=== PATIENT | male | born 1935 | race Caucasian/White ===

== ENCOUNTER 2021-08-18 07:13 | Emergency (ER) | payer OTHER ==
[2021-08-18 07:46] LABS: Absolute Lymphocytes (CBC) 2.1 K/uL (0.7-4.9); Hematocrit 35.6 % (39.6-49.0); Lymphocytes % 20.7 % (15.3-44.8); MPV 9.6 fL (7.6-11.3); RBC Red Blood Cell Count 3.47 M/uL (4.33-5.43)
[2021-08-18 08:08] LABS: Potassium 4.3 mmol/L (3.5-5.1); Troponin High Sensitivity 6.8 pg/mL (<58.9)
[2021-08-18] MEDS ORDERED: ALBUTEROL 2.5 MG/3 ML NEB SOL ONE (08:16)
[2021-08-18] MEDS ORDERED: METHYLPREDNISOLONE 125 MG INJ ONE (08:16)
[2021-08-18] MEDS ORDERED: IPRATROPIUM BROM 0.5MG/2.5ML ONE (08:16)
--- NOTE | 2021-08-18 08:26 | RAD REPORT ---
EXAM DESCRIPTION: RAD - Chest Single View - 08/18/2021 7:50 am CLINICAL HISTORY: CHEST PAIN, shortness of breath COMPARISON: Two view chest December 2018 TECHNIQUE: AP portable chest image was obtained 08/18/2021 7:50 am . FINDINGS: Lung volumes are low accentuating the heart size, vasculature and lung markings. No focal consolidations seen. Mild failure or volume overload could be masked in this setting. No measurable p leural effusion and no pneumothorax. No acute bony abnormality seen. No acute aortic findings suspect ed. IMPRESSION: Limited portable study showing cardiac enlargement, vascular engorgement and prominent l ruth markings probably due to the low lung volumes. Mild failure or volume overload could be masked and need correlation with clinical presentation.
--- NOTE | 2021-08-18 09:46 | EDPHYS ---
Physician Documentation [facility] Name: Moncho Braun Age: 86 yrs Sex: Male : 1935 Arrival Date: 08/18/2021 Time: 07:13 Bed 20 Private MD: ED Physician Tanya Quarles HPI: 08/18 07:37 This 86 yrs old Male presents to ER via Wheelchair with complaints of Chest Pain. ma2 07:37 Onset: gradually, 1 day(s) ago. Associated signs and symptoms: Pertinent positives: ma2 cough, Pertinent negatives: cough, lower extremity pain, lightheadedness, nausea, syncope, vomiting. Severity of pain: At its worst the pain was moderate in the emergency department the pain is unchanged. Historical: - Allergies: 07:24 No Known Allergies; iw - PMHx: 07:24 seasonal allergies; iw - PSHx: 07:24 milagros knee; rotator cuff; iw - Immunization history:: Adult Immunizations up to date. - Social history:: Patient/guardian denies using alcohol, street drugs, The patient lives with family, Smoking status: Patient denies any tobacco usage or history of. - Family history:: not pertinent. ROS: 07:37 Constitutional: Negative for fever, chills, and weight loss. ma2 07:37 All other systems are negative. Exam: 07:37 Constitutional: This is a well developed, well nourished patient who is awake, alert, ma2 and in no acute distress. Head/Face: Normocephalic, atraumatic. Eyes: Pupils equal round and reactive to light, extra-ocular motions intact. Lids and lashes normal. Conjunctiva and sclera are non-icteric and not injected. Cornea within normal limits. Periorbital areas with no swelling, redness, or edema. ENT: Nares patent. No nasal discharge, no septal abnormalities noted. Tympanic membranes are normal and external auditory canals are clear. Oropharynx with no redness, swelling, or masses, exudates, or evidence of obstruction, uvula midline. Mucous membranes moist. Neck: Trachea midline, no thyromegaly or masses palpated, and no cervical lymphadenopathy. Supple, full range of motion without nuchal rigidity, or vertebral point tenderness. No Meningismus. Chest/axilla: Normal chest wall appearance and motion. Nontender with no deformity. No lesions are appreciated. Cardiovascular: Regular rate and rhythm with a normal S1 and S2. No gallops, murmurs, or rubs. Normal PMI, no JVD. No pulse deficits. Respiratory: Lungs have equal breath sounds bilaterally, clear to auscultation and percussion. No rales, rhonchi or wheezes noted. No increased work of breathing, no retractions or nasal flaring. Abdomen/GI: Soft, non-tender, with normal bowel sounds. No distension or tympany. No guarding or rebound. No evidence of tenderness throughout. Skin: Warm, dry with normal turgor. Normal color with no rashes, no lesions, and no evidence of cellulitis. MS/ Extremity: Pulses equal, no cyanosis. Neurovascular intact. Full, normal range of motion. Neuro: Awake and alert, GCS 15, oriented to person, place, time, and situation. Cranial nerves II-XII grossly intact. Motor strength 5/5 in all extremities. Sensory grossly intact. Cerebellar exam normal. Normal gait. Vital Signs: 07:22 BP 161 / 84; Pulse 89; Resp 22; Pulse Ox 95% on R/A; Weight 98.43 kg; iw 09:00 BP 141 / 73; Pulse 82; Resp 19; Pulse Ox 100% ; fierro MDM: 07:29 Patient medically screened. ma2 07:37 Differential diagnosis: abnormal EKG, anxiety, coronary artery disease chest wall pain, ma2 gastroesophageal reflux disease (GERD), stable angina. 09:44 Data reviewed: vital signs, nurses notes. Response to treatment: the patient's symptoms ma2 have markedly improved after treatment. ED course: Overall patient's symptoms improved, and the chest 86-year-old male, possibility of ACS still persist, and therefore I recommended admission I had lengthy discussion with the patient about the reason for observation for ACS rule out due to chest heaviness, patient insist that he does not want to be admitted, he would like to leave AMA and follow-up with center lead consultant in the next few days, I gave return precaution, patient is aware about the risk of leaving AMA that may include having MO or .. 08/18 07:19 Order name: Basic Metabolic Panel; Complete Time: ma2 08/18 07:19 Order name: CBC with Diff; Complete Time: :29 08/18 07:19 Order name: Magnesium; Complete Time: 09:29 08/18 07:19 Order name: NT PRO-BNP; Complete Time: 09:29 08/18 07:19 Order name: Troponin HS; Complete Time: 09:29 08/18 07:19 Order name: XRAY Chest (1 view); Complete Time: 09:29 08/18 07:19 Order name: EKG; Complete Time: 07:19 08/18 07:19 Order name: Cardiac monitoring; Complete Time: 07:40 08/18 07:19 Order name: EKG - Nurse/Tech; Complete Time: 07:40 08/18 07:19 Order name: IV Saline Lock; Complete Time: 07:40 08/18 07:19 Order name: Labs collected and sent; Complete Time: 07:40 08/18 07:19 Order name: O2 Per Protocol; Complete Time: 07:40 08/18 07:19 Order name: O2 Sat Monitoring; Complete Time: 07:40 ma2 Administered Medications: 08:18 Drug: Albuterol 10 mg Route: Inhalation; fierro 08:18 Drug: AtroVENT (ipratropium) Aerosol 0.5 mg Route: Inhalation; fierro 08:18 Drug: SOLU-Medrol (methylPrednisoLONE) 125 mg Route: IVP; Site: left antecubital; fierro 08:19 Follow up: Response: No adverse reaction fierro Disposition Summary: 08/18/21 09:45 Left Against Medical Advice Location: Home ma2 Problem: new ma2 Symptoms: are unchanged ma2 Condition: Stable ma2 Diagnosis - Chest pain, unspecified ma2 Followup: ma2 - With: Private Physician - When: Tomorrow - Reason: If symptoms return, Continuance of care Discharge Instructions: - Discharge Summary Sheet ma2 - Nonspecific Chest Pain, Adult ma2 Prescriptions: - ALBUTEROL INAHALERS - inhale 1 puff by INHALATION route 6 times per day; 100 puff; Refills: 0, ma2 Product Selection Permitted - Albuterol Sulfate 2.5 mg /3 mL (0.083 %) Inhalation Solution for Nebulization - inhale 1 unit by NEBULIZATION route every 8 hours As needed; 1 box; Refills: 0, ma2 Product Selection Permitted - Zithromax Z-Jose 250 mg Oral Tablet - take 1 tablet by ORAL route as directed for 5 days Day 1 - take two (2) tablets ma2 one time. Day 2, 3, 4 , 5 take one (1) tablet once daily.; 6 tablet; Refills: 0, Product Selection Permitted - Medrol (Jose) 4 mg Oral Tablets, Dose Pack - take 1 tablet by ORAL route as directed - follow package instructions; 1 ma2 packet; Refills: 0, Product Selection Permitted Signatures: Dispatcher [employer] Mahnaz Franco, Tanya Paige RN, MD MD ma2 Lorri Zimmerman RN RN fierro
--- NOTE | 2021-08-18 09:46 | ER ---
Nurse's Notes [facility] Name: Moncho Braun Age: 86 yrs Sex: Male : 1935 Arrival Date: 08/18/2021 Time: 07:13 Bed 20 Private MD: Diagnosis: Chest pain, unspecified Presentation: 08/18 07:22 Chief complaint: Patient states: chest pain and SOB since yesterday. Coronavirus iw screen: Client presents with at least one sign or symptom that may indicate coronavirus-19. Ebola Screen: Patient negative for fever greater than or equal to 101.5 degrees Fahrenheit, and additional compatible Ebola Virus Disease symptoms Patient denies exposure to infectious person. Patient denies travel to an Ebola-affected area in the 21 days before illness onset. No symptoms or risks identified at this time. Initial Sepsis Screen: Does the patient meet any 2 criteria? No. Patient's initial sepsis screen is negative. Does the patient have a suspected source of infection? No. Patient's initial sepsis screen is negative. Risk Assessment: Do you want to hurt yourself or someone else? Patient reports no desire to harm self or others. Onset of symptoms was August 18, 2021. 07:22 Method Of Arrival: Wheelchair iw 07:22 Acuity: ADDIE 3 iw Triage Assessment: 07:44 General: Appears in no apparent distress. Behavior is calm, cooperative. Pain: fierro Complains of pain in chest. Historical: - Allergies: 07:24 No Known Allergies; iw - PMHx: 07:24 seasonal allergies; iw - PSHx: 07:24 milagros knee; rotator cuff; iw - Immunization history:: Adult Immunizations up to date. - Social history:: Patient/guardian denies using alcohol, street drugs, The patient lives with family, Smoking status: Patient denies any tobacco usage or history of. - Family history:: not pertinent. Screenin:43 Abuse screen: Denies threats or abuse. Denies injuries from another. Nutritional fierro screening: No deficits noted. Tuberculosis screening: No symptoms or risk factors identified. Fall Risk None identified. Assessment: 07:43 Pain: Complains of pain in chest Pain does not radiate. Pain began suddenly. fierro Cardiovascular: Reports chest pain. Vital Signs: 07:22 BP 161 / 84; Pulse 89; Resp 22; Pulse Ox 95% on R/A; Weight 98.43 kg; iw 09:00 BP 141 / 73; Pulse 82; Resp 19; Pulse Ox 100% ; fierro ED Course: 07:13 Patient arrived in ED. rg4 07:18 Tanya Quarles MD is Attending Physician. ma2 07:24 Triage completed. iw 07:25 Lorri Zimmerman, HAI is Primary Nurse. fierro 07:25 Arm band placed on. iw 07:43 Patient has correct armband on for positive identification. lead printer on. Pulse fierro ox on. NIBP on. 07:43 No provider procedures requiring assistance completed. Inserted saline lock: 20 gauge fierro in left antecubital area, using aseptic technique. Patient maintains SpO2 saturation greater than 95% on room air. 07:52 XRAY Chest (1 view) In Process Unspecified. EDMS Administered Medications: 08:18 Drug: Albuterol 10 mg Route: Inhalation; fierro 08:18 Drug: AtroVENT (ipratropium) Aerosol 0.5 mg Route: Inhalation; fierro 08:18 Drug: SOLU-Medrol (methylPrednisoLONE) 125 mg Route: IVP; Site: left antecubital; fierro 08:19 Follow up: Response: No adverse reaction fierro Medication: 07:43 VIS not applicable for this client. fierro Outcome: 10:30 AMA AMA form signed fierro 10:30 Condition: good 10:30 Discharge instructions given to patient. 10:30 Patient left the ED. fierro Signatures: Dispatcher [employer] EDMS Mahnaz Durant RN RN iw Garcia, Rubi rg4 Tanya Quarles MD MD tx2 Lorri Zimmerman RN RN fierro
[2021-08-18 11:02] VITALS: BP 141/73; O2SAT 100
--- NOTE | 2021-08-21 12:00 | EKG ---
Test Date: 2021-08-18 Test Time: 07:18:40 Transliterator: ANEN MEASUREMENT RESULTS: Intervals: Rate: 86 GA: 238 QRSD: 76 QT: 348 QTc: 416 [place]: P: 57 GA: 238 QRS: -8 T: 13 INTERPRETIVE STATEMENTS: Sinus rhythm with 1st degree AV block with premature atrial complexes Anterior infarct, age undetermined Abnormal ECG Compared to ECG 08/18/2021 07:18:09 Atrial premature complex(es) now present Myocardial infarct finding still present Electronically Signed On 08-21-21 11:52:40 CDT by Nabeel Tinajero
--- NOTE | 2021-08-21 12:00 | EKG ---
Test Date: 2021-08-18 Test Time: 07:18:09 Rental Agent: ANNE MEASUREMENT RESULTS: Intervals: Rate: 88 ND: 226 QRSD: 80 QT: 356 QTc: 430 [place]: P: 60 ND: 226 QRS: -10 T: 8 INTERPRETIVE STATEMENTS: Sinus rhythm with 1st degree AV block Possible Anterior infarct, age undetermined Abnormal ECG No previous ECG available for comparison Electronically Signed On 08-21-21 11:52:41 CDT by Nabeel Tinajero
== END 2021-08-18 10:30 | disposition left against medical advice (07) ==
LOC: ER 07:13
DX: R07.9 Chest pain, unspecified (principal); R05.9 Cough, unspecified
CPT/HCPCS: 93005 ×2; 85025; 80048; 36415; 83735; 84484; 83880; 71045; 96374; 99285; J2930

== ENCOUNTER 2022-05-10 10:30 | Day surgery (SDC) | payer OTHER ==
[2022-05-08 11:15] LABS: Absolute Lymphocytes (CBC) 1.9 K/uL (0.7-4.9); Hematocrit 37.8 % (39.6-49.0); Lymphocytes % 22.9 % (15.3-44.8); MCV 102.5 fL (80-100); RBC Red Blood Cell Count 3.69 M/uL (4.33-5.43)
[2022-05-08 11:19] LABS: Protime INR 1.05
[2022-05-08 11:24] LABS: Potassium 4.6 mmol/L (3.5-5.1)
--- NOTE | 2022-05-08 11:39 | RAD REPORT ---
EXAM DESCRIPTION: Isaias Ludwig And Maciel (2 Views)05/08/2022 11:00 am CLINICAL HISTORY: Preop for cardiac catheterization COMPARISON: 2021 FINDINGS: The lungs appear clear of acute infiltrate. The heart is normal size IMPRESSION: No acute abnormalities displayed
[2022-05-10] MEDS ORDERED: NA CHLORIDE 0.9% 500 ML ONE (10:48)
[2022-05-10] MEDS ORDERED: FENTANYL CITR 100 MCG/2 ML ONE (11:56)
[2022-05-10] MEDS ORDERED: MIDAZOLAM HCL 2 MG/2 ML INJ ONE (11:56)
[2022-05-10] MEDS ORDERED: CLOPIDOGREL 75 MG TABLET ONE (11:57)
[2022-05-10] MEDS ORDERED: ASPIRIN 325 MG TAB ONE (11:57)
[2022-05-10] MEDS ORDERED: TICAGRELOR 90 MG TABLET PO ONE (11:57)
[2022-05-10] MEDS ORDERED: HEPARIN 10,000 UNIT/10 ML VIAL IV ONE (11:57)
[2022-05-10] MEDS ORDERED: HEPARIN 5000 UNIT/ML 1 ML VIAL ONE (11:57)
[2022-05-10] MEDS ORDERED: ATROPINE SULF 1 MG/10 ML SYR IV ONE (11:57)
[2022-05-10] MEDS ORDERED: VERAPAMIL HCL 10 MG/4 ML VIAL IV ONE (11:57)
[2022-05-10] MEDS ORDERED: LIDOCAINE 1% 20 ML MDV ONE (12:58)
[2022-05-10 14:06] LABS: SARS-CoV-2 Antigen Rapid Res Negative (Negative)
[2022-05-10 15:01] VITALS: BP 151/72; O2SAT 99
== END 2022-05-10 15:02 | disposition home or self-care (01) ==
LOC: CCL 10:30
PROVIDERS: ATTEND Internal Medicine
DX: I25.110 Atherosclerotic heart disease of native coronary artery with unstable angina pectoris (principal); N18.30 Chronic kidney disease, stage 3 unspecified; R03.0 Elevated blood-pressure reading, without diagnosis of hypertension; Z79.82 Long term (current) use of aspirin; Z79.899 Other long term (current) drug therapy; Z20.822 Contact with and (suspected) exposure to COVID-19
CPT/HCPCS: 85025; 80048; 36415 ×2; 85610; 85730; 71046; 93454; 87811; C1893; C1760; Q9967; G0269; J1644; J2001; J2250; J3010; J7040; J0461

== ENCOUNTER 2024-04-03 07:04 | Inpatient (IN) | payer OTHER ==
--- OUTSIDE RECORDS SUMMARY | 2024-04-03 07:12 | XMS REPORT | Continuity of Care Document ---
Author Name Unknown Address [address] [facility]. [address] [place] [address] [facility] thconnect Address [address] [facility]. [address] [place] [address] Care Team Providers Care Personal Investment Adviser Name Role Phone Katiana Garcia Attending Clinician Unavailable Katiana Garcia Admitting Clinician Unavailable Payers Payer Name Policy Type Policy Number Effective Date Expirati on Date Source Allergies, Adverse Reactions, Alerts Allergy Name Allergy Type Status Severity Reaction(s) Onset Date Inactive Date Treating Clinician Comments Source No Known Allergie s DA Active U 05-16 00:00: 00 [facility] No Known Contrast Allergie s DA Active U 03-24 00:00: 00 [facility] No Known Drug Allergie s DA Active U 03-24 00:00: 00 [facility] No Known Food Allergie s DA Active U 03-24 00:00: 00 [facility] No Known Other Allergie s DA Active U 03-24 00:00: 00 [facility] No Known Drug Intolera nces DA Active U 03-23 00:00: 00 [facility] Procedures Procedure Date / Time Performed Performing Clinicia n Source [id number] 2022-05-18 00:00:00 [facility]01 [facility] [id number] 2022-05-18 00:00:00 [facility]01 [facility] [id number] 2022-05-11 00:00:00 [facility]01 [facility] [id number] 2022-05-11 00:00:00 [facility]01 [facility] [id number] 2022-05-11 00:00:00 [facility]01 [facility] [id number] 2022-05-11 00:00:00 [facility]01 [facility] [id number] 2022-05-11 00:00:00 [facility]01 [facility] [id number] 2022-05-11 00:00:00 [facility]01 [facility] [id number] 2022-05-11 00:00:00 [facility]01 [facility] [id number] 2022-05-11 00:00:00 [facility]01 [facility] [id number] 2022-05-10 00:00:00 [facility]01 [facility] [id number] 2022-05-10 00:00:00 [facility]01 [facility] [id number] 2022-05-10 00:00:00 [facility]01 [facility] [id number] 2022-05-10 00:00:00 [facility]01 [facility] [id number] 2022-05-10 00:00:00 [facility]01 [facility] Encounters Start Date/Time End Date/Time Encounter Type Admission Type Attending Clinicians Care Facility Care Department Encounter ID Source 2022-05-10 16:28:00 2022-06-03 14:12:00 Inpatient UR Katiana Garcia [facility] INTE [id number] 90 [facility] Results Test Description Test Time Test Comments Results Result Co mments Source CBC W/AUTO [id number] 03:50:00* Test Item Value Reference Range Interpretation Comme nts WHITE BLOOD CELL (test code = WBC) 5.6 x10 3/uL 4.5-11.0 N RED BLOOD CELL (test code = RBC) 2.43 x10 6/uL 4.00-5.60 L HEMOGLOBIN (test code = HGB) 8.2 g/dL 12.5-16.9 L HEMATOCRIT (test code = HCT) 25.8 % 37.5-50.7 L MEAN CELL VOLUME (test code = MCV) 106.2 fL 81.0-99.0 H MEAN CELL HGB (test code = MCH) 33.7 pg 27.0-33.0 H MEAN CELL HGB CONCETRATION (test code = MCHC) 31.8 g/dL 33.0-37.0 L RED CELL DISTRIBUTION WIDTH CV (test code = RDW) 16.0 % 11.5-14.5 H RED CELL DISTRIBUTION WIDTH SD (test code = RDW-SD) 61.8 fL 37.0-54.0 H PLATELET COUNT (test code = PLT) 81 x10 3/uL 150-400 L SEE PLATELET ESTIMATEPreviously reported result: 81 x10\\S\\3/uLEdited by: BERNADETTE on 06/03/22:677960/04/26 347: PLT previously reported as: 81 L x10\\S\\3/uL MEAN PLATELET VOLUME (test code = MPV) 12.4 fL 7.0-9.0 H NEUTROPHIL % (test code = NT%) 70.6 % 56.0-77.0 N IMMATURE GRANULOCYTE % (test code = IG%) 0.9 % 0.0-2.0 N LYMPHOCYTE % (test code = LY%) 17.4 % 14.0-32.0 N MONOCYTE % (test code = MO%) 8.6 % 4.8-9.0 N EOSINOPHIL % (test code = EO%) 2.3 % 0.3-3.7 N BASOPHIL % (test code = BA%) 0.2 % 0.0-2.0 N NUCLEATED RBC % (test code = NRBC%) 0.0 % 0-0 N NEUTROPHIL # (test code = NT#) 3.94 x10 3/uL 2.0-7.6 N IMMATURE GRANULOCYTE # (test code = IG#) 0.05 x10 3/uL 0.00-0.03 H LYMPHOCYTE # (test code = LY#) 0.97 x10 3/uL 1.0-3.8 L MONOCYTE # (test code = MO#) 0.48 x10 3/uL 0.1-0.8 N EOSINOPHIL # (test code = EO#) 0.13 x10 3/uL 0.0-0.2 N BASOPHIL # (test code = BA#) 0.01 x10 3/uL 0.0-0.2 N NUCLEATED RBC # (test code = NRBC#) 0.00 x10 3/uL 0.0-0.1 N MANUAL DIFF REQUIRED (test code = MDIFF) NO RBC [id number] 03:50:00* Test Item Value Reference Range Interpretation Comme nts ANISOCYTOSIS (test code = ANISO) 1+ POLYCHROMASIA (test code = POLC) 2+ POIKILOCYTOSIS (test code = POIK) 1+ MACROCYTOSIS (test code = MACR) 1+ PLT [id number] 03:50:00* Test Item Value Reference Range Interpretation Comme nts PLATELET ESTIMATE (test code = PLTEST) 120-150 THOUSAND ADEQUATE PLATELET MORPHOLOGY (test code = PLTMORPH) PLATELET AGGREGATES SEEN. BASIC METABOLIC [id number] 03:14:00* Test Item Value Reference Range Interpretation Comme nts SODIUM (test code = NA) 143 mEq/L 134-147 N POTASSIUM (test code = K) 4.2 mEq/L 3.4-5.0 N CHLORIDE (test code = CL) 108 mEq/L 100-108 N CARBON DIOXIDE (test code = CO2) 29 mEq/l 21-33 N ANION GAP (test code = GAP) 10 0-20 N GLUCOSE (test code = GLU) 110 mg/dL 70-110 N BLOOD UREA NITROGEN (test code = BUN) 40 mg/dL 7-18 H GLOMERULAR FILTRATION RATE (test code = GFR) 42.0 70-80 L The Glomerular Filtration Rate is a calculated parameterbased on serum Creatinine, patient age and sex. GFR valuesless than 60 mL/min/1.73 square meters are indicative ofChronic Kidney Disease. Values less than 15 mL/min/1.73square meters indicate Kidney failure. The calculation forGFR is based on the CKD-EPI (2020) calculation. This formulais race indifferent and is the recommended formula for GFRby the National Kidney Foundation for Adults.The GFR will not calculate if the sex is unknown or if thepatient's age is <18 years. CREATININE (test code = CREAT) 1.6 mg/dL 0.6-1.3 H CALCIUM (test code = CA) 7.8 mg/dL 8.0-10.5 L [id number] 03:14:00* Test Item Value Reference Range Interpretation Comme nts MAGNESIUM (test code = MAG) 2.02 mg/dL 1.80-2.40 N - XR CHEST 1 [id number] 00:00:00 [facility] 1935 Sex: M FAX: Vadim Jenkins [phone] [place]: St: ADM FAX: Katiana Gregory MD [phone] --- Name: TONO MAHAN [facility] : 1935 Age/S: 87/M [address] [place] [address] Unit #: [id number] Loc: G.3359 [place] [address] Phys: Vadim Amaro MD Acct: [id number] Dis Date: Status: ADM IN PHONE #: [phone] Exam Date: 06/03/2022 0747 FAX #: [phone] Reason: R/O PLEURAL EFFUSION EXAMS:CPT CODE: [id number] XR CHEST 1 V 54538 PROCEDURE INFORMATION: Exam: XR Chest Exam date and time: 06/03/2022 7:42 AM Age: 87 years old Clinical indication: Condition or disease; Lung condition and disease; Pleural effusion; Other: Na; Additional info: R/O pleural effusion TECHNIQUE: Imaging protocol: R adiologic exam of the chest. Views: 1 view. COMPARISON: CR XR CHEST 1V 06/02/2022 11:19 AM FINDINGS: Lungs: Increased retrocardiac atelectasis or early infiltrate. Pleural spaces: Blunting of the left costophrenic angle secondary to pleural thickening, small effusion or atelectasis. Heart/Mediastinum: Cardiomegaly. Bones/joints: Post sternotomy change. IMPRESSION: 1. Increased retrocardiac atelectasis or early infiltrate. 2. Blunting of the left costophrenic angle secondary to pleural thickening, small effusion or atelectasis. at 0821 Reported and signed by: Paulo Morris M.D. CC: Vadim Amaro MD; Katiana Garcia MD Technologist: Ehsan Maza; Sho Hopkins, (R) Trnscrd Date/Time/By: 06/03/2022 (820) : By: [email or web address] Orig Print D/T: S: 06/03/2022 (820) PAGE 1 Signed ReportGLUCOSE [id number] 20:34:00* Test Item Value Reference Range Interpretation Comme nts GLUCOSE BEDSIDE (test code = GLUBED) 204 MG/DL 70-110 H Performed by cer tified starting sheet tank operator at [facility] GLUCOSE [id number] 16:51:00* Test Item Value Reference Range Interpretation Comme nts GLUCOSE BEDSIDE (test code = GLUBED) 114 MG/DL 70-110 H Performed by [facility] tified starting sheet tank operator at [facility] GLUCOSE [id number] 11:59:00* Test Item Value Reference Range Interpretation Comme nts GLUCOSE BEDSIDE (test code = GLUBED) 120 MG/DL 70-110 H Performed by cer sandra starting sheet tank operator at [facility] CBC W/AUTO [id number] 08:59:00* Test Item Value Reference Range Interpretation Comme nts WHITE BLOOD CELL (test code = WBC) 4.9 x10 3/uL 4.5-11.0 N RED BLOOD CELL (test code = RBC) 2.48 x10 6/uL 4.00-5.60 L HEMOGLOBIN (test code = HGB) 8.2 g/dL 12.5-16.9 L HEMATOCRIT (test code = HCT) 26.4 % 37.5-50.7 L MEAN CELL VOLUME (test code = MCV) 106.5 fL 81.0-99.0 H MEAN CELL HGB (test code = MCH) 33.1 pg 27.0-33.0 H MEAN CELL HGB CONCETRATION (test code = MCHC) 31.1 g/dL 33.0-37.0 L RED CELL DISTRIBUTION WIDTH CV (test code = RDW) 15.8 % 11.5-14.5 H RED CELL DISTRIBUTION WIDTH SD (test code = RDW-SD) 61.0 fL 37.0-54.0 H PLATELET COUNT (test code = PLT) 107 x10 3/uL 150-400 L MEAN PLATELET VOLUME (test c ode = MPV) 12.4 fL 7.0-9.0 H NEUTROPHIL % (test code = NT%) 68.7 % 56.0-77.0 N IMMATURE GRANULOCYTE % (test code = IG%) 0.8 % 0.0-2.0 N LYMPHOCYTE % (test code = LY%) 19.4 % 14.0-32.0 N MONOCYTE % (test code = MO%) 8.1 % 4.8-9.0 N EOSINOPHIL % (test code = EO%) 2.8 % 0.3-3.7 N BASOPHIL % (test code = BA%) 0.2 % 0.0-2.0 N NUCLEATED RBC % (test code = NRBC%) 0.0 % 0-0 N NEUTROPHIL # (test code = NT#) 3.39 x10 3/uL 2.0-7.6 N IMMATURE GRANULOCYTE # (test code = IG#) 0.04 x10 3/uL 0.00-0.03 H LYMPHOCYTE # (test code = LY#) 0.96 x10 3/uL 1.0-3.8 L MONOCYTE # (test code = MO#) 0.40 x10 3/uL 0.1-0.8 N EOSINOPHIL # (test code = EO#) 0.14 x10 3/uL 0.0-0.2 N BASOPHIL # (test code = BA#) 0.01 x10 3/uL 0.0-0.2 N NUCLEATED RBC # (test code = NRBC#) 0.00 x10 3/uL 0.0-0.1 N MANUAL DIFF REQUIRED (test c ode = MDIFF) NO RBC [id number] 08:59:00* Test Item Value Reference Range Interpretation Comme nts ANISOCYTOSIS (test code = ANISO) 1+ POLYCHROMASIA (test code = POLC) 2+ MACROCYTOSIS (test code = MACR) 1+ GLUCOSE [id number] 08:49:00* Test Item Value Reference Range Interpretation Comme nts GLUCOSE BEDSIDE (test code = GLUBED) 103 MG/DL 70-110 N 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 BASIC METABOLIC [id number] 08:18:00* Test Item Value Reference Range Interpretation Comme nts SODIUM (test code = NA) 140 mEq/L 134-147 N POTASSIUM (test code = K) 4.1 mEq/L 3.4-5.0 N CHLORIDE (test code = CL) 108 mEq/L 100-108 N CARBON DIOXIDE (test code = CO2) 26 mEq/l 21-33 N ANION GAP (test code = GAP) 10 0-20 N GLUCOSE (test code = GLU) 98 mg/dL 70-110 N BLOOD UREA NITROGEN (test code = BUN) 31 mg/dL 7-18 H GLOMERULAR FILTRATION RATE (test code = GFR) 45.3 70-80 L The Glomerular Filtration Rate is a calculated parameterbased on serum Creatinine, patient age and sex. GFR valuesless than 60 mL/min/1.73 square meters are indicative ofChronic Kidney Disease. Values less than 15 mL/min/1.73square meters indicate Kidney failure. The calculation forGFR is based on the CKD-EPI (202) calculation. This formulais race indifferent and is the recommended formula for GFRby the National Kidney Foundation for Adults.The GFR will not calculate if the sex is unknown or if thepatient's age is <18 years. CREATININE (test code = CREAT) 1.5 mg/dL 0.6-1.3 H CALCIUM (test code = CA) 8.3 mg/dL 8.0-10.5 N [id number] 08:18:00* Test Item Value Reference Range Interpretation Comme nts MAGNESIUM (test code = MAG) 2.01 mg/dL 1.80-2.40 N - XR CHEST 1 [id number] 00:00:00 [facility] : 1935 Sex: M FAX: Vadim Jenkins [phone] [place]: St: ADM FAX: Katiana Gregory MD [phone] FAX: Soifa Shields [facility] [phone] Name: TONO MAHANRED [facility] : 1935 Age/S: 87/M [address] [place] [address] Unit #: [id number] Loc: G.3359 [place] [address] Phys: Sofia Lai [facility] Acct: [id number] Dis Date: Status: ADM IN PHONE #: [phone] Exam Date: 06/02/2022 1135 FAX #: [phone] Reason: DYSPNEA EXAMS: CPT CODE: [id number] XR CHEST 1 V 88180 PROCEDURE INFORMATION: Exam: XR Ch est Exam date and time: 06/02/2022 11:19 AM Age: 87 years old Clinical indication: Other: Dyspnea TECHNIQUE: Imaging protocol: Radiologic exam of the chest. Views: 1 view. COMPARISON: CR XR CHEST 1V 05/31/2022 8:33 AM FINDINGS: Lungs: The bilateral lung opacities are grossly stable. Pleural spaces: Nopleural effusion. No pneumothorax. Heart/Mediastinum: The enlarged heart size is stable. Vasculature: Atherosclerotic calcifications. Bones/joints: Median sternotomy wires. Stable. IMPRESSION: Grossly stable exam. at 1326 Reported and signed by: Simon Rogers M.D. CC: Vadim Amaro MD; Katiana Garcia MD; Sofia Lai Technologist: ANIKA Potter) Trnscrd Date/Time/By: 06/02/2022 (6446) : By: [email or web address] Orig Print D/T: S: 06/02/2022 (0363) PAGE 1 Signed ReportGLUCOSE BEDSIDE 2022-06-01 19:45:00* Test Item Value Reference Range Interpretation Comme nts GLUCOSE BEDSIDE (test code = GLUBED) 159 MG/DL 70-110 H Performed by cer tified starting sheet tank operator at [facility] GLUCOSE [id number] 17:08:00* Test Item Value Reference Range Interpretation Comme nts GLUCOSE BEDSIDE (test code = GLUBED) 123 MG/DL 70-110 H Performed by cer tified starting sheet tank operator at [facility] GLUCOSE [id number] 12:28:00* Test Item Value Reference Range Interpretation Comme nts GLUCOSE BEDSIDE (test code = GLUBED) 180 MG/DL 70-110 H Performed by cer tified starting sheet tank operator at [facility] GLUCOSE [id number] 08:25:00* Test Item Value Reference Range Interpretation Comme nts GLUCOSE BEDSIDE (test code = GLUBED) 105 MG/DL 70-110 N Performed by cer tified starting sheet tank operator at [facility] BASIC METABOLIC [id number] 05:24:00* Test Item Value Reference Range Interpretation Comme nts SODIUM (test code = NA) 140 mEq/L 134-147 N POTASSIUM (test code = K) 4.1 mEq/L 3.4-5.0 N CHLORIDE (test code = CL) 107 mEq/L 100-108 N CARBON DIOXIDE (test code = CO2) 27 mEq/l 21-33 N ANION GAP (test code = GAP) 10 0-20 N GLUCOSE (test code = GLU) 110 mg/dL 70-110 N BLOOD UREA NITROGEN (test code = BUN) 37 mg/dL 7-18 H GLOMERULAR FILTRATION RATE (test code = GFR) 45.3 70-80 L The Glomerular Filtration Rate is a calculated parameterbased on serum Creatinine, patient age and sex. GFR valuesless than 60 mL/min/1.73 square meters are indicative ofChronic Kidney Disease. Values less than 15 mL/min/1.73square meters indicate Kidney failure. The calculation forGFR is based on the CKD-EPI (2020) calculation. This formulais race indifferent and is the recommended formula for GFRby the National Kidney Foundation for Adults.The GFR will not calculate if the sex is unknown or if thepatient's age is <18 years. CREATININE (test code = CREAT) 1.5 mg/dL 0.6-1.3 H CALCIUM (test code = CA) 8.0 mg/dL 8.0-10.5 N [id number] 05:24:00* Test Item Value Reference Range Interpretation Comme nts MAGNESIUM (test code = MAG) 1.98 mg/dL 1.80-2.40 N CBC W/AUTO [id number] 05:06:00* Test Item Value Reference Range Interpretation Comme nts WHITE BLOOD CELL (test code = WBC) 6.2 x10 3/uL 4.5-11.0 N RED BLOOD CELL (test code = RBC) 2.42 x10 6/uL 4.00-5.60 L HEMOGLOBIN (test code = HGB) 8.0 g/dL 12.5-16.9 L HEMATOCRIT (test code = HCT) 25.8 % 37.5-50.7 L MEAN CELL VOLUME (test code = MCV) 106.6 fL 81.0-99.0 H MEAN CELL HGB (test code = MCH) 33.1 pg 27.0-33.0 H MEAN CELL HGB CONCETRATION (test code = MCHC) 31.0 g/dL 33.0-37.0 L RED CELL DISTRIBUTION WIDTH CV (test code = RDW) 15.9 % 11.5-14.5 H RED CELL DISTRIBUTION WIDTH SD (test code = RDW-SD) 61.8 fL 37.0-54.0 H PLATELET COUNT (test code = PLT) 101 x10 3/uL 150-400 L IMMATURE PLATELET FRACTION (test code = IPF) 10.3 % 0.9-11.2 N MEAN PLATELET VOLUME (test c ode = MPV) 12.0 fL 7.0-9.0 H NEUTROPHIL % (test code = NT%) 69.0 % 56.0-77.0 N IMMATURE GRANULOCYTE % (test code = IG%) 1.1 % 0.0-2.0 N LYMPHOCYTE % (test code = LY%) 17.7 % 14.0-32.0 N MONOCYTE % (test code = MO%) 9.1 % 4.8-9.0 H EOSINOPHIL % (test code = EO%) 2.9 % 0.3-3.7 N BASOPHIL % (test code = BA%) 0.2 % 0.0-2.0 N NUCLEATED RBC % (test code = NRBC%) 0.0 % 0-0 N NEUTROPHIL # (test code = NT#) 4.30 x10 3/uL 2.0-7.6 N IMMATURE GRANULOCYTE # (test code = IG#) 0.07 x10 3/uL 0.00-0.03 H LYMPHOCYTE # (test code = LY#) 1.10 x10 3/uL 1.0-3.8 N MONOCYTE # (test code = MO#) 0.57 x10 3/uL 0.1-0.8 N EOSINOPHIL # (test code = EO#) 0.18 x10 3/uL 0.0-0.2 N BASOPHIL # (test code = BA#) 0.01 x10 3/uL 0.0-0.2 N NUCLEATED RBC # (test code = NRBC#) 0.00 x10 3/uL 0.0-0.1 N MANUAL DIFF REQUIRED (test c ode = MDIFF) NO GLUCOSE [id number] 20:33:00* Test Item Value Reference Range Interpretation Comme nts GLUCOSE BEDSIDE (test code = GLUBED) 199 MG/DL 70-110 H Performed by cer tified starting sheet tank operator at [facility] GLUCOSE [id number] 16:43:00* Test Item Value Reference Range Interpretation Comme nts GLUCOSE BEDSIDE (test code = GLUBED) 145 MG/DL 70-110 H Performed by cer tified starting sheet tank operator at [facility] GLUCOSE [id number] 11:28:00* Test Item Value Reference Range Interpretation Comme nts GLUCOSE BEDSIDE (test code = GLUBED) 117 MG/DL 70-110 H Performed by cer tified starting sheet tank operator at [facility] GLUCOSE [id number] 07:34:00* Test Item Value Reference Range Interpretation Comme nts GLUCOSE BEDSIDE (test code = GLUBED) 132 MG/DL 70-110 H Performed by [facility] tified starting sheet tank operator at [facility] BASIC METABOLIC [id number] 04:20:00* Test Item Value Reference Range Interpretation Comme nts SODIUM (test code = NA) 139 mEq/L 134-147 N POTASSIUM (test code = K) 4.4 mEq/L 3.4-5.0 N CHLORIDE (test code = CL) 106 mEq/L 100-108 N CARBON DIOXIDE (test code = CO2) 26 mEq/l 21-33 N ANION GAP (test code = GAP) 11 0-20 N GLUCOSE (test code = GLU) 124 mg/dL 70-110 H BLOOD UREA NITROGEN (test code = BUN) 45 mg/dL 7-18 H GLOMERULAR FILTRATION RATE (test code = GFR) 45.3 70-80 L The Glomerular Filtration Rate is a calculated parameterbased on serum Creatinine, patient age and sex. GFR valuesless than 60 mL/min/1.73 square meters are indicative ofChronic Kidney Disease. Values less than 15 mL/min/1.73square meters indicate Kidney failure. The calculation forGFR is based on the CKD-EPI (202) calculation. This formulais race indifferent and is the recommended formula for GFRby the National Kidney Foundation for Adults.The GFR will not calculate if the sex is unknown or if thepatient's age is <18 years. CREATININE (test code = CREAT) 1.5 mg/dL 0.6-1.3 H CALCIUM (test code = CA) 8.0 mg/dL 8.0-10.5 N [id number] 04:20:00* Test Item Value Reference Range Interpretation Comme nts MAGNESIUM (test code = MAG) 2.00 mg/dL 1.80-2.40 N CBC W/AUTO [id number] 03:51:00* Test Item Value Reference Range Interpretation Comme nts WHITE BLOOD CELL (test code = WBC) 8.6 x10 3/uL 4.5-11.0 N RED BLOOD CELL (test code = RBC) 2.40 x10 6/uL 4.00-5.60 L HEMOGLOBIN (test code = HGB) 7.9 g/dL 12.5-16.9 L HEMATOCRIT (test code = HCT) 25.2 % 37.5-50.7 L MEAN CELL VOLUME (test code = MCV) 105.0 fL 81.0-99.0 H MEAN CELL HGB (test code = MCH) 32.9 pg 27.0-33.0 N MEAN CELL HGB CONCETRATION (test code = MCHC) 31.3 g/dL 33.0-37.0 L RED CELL DISTRIBUTION WIDTH CV (test code = RDW) 16.0 % 11.5-14.5 H RED CELL DISTRIBUTION WIDTH SD (test code = RDW-SD) 61.5 fL 37.0-54.0 H PLATELET COUNT (test code = PLT) 98 x10 3/uL 150-400 L IMMATURE PLATELET FRACTION (test code = IPF) 12.3 % 0.9-11.2 H MEAN PLATELET VOLUME (test c ode = MPV) 12.3 fL 7.0-9.0 H NEUTROPHIL % (test code = NT%) 74.0 % 56.0-77.0 N IMMATURE GRANULOCYTE % (test code = IG%) 0.9 % 0.0-2.0 N LYMPHOCYTE % (test code = LY%) 14.3 % 14.0-32.0 N MONOCYTE % (test code = MO%) 8.8 % 4.8-9.0 N EOSINOPHIL % (test code = EO%) 2.0 % 0.3-3.7 N BASOPHIL % (test code = BA%) 0.0 % 0.0-2.0 N NUCLEATED RBC % (test code = NRBC%) 0.0 % 0-0 N NEUTROPHIL # (test code = NT#) 6.33 x10 3/uL 2.0-7.6 N IMMATURE GRANULOCYTE # (test code = IG#) 0.08 x10 3/uL 0.00-0.03 H LYMPHOCYTE # (test code = LY#) 1.22 x10 3/uL 1.0-3.8 N MONOCYTE # (test code = MO#) 0.75 x10 3/uL 0.1-0.8 N EOSINOPHIL # (test code = EO#) 0.17 x10 3/uL 0.0-0.2 N BASOPHIL # (test code = BA#) 0.00 x10 3/uL 0.0-0.2 N NUCLEATED RBC # (test code = NRBC#) 0.00 x10 3/uL 0.0-0.1 N MANUAL DIFF REQUIRED (test c ode = MDIFF) NO - XR CHEST 1 [id number] 00:00:00 [facility] 1935 Sex: M FAX: Vadim Jenkins [phone] [place]: St: ADM FAX: Katiana Gregory MD [phone] FAX: Sofia Shields [phone] Name: TONO MAHAN [facility] : 1935 Age/S: 87/M [address] [place] [address] Unit #: [id number] Loc: [place] [address] Phys: Sofia Lai Acct: [id number] Dis Date: Status: ADM IN PHONE #: [phone] Exam Date: 05/31/2022901 FAX #: [phone] Reason: POst CABG EXAMS: CPT CODE: [id number] XR CHEST 1 V 04695 PROCEDURE INFORMATION: Exam: XR Ch est Exam date and time: 05/31/2022 8:33 AM Age: 87 years old Clinical indication: Other: Post cabg TECHNIQUE: Imaging protocol: Radiologic exam of the chest. Views: 1 view. COMPARISON: CR XR CHEST 1V 05/30/2022 5:43 AM FINDINGS: Lungs: Lung volumes are diminished. Indistinct perihilar and infrahilar opacities. Retrocardiac opacity partially obscuring the hemidiaphragm unchanged. Pleural spaces: There is no pneumothorax. The left costophrenic angle is indistinct. Heart/Mediastinum: Mild prominenceof the cardiomediastinal silhouette magnified by projection without interval change. Bones/joints: Sternotomy wires are intact. IMPRESSION: Stable postoperative chest. Pulmonary opacities compatible w ith edema versus inflammation. Grossly stable left basilar pleuroparenchymal changes. at 0938 Reported and signed by: Vitor Arvizu M.D. CC: Vadim Amaro MD; Katiana Garcia MD; Sofia Lai Technologist: RT Rosa Maria(R) Trnscrd Date/Time/By: 05/31/2022 (937) : By: Lv Orig Print D/T: S: 05/31/2022 (937) PAGE 1 Signed ReportGLUCOSE [id number] 20:37:00* Test Item Value Reference Range Interpretation Comme nts GLUCOSE BEDSIDE (test code = GLUBED) 184 MG/DL 70-110 H Performed by cer tified starting sheet tank operator at [facility] GLUCOSE [id number] 17:18:00* Test Item Value Reference Range Interpretation Comme nts GLUCOSE BEDSIDE (test code = GLUBED) 154 MG/DL 70-110 H Performed by cer tified starting sheet tank operator at [facility] BASIC METABOLIC [id number] 14:59:00* Test Item Value Reference Range Interpretation Comme nts SODIUM (test code = NA) 140 mEq/L 134-147 N POTASSIUM (test code = K) 4.4 mEq/L 3.4-5.0 N CHLORIDE (test code = CL) 106 mEq/L 100-108 N CARBON DIOXIDE (test code = CO2) 25 mEq/l 21-33 N ANION GAP (test code = GAP) 13 0-20 N GLUCOSE (test code = GLU) 124 mg/dL 70-110 H BLOOD UREA NITROGEN (test code = BUN) 37 mg/dL 7-18 H GLOMERULAR FILTRATION RATE (test code = GFR) 42.0 70-80 L The Glomerular Filtration Rate is a calculated parameterbased on serum Creatinine, patient age and sex. GFR valuesless than 60 mL/min/1.73 square meters are indicative ofChronic Kidney Disease. Values less than 15 mL/min/1.73square meters indicate Kidney failure. The calculation forGFR is based on the CKD-EPI (202) calculation. This formulais race indifferent and is the recommended formula for GFRby the National Kidney Foundation for Adults.The GFR will not calculate if the sex is unknown or if thepatient's age is <18 years. CREATININE (test code = CREAT) 1.6 mg/dL 0.6-1.3 H CALCIUM (test code = CA) 8.0 mg/dL 8.0-10.5 N [id number] 14:59:00* Test Item Value Reference Range Interpretation Comme nts MAGNESIUM (test code = MAG) 2.12 mg/dL 1.80-2.40 N GLUCOSE [id number] 12:00:00* Test Item Value Reference Range Interpretation Comme nts GLUCOSE BEDSIDE (test code = GLUBED) 78 MG/DL 70-110 N Performed by cer tified starting sheet tank operator at [facility] GLUCOSE [id number] 08:02:00* Test Item Value Reference Range Interpretation Comme nts GLUCOSE BEDSIDE (test code = GLUBED) 118 MG/DL 70-110 H Performed by cer sandra starting sheet tank operator at [facility] CBC W/AUTO [id number] 06:41:00* Test Item Value Reference Range Interpretation Comme nts WHITE BLOOD CELL (test code = WBC) 8.7 x10 3/uL 4.5-11.0 N RED BLOOD CELL (test code = RBC) 2.44 x10 6/uL 4.00-5.60 L HEMOGLOBIN (test code = HGB) 8.3 g/dL 12.5-16.9 L HEMATOCRIT (test code = HCT) 25.7 % 37.5-50.7 L MEAN CELL VOLUME (test code = MCV) 105.3 fL 81.0-99.0 H MEAN CELL HGB (test code = MCH) 34.0 pg 27.0-33.0 H MEAN CELL HGB CONCETRATION (test code = MCHC) 32.3 g/dL 33.0-37.0 L RED CELL DISTRIBUTION WIDTH CV (test code = RDW) 16.1 % 11.5-14.5 H RED CELL DISTRIBUTION WIDTH SD (test code = RDW-SD) 62.5 fL 37.0-54.0 H PLATELET COUNT (test code = PLT) 79 x10 3/uL 150-400 L MEAN PLATELET VOLUME (test c ode = MPV) 12.7 fL 7.0-9.0 H NEUTROPHIL % (test code = NT%) 73.3 % 56.0-77.0 N IMMATURE GRANULOCYTE % (test code = IG%) 1.0 % 0.0-2.0 N LYMPHOCYTE % (test code = LY%) 14.6 % 14.0-32.0 N MONOCYTE % (test code = MO%) 9.5 % 4.8-9.0 H EOSINOPHIL % (test code = EO%) 1.5 % 0.3-3.7 N BASOPHIL % (test code = BA%) 0.1 % 0.0-2.0 N NUCLEATED RBC % (test code = NRBC%) 0.0 % 0-0 N NEUTROPHIL # (test code = NT#) 6.37 x10 3/uL 2.0-7.6 N IMMATURE GRANULOCYTE # (test code = IG#) 0.09 x10 3/uL 0.00-0.03 H LYMPHOCYTE # (test code = LY#) 1.27 x10 3/uL 1.0-3.8 N MONOCYTE # (test code = MO#) 0.83 x10 3/uL 0.1-0.8 H EOSINOPHIL # (test code = EO#) 0.13 x10 3/uL 0.0-0.2 N BASOPHIL # (test code = BA#) 0.01 x10 3/uL 0.0-0.2 N NUCLEATED RBC # (test code = NRBC#) 0.00 x10 3/uL 0.0-0.1 N MANUAL DIFF REQUIRED (test c ode = MDIFF) NO PLT [id number] 06:41:00* Test Item Value Reference Range Interpretation Comme nts PLATELET ESTIMATE (test code = PLTEST) 80-100 THOUSAND ADEQUATE - DUP VEIN [id number] 00:00:00 [facility] 1935 Sex: M Name: TONO MAHAN [facility] : 1935 Age/S: 87 / M [address] [place] [address] Blvd U nit #: [id number] Loc: [place] [address] Phys: Sofia Lai Acct: [id number] Dis Date:Status: ADM IN PHONE #: [phone] Exam Date: 05/30/2022 1246 FAX #: [phone] Reason: R/O DVT Report Has Been Amended EXAMS: CPT CODE: [id number] DUP VEIN DANIEL [id number] Addendum - 05/30/2022 SIGNED 05/30/2022 ADDENDUM: [id number] US/DUPVBIL These findings were discussed by telephone with Sofia Lai on 05/30/2022 1:10 PM CDT. at 1318 Reported and signed by: Amadeo Macdonald M.D. Report PROCEDURE INFORMATION: Exam: US Duplex Lower Extremity Veins, Bilateral Exam date and time: 05/30/2022 11:41 AM Age: 87 years old Clinical indication: Screening exam; S/P CABG; concern for deep venous thrombosis. TECHNIQUE: Imaging protocol: Real-time duplex ultrasound of the bilateral extremities with 2-D gao scale, color Doppler flow and spectral waveform analysis including responses to compression and other maneuvers (whenperformed) with image documentation. Complete exam focused on the lower extremity veins. COMPARISON: US DUP VEIN DANIEL 05/24/2022 2:35 PM FINDINGS: Right deep veins: There is isolated thrombus in the right calf in the right posterior tibial vein. The vein is noncompressible without flow. This represents a change from 05/24/2022. The remainder of the right lower extremity deep venous system includingthe right common femoral vein, femoral-popliteal vein, and other calf veins are patent and compressible. Right superficial veins: Saphenofemoral junction is patent without thrombus. Left deep veins: Unremarkable. The common femoral, femoral, proximal profunda femoral and popliteal veins are patent without thrombus. Normal Doppler waveforms. Normal compressibility and/or augmentation response. Left superficial veins: Saphenofemoral junction is patent without thrombus. PAGE 1 Signed Report (CONTINUED) Name: TONO MAHAN [facility] : 1935 Age/S: 87 / M [address] [place] [address] Unit #: [id number] Loc: [place] [address] Phys: Sofia Lai Physic Acct: [id number] Dis Date: Status: ADM IN PHONE #: [phone] Exam Date: 05/30/2022 1246 FAX #: [phone] Reason: R/O DVT Report Has Been Amended EXAMS: CPT CODE: [id number] DUP VEIN DANIEL [address]2056 (Continued) Soft tissues: Unremarkable. IMPRESSION: 1. There is isolated thrombus in the right calf in the right posterior tibial vein. The vein is noncompressible without flow. This represents a change from 05/24/2022.2. The remainder of the right lower extremity deep venous system including the right common femoral vein, femoral-popliteal vein, and other calf veins are patent and compressible. 3. No evidence of deep venous thrombosis involving the left lower extremity. at 1306 Reported and signed by: Amadeo Macdonald M.D. CC: Vadim Amaro MD; Katiana Garcia MD; Sofia Lai Technologist: Meagan Garner RDMS(AB) Trnscb Date/Time: 05/30/2022 (1305) [email or web address] Orig Print D/T: S: 05/30/2022 (130) Probe: PAGE 2 Signed Report- XR CHEST 1 [id number] 00:00:00 [facility] : 1935 Sex: M FAX: Vadim Jenkins [phone] [place]: St: [facility] FAX: Katiana Gregory MD [phone] FAX: Sofia Shields [phone] Name: TONO MAHAN [facility] : 1935 Age/S: 87/M [address] [facility] Unit #: [id number] Loc: [address] [place] [address] Phys: Sofia Lai Acct: [id number] Dis Date: Status: ADM IN PHONE #: [phone] Exam Date: 05/30/2022717 FAX #: [phone] Reason: Post CV Surgery EXAMS: CPT CODE: [id number] XR CHEST 1 V 19772 PROCEDURE INFORMATION: E xam: XR Chest Exam date and time: 05/30/2022 5:43 AM Age: 87 years old Clinical indication: Other: Post cv surgery TECHNIQUE: Imaging protocol: Radiologic exam of the chest. Views: 1 view. COMPARISON:CR XR CHEST 1V 05/29/2022 6:13 AM FINDINGS: Lungs: Persistent but improved mild left basilar airspace disease. Pleural spaces: No definite pleural effusion. No pneumothorax. Heart/Mediastinum: Unchanged enlargement of the cardiomediastinal silhouette. Bones/joints: Median sternotomy changes. IMPRESSION: Persistent but improved mild left basilar airspace disease. at 09 Reported and signed by: Kenny Neri M.D. CC: Vadim Amaro MD; Katiana Garcia MD; Sofia Lai Technologist: RT Yusef(R) Trnscrd Date/Time/By: 05/30/2022 (912) : By: [email or web address] Orig Print D/T: S: 05/30/2022 (912) PAGE 1 Signed ReportGLUCOSE [id number] 21:00:00* Test Item Value Reference Range Interpretation Comme nts GLUCOSE BEDSIDE (test code = GLUBED) 151 MG/DL 70-110 H Performed by cer lillianaied starting sheet tank operator at [facility] GLUCOSE [id number] 18:35:00* Test Item Value Reference Range Interpretation Comme nts GLUCOSE BEDSIDE (test code = GLUBED) 183 MG/DL 70-110 H Performed by [facility] lillianaied starting sheet tank operator at [facility] GLUCOSE [id number] 12:05:00* Test Item Value Reference Range Interpretation Comme nts GLUCOSE BEDSIDE (test code = GLUBED) 138 MG/DL 70-110 H Performed by cer tified starting sheet tank operator at [facility] GLUCOSE [id number] 08:52:00* Test Item Value Reference Range Interpretation Comme nts GLUCOSE BEDSIDE (test code = GLUBED) 109 MG/DL 70-110 N Performed by cer tified starting sheet tank operator at [facility] BASIC METABOLIC [id number] 03:43:00* Test Item Value Reference Range Interpretation Comme nts SODIUM (test code = NA) 139 mEq/L 134-147 N POTASSIUM (test code = K) 4.3 mEq/L 3.4-5.0 N CHLORIDE (test code = CL) 107 mEq/L 100-108 N CARBON DIOXIDE (test code = CO2) 25 mEq/l 21-33 N ANION GAP (test code = GAP) 11 0-20 N GLUCOSE (test code = GLU) 118 mg/dL 70-110 H BLOOD UREA NITROGEN (test code = BUN) 38 mg/dL 7-18 H GLOMERULAR FILTRATION RATE (test code = GFR) 42.0 70-80 L The Glomerular Filtration Rate is a calculated parameterbased on serum Creatinine, patient age and sex. GFR valuesless than 60 mL/min/1.73 square meters are indicative ofChronic Kidney Disease. Values less than 15 mL/min/1.73square meters indicate Kidney failure. The calculation forGFR is based on the CKD-EPI (202) calculation. This formulais race indifferent and is the recommended formula for GFRby the National Kidney Foundation for Adults.The GFR will not calculate if the sex is unknown or if thepatient's age is <18 years. CREATININE (test code = CREAT) 1.6 mg/dL 0.6-1.3 H CALCIUM (test code = CA) 7.8 mg/dL 8.0-10.5 L [id number] 03:43:00* Test Item Value Reference Range Interpretation Comme nts MAGNESIUM (test code = MAG) 2.27 mg/dL 1.80-2.40 N CBC W/AUTO [id number] 03:25:00* Test Item Value Reference Range Interpretation Comme nts WHITE BLOOD CELL (test code = WBC) 9.7 x10 3/uL 4.5-11.0 N RED BLOOD CELL (test code = RBC) 2.37 x10 6/uL 4.00-5.60 L HEMOGLOBIN (test code = HGB) 7.9 g/dL 12.5-16.9 L HEMATOCRIT (test code = HCT) 24.7 % 37.5-50.7 L MEAN CELL VOLUME (test code = MCV) 104.2 fL 81.0-99.0 H MEAN CELL HGB (test code = MCH) 33.3 pg 27.0-33.0 H MEAN CELL HGB CONCETRATION (test code = MCHC) 32.0 g/dL 33.0-37.0 L RED CELL DISTRIBUTION WIDTH CV (test code = RDW) 16.6 % 11.5-14.5 H RED CELL DISTRIBUTION WIDTH SD (test code = RDW-SD) 62.3 fL 37.0-54.0 H PLATELET COUNT (test code = PLT) 105 x10 3/uL 150-400 L IMMATURE PLATELET FRACTION (test code = IPF) 11.3 % 0.9-11.2 H MEAN PLATELET VOLUME (test c ode = MPV) 12.5 fL 7.0-9.0 H NEUTROPHIL % (test code = NT%) 75.4 % 56.0-77.0 N IMMATURE GRANULOCYTE % (test code = IG%) 1.4 % 0.0-2.0 N LYMPHOCYTE % (test code = LY%) 13.0 % 14.0-32.0 L MONOCYTE % (test code = MO%) 8.9 % 4.8-9.0 N EOSINOPHIL % (test code = EO%) 1.2 % 0.3-3.7 N BASOPHIL % (test code = BA%) 0.1 % 0.0-2.0 N NUCLEATED RBC % (test code = NRBC%) 0.0 % 0-0 N NEUTROPHIL # (test code = NT#) 7.27 x10 3/uL 2.0-7.6 N IMMATURE GRANULOCYTE # (test code = IG#) 0.14 x10 3/uL 0.00-0.03 H LYMPHOCYTE # (test code = LY#) 1.26 x10 3/uL 1.0-3.8 N MONOCYTE # (test code = MO#) 0.86 x10 3/uL 0.1-0.8 H EOSINOPHIL # (test code = EO#) 0.12 x10 3/uL 0.0-0.2 N BASOPHIL # (test code = BA#) 0.01 x10 3/uL 0.0-0.2 N NUCLEATED RBC # (test code = NRBC#) 0.00 x10 3/uL 0.0-0.1 N MANUAL DIFF REQUIRED (test c ode = MDIFF) NO - XR CHEST 1 [id number] 00:00:00 [facility] : 1935 Sex: M FAX: Vadim Jenkins [phone] [place]: St: ADM FAX: Katiana Gregory MD [phone] FAX: Sofia Shields [facility] [phone] Name: TONO MAHAN [facility] : 1935 Age/S: 87/M [address] [place] [address] Unit #: [id number] Loc: G.3359 [place] [address] Phys: Sofia Lai Physic Acct: [id number] Dis Date: Status: ADM IN PHONE #: [phone] Exam Date: 05/29/2022613 FAX #: [phone] Reason: Post CV Surgery EXAMS: CPT CODE: [id number] XR CHEST 1 V 00952 PROCEDURE INFORMATION: Exam: XR Chest Exam date and time: 05/29/2022 6:13 AM Age: 87 years old Clinical indication: Other: Postcv surgery TECHNIQUE: Imaging protocol: Radiologic exam of the chest. Views: 1 view. COMPARISON: CRXR CHEST 1V 05/28/2022 5:19 AM FINDINGS: Lungs: Low lung volumes. Left basilar airspace disease. Pleural spaces: Possible trace left pleural effusion. No pneumothorax. Heart/Mediastinum: Unchanged cardiomediastinal silhouette. Bones/joints: Median sternotomy changes. IMPRESSION: 1. Left basilar airspace disease. 2. Possible trace left pleural effusion. Electronically Signed by Gerson Pope 05/29/2022 at 0830 Reported and signed by: Kenny Neri M.D. CC: Vadim Amaro MD; Katiana Garcia MD; Sofia Lai Technologist: ANIKA Peraza) Trnscrd Date/Time/By: 05/29/2022 (829) : By: [email or web address] Orig Print D/T: S: 05/29/2022 (829) PAGE 1 Signed ReportGLUCOSE [id number] 19:48:00* Test Item Value Reference Range Interpretation Comme nts GLUCOSE BEDSIDE (test code = GLUBED) 150 MG/DL 70-110 H Performed by cer tified starting sheet tank operator at [facility] GLUCOSE [id number] 18:12:00* Test Item Value Reference Range Interpretation Comme nts GLUCOSE BEDSIDE (test code = GLUBED) 155 MG/DL 70-110 H Performed by cer tified starting sheet tank operator at [facility] GLUCOSE [id number] 12:10:00* Test Item Value Reference Range Interpretation Comme nts GLUCOSE BEDSIDE (test code = GLUBED) 117 MG/DL 70-110 H Performed by [facility] tified starting sheet tank operator at [facility] CBC W/AUTO [id number] 11:02:00* Test Item Value Reference Range Interpretation Comme nts WHITE BLOOD CELL (test code = WBC) 10.3 x10 3/uL 4.5-11.0 N RED BLOOD CELL (test code = RBC) 2.47 x10 6/uL 4.00-5.60 L HEMOGLOBIN (test code = HGB) 8.3 g/dL 12.5-16.9 L HEMATOCRIT (test code = HCT) 25.6 % 37.5-50.7 L MEAN CELL VOLUME (test code = MCV) 103.6 fL 81.0-99.0 H MEAN CELL HGB (test code = MCH) 33.6 pg 27.0-33.0 H MEAN CELL HGB CONCETRATION (test code = MCHC) 32.4 g/dL 33.0-37.0 L RED CELL DISTRIBUTION WIDTH CV (test code = RDW) 16.5 % 11.5-14.5 H RED CELL DISTRIBUTION WIDTH SD (test code = RDW-SD) 61.2 fL 37.0-54.0 H PLATELET COUNT (test code = PLT) 82 x10 3/uL 150-400 L MEAN PLATELET VOLUME (test c ode = MPV) 11.5 fL 7.0-9.0 H NEUTROPHIL % (test code = NT%) 76.6 % 56.0-77.0 N IMMATURE GRANULOCYTE % (test code = IG%) 1.5 % 0.0-2.0 N LYMPHOCYTE % (test code = LY%) 12.2 % 14.0-32.0 L MONOCYTE % (test code = MO%) 8.6 % 4.8-9.0 N EOSINOPHIL % (test code = EO%) 1.0 % 0.3-3.7 N BASOPHIL % (test code = BA%) 0.1 % 0.0-2.0 N NUCLEATED RBC % (test code = NRBC%) 0.3 % 0-0 H NEUTROPHIL # (test code = NT#) 7.90 x10 3/uL 2.0-7.6 H IMMATURE GRANULOCYTE # (test code = IG#) 0.15 x10 3/uL 0.00-0.03 H LYMPHOCYTE # (test code = LY#) 1.26 x10 3/uL 1.0-3.8 N MONOCYTE # (test code = MO#) 0.89 x10 3/uL 0.1-0.8 H EOSINOPHIL # (test code = EO#) 0.10 x10 3/uL 0.0-0.2 N BASOPHIL # (test code = BA#) 0.01 x10 3/uL 0.0-0.2 N NUCLEATED RBC # (test code = NRBC#) 0.03 x10 3/uL 0.0-0.1 N MANUAL DIFF REQUIRED (test c ode = MDIFF) NO PLT [id number] 11:02:00* Test Item Value Reference Range Interpretation Comme nts PLATELET ESTIMATE (test code = PLTEST) 96-120 THOUSAND ADEQUATE PLATELET MORPHOLOGY (test code = PLTMORPH) AGGREGATES BASIC METABOLIC [id number] 03:55:00* Test Item Value Reference Range Interpretation Comme nts SODIUM (test code = NA) 140 mEq/L 134-147 N POTASSIUM (test code = K) 4.2 mEq/L 3.4-5.0 N CHLORIDE (test code = CL) 106 mEq/L 100-108 N CARBON DIOXIDE (test code = CO2) 27 mEq/l 21-33 N ANION GAP (test code = GAP) 11 0-20 N GLUCOSE (test code = GLU) 129 mg/dL 70-110 H BLOOD UREA NITROGEN (test code = BUN) 48 mg/dL 7-18 H GLOMERULAR FILTRATION RATE (test code = GFR) 34.1 70-80 L The Glomerular Filtration Rate is a calculated parameterbased on serum Creatinine, patient age and sex. GFR valuesless than 60 mL/min/1.73 square meters are indicative ofChronic Kidney Disease. Values less than 15 mL/min/1.73square meters indicate Kidney failure. The calculation forGFR is based on the CKD-EPI (2020) calculation. This formulais race indifferent and is the recommended formula for GFRby the National Kidney Foundation for Adults.The GFR will not calculate if the sex is unknown or if thepatient's age is <18 years. CREATININE (test code = CREAT) 1.9 mg/dL 0.6-1.3 H CALCIUM (test code = CA) 7.9 mg/dL 8.0-10.5 L [id number] 03:55:00* Test Item Value Reference Range Interpretation Comme nts MAGNESIUM (test code = MAG) 2.15 mg/dL 1.80-2.40 N - XR CHEST 1 [id number] 00:00:00 [facility] : 1935 Sex: M FAX: Vadim Jenkins [phone] [place]: St: ADM FAX: Katiana Gregory MD [phone] FAX: Rupinder Mcguire [phone] Name: TOON MAHAN [facility] : 1935 Age/S: 87/M [address] [place] [address] Unit #: [id number] Loc: G.2203 [place] [address] Phys: Angelica 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 Views: 1 view. COMPARISON: CR XR CHEST 1V 05/27/2022 6:39 AM FINDINGS: Lungs: Low lung volumes are present bilaterally. Bilateral multifocal airspace opacities. Pleural spaces: No pleural effusion. No pneumothorax. Heart/Mediastinum: Enlarged cardiac silhouette. Atherosclerotic calcifications. Bones/joints: Degenerative changes of the thoracic spine. Median sternotomy wires. IMPRESSION: Bilateral multifocal airspace opacities may represent d eveloping pneumonia. Enlarged cardiac silhouette. at 0736 Reported and signed by: Ulysses Ely M.D. CC: Vadim Amaro MD; Katiana Corbett MD; Angelica Mcguire NP Technologist: RT Yusef(R) Trnscrd Date/Time/By: 05/28/2022 (0736) : By: [email or web address] Orig Print D/T: S: 05/28/2022 (0737) PAGE 1 Signed ReportGLUCOSE [id number] 19:56:00* Test Item Value Reference Range Interpretation Comme [facility] GLUCOSE BEDSIDE (test code = GLUBED) 130 MG/DL 70-110 H Performed by cer tified starting sheet tank operator at [facility] GLUCOSE [id number] 16:25:00* Test Item Value Reference Range Interpretation Comme [facility] GLUCOSE BEDSIDE (test code = GLUBED) 156 MG/DL 70-110 H Performed by [facility] tified starting sheet tank operator at [facility] GLUCOSE [id number] 12:22:00* Test Item Value Reference Range Interpretation Comme [facility] GLUCOSE BEDSIDE (test code = GLUBED) 194 MG/DL 70-110 H Performed by [facility] tified starting sheet tank operator at [facility] BASIC METABOLIC [id number] 02:48:00* Test Item Value Reference Range Interpretation Comme nts SODIUM (test code = NA) 140 mEq/L 134-147 N POTASSIUM (test code = K) 4.4 mEq/L 3.4-5.0 N CHLORIDE (test code = CL) 109 mEq/L 100-108 H CARBON DIOXIDE (test code = CO2) 27 mEq/l 21-33 N ANION GAP (test code = GAP) 8 0-20 N GLUCOSE (test code = GLU) 114 mg/dL 70-110 H BLOOD UREA NITROGEN (test code = BUN) 54 mg/dL 7-18 H GLOMERULAR FILTRATION RATE (test code = GFR) 36.4 70-80 L The Glomerular Filtration Rate is a calculated parameterbased on serum Creatinine, patient age and sex. GFR valuesless than 60 mL/min/1.73 square meters are indicative ofChronic Kidney Disease. Values less than 15 mL/min/1.73square meters indicate Kidney failure. The calculation forGFR is based on the CKD-EPI (202) calculation. This formulais race indifferent and is the recommended formula for GFRby the National Kidney Foundation for Adults.The GFR will not calculate if the sex is unknown or if thepatient's age is <18 years. CREATININE (test code = CREAT) 1.8 mg/dL 0.6-1.3 H CALCIUM (test code = CA) 8.1 mg/dL 8.0-10.5 N [id number] 02:48:00* Test Item Value Reference Range Interpretation Comme nts MAGNESIUM (test code = MAG) 2.20 mg/dL 1.80-2.40 N CBC W/AUTO [id number] 02:28:00* Test Item Value Reference Range Interpretation Comme nts WHITE BLOOD CELL (test code = WBC) 12.7 x10 3/uL 4.5-11.0 H RED BLOOD CELL (test code = RBC) 2.36 x10 6/uL 4.00-5.60 L HEMOGLOBIN (test code = HGB) 7.8 g/dL 12.5-16.9 L HEMATOCRIT (test code = HCT) 24.3 % 37.5-50.7 L MEAN CELL VOLUME (test code = MCV) 103.0 fL 81.0-99.0 H MEAN CELL HGB (test code = MCH) 33.1 pg 27.0-33.0 H MEAN CELL HGB CONCETRATION (test code = MCHC) 32.1 g/dL 33.0-37.0 L RED CELL DISTRIBUTION WIDTH CV (test code = RDW) 16.6 % 11.5-14.5 H RED CELL DISTRIBUTION WIDTH SD (test code = RDW-SD) 62.3 fL 37.0-54.0 H PLATELET COUNT (test code = PLT) 112 x10 3/uL 150-400 L MEAN PLATELET VOLUME (test code = MPV) 11.7 fL 7.0-9.0 H NEUTROPHIL % (test code = NT%) 79.0 % 56.0-77.0 H IMMATURE GRANULOCYTE % (test code = IG%) 2.1 % 0.0-2.0 H LYMPHOCYTE % (test code = LY%) 12.0 % 14.0-32.0 L MONOCYTE % (test code = MO%) 6.7 % 4.8-9.0 N EOSINOPHIL % (test code = EO%) 0.2 % 0.3-3.7 L BASOPHIL % (test code = BA%) 0.0 % 0.0-2.0 N NUCLEATED RBC % (test code = NRBC%) 0.5 % 0-0 H NEUTROPHIL # (test code = NT#) 10.04 x10 3/uL 2.0-7.6 H IMMATURE GRANULOCYTE # (test code = IG#) 0.27 x10 3/uL 0.00-0.03 H LYMPHOCYTE # (test code = LY#) 1.53 x10 3/uL 1.0-3.8 N MONOCYTE # (test code = MO#) 0.85 x10 3/uL 0.1-0.8 H EOSINOPHIL # (test code = EO#) 0.02 x10 3/uL 0.0-0.2 N BASOPHIL # (test code = BA#) 0.00 x10 3/uL 0.0-0.2 N NUCLEATED RBC # (test code = NRBC#) 0.06 x10 3/uL 0.0-0.1 N MANUAL DIFF REQUIRED (test code = MDIFF) NO - XR CHEST 1 [id number] 00:00:00 [facility] 1935 Sex: M FAX: Vadim Jenkins [phone] [place]: St: ADM FAX: Katiana Gregory MD [phone] FAX: Richa Howard MD [phone] Name: TONO MAHAN [facility] : 1935 Age/S: 87/M [address] [place] [address] Unit #: [id number] Loc: G.[address] [place] [address] Phys: Richa Howard MD Acct: [id number] DisDate: Status: ADM IN PHONE #: [phone] Exam Date: 05/27/2022 0640 FAX #: [phone] Reason: S/P CABG EXAMS: CPT CODE: [id number] XR CHEST 1 V 70442 PROCEDURE INFORMATION: Exam: XR Chest Exam date and time: 05/27/2022 6:39 AM Age: 87 years old Clinical indication: Other: S/P cabg TECHNIQUE: Imaging protocol: Radiologic exam of the chest. Views: 1 view. COMPARISON: CR XR CHEST 1V 05/26/2022 6:20 AM FINDINGS: Lungs: Low lung volumes are present bilaterally. Bilateral multifocal airspace opacities. Pleural spaces: No pleural effusion. No pneumothorax. Heart/Mediastinum: Enlarged cardiac silhouette. Atherosclerotic calcifications. Bones/joints: Degenerative changes of the thoracic spine. Median sternotomy wires. IMPRESSION: Bilateral multifocal airspace opacities may represent developingpneumonia. Enlarged cardiac silhouette. at 0930 Reported and signed by: Ulysses Ely M.D. CC: Vadim Amaro MD; Katiana Garcia MD; Richa Howard MD Technologist: Ehsan Maza; RT Meera(R) Trnscrd Date/Time/By: 05/27/2022 (22) : By: [email or web address] Orig Print D/T: S: 05/27/2022 (2442) PAGE 1 Signed ReportGLUCOSE [id number] 20:54:00* Test Item Value Reference Range Interpretation Comme nts GLUCOSE BEDSIDE (test code = GLUBED) 208 MG/DL 70-110 H Performed by cer tified starting sheet tank operator at [facility] GLUCOSE [id number] 18:05:00* Test Item Value Reference Range Interpretation Comme nts GLUCOSE BEDSIDE (test code = GLUBED) 295 MG/DL 70-110 H Performed by cer tified starting sheet tank operator at [facility] GLUCOSE [id number] 12:47:00* Test Item Value Reference Range Interpretation Comme nts GLUCOSE BEDSIDE (test code = GLUBED) 155 MG/DL 70-110 H Performed by cer tified starting sheet tank operator at [facility] GLUCOSE [id number] 07:32:00* Test Item Value Reference Range Interpretation Comme nts GLUCOSE BEDSIDE (test code = GLUBED) 139 MG/DL 70-110 H Performed by cer tified starting sheet tank operator at [facility] CBC W/AUTO [id number] 03:53:00* Test Item Value Reference Range Interpretation Comme nts WHITE BLOOD CELL (test code = WBC) 13.5 x10 3/uL 4.5-11.0 H RED BLOOD CELL (test code = RBC) 2.42 x10 6/uL 4.00-5.60 L HEMOGLOBIN (test code = HGB) 8.0 g/dL 12.5-16.9 L HEMATOCRIT (test code = HCT) 24.7 % 37.5-50.7 L MEAN CELL VOLUME (test code = MCV) 102.1 fL 81.0-99.0 H MEAN CELL HGB (test code = MCH) 33.1 pg 27.0-33.0 H MEAN CELL HGB CONCETRATION (test code = MCHC) 32.4 g/dL 33.0-37.0 L RED CELL DISTRIBUTION WIDTH CV (test code = RDW) 16.9 % 11.5-14.5 H RED CELL DISTRIBUTION WIDTH SD (test code = RDW-SD) 61.4 fL 37.0-54.0 H PLATELET COUNT (test code = PLT) 125 x10 3/uL 150-400 L MEAN PLATELET VOLUME (test code = MPV) 11.3 fL 7.0-9.0 H NEUTROPHIL % (test code = NT%) 82.9 % 56.0-77.0 H LYMPHOCYTE % (test code = LY%) 7.9 % 14.0-32.0 L NEUTROPHIL # (test code = NT#) 11.16 x10 3/uL 2.0-7.6 H LYMPHOCYTE # (test code = LY#) 1.06 x10 3/uL 1.0-3.8 N MANUAL DIFF REQUIRED (test code = MDIFF) NO SLIDE REVIEW ED, CONSISTENT WITH AUTO DIFF. IMMATURE GRANULOCYTE % (test code = IG%) 3.9 % 0.0-2.0 H MONOCYTE % (test code = MO%) 5.1 % 4.8-9.0 N EOSINOPHIL % (test code = EO%) 0.1 % 0.3-3.7 L BASOPHIL % (test code = BA%) 0.1 % 0.0-2.0 N NUCLEATED RBC % (test code = NRBC%) 0.3 % 0-0 H IMMATURE GRANULOCYTE # (test code = IG#) 0.52 x10 3/uL 0.00-0.03 H MONOCYTE # (test code = MO#) 0.68 x10 3/uL 0.1-0.8 N EOSINOPHIL # (test code = EO#) 0.01 x10 3/uL 0.0-0.2 N BASOPHIL # (test code = BA#) 0.02 x10 3/uL 0.0-0.2 N NUCLEATED RBC # (test code = NRBC#) 0.04 x10 3/uL 0.0-0.1 N BASIC METABOLIC [id number] 03:33:00* Test Item Value Reference Range Interpretation Comme nts SODIUM (test code = NA) 141 mEq/L 134-147 N POTASSIUM (test code = K) 4.5 mEq/L 3.4-5.0 N CHLORIDE (test code = CL) 110 mEq/L 100-108 H CARBON DIOXIDE (test code = CO2) 27 mEq/l 21-33 N ANION GAP (test code = GAP) 9 0-20 N GLUCOSE (test code = GLU) 142 mg/dL 70-110 H BLOOD UREA NITROGEN (test code = BUN) 50 mg/dL 7-18 H GLOMERULAR FILTRATION RATE (test code = GFR) 36.4 70-80 L The Glomerular Filtration Rate is a calculated parameterbased on serum Creatinine, patient age and sex. GFR valuesless than 60 mL/min/1.73 square meters are indicative ofChronic Kidney Disease. Values less than 15 mL/min/1.73square meters indicate Kidney failure. The calculation forGFR is based on the CKD-EPI (202) calculation. This formulais race indifferent and is the recommended formula for GFRby the National Kidney Foundation for Adults.The GFR will not calculate if the sex is unknown or if thepatient's age is <18 years. CREATININE (test code = CREAT) 1.8 mg/dL 0.6-1.3 H CALCIUM (test code = CA) 8.1 mg/dL 8.0-10.5 N [id number] 03:33:00* Test Item Value Reference Range Interpretation Comme nts MAGNESIUM (test code = MAG) 2.12 mg/dL 1.80-2.40 N - XR CHEST 1 [id number] 00:00:00 [facility] : 1935 Sex: M FAX: Vadim Jenkins [phone] [place]: St: [facility] FAX: Abbe Warren MD [phone] FAX: Katiana Gregory MD [phone] Name: TONO MAHAN [facility] : 1935 Age/S: 87/M [address] [place] [address] Blvd Unit #: [id number] Loc: [place] [address] Phys: Abbe Warren MD Acct: [id number] Dis Date: Status: ADM IN PHONE #: [phone] Exam Date: 05/26/2022619 FAX #: [phone] Reason: S/P CABG EXAMS: CPT CODE: [id number] XR CHEST 1 V 02131 PROCEDURE INFORMATION: Exam: XR Chest Exam date and time: 05/26/2022 6:20 AM Age: 87 years old Clinical indication: Other: S/P cabg TECHNIQUE:Imaging protocol: Radiologic exam of the chest. Views: 1 view. COMPARISON: CR XR CHEST 1V :50 AM FINDINGS: Lungs: Low lung volumes are present bilaterally. Bilateral multifocal airspace opacities. Pleural spaces: No pleural effusion. No pneumothorax. Heart/Mediastinum: Heart size is within normal limits. Atherosclerotic calcifications. Bones/joints: Degenerative changes of the thoracicspine. Median sternotomy wires. IMPRESSION: Bilateral multifocal airspace opacities may represent developing pneumonia. at 0834 Reported and signed by: Ulysses Ely M.D. CC: Vadim Amaro MD; Abbe Warren MD; Katiana Garcia MD Technologist: Ehsan Maza; Sho Hopkins RT(R) Trnscrd Date/Time/By: 05/26/2022 (34) : By: [email or web address] Orig Print D/T: S: 05/26/2022 (34) PAGE 1 Signed ReportGLUCOSE [id number] 20:30:00* Test Item Value Reference Range Interpretation Comme nts GLUCOSE BEDSIDE (test code = GLUBED) 157 MG/DL 70-110 H 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 GLUCOSE [id number] 17:03:00* Test Item Value Reference Range Interpretation Comme nts GLUCOSE BEDSIDE (test code = GLUBED) 239 MG/DL 70-110 H Performed by cer tified starting sheet tank operator at [facility] GLUCOSE [id number] 07:59:00* Test Item Value Reference Range Interpretation Comme nts GLUCOSE BEDSIDE (test code = GLUBED) 110 MG/DL 70-110 N Performed by cer sandra starting sheet tank operator at [facility] CBC W/AUTO [id number] 03:15:00* Test Item Value Reference Range Interpretation Comme nts WHITE BLOOD CELL (test code = WBC) 18.6 x10 3/uL 4.5-11.0 H RED BLOOD CELL (test code = RBC) 2.36 x10 6/uL 4.00-5.60 L HEMOGLOBIN (test code = HGB) 7.9 g/dL 12.5-16.9 L HEMATOCRIT (test code = HCT) 24.0 % 37.5-50.7 L MEAN CELL VOLUME (test code = MCV) 101.7 fL 81.0-99.0 H MEAN CELL HGB (test code = MCH) 33.5 pg 27.0-33.0 H MEAN CELL HGB CONCETRATION (test code = MCHC) 32.9 g/dL 33.0-37.0 L RED CELL DISTRIBUTION WIDTH CV (test code = RDW) 17.0 % 11.5-14.5 H RED CELL DISTRIBUTION WIDTH SD (test code = RDW-SD) 61.8 fL 37.0-54.0 H PLATELET COUNT (test code = PLT) 157 x10 3/uL 150-400 N MEAN PLATELET VOLUME (test c ode = MPV) 11.5 fL 7.0-9.0 H NEUTROPHIL % (test code = NT%) % 56.0-77.0 LYMPHOCYTE % (test code = LY%) % 14.0-32.0 NEUTROPHIL # (test code = NT#) x10 3/uL 2.0-7.6 LYMPHOCYTE # (test code = LY#) x10 3/uL 1.0-3.8 MANUAL DIFF REQUIRED (test c ode = MDIFF) YES WBC [id number] 03:15:00* Test Item Value Reference Range Interpretation Comme nts BAND NEUTROPHIL (test code = BAND) 0.0 % 0.0-10.0 N ANISOCYTOSIS (test code = ANISO) 2+ PLATELET ESTIMATE (test code = PLTEST) Adequate THOUSAND ADEQUATE SEGMENTED NEUTROPHILS (test code = SEG) 85.4 % 37-69 H LYMPHOCYTE (test code = LYMPH) 5.5 % 23-55 L MONOCYTE (test code = MON) 8.2 % 0-10 N MYELOCYTE (test code = MYELO) 0.9 % 0.0-0.0 H POLYCHROMASIA (test code = POLC) 2+ MACROCYTOSIS (test code = MACR) 1+ PLATELET MORPHOLOGY (test code = PLTMORPH) AGGREGATES BASIC METABOLIC [id number] 03:13:00* Test Item Value Reference Range Interpretation Comme nts SODIUM (test code = NA) 143 mEq/L 134-147 N POTASSIUM (test code = K) 4.6 mEq/L 3.4-5.0 N CHLORIDE (test code = CL) 110 mEq/L 100-108 H CARBON DIOXIDE (test code = CO2) 27 mEq/l 21-33 N ANION GAP (test code = GAP) 11 0-20 N GLUCOSE (test code = GLU) 147 mg/dL 70-110 H BLOOD UREA NITROGEN (test code = BUN) 51 mg/dL 7-18 H GLOMERULAR FILTRATION RATE (test code = GFR) 34.1 70-80 L The Glomerular Filtration Rate is a calculated parameterbased on serum Creatinine, patient age and sex. GFR valuesless than 60 mL/min/1.73 square meters are indicative ofChronic Kidney Disease. Values less than 15 mL/min/1.73square meters indicate Kidney failure. The calculation forGFR is based on the CKD-EPI (2020) calculation. This formulais race indifferent and is the recommended formula for GFRby the National Kidney Foundation for Adults.The GFR will not calculate if the sex is unknown or if thepatient's age is <18 years. CREATININE (test code = CREAT) 1.9 mg/dL 0.6-1.3 H CALCIUM (test code = CA) 8.0 mg/dL 8.0-10.5 N [id number] 03:13:00* Test Item Value Reference Range Interpretation Comme nts MAGNESIUM (test code = MAG) 2.12 mg/dL 1.80-2.40 N POC ARTERIAL BLOOD [id number] 00:21:00* Test Item Value Reference Range Interpretation Comme nts POC ARTERIAL BLOOD GAS PH (t est code = POCPHA) 7.501 7.35-7.45 HH POC ARTERIAL BLOOD GAS PCO2 (test code = BMWXKQ3D) 34.6 mmHg 35.0-45 L POC TCO2 ARTERIAL (test code = POCTCO2) 28.1 POC ARTERIAL BLOOD GAS PO2 ( test code = LJTFT8V) 119.2 mmHg 80-100.0 H POC HCO3 ARTERIAL (test code = PSRXZZ2H) 27.0 MMOL/L 22.0-26.0 H POC BASE EXCESS (test code = POCBEA) 3.9 MMOL/L -4.0-4.0 N POC O2 SATURATION (test code = POCO2S) 99.0 % 90-100 N ABG DELIVERY (test code = HAILY) Room Air ABG TEMPERATURE (test code = TEMPA) 98.7 F ABG SITE (test code = SITEA) Art Line BASIC METABOLIC [id number] 00:21:00* Test Item Value Reference Range Interpretation Comme nts SODIUM (test code = NA/ABG) 142 mmol/L 134-147 N POTASSIUM (test code = K/ABG) 4.7 mmol/L 3.4-5.0 N CHLORIDE (test code = CL/ABG) 104 mmol/L 100-108 N CREATININE ABG (test code = CREAABG) 2.4 mg/dL 0.8-1.3 H POC IONIZED CALCIUM (test co de = POCCA) 1.16 MMOL/L 1.12-1.32 N POC GLUCOSE (test code = POCGLU) 158 MG/DL 70-110 H HEMOGLOBIN [id number] 00:21:00* Test Item Value Reference Range Interpretation Comme nts HEMOGLOBIN ABG (test code = HGB/ABG) 8.1 G/DL 12.5-16.9 L [id number] 00:21:00* Test Item Value Reference Range Interpretation Comme nts HEMATOCRIT (test code = HCT/ABG) 24 % 37.5-50.7 L POC LACTIC [id number] 00:21:00* Test Item Value Reference Range Interpretation Comme nts POC LACTIC ACID (test code = POCLAC) 1.7 mmol/l 0.9-1.7 N - XR CHEST 1 [id number] 00:00:00 [facility] : 1935 Sex: M FAX: Vadim Jenkins [phone] [place]: St: ADM FAX: Katiana Gregory MD [phone] FAX: Javier Solis Jr [phone] Name: TONO MAHAN [facility] : 1935 Age/S: 87/M [address] [place] [address] Unit #: [id number] Loc: G.[address] [place] [address] Phys: Javier Solis Jr, MD Acct: [id number] Dis Date: Status: ADM IN PHONE #: [phone] Exam Date: 05/25/2022103 FAX #: [phone] Reason: SOB, WHEEZING EXAMS: CPT CODE: [id number] XR CHEST 1 V 30619 PROCEDURE INFORMATION: Exam: XR Chest Exam date and time: 05/25/2022 12:29 AM Age: 87 years old Clinical indication: Shortness of breath; Additional info: SOB, wheezing TECHNIQUE: Imaging protocol: Radiologic exam of the chest. Views: 1 view. COMPARISON: CR XR CHEST 1V 05/24/2022 5:00 AM FINDINGS: Lungs: Pulmonary vascular congestion is seen with probable edema. Pleural spaces: No visible pneumothorax or pleural effusion by portable study. Heart/Mediastinum: The cardiomediastinal silhouette is enlarged. Bones/joints: Sternotomy wires present. IMPRESSION: Findings concerning for congestive heart failure. at 0109 Reported and signed by: Karlos Forbes M.D. CC: Vadim Amaro MD; Katiana Garcia MD; Javier Solis Jr, MD Technologist: ANIKA Dorado) Trnscrd Date/Time/By: 05/25/2022 (108) : By: [email or web address] Orig Print D/T: S: 05/25/2022 (108) PAGE 1 Signed Report- XR CHEST 1 [id number] 00:00:00 [facility] : 1935 Sex: M FAX: Vadim Jenkins [phone] [place]: St: [facility] FAX: Katiana Gregory MD [phone] FAX: Javier Solis Jr [phone] Name: TONO MAHAN [facility] : 1935 Age/S: 87/M [address] [place] [address] Unit #: [id number] Loc: [place] [address] Phys: Javier Solis Jr, MD Acct: [id number] Dis Date: Status: ADM IN PHONE #: [phone] Exam Date: 05/25/2022449 FAX #: [phone] Reason: S/P CABG EXAMS: CPT CODE: [id number] XR CHEST 1 V 32148 PROCEDURE INFORMATION: Exam: XR Chest Exam date and time: 05/25/2022 4:50 AM Age: 87 years old Clinical indication: Other: S/P cabg TECHNIQUE: Imaging protocol: Radiologic exam of the chest. Views: 1 view. COMPARISON: CR XR CHEST 1V 05/25/2022 12:29 AM FINDINGS: Tubes, catheters and devices: None. Lungs: Lung volumes are decreased. Mild bi lateral perihilar and basilar interstitial lung opacities, suggesting pulmonary edema versus infiltrates. The peripheral lungs are otherwise clear. No consolidation. The pulmonary opacities are most prominent within the lower left lung. Improvement of lung opacities is demonstrated. Pleural spaces: Unremarkable. No pleural effusion. No pneumothorax. Heart/Mediastinum: Cardiac silhouette appears moderately enlarged. Bones/joints: Mild to moderate generalized bony degenerative changes. Sternotomywires, hardware is demonstrated. Soft tissues: This study is limited by patient's body habitus. IMPRESSION: 1. Moderate enlarged cardiac silhouette. 2. Mild interstitial pulmonary edema versus infiltrates. Improvement. at 0801 Reported and signed by: Wilner Canas M.D. 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 Acct: [id number] Dis Date: Status: ADM IN PHONE #: [phone] Exam Date: 05/24/2022 1527 FAX #: [phone] Reason: rule out dvt EXAMS: CPT CODE: [id number] DUP VEIN DANIEL [id number] PROCEDURE INFORMATION: Exam: US Duplex Lower Extremity Veins, Bilateral Exam date and time: 05/24/2022 2:35 PM Age: 87 years old Clinical indication: Screening exam; S/P cabg; R/O dvt; Additional info: Rule out dvt TECHNIQUE: Imaging protocol: Real-time duplex ultrasound of the bilateral extremities with 2-D gao scale, color Doppler flow and spectral waveform analysis including responses to compression and other maneuvers (when performed) with image documentation. Complete exam focused on the lower extremity veins. COMPARISON: US DUP VEIN DANIEL 05/11/2022 12:16 AM FINDINGS: Right deep veins: Unremarkable. The common femoral, femoral, proximal profunda femoral and popliteal veins are patent without thrombus. Normal Doppler waveforms. Norm al compressibility and/or augmentation response. Right superficial veins: Saphenofemoral junction is patent without thrombus. Left deep veins: Unremarkable. The common femoral, femoral, proximal profunda femoral and popliteal veins are patent without thrombus. Normal Doppler waveforms. Normal compressibility and/or augmentation response. Left superficial veins: Saphenofemoral junction is patent without thrombus. Soft tissues: Right popliteal Rausch's cyst measures up to 5 cm. IMPRESSION: No evidence of deep vein thrombosis. at 0736 Reported and signed by: Casey Power M.D. CC: Vadim Amaro MD; Katiana Garcia MD; nAgelica Mcguire NP Technologist: Amado Saleem Trnscb Date/Time: 05/25/2022 (735) [email or web address] Orig Print D/T: S: 05/25/2022 (735) Probe: PAGE 1 Signed ReportGLUCOSE [id number] 20:42:00* Test Item Value Reference Range Interpretation Comme nts GLUCOSE BEDSIDE (test code = GLUBED) 218 MG/DL 70-110 H Performed by [facility] tified starting sheet tank operator at [facility] GLUCOSE [id number] 17:12:00* Test Item Value Reference Range Interpretation Comme nts GLUCOSE BEDSIDE (test code = GLUBED) 180 MG/DL 70-110 H Performed by [facility] tified starting sheet tank operator at [facility] BASIC METABOLIC [id number] 14:47:00* Test Item Value Reference Range Interpretation Comme nts SODIUM (test code = NA) 140 mEq/L 134-147 N POTASSIUM (test code = K) 4.9 mEq/L 3.4-5.0 N CHLORIDE (test code = CL) 107 mEq/L 100-108 N CARBON DIOXIDE (test code = CO2) 24 mEq/l 21-33 N ANION GAP (test code = GAP) 14 0-20 N GLUCOSE (test code = GLU) 248 mg/dL 70-110 H BLOOD UREA NITROGEN (test code = BUN) 50 mg/dL 7-18 H GLOMERULAR FILTRATION RATE (test code = GFR) 34.1 70-80 L The Glomerular Filtration Rate is a calculated parameterbased on serum Creatinine, patient age and sex. GFR valuesless than 60 mL/min/1.73 square meters are indicative ofChronic Kidney Disease. Values less than 15 mL/min/1.73square meters indicate Kidney failure. The calculation forGFR is based on the CKD-EPI (202) calculation. This formulais race indifferent and is the recommended formula for GFRby the National Kidney Foundation for Adults.The GFR will not calculate if the sex is unknown or if thepatient's age is <18 years. CREATININE (test code = CREAT) 1.9 mg/dL 0.6-1.3 H CALCIUM (test code = CA) 8.1 mg/dL 8.0-10.5 N GLUCOSE [id number] 11:55:00* Test Item Value Reference Range Interpretation Comme nts GLUCOSE BEDSIDE (test code = GLUBED) 213 MG/DL 70-110 H Performed by cer tified starting sheet tank operator at [facility] GLUCOSE [id number] 08:24:00* Test Item Value Reference Range Interpretation Comme nts GLUCOSE BEDSIDE (test code = GLUBED) 119 MG/DL 70-110 H Performed by cer tified starting sheet tank operator at [facility] CBC W/AUTO [id number] 04:09:00* Test Item Value Reference Range Interpretation Comme nts WHITE BLOOD CELL (test code = WBC) 22.5 x10 3/uL 4.5-11.0 H RED BLOOD CELL (test code = RBC) 2.37 x10 6/uL 4.00-5.60 L HEMOGLOBIN (test code = HGB) 8.0 g/dL 12.5-16.9 L HEMATOCRIT (test code = HCT) 24.3 % 37.5-50.7 L MEAN CELL VOLUME (test code = MCV) 102.5 fL 81.0-99.0 H MEAN CELL HGB (test code = MCH) 33.8 pg 27.0-33.0 H MEAN CELL HGB CONCETRATION (test code = MCHC) 32.9 g/dL 33.0-37.0 L RED CELL DISTRIBUTION WIDTH CV (test code = RDW) 16.3 % 11.5-14.5 H RED CELL DISTRIBUTION WIDTH SD (test code = RDW-SD) 59.6 fL 37.0-54.0 H PLATELET COUNT (test code = PLT) 188 x10 3/uL 150-400 N MEAN PLATELET VOLUME (test c ode = MPV) 11.1 fL 7.0-9.0 H NEUTROPHIL % (test code = NT%) % 56.0-77.0 LYMPHOCYTE % (test code = LY%) % 14.0-32.0 NEUTROPHIL # (test code = NT#) x10 3/uL 2.0-7.6 LYMPHOCYTE # (test code = LY#) x10 3/uL 1.0-3.8 MANUAL DIFF REQUIRED (test c ode = MDIFF) YES WBC [id number] 04:09:00* Test Item Value Reference Range Interpretation Comme nts BAND NEUTROPHIL (test code = BAND) 0.0 % 0.0-10.0 N ANISOCYTOSIS (test code = ANISO) 2+ PLATELET ESTIMATE (test code = PLTEST) Adequate THOUSAND ADEQUATE SEGMENTED NEUTROPHILS (test code = SEG) 90.9 % 37-69 H LYMPHOCYTE (test code = LYMPH) 4.6 % 23-55 L MONOCYTE (test code = MON) 4.5 % 0-10 N NUCLEATED RED BLOOD CELL (test code = NRBC) 1.8 % POLYCHROMASIA (test code = POLC) 2+ MACROCYTOSIS (test code = MACR) 2+ PLATELET MORPHOLOGY (test code = PLTMORPH) AGGREGATES BASIC METABOLIC [id number] 03:48:00* Test Item Value Reference Range Interpretation Comme nts SODIUM (test code = NA) 143 mEq/L 134-147 N POTASSIUM (test code = K) 4.7 mEq/L 3.4-5.0 N CHLORIDE (test code = CL) 111 mEq/L 100-108 H CARBON DIOXIDE (test code = CO2) 26 mEq/l 21-33 N ANION GAP (test code = GAP) 11 0-20 N GLUCOSE (test code = GLU) 143 mg/dL 70-110 H BLOOD UREA NITROGEN (test code = BUN) 49 mg/dL 7-18 H GLOMERULAR FILTRATION RATE (test code = GFR) 34.1 70-80 L The Glomerular Filtration Rate is a calculated parameterbased on serum Creatinine, patient age and sex. GFR valuesless than 60 mL/min/1.73 square meters are indicative ofChronic Kidney Disease. Values less than 15 mL/min/1.73square meters indicate Kidney failure. The calculation forGFR is based on the CKD-EPI (2020) calculation. This formulais race indifferent and is the recommended formula for GFRby the National Kidney Foundation for Adults.The GFR will not calculate if the sex is unknown or if thepatient's age is <18 years. CREATININE (test code = CREAT) 1.9 mg/dL 0.6-1.3 H CALCIUM (test code = CA) 7.9 mg/dL 8.0-10.5 L [id number] 03:48:00* Test Item Value Reference Range Interpretation Comme nts MAGNESIUM (test code = MAG) 2.32 mg/dL 1.80-2.40 N - XR CHEST 1 [id number] 00:00:00 [facility] : 1935 Sex: M FAX: Vadim Jenkins [phone] [place]: St: ADM FAX: Abbe Warren MD [phone] FAX: Katiana Gregory MD [phone] Name: TONO MAHAN [facility] : 1935 Age/S: 87/M [address] [place] [address] Unit #: [id number] Loc: G.2203 [place] [address] Phys: Abbe Warren MD Acct: [id number] Dis Date: Status: ADM IN PHONE #: [phone] Exam Date: 05/24/2022 0700 FAX #: [phone] Reason: RE-EVAL EXAMS: CPT CODE: [id number] XR CHEST 1 V 43064 PROCEDURE INFORMATION: Exam: XR Chest Examdate and time: 05/24/2022 5:00 AM Age: 87 years old Clinical indication: Other: Re-eval TECHNIQUE: Imaging protocol: Radiologic exam of the chest. Views: 1 view. COMPARISON: CR XR CHEST 1V 2022 4:57 AM FINDINGS: Lungs: Bilateral lung opacities have mildly improved. Pleural spaces: Small left pleural effusion may be present. Heart/Mediastinum: Stable enlarged heart size. Bones/joints: Stable.Median sternotomy wires. IMPRESSION: Mildly improved lung opacities. at 0719 Reported and signed by: Simon Rogers M.D. CC: Vadim Amaro MD; Abbe Warren MD; Katiana Garcia MD Technologist: RT Yusef(R) Trnscrd Date/Time/By: 05/24/2022 (718) : By: [email or web address] Orig Print D/T: S: 05/24/2022 (718) PAGE 1 Signed ReportGLUCOSE [id number] 20:09:00* Test Item Value Reference Range Interpretation Comme nts GLUCOSE BEDSIDE (test code = GLUBED) 195 MG/DL 70-110 H Performed by cer tified starting sheet tank operator at [facility] GLUCOSE [id number] 16:40:00* Test Item Value Reference Range Interpretation Comme [facility] GLUCOSE BEDSIDE (test code = GLUBED) 174 MG/DL 70-110 H Performed by [facility] [employer] starting sheet tank operator at [facility] BASIC METABOLIC [id number] 14:47:00* Test Item Value Reference Range Interpretation Comme nts SODIUM (test code = NA) 141 mEq/L 134-147 N POTASSIUM (test code = K) 5.4 mEq/L 3.4-5.0 H CHLORIDE (test code = CL) 108 mEq/L 100-108 N CARBON DIOXIDE (test code = CO2) 25 mEq/l 21-33 N ANION GAP (test code = GAP) 13 0-20 N GLUCOSE (test code = GLU) 214 mg/dL 70-110 H BLOOD UREA NITROGEN (test code = BUN) 53 mg/dL 7-18 H GLOMERULAR FILTRATION RATE (test code = GFR) 36.4 70-80 L The Glomerular Filtration Rate is a calculated parameterbased on serum Creatinine, patient age and sex. GFR valuesless than 60 mL/min/1.73 square meters are indicative ofChronic Kidney Disease. Values less than 15 mL/min/1.73square meters indicate Kidney failure. The calculation forGFR is based on the CKD-EPI (2020) calculation. This formulais race indifferent and is the recommended formula for GFRby the National Kidney Foundation for Adults.The GFR will not calculate if the sex is unknown or if thepatient's age is <18 years. CREATININE (test code = CREAT) 1.8 mg/dL 0.6-1.3 H CALCIUM (test code = CA) 8.0 mg/dL 8.0-10.5 N POC ARTERIAL BLOOD [id number] 14:00:00* Test Item Value Reference Range Interpretation Comme nts POC ARTERIAL BLOOD GAS PH (t est code = POCPHA) 7.513 7.35-7.45 HH POC ARTERIAL BLOOD GAS PCO2 (test code = EUQXHV5T) 30.3 mmHg 35.0-45 L POC TCO2 ARTERIAL (test code = POCTCO2) 25.5 POC ARTERIAL BLOOD GAS PO2 ( test code = USQLQ0D) 74.8 mmHg 80-100.0 L POC HCO3 ARTERIAL (test code = EFMRQE2A) 24.5 MMOL/L 22.0-26.0 N POC BASE EXCESS (test code = POCBEA) 1.4 MMOL/L -4.0-4.0 N POC O2 SATURATION (test code = POCO2S) 96.8 % 90-100 N ABG DELIVERY (test code = HAILY) Room Air ABG TEMPERATURE (test code = TEMPA) 97 F ABG SITE (test code = SITEA) Art Line LC'S TEST (test code = ALLENS) N/A BASIC METABOLIC [id number] 14:00:00* Test Item Value Reference Range Interpretation Comme nts SODIUM (test code = NA/ABG) 138 mmol/L 134-147 N POTASSIUM (test code = K/ABG) 5.5 mmol/L 3.4-5.0 H CHLORIDE (test code = CL/ABG) 104 mmol/L 100-108 N CREATININE ABG (test code = CREAABG) 2.1 mg/dL 0.8-1.3 H POC IONIZED CALCIUM (test co de = POCCA) 1.15 MMOL/L 1.12-1.32 N POC GLUCOSE (test code = POCGLU) 210 MG/DL 70-110 H HEMOGLOBIN [id number] 14:00:00* Test Item Value Reference Range Interpretation Comme nts HEMOGLOBIN ABG (test code = HGB/ABG) 8.8 G/DL 12.5-16.9 L [id number] 14:00:00* Test Item Value Reference Range Interpretation Comme nts HEMATOCRIT (test code = HCT/ABG) 26 % 37.5-50.7 L POC LACTIC [id number] 14:00:00* Test Item Value Reference Range Interpretation Comme nts POC LACTIC ACID (test code = POCLAC) 1.6 mmol/l 0.9-1.7 N GLUCOSE [id number] 08:17:00* Test Item Value Reference Range Interpretation Comme nts GLUCOSE BEDSIDE (test code = GLUBED) 136 MG/DL 70-110 H Performed by cer tified starting sheet tank operator at [facility] CBC W/AUTO [id number] 06:09:00* Test Item Value Reference Range Interpretation Comme nts WHITE BLOOD CELL (test code = WBC) 25.5 x10 3/uL 4.5-11.0 H RED BLOOD CELL (test code = RBC) 2.33 x10 6/uL 4.00-5.60 L HEMOGLOBIN (test code = HGB) 7.8 g/dL 12.5-16.9 L HEMATOCRIT (test code = HCT) 23.7 % 37.5-50.7 L MEAN CELL VOLUME (test code = MCV) 101.7 fL 81.0-99.0 H MEAN CELL HGB (test code = MCH) 33.5 pg 27.0-33.0 H MEAN CELL HGB CONCETRATION (test code = MCHC) 32.9 g/dL 33.0-37.0 L RED CELL DISTRIBUTION WIDTH CV (test code = RDW) 15.8 % 11.5-14.5 H RED CELL DISTRIBUTION WIDTH SD (test code = RDW-SD) 57.0 fL 37.0-54.0 H PLATELET COUNT (test code = PLT) 222 x10 3/uL 150-400 N MEAN PLATELET VOLUME (test c ode = MPV) 11.5 fL 7.0-9.0 H NEUTROPHIL % (test code = NT%) % 56.0-77.0 LYMPHOCYTE % (test code = LY%) % 14.0-32.0 NEUTROPHIL # (test code = NT#) x10 3/uL 2.0-7.6 LYMPHOCYTE # (test code = LY#) x10 3/uL 1.0-3.8 MANUAL DIFF REQUIRED (test c ode = MDIFF) YES WBC [id number] 06:09:00* Test Item Value Reference Range Interpretation Comme nts BAND NEUTROPHIL (test code = BAND) 0.9 % 0.0-10.0 N ANISOCYTOSIS (test code = ANISO) 1+ PLATELET ESTIMATE (test code = PLTEST) Adequate THOUSAND ADEQUATE SEGMENTED NEUTROPHILS (test code = SEG) 83.6 % 37-69 H LYMPHOCYTE (test code = LYMPH) 9.1 % 23-55 L MONOCYTE (test code = MON) 5.5 % 0-10 N MYELOCYTE (test code = MYELO) 0.9 % 0.0-0.0 H NUCLEATED RED BLOOD CELL (test code = NRBC) 1.8 % POLYCHROMASIA (test code = POLC) 1+ MACROCYTOSIS (test code = MACR) 1+ BASIC METABOLIC [id number] 04:55:00* Test Item Value Reference Range Interpretation Comme nts SODIUM (test code = NA) 143 mEq/L 134-147 N POTASSIUM (test code = K) 4.8 mEq/L 3.4-5.0 N CHLORIDE (test code = CL) 109 mEq/L 100-108 H CARBON DIOXIDE (test code = CO2) 28 mEq/l 21-33 N ANION GAP (test code = GAP) 11 0-20 N GLUCOSE (test code = GLU) 105 mg/dL 70-110 BLOOD UREA NITROGEN (test code = BUN) 61 mg/dL 7-18 H GLOMERULAR FILTRATION RATE (test code = GFR) 34.1 70-80 L The Glomerular Filtration Rate is a calculated parameterbased on serum Creatinine, patient age and sex. GFR valuesless than 60 mL/min/1.73 square meters are indicative ofChronic Kidney Disease. Values less than 15 mL/min/1.73square meters indicate Kidney failure. The calculation forGFR is based on the CKD-EPI (2020) calculation. This formulais race indifferent and is the recommended formula for GFRby the National Kidney Foundation for Adults.The GFR will not calculate if the sex is unknown or if thepatient's age is <18 years. CREATININE (test code = CREAT) 1.9 mg/dL 0.6-1.3 H CALCIUM (test code = CA) 8.4 mg/dL 8.0-10.5 N HEPATIC FUNCTION [id number] 04:55:00* Test Item Value Reference Range Interpretation Comme nts TOTAL PROTEIN (test code = PROT) 5.6 g/dL 6.4-8.2 L ALBUMIN (test code = ALB) 2.70 g/dL 3.4-5.0 L BILIRUBIN TOTAL (test code = BILT) 0.60 mg/dL 0.0-1.0 N BILIRUBIN DIRECT (test code = BILD) 0.30 MG/DL 0.0-0.30 N BILIRUBIN INDIRECT (test cod e = BILIND) 0.30 MG/DL SGOT/AST (test code = AST) 50 IUnit/L 15-37 H SGPT/ALT (test code = ALT) 143 IUnit/L 30-65 H ALKALINE PHOSPHATASE TOTAL ( test code = ALKP) 98 IUnit/L 20-125 N [id number] 04:55:00* Test Item Value Reference Range Interpretation Comme nts MAGNESIUM (test code = MAG) 2.36 mg/dL 1.80-2.40 N POC ARTERIAL BLOOD [id number] 04:09:00* Test Item Value Reference Range Interpretation Comme nts POC ARTERIAL BLOOD GAS PH (t est code = POCPHA) 7.467 7.35-7.45 H POC ARTERIAL BLOOD GAS PCO2 (test code = LDYSDT6Q) 34.4 mmHg 35.0-45 L POC TCO2 ARTERIAL (test code = POCTCO2) 26.0 POC ARTERIAL BLOOD GAS PO2 ( test code = CYPOA8G) 108.3 mmHg 80-100.0 H POC HCO3 ARTERIAL (test code = KYFRFO5D) 24.9 MMOL/L 22.0-26.0 N POC BASE EXCESS (test code = POCBEA) 1.2 MMOL/L -4.0-4.0 N POC O2 SATURATION (test code = POCO2S) 98.6 % 90-100 N FIO2 (test code = FIO2A) 28 % PaO2/FiO2 (test code = ZYX1AAL9) 386.78 mm/Hg ABG DELIVERY (test code = HAILY) Cannula ABG TEMPERATURE (test code = TEMPA) 98.4 F ABG SITE (test code = SITEA) Art Line BASIC METABOLIC [id number] 04:09:00* Test Item Value Reference Range Interpretation Comme nts SODIUM (test code = NA/ABG) 143 mmol/L 134-147 N POTASSIUM (test code = K/ABG) 4.3 mmol/L 3.4-5.0 N CHLORIDE (test code = CL/ABG) 107 mmol/L 100-108 N CREATININE ABG (test code = CREAABG) 1.9 mg/dL 0.8-1.3 H POC IONIZED CALCIUM (test co de = POCCA) 1.13 MMOL/L 1.12-1.32 N POC GLUCOSE (test code = POCGLU) 91 MG/DL 70-110 N HEMOGLOBIN [id number] 04:09:00* Test Item Value Reference Range Interpretation Comme nts HEMOGLOBIN ABG (test code = HGB/ABG) 7.2 G/DL 12.5-16.9 L [id number] 04:09:00* Test Item Value Reference Range Interpretation Comme nts HEMATOCRIT (test code = HCT/ABG) 21 % 37.5-50.7 L - XR CHEST 1 [id number] 00:00:00 [facility] 1935 Sex: M FAX: Vadim Jenkins [phone] [place]: St: ADM FAX: Katiana Gregory MD [phone] FAX: Aleshia Nieves MD [phone] Name: TONO MAHAN [facility] [place] : 1935 Age/S: 87/M [address] [place] [address] Bl Unit #: [id number] Loc: G.2203 [place] [address] Phys: Aleshia Quach MD Acct: [id number] Dis Date: Status: ADM IN PHONE #: [phone] Exam Date: 05/23/20220 FAX #: [phone] Reason: S/P CABG ALISON WINDOW EXAMS: CPT CODE: [id number] XR CHEST 1 V [id number] PROCEDURE INFORMATION: Exam: XR Chest Exam date and time: 2022 4:57 AM Age: 87 years old Clinical indication: Other: S/P cabg alison window TECHNIQUE: Imaging protocol: Radiologic exam of the chest. Views: 1 view. COMPARISON: CR XR CHEST 1V 05/22/2022 5:11 AM FINDINGS: Lungs: Lung volumes are low. Bibasilar reticular opacities are unchanged. Upper lobes are relatively clear. Pleural spaces: Unremarkable. No pleural effusion. No pneumothorax. Heart/Mediastinum: Heart is enlarged. Mediastinum is normal. Pulmonary vessels are mildly prominent. Bones/joints: No acute osseous findings. IMPRESSION: No significant changein bilateral lower lobe atelectasis. at 0733 Reported and signed by: Tavon Bernard M.D. CC: Vadim Amaro MD; Katiana Garcia MD; Aleshia Quach MD Technologist: RT Stu(R) Trnscrd Date/Time/By: 2022 (0733) : By: [email or web address] Orig Print D/T: S: 2022 (0733) PAGE 1 Signed ReportGLUCOSE [id number] 21:18:00* Test Item Value Reference Range Interpretation Comme nts GLUCOSE BEDSIDE (test code = GLUBED) 273 MG/DL 70-110 H Performed by cer tified starting sheet tank operator at [facility] GLUCOSE [id number] 18:43:00* Test Item Value Reference Range Interpretation Comme nts GLUCOSE BEDSIDE (test code = GLUBED) 267 MG/DL 70-110 H Performed by cer tified starting sheet tank operator at [facility] GLUCOSE [id number] 12:08:00* Test Item Value Reference Range Interpretation Comme nts GLUCOSE BEDSIDE (test code = GLUBED) 212 MG/DL 70-110 H Performed by cer tified starting sheet tank operator at [facility] GLUCOSE [id number] 07:58:00* Test Item Value Reference Range Interpretation Comme nts GLUCOSE BEDSIDE (test code = GLUBED) 226 MG/DL 70-110 H Performed by cer tified starting sheet tank operator at [facility] [id number] 06:05:00* Test Item Value Reference Range Interpretation Comme nts POTASSIUM (test code = K) 5.0 mEq/L 3.4-5.0 N CBC W/AUTO [id number] 05:15:00* Test Item Value Reference Range Interpretation Comme nts WHITE BLOOD CELL (test code = WBC) 20.2 x10 3/uL 4.5-11.0 H RED BLOOD CELL (test code = RBC) 2.38 x10 6/uL 4.00-5.60 L HEMOGLOBIN (test code = HGB) 8.0 g/dL 12.5-16.9 L HEMATOCRIT (test code = HCT) 24.3 % 37.5-50.7 L MEAN CELL VOLUME (test code = MCV) 102.1 fL 81.0-99.0 H MEAN CELL HGB (test code = MCH) 33.6 pg 27.0-33.0 H MEAN CELL HGB CONCETRATION (test code = MCHC) 32.9 g/dL 33.0-37.0 L RED CELL DISTRIBUTION WIDTH CV (test code = RDW) 15.5 % 11.5-14.5 H RED CELL DISTRIBUTION WIDTH SD (test code = RDW-SD) 56.9 fL 37.0-54.0 H PLATELET COUNT (test code = PLT) 208 x10 3/uL 150-400 N NEUTROPHIL % (test code = NT%) % 56.0-77.0 LYMPHOCYTE % (test code = LY%) % 14.0-32.0 NEUTROPHIL # (test code = NT#) x10 3/uL 2.0-7.6 LYMPHOCYTE # (test code = LY#) x10 3/uL 1.0-3.8 MANUAL DIFF REQUIRED (test c ode = MDIFF) YES MEAN PLATELET VOLUME (test c ode = MPV) 11.3 fL 7.0-9.0 H WBC [id number] 05:15:00* Test Item Value Reference Range Interpretation Comme nts BAND NEUTROPHIL (test code = BAND) 0.0 % 0.0-10.0 N ANISOCYTOSIS (test code = ANISO) 1+ PLATELET ESTIMATE (test code = PLTEST) Adequate THOUSAND ADEQUATE SEGMENTED NEUTROPHILS (test code = SEG) 85.4 % 37-69 H LYMPHOCYTE (test code = LYMPH) 6.4 % 23-55 L MONOCYTE (test code = MON) 5.5 % 0-10 N METAMYELOCYTE (test code = META) 0.9 % 0.0-0.0 H MYELOCYTE (test code = MYELO) 1.8 % 0.0-0.0 H POLYCHROMASIA (test code = POLC) 2+ PLATELET MORPHOLOGY (test code = PLTMORPH) LARGE PLATELETS COMPREHENSIVE METABOLIC [id number] 04:48:00* Test Item Value Reference Range Interpretation Comme nts SODIUM (test code = NA) 138 mEq/L 134-147 N POTASSIUM (test code = K) 5.1 mEq/L 3.4-5.0 H CHLORIDE (test code = CL) 106 mEq/L 100-108 N CARBON DIOXIDE (test code = CO2) 26 mEq/l 21-33 N ANION GAP (test code = GAP) 11 0-20 N GLUCOSE (test code = GLU) 217 mg/dL 70-110 H BLOOD UREA NITROGEN (test code = BUN) 74 mg/dL 7-18 H GLOMERULAR FILTRATION RATE (test code = GFR) 32.3 70-80 L The Glomerular Filtration Rate is a calculated parameterbased on serum Creatinine, patient age and sex. GFR valuesless than 60 mL/min/1.73 square meters are indicative ofChronic Kidney Disease. Values less than 15 mL/min/1.73square meters indicate Kidney failure. The calculation forGFR is based on the CKD-EPI (2020) calculation. This formulais race indifferent and is the recommended formula for GFRby the National Kidney Foundation for Adults.The GFR will not calculate if the sex is unknown or if thepatient's age is <18 years. CREATININE (test code = CREAT) 2.0 mg/dL 0.6-1.3 H TOTAL PROTEIN (test code = PROT) 5.8 g/dL 6.4-8.2 L ALBUMIN (test code = ALB) 2.70 g/dL 3.4-5.0 L CALCIUM (test code = CA) 8.0 mg/dL 8.0-10.5 N BILIRUBIN TOTAL (test code = BILT) 0.60 mg/dL 0.0-1.0 N SGOT/AST (test code = AST) 60 IUnit/L 15-37 H SGPT/ALT (test code = ALT) 175 IUnit/L 30-65 H ALKALINE PHOSPHATASE TOTAL (test code = ALKP) 110 IUnit/L 20-125 N [id number] 04:48:00* Test Item Value Reference Range Interpretation Comme nts MAGNESIUM (test code = MAG) 2.57 mg/dL 1.80-2.40 H POC ARTERIAL BLOOD [id number] 04:23:00* Test Item Value Reference Range Interpretation Comme nts POC ARTERIAL BLOOD GAS PH (t est code = POCPHA) 7.461 7.35-7.45 H POC ARTERIAL BLOOD GAS PCO2 (test code = RHRDOB7G) 36.7 mmHg 35.0-45 N POC TCO2 ARTERIAL (test code = POCTCO2) 27.4 POC ARTERIAL BLOOD GAS PO2 ( test code = JPMXA3T) 76.2 mmHg 80-100.0 L POC HCO3 ARTERIAL (test code = MZFGDQ9C) 26.2 MMOL/L 22.0-26.0 H POC BASE EXCESS (test code = POCBEA) 2.4 MMOL/L -4.0-4.0 N POC O2 SATURATION (test code = POCO2S) 96.1 % 90-100 N FIO2 (test code = FIO2A) 32 % PaO2/FiO2 (test code = SXC7NXB8) 238.12 mm/Hg ABG DELIVERY (test code = HAILY) Cannula ABG TEMPERATURE (test code = TEMPA) 98.1 F ABG SITE (test code = SITEA) Art Line LC'S TEST (test code = ALLENS) N/A BASIC METABOLIC [id number] 04:23:00* Test Item Value Reference Range Interpretation Comme nts SODIUM (test code = NA/ABG) 139 mmol/L 134-147 N POTASSIUM (test code = K/ABG) 5.1 mmol/L 3.4-5.0 H CHLORIDE (test code = CL/ABG) 103 mmol/L 100-108 N CREATININE ABG (test code = CREAABG) 2.4 mg/dL 0.8-1.3 H POC IONIZED CALCIUM (test co de = POCCA) 1.17 MMOL/L 1.12-1.32 N POC GLUCOSE (test code = POCGLU) 205 MG/DL 70-110 H HEMOGLOBIN [id number] 04:23:00* Test Item Value Reference Range Interpretation Comme nts HEMOGLOBIN ABG (test code = HGB/ABG) 8.0 G/DL 12.5-16.9 L [id number] 04:23:00* Test Item Value Reference Range Interpretation Comme nts HEMATOCRIT (test code = HCT/ABG) 23 % 37.5-50.7 L - XR CHEST 1 [id number] 00[facility]00:00 [facility] 1935 Sex: M FAX: Vadim Jenkins [phone] [place]: St: ADM FAX: Katiana Gregory MD [phone] FAX: Aleshia Nieves MD [phone] Name: TONO MAHAN [facility] : 1935 Age/S: 86/M [address] [place] [address] Unit #: [id number] Loc: G.2203 [place] [address] Phys: Aleshia Quach MD Acct: [id number] Dis Date: Status: ADM IN PHONE #: [phone] Exam Date: 05/22/2022723 FAX #: [phone] Reason: S/P CABG PERICARDIAL WINDOW EXAMS: CPT CODE: [id number] XR CHEST 1 V [id number] PROCEDURE INFORMATION: Exam: XR Chest Exam date and time: 05/22/2022 5:11 AM Age: 86 years old Clinical indication: Other: S/P cabg pericardial window TECHNIQUE: Imaging protocol: Radiologic exam of the chest. Views: 1view. COMPARISON: CR XR CHEST 1V 05/21/2022 4:54 AM FINDINGS: Lungs: Low lung volumes are present bilaterally. No consolidation. Bibasilar atelectasis. Pleural spaces: No pleural effusion. No pneumothorax. Heart/Mediastinum: Enlarged cardiac silhouette. Atherosclerotic calcifications. Bones/joints:Degenerative changes of the thoracic spine. Median sternotomy wires. IMPRESSION: No acute radiographic abnormality. Enlarged cardiac silhouette. at 0800 Reported and signed by: Ulysses Ely M.D. CC: Vadim Amaro MD; Katiana Garcia MD;Aleshia Quach MD Technologist: RT Yusef(R) Trnscrd Date/Time/By: 05/22/2022 (08) : By: [email or web address] Orig Print D/T: S: 05/22/2022 (0800) PAGE 1 Signed ReportGLUCOSE [id number] 20:08:00* Test Item Value Reference Range Interpretation Comme nts GLUCOSE BEDSIDE (test code = GLUBED) 191 MG/DL 70-110 H Performed by cer sandra starting sheet tank operator at [facility] COMPREHENSIVE METABOLIC [id number] 17:19:00* Test Item Value Reference Range Interpretation Comme nts SODIUM (test code = NA) 141 mEq/L 134-147 N POTASSIUM (test code = K) 4.7 mEq/L 3.4-5.0 N CHLORIDE (test code = CL) 106 mEq/L 100-108 N CARBON DIOXIDE (test code = CO2) 24 mEq/l 21-33 N ANION GAP (test code = GAP) 16 0-20 N GLUCOSE (test code = GLU) 268 mg/dL 70-110 H BLOOD UREA NITROGEN (test code = BUN) 85 mg/dL 7-18 H GLOMERULAR FILTRATION RATE (test code = GFR) 27.3 70-80 L The Glomerular Filtration Rate is a calculated parameterbased on serum Creatinine, patient age and sex. GFR valuesless than 60 mL/min/1.73 square meters are indicative ofChronic Kidney Disease. Values less than 15 mL/min/1.73square meters indicate Kidney failure. The calculation forGFR is based on the CKD-EPI (2020) calculation. This formulais race indifferent and is the recommended formula for GFRby the National Kidney Foundation for Adults.The GFR will not calculate if the sex is unknown or if thepatient's age is <18 years. CREATININE (test code = CREAT) 2.3 mg/dL 0.6-1.3 H TOTAL PROTEIN (test code = PROT) 6.0 g/dL 6.4-8.2 L ALBUMIN (test code = ALB) 2.70 g/dL 3.4-5.0 L CALCIUM (test code = CA) 8.1 mg/dL 8.0-10.5 N BILIRUBIN TOTAL (test code = BILT) 0.50 mg/dL 0.0-1.0 N SGOT/AST (test code = AST) 77 IUnit/L 15-37 H SGPT/ALT (test code = ALT) 197 IUnit/L 30-65 H ALKALINE PHOSPHATASE TOTAL (test code = ALKP) 113 IUnit/L 20-125 N [id number] 17:19:00* Test Item Value Reference Range Interpretation Comme nts MAGNESIUM (test code = MAG) 2.43 mg/dL 1.80-2.40 H POC ARTERIAL BLOOD [id number] 16:53:00* Test Item Value Reference Range Interpretation Comme nts POC ARTERIAL BLOOD GAS PH (t est code = POCPHA) 7.447 7.35-7.45 N POC ARTERIAL BLOOD GAS PCO2 (test code = YNAOEM3R) 35.9 mmHg 35.0-45 N POC TCO2 ARTERIAL (test code = POCTCO2) 26.1 POC ARTERIAL BLOOD GAS PO2 ( test code = MMVCS9R) 71.5 mmHg 80-100.0 L POC HCO3 ARTERIAL (test code = KCMDHD4Z) 24.9 MMOL/L 22.0-26.0 N POC BASE EXCESS (test code = POCBEA) 0.8 MMOL/L -4.0-4.0 N POC O2 SATURATION (test code = POCO2S) 95.3 % 90-100 N ABG DELIVERY (test code = HAILY) Cannula ABG TEMPERATURE (test code = TEMPA) 97.7 F ABG SITE (test code = SITEA) Art Line LC'S TEST (test code = ALLENS) N/A BASIC METABOLIC [id number] 16:53:00* Test Item Value Reference Range Interpretation Comme nts SODIUM (test code = NA/ABG) 136 mmol/L 134-147 N POTASSIUM (test code = K/ABG) 4.8 mmol/L 3.4-5.0 N CHLORIDE (test code = CL/ABG) 102 mmol/L 100-108 N CREATININE ABG (test code = CREAABG) 2.6 mg/dL 0.8-1.3 H POC IONIZED CALCIUM (test co de = POCCA) 1.18 MMOL/L 1.12-1.32 N POC GLUCOSE (test code = POCGLU) 266 MG/DL 70-110 H HEMOGLOBIN [id number] 16:53:00* Test Item Value Reference Range Interpretation Comme nts HEMOGLOBIN ABG (test code = HGB/ABG) 8.2 G/DL 12.5-16.9 L [id number] 16:53:00* Test Item Value Reference Range Interpretation Comme nts HEMATOCRIT (test code = HCT/ABG) 24 % 37.5-50.7 L POC LACTIC [id number] 16:53:00* Test Item Value Reference Range Interpretation Comme [facility] POC LACTIC ACID (test code = POCLAC) 1.9 mmol/l 0.9-1.7 H GLUCOSE [id number] 12:38:00* Test Item Value Reference Range Interpretation Comme [facility] GLUCOSE BEDSIDE (test code = GLUBED) 244 MG/DL 70-110 H Performed by cer tified starting sheet tank operator at [facility] GLUCOSE [id number] 06:22:00* Test Item Value Reference Range Interpretation Comme nts GLUCOSE BEDSIDE (test code = GLUBED) 189 MG/DL 70-110 H Performed by cer tified starting sheet tank operator at [facility] CBC W/AUTO [id number] 03:52:00* Test Item Value Reference Range Interpretation Comme [facility] WHITE BLOOD CELL (test code = WBC) 18.0 x10 3/uL 4.5-11.0 H RED BLOOD CELL (test code = RBC) 2.42 x10 6/uL 4.00-5.60 L HEMOGLOBIN (test code = HGB) 8.2 g/dL 12.5-16.9 L HEMATOCRIT (test code = HCT) 24.8 % 37.5-50.7 L MEAN CELL VOLUME (test code = MCV) 102.5 fL 81.0-99.0 H MEAN CELL HGB (test code = MCH) 33.9 pg 27.0-33.0 H MEAN CELL HGB CONCETRATION (test code = MCHC) 33.1 g/dL 33.0-37.0 N RED CELL DISTRIBUTION WIDTH CV (test code = RDW) 15.1 % 11.5-14.5 H RED CELL DISTRIBUTION WIDTH SD (test code = RDW-SD) 56.2 fL 37.0-54.0 H PLATELET COUNT (test code = PLT) 287 x10 3/uL 150-400 MEAN PLATELET VOLUME (test code = MPV) 11.5 fL 7.0-9.0 H NEUTROPHIL % (test code = NT%) 83.7 % 56.0-77.0 H LYMPHOCYTE % (test code = LY%) 5.4 % 14.0-32.0 L NEUTROPHIL # (test code = NT#) 15.08 x10 3/uL 2.0-7.6 H LYMPHOCYTE # (test code = LY#) 0.97 x10 3/uL 1.0-3.8 L MANUAL DIFF REQUIRED (test code = MDIFF) NO SLIDE REVIEW ED, CONSISTENT WITH AUTO DIFF. IMMATURE GRANULOCYTE % (test code = IG%) 6.2 % 0.0-2.0 H MONOCYTE % (test code = MO%) 4.3 % 4.8-9.0 L EOSINOPHIL % (test code = EO%) 0.1 % 0.3-3.7 L BASOPHIL % (test code = BA%) 0.3 % 0.0-2.0 N NUCLEATED RBC % (test code = NRBC%) 1.4 % 0-0 H IMMATURE GRANULOCYTE # (test code = IG#) 1.12 x10 3/uL 0.00-0.03 H MONOCYTE # (test code = MO#) 0.78 x10 3/uL 0.1-0.8 N EOSINOPHIL # (test code = EO#) 0.01 x10 3/uL 0.0-0.2 N BASOPHIL # (test code = BA#) 0.05 x10 3/uL 0.0-0.2 N NUCLEATED RBC # (test code = NRBC#) 0.25 x10 3/uL 0.0-0.1 H BASIC METABOLIC [id number] 03:15:00* Test Item Value Reference Range Interpretation Comme nts SODIUM (test code = NA) 138 mEq/L 134-147 N POTASSIUM (test code = K) 4.6 mEq/L 3.4-5.0 N CHLORIDE (test code = CL) 105 mEq/L 100-108 N CARBON DIOXIDE (test code = CO2) 25 mEq/l 21-33 N ANION GAP (test code = GAP) 13 0-20 N GLUCOSE (test code = GLU) 194 mg/dL 70-110 H BLOOD UREA NITROGEN (test code = BUN) 92 mg/dL 7-18 H GLOMERULAR FILTRATION RATE (test code = GFR) 27.3 70-80 L The Glomerular Filtration Rate is a calculated parameterbased on serum Creatinine, patient age and sex. GFR valuesless than 60 mL/min/1.73 square meters are indicative ofChronic Kidney Disease. Values less than 15 mL/min/1.73square meters indicate Kidney failure. The calculation forGFR is based on the CKD-EPI (202) calculation. This formulais race indifferent and is the recommended formula for GFRby the National Kidney Foundation for Adults.The GFR will not calculate if the sex is unknown or if thepatient's age is <18 years. CREATININE (test code = CREAT) 2.3 mg/dL 0.6-1.3 H CALCIUM (test code = CA) 8.0 mg/dL 8.0-10.5 N HEPATIC FUNCTION [id number] 03:15:00* Test Item Value Reference Range Interpretation Comme nts TOTAL PROTEIN (test code = PROT) 6.0 g/dL 6.4-8.2 L ALBUMIN (test code = ALB) 2.80 g/dL 3.4-5.0 L BILIRUBIN TOTAL (test code = BILT) 0.50 mg/dL 0.0-1.0 N BILIRUBIN DIRECT (test code = BILD) 0.30 MG/DL 0.0-0.30 N BILIRUBIN INDIRECT (test cod e = BILIND) 0.20 MG/DL SGOT/AST (test code = AST) 91 IUnit/L 15-37 H SGPT/ALT (test code = ALT) 221 IUnit/L 30-65 H ALKALINE PHOSPHATASE TOTAL ( test code = ALKP) 115 IUnit/L 20-125 N [id number] 03:15:00* Test Item Value Reference Range Interpretation Comme nts MAGNESIUM (test code = MAG) 2.53 mg/dL 1.80-2.40 H POC ARTERIAL BLOOD [id number] 02:54:00* Test Item Value Reference Range Interpretation Comme nts POC ARTERIAL BLOOD GAS PH (t est code = POCPHA) 7.427 7.35-7.45 N POC ARTERIAL BLOOD GAS PCO2 (test code = YVUGXU8V) 41.1 mmHg 35.0-45 N POC TCO2 ARTERIAL (test code = POCTCO2) 28.4 POC ARTERIAL BLOOD GAS PO2 ( test code = KVGGH2R) 72.7 mmHg 80-100.0 L POC HCO3 ARTERIAL (test code = ONGDHC0C) 27.1 MMOL/L 22.0-26.0 H POC BASE EXCESS (test code = POCBEA) 2.7 MMOL/L -4.0-4.0 N POC O2 SATURATION (test code = POCO2S) 94.8 % 90-100 N ABG DELIVERY (test code = HAILY) Cannula ABG SITE (test code = SITEA) Art Line - XR CHEST 1 [id number] 00:00:00 [facility] : 1935 Sex: M FAX: Vadim Jenkins [phone] [place]: St: ADM FAX: Katiana Gregory MD [phone] FAX: Aleshia Nieves MD [phone] Name: TONO MAHAN [facility] : 1935 Age/S: 86/M [address] [place] [address] Unit #: [id number] Loc: G.2203 [place] [address] Phys: Aleshia Quach MD Acct: [id number] Dis Date: Status: ADM IN PHONE #: [phone] Exam Date: 05/21/2022455 FAX #: [phone] Reason: TRENDING EXAMS: CPT CODE: [id number] XR CHEST 1 V 55730 PROCEDURE INFORMATION: Exam: XR ChestExam date and time: 05/21/2022 4:54 AM Age: 86 years old Clinical indication: Other: Trending TECHNIQUE: Imaging protocol: Radiologic exam of the chest. Views: 1 view. COMPARISON: CR XR CHEST 1V 05/20/2022 5:50 AM FINDINGS: Lungs: Bilateral lung opacities have slightly improved. Pleural spaces: No pn eumothorax. Questionable left pleural effusion. Heart/Mediastinum: The heart size is stable. There are multiple median sternotomy wires and surgical clips suggesting prior CABG. Bones/joints: Stable.IMPRESSION: Slightly improved appearance of the lungs. at 0801 Reported and signed by: Casey Power M.D. CC: Vadim Amaro MD; Katiana Garcia MD; Aleshia Quach MD Technologist: RT Stu(R) Trnscrd Date/Time/By: 05/21/2022 (800) : By: [email or web address] Orig Print D/T: S: 05/21/2022 (800) PAGE 1 Signed ReportGLUCOSE [id number] 23:58:00* Test Item Value Reference Range Interpretation Comme nts GLUCOSE BEDSIDE (test code = GLUBED) 190 MG/DL 70-110 H Performed by cer tified starting sheet tank operator at [facility] GLUCOSE [id number] 18:43:00* Test Item Value Reference Range Interpretation Comme nts GLUCOSE BEDSIDE (test code = GLUBED) 184 MG/DL 70-110 H Performed by cer tified starting sheet tank operator at [facility] GLUCOSE [id number] 14:29:00* Test Item Value Reference Range Interpretation Comme nts GLUCOSE BEDSIDE (test code = GLUBED) 179 MG/DL 70-110 H Performed by cer tified starting sheet tank operator at [facility] GLUCOSE [id number] 05:52:00* Test Item Value Reference Range Interpretation Comme nts GLUCOSE BEDSIDE (test code = GLUBED) 187 MG/DL 70-110 H Performed by [facility] tified starting sheet tank operator at [facility] CBC W/AUTO [id number] 05:20:00* Test Item Value Reference Range Interpretation Comme nts WHITE BLOOD CELL (test code = WBC) 10.7 x10 3/uL 4.5-11.0 N RED BLOOD CELL (test code = RBC) 2.16 x10 6/uL 4.00-5.60 L HEMOGLOBIN (test code = HGB) 7.2 g/dL 12.5-16.9 L HEMATOCRIT (test code = HCT) 21.9 % 37.5-50.7 L MEAN CELL VOLUME (test code = MCV) 101.4 fL 81.0-99.0 H MEAN CELL HGB (test code = MCH) 33.3 pg 27.0-33.0 H MEAN CELL HGB CONCETRATION (test code = MCHC) 32.9 g/dL 33.0-37.0 L RED CELL DISTRIBUTION WIDTH CV (test code = RDW) 15.2 % 11.5-14.5 H RED CELL DISTRIBUTION WIDTH SD (test code = RDW-SD) 55.8 fL 37.0-54.0 H PLATELET COUNT (test code = PLT) 182 x10 3/uL 150-400 N MEAN PLATELET VOLUME (test code = MPV) 12.1 fL 7.0-9.0 H NEUTROPHIL % (test code = NT%) 83.3 % 56.0-77.0 H LYMPHOCYTE % (test code = LY%) 7.2 % 14.0-32.0 L NEUTROPHIL # (test code = NT#) 8.94 x10 3/uL 2.0-7.6 H LYMPHOCYTE # (test code = LY#) 0.77 x10 3/uL 1.0-3.8 L MANUAL DIFF REQUIRED (test code = MDIFF) NO SLIDE REVIEW ED, CONSISTENT WITH AUTO DIFF. IMMATURE GRANULOCYTE % (test code = IG%) 6.0 % 0.0-2.0 H MONOCYTE % (test code = MO%) 3.4 % 4.8-9.0 L EOSINOPHIL % (test code = EO%) 0.0 % 0.3-3.7 L BASOPHIL % (test code = BA%) 0.1 % 0.0-2.0 N NUCLEATED RBC % (test code = NRBC%) 1.6 % 0-0 H IMMATURE GRANULOCYTE # (test code = IG#) 0.64 x10 3/uL 0.00-0.03 H MONOCYTE # (test code = MO#) 0.37 x10 3/uL 0.1-0.8 N EOSINOPHIL # (test code = EO#) 0.00 x10 3/uL 0.0-0.2 N BASOPHIL # (test code = BA#) 0.01 x10 3/uL 0.0-0.2 N NUCLEATED RBC # (test code = NRBC#) 0.17 x10 3/uL 0.0-0.1 H PLT [id number] 05:20:00* Test Item Value Reference Range Interpretation Comme nts PLATELET ESTIMATE (test code = PLTEST) Adequate THOUSAND ADEQUATE PLATELET MORPHOLOGY (test code = PLTMORPH) AGGREGATES BASIC METABOLIC [id number] 04:56:00* Test Item Value Reference Range Interpretation Comme nts SODIUM (test code = NA) 138 mEq/L 134-147 N POTASSIUM (test code = K) 4.7 mEq/L 3.4-5.0 N CHLORIDE (test code = CL) 105 mEq/L 100-108 N CARBON DIOXIDE (test code = CO2) 25 mEq/l 21-33 N ANION GAP (test code = GAP) 13 0-20 N GLUCOSE (test code = GLU) 209 mg/dL 70-110 H BLOOD UREA NITROGEN (test code = BUN) 100 mg/dL 7-18 H GLOMERULAR FILTRATION RATE (test code = GFR) 21.6 70-80 L The Glomerular Filtration Rate is a calculated parameterbased on serum Creatinine, patient age and sex. GFR valuesless than 60 mL/min/1.73 square meters are indicative ofChronic Kidney Disease. Values less than 15 mL/min/1.73square meters indicate Kidney failure. The calculation forGFR is based on the CKD-EPI (2020) calculation. This formulais race indifferent and is the recommended formula for GFRby the National Kidney Foundation for Adults.The GFR will not calculate if the sex is unknown or if thepatient's age is <18 years. CREATININE (test code = CREAT) 2.8 mg/dL 0.6-1.3 H CALCIUM (test code = CA) 8.3 mg/dL 8.0-10.5 N HEPATIC FUNCTION [id number] 04:56:00* Test Item Value Reference Range Interpretation Comme nts TOTAL PROTEIN (test code = PROT) 5.9 g/dL 6.4-8.2 L ALBUMIN (test code = ALB) 2.70 g/dL 3.4-5.0 L BILIRUBIN TOTAL (test code = BILT) 0.50 mg/dL 0.0-1.0 N BILIRUBIN DIRECT (test code = BILD) 0.30 MG/DL 0.0-0.30 N BILIRUBIN INDIRECT (test cod e = BILIND) 0.20 MG/DL SGOT/AST (test code = AST) 138 IUnit/L 15-37 H SGPT/ALT (test code = ALT) 251 IUnit/L 30-65 H ALKALINE PHOSPHATASE TOTAL ( test code = ALKP) 107 IUnit/L 20-125 N [id number] 04:56:00* Test Item Value Reference Range Interpretation Comme nts MAGNESIUM (test code = MAG) 2.61 mg/dL 1.80-2.40 H POC ARTERIAL BLOOD [id number] 04:03:00* Test Item Value Reference Range Interpretation Comme nts POC ARTERIAL BLOOD GAS PH (t est code = POCPHA) 7.394 7.35-7.45 N POC ARTERIAL BLOOD GAS PCO2 (test code = [id number]) 40.5 mmHg 35.0-45 N POC TCO2 ARTERIAL (test code = POCTCO2) 26.1 POC ARTERIAL BLOOD GAS PO2 ( test code = KILUJ0U) 93.0 mmHg 80-100.0 N POC HCO3 ARTERIAL (test code = DVPVMS3E) 24.8 MMOL/L 22.0-26.0 N POC BASE EXCESS (test code = POCBEA) -0.2 MMOL/L -4.0-4.0 N POC O2 SATURATION (test code = POCO2S) 97.3 % 90-100 N FIO2 (test code = FIO2A) 36 % PaO2/FiO2 (test code = [id number]) 258.33 mm/Hg ABG DELIVERY (test code = HAILY) Cannula ABG TEMPERATURE (test code = TEMPA) 98 F ABG SITE (test code = SITEA) Art Line LC'S TEST (test code = ALLENS) N/A BASIC METABOLIC [id number] 04:03:00* Test Item Value Reference Range Interpretation Comme nts SODIUM (test code = NA/ABG) 137 mmol/L 134-147 N POTASSIUM (test code = K/ABG) 4.6 mmol/L 3.4-5.0 N CHLORIDE (test code = CL/ABG) 101 mmol/L 100-108 N CREATININE ABG (test code = CREAABG) 3.4 mg/dL 0.8-1.3 H POC IONIZED CALCIUM (test co de = POCCA) 1.14 MMOL/L 1.12-1.32 N POC GLUCOSE (test code = POCGLU) 203 MG/DL 70-110 H HEMOGLOBIN [id number] 04:03:00* Test Item Value Reference Range Interpretation Comme nts HEMOGLOBIN ABG (test code = HGB/ABG) 7.0 G/DL 12.5-16.9 L [id number] 04:03:00* Test Item Value Reference Range Interpretation Comme nts HEMATOCRIT (test code = HCT/ABG) 21 % 37.5-50.7 L GLUCOSE [id number] 02:30:00* Test Item Value Reference Range Interpretation Comme [facility] GLUCOSE BEDSIDE (test code = GLUBED) 213 MG/DL 70-110 H 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 - XR CHEST 1 [id number] 00:00:00 [facility] : 1935 Sex: M FAX: Vadim Jenkins [phone] [place]: St: ADM FAX: Katiana Gregory MD [phone] FAX: Richa Howard MD [phone] Name: TONO MAHAN [facility] [place] : 1935 Age/S: 86/M [address] [place] [address] Unit #: [id number] Loc: [place] [address] Phys: Richa Howard MD Acct: [id number] Dis Date: Status: ADM IN PHONE #: [phone] Exam Date: 05/20/2022728 FAX #: [phone] Reason: S/P CABG EXAMS: CPT CODE: [id number] XR CHEST 1 V 40933 PROCEDURE INFORMATION: Exam: XR Chest Exam date and time: 05/20/2022 5:50 AM Age: 86 years old Clinical indication: Other: S/P cabg TECHNIQUE: Imaging protocol: Radiologic exam of the chest. Views: 1 view. COMPARISON: CR XR CHEST 1V 05/19/2022 5:45 AM FINDINGS: Lungs: Mild vascular congestion and interstitial edema. There are bilateral lower lobe airspace opacities which have increased. Pleural spaces: No pleural effusion. No pneumothorax. Heart/Mediastinum: Moderate cardiomegaly. Bones/joints: No acute abnormality. IMPRESSION: 1. Increasedbilateral lower lobe opacities, possibly pneumonia. 2. Mild vascular congestion and interstitial edema compatible with CHF or fluid overload. at 0802 Reported and signed by: Jake Oseguera M.D. CC: Vadim Amaro MD; Katiana Garcia MD; Richa Howard MD Technologist: Ehsan Maza; Sho Hopkins, RT(R) Trnscrd Date/Time/By: 05/20/2022 (801) : By: [email or web address] Orig Print D/T: S: 05/20/2022 (802) PAGE 1 Signed Report- XR CHEST 1 [id number] 00:00:00 [facility] : 1935 Sex: M FAX: Vadim Jenkins [phone] [place]: St: ADM FAX: Katiana Gregory MD [phone] FAX: Richa Howard MD [phone] Name: TONO MAHAN [facility] Celio Doyle : 1935 Age/S: 86/M [address] [place] [address] Unit #: [id number] Loc: G.[address] [place] [address] Phys: Richa Howard MD Acct: [id number] Dis Date: Status: ADM IN PHONE #: [phone] Exam Date: 05/19/2022 0639 FAX #: [phone] Reason: S/P PERICARDIAL WINDOW. DEJUAN DRAIN EXAMS: CPT CODE: [id number] XR CHEST 1 V [id number] PROCEDURE INFORMATION: Exam: XR Chest Exam date and time: 05/19/2022 5:45 AM Age: 86 years old Clinical indication: Other: S/P pericardial window. Dejuan drain TECHNIQUE: Imaging protocol: Radiologic exam of the chest. Views: 1 view. COMPARISON: CR XR CHEST 1V 05/19/2022 12:17 AM FINDINGS: Tubes, catheters and devices: Intervalremoval of the endotracheal tube. Lungs: Stable moderate prominence of the interstitial markings and central pulmonary vasculature bilaterally. Hypoventilated lungs. Pleural spaces: Unremarkable. Nopleural effusion. No pneumothorax. Heart/Mediastinum: Stable enlarged cardiac silhouette. Bones/joints: The median sternotomy wires appear intact. No acute process. Other findings: Limited assessmentdue to exam technique. IMPRESSION: Stable moderate prominence of the interstitial markings and central pulmonary vasculature bilaterally. No pneumothorax. Stable enlarged cardiac silhouette. at 0906 Reported and signed by: Barrie Adler M.D. CC: Vadim Amaro MD; Katiana Garcia MD; Richa Howard MD Technologist: RT Jonel(R) Trnscrd Date/Time/By: 05/20/2022 (905) : By: [email or web address] Orig Print D/T: S: 05/20/2022 (905) PAGE 1 Signed ReportCBC W/AUTO [id number] 16:13:00* Test Item Value Reference Range Interpretation Comme nts WHITE BLOOD CELL (test code = WBC) 13.3 x10 3/uL 4.5-11.0 H RED BLOOD CELL (test code = RBC) 2.31 x10 6/uL 4.00-5.60 L HEMOGLOBIN (test code = HGB) 7.8 g/dL 12.5-16.9 L HEMATOCRIT (test code = HCT) 23.0 % 37.5-50.7 L MEAN CELL VOLUME (test code = MCV) 99.6 fL 81.0-99.0 H MEAN CELL HGB (test code = MCH) 33.8 pg 27.0-33.0 H MEAN CELL HGB CONCETRATION (test code = MCHC) 33.9 g/dL 33.0-37.0 N RED CELL DISTRIBUTION WIDTH CV (test code = RDW) 15.2 % 11.5-14.5 H RED CELL DISTRIBUTION WIDTH SD (test code = RDW-SD) 55.3 fL 37.0-54.0 H PLATELET COUNT (test code = PLT) 173 x10 3/uL 150-400 MEAN PLATELET VOLUME (test c ode = MPV) 11.7 fL 7.0-9.0 H NEUTROPHIL % (test code = NT%) % 56.0-77.0 LYMPHOCYTE % (test code = LY%) % 14.0-32.0 NEUTROPHIL # (test code = NT#) x10 3/uL 2.0-7.6 LYMPHOCYTE # (test code = LY#) x10 3/uL 1.0-3.8 MANUAL DIFF REQUIRED (test c ode = MDIFF) YES WBC [id number] 16:13:00* Test Item Value Reference Range Interpretation Comme nts BAND NEUTROPHIL (test code = BAND) 0.0 % 0.0-10.0 N ANISOCYTOSIS (test code = ANISO) 1+ PLATELET ESTIMATE (test code = PLTEST) Adequate THOUSAND ADEQUATE SEGMENTED NEUTROPHILS (test code = SEG) 87.3 % 37-69 H LYMPHOCYTE (test code = LYMPH) 5.5 % 23-55 L MONOCYTE (test code = MON) 4.5 % 0-10 N MYELOCYTE (test code = MYELO) 2.7 % 0.0-0.0 H NUCLEATED RED BLOOD CELL (test code = NRBC) 4.5 % POLYCHROMASIA (test code = POLC) 2+ POIKILOCYTOSIS (test code = POIK) FEW BASOPHILIC STIPPLING (test code = STP) FEW MACROCYTOSIS (test code = MACR) 1+ ELLIPTOCYTES (test code = ELL) FEW PLATELET MORPHOLOGY (test code = PLTMORPH) AGGREGATES BASIC METABOLIC [id number] 15:50:00* Test Item Value Reference Range Interpretation Comme nts SODIUM (test code = NA) 140 mEq/L 134-147 N POTASSIUM (test code = K) 4.8 mEq/L 3.4-5.0 N CHLORIDE (test code = CL) 103 mEq/L 100-108 N CARBON DIOXIDE (test code = CO2) 25 mEq/l 21-33 N ANION GAP (test code = GAP) 17 0-20 N GLUCOSE (test code = GLU) 192 mg/dL 70-110 H BLOOD UREA NITROGEN (test code = BUN) 106 mg/dL 7-18 H GLOMERULAR FILTRATION RATE (test code = GFR) 19.1 70-80 L The Glomerular Filtration Rate is a calculated parameterbased on serum Creatinine, patient age and sex. GFR valuesless than 60 mL/min/1.73 square meters are indicative ofChronic Kidney Disease. Values less than 15 mL/min/1.73square meters indicate Kidney failure. The calculation forGFR is based on the CKD-EPI (2020) calculation. This formulais race indifferent and is the recommended formula for GFRby the National Kidney Foundation for Adults.The GFR will not calculate if the sex is unknown or if thepatient's age is <18 years. CREATININE (test code = CREAT) 3.1 mg/dL 0.6-1.3 H CALCIUM (test code = CA) 9.0 mg/dL 8.0-10.5 N [id number] 15:50:00* Test Item Value Reference Range Interpretation Comme nts PHOSPHOROUS (test code = PHOS) 6.5 MG/DL 2.5-4.9 H [id number] 15:50:00* Test Item Value Reference Range Interpretation Comme nts MAGNESIUM (test code = MAG) 2.66 mg/dL 1.80-2.40 H CALCIUM [id number] 15:50:00* Test Item Value Reference Range Interpretation Comme nts CALCIUM IONIZED (test code = CHAPIN) 1.13 MMOL/L 1.09-1.30 N CBC W/AUTO [id number] 06:01:00* Test Item Value Reference Range Interpretation Comme nts WHITE BLOOD CELL (test code = WBC) 11.0 x10 3/uL 4.5-11.0 N RED BLOOD CELL (test code = RBC) 2.13 x10 6/uL 4.00-5.60 L HEMOGLOBIN (test code = HGB) 7.0 g/dL 12.5-16.9 L HEMATOCRIT (test code = HCT) 21.6 % 37.5-50.7 L MEAN CELL VOLUME (test code = MCV) 101.4 fL 81.0-99.0 H MEAN CELL HGB (test code = MCH) 32.9 pg 27.0-33.0 N MEAN CELL HGB CONCETRATION (test code = MCHC) 32.4 g/dL 33.0-37.0 L RED CELL DISTRIBUTION WIDTH CV (test code = RDW) 15.1 % 11.5-14.5 H RED CELL DISTRIBUTION WIDTH SD (test code = RDW-SD) 56.2 fL 37.0-54.0 H PLATELET COUNT (test code = PLT) 92 x10 3/uL 150-400 L MEAN PLATELET VOLUME (test c ode = MPV) 11.7 fL 7.0-9.0 H NEUTROPHIL % (test code = NT%) % 56.0-77.0 LYMPHOCYTE % (test code = LY%) % 14.0-32.0 NEUTROPHIL # (test code = NT#) x10 3/uL 2.0-7.6 LYMPHOCYTE # (test code = LY#) x10 3/uL 1.0-3.8 MANUAL DIFF REQUIRED (test c ode = MDIFF) YES WBC [id number] 06:01:00* Test Item Value Reference Range Interpretation Comme nts BAND NEUTROPHIL (test code = BAND) 0.9 % 0.0-10.0 N ANISOCYTOSIS (test code = ANISO) 1+ PLATELET ESTIMATE (test code = PLTEST) Decreased THOUSAND ADEQUATE SEGMENTED NEUTROPHILS (test code = SEG) 87.3 % 37-69 H LYMPHOCYTE (test code = LYMPH) 6.4 % 23-55 L MONOCYTE (test code = MON) 3.6 % 0-10 N MYELOCYTE (test code = MYELO) 1.8 % 0.0-0.0 H POLYCHROMASIA (test code = POLC) 1+ PLATELET MORPHOLOGY (test code = PLTMORPH) AGGREGATES BASIC METABOLIC [id number] 04:20:00* Test Item Value Reference Range Interpretation Comme nts SODIUM (test code = NA) 136 mEq/L 134-147 N POTASSIUM (test code = K) 4.7 mEq/L 3.4-5.0 N CHLORIDE (test code = CL) 101 mEq/L 100-108 N CARBON DIOXIDE (test code = CO2) 24 mEq/l 21-33 N ANION GAP (test code = GAP) 15 0-20 N GLUCOSE (test code = GLU) 198 mg/dL 70-110 H BLOOD UREA NITROGEN (test code = BUN) 104 mg/dL 7-18 H GLOMERULAR FILTRATION RATE (test code = GFR) 17.7 70-80 L The Glomerular Filtration Rate is a calculated parameterbased on serum Creatinine, patient age and sex. GFR valuesless than 60 mL/min/1.73 square meters are indicative ofChronic Kidney Disease. Values less than 15 mL/min/1.73square meters indicate Kidney failure. The calculation forGFR is based on the CKD-EPI (2020) calculation. This formulais race indifferent and is the recommended formula for GFRby the National Kidney Foundation for Adults.The GFR will not calculate if the sex is unknown or if thepatient's age is <18 years. CREATININE (test code = CREAT) 3.3 mg/dL 0.6-1.3 H CALCIUM (test code = CA) 9.1 mg/dL 8.0-10.5 N HEPATIC FUNCTION [id number] 04:20:00* Test Item Value Reference Range Interpretation Comme nts TOTAL PROTEIN (test code = PROT) 6.1 g/dL 6.4-8.2 L ALBUMIN (test code = ALB) 2.80 g/dL 3.4-5.0 L BILIRUBIN TOTAL (test code = BILT) 0.60 mg/dL 0.0-1.0 N BILIRUBIN DIRECT (test code = BILD) 0.40 MG/DL 0.0-0.30 H BILIRUBIN INDIRECT (test cod e = BILIND) 0.20 MG/DL SGOT/AST (test code = AST) 299 IUnit/L 15-37 H SGPT/ALT (test code = ALT) 318 IUnit/L 30-65 H ALKALINE PHOSPHATASE TOTAL ( test code = ALKP) 107 IUnit/L 20-125 N [id number] 04:20:00* Test Item Value Reference Range Interpretation Comme nts MAGNESIUM (test code = MAG) 2.70 mg/dL 1.80-2.40 H POC ARTERIAL BLOOD [id number] 03:13:00* Test Item Value Reference Range Interpretation Comme nts POC ARTERIAL BLOOD GAS PH (t est code = POCPHA) 7.337 7.35-7.45 L POC ARTERIAL BLOOD GAS PCO2 (test code = AIUXQL4J) 43.2 mmHg 35.0-45 N POC TCO2 ARTERIAL (test code = POCTCO2) 24.6 POC ARTERIAL BLOOD GAS PO2 ( test code = BCNSO3A) 97.9 mmHg 80-100.0 N POC HCO3 ARTERIAL (test code = HNPHPF5A) 23.2 MMOL/L 22.0-26.0 N POC BASE EXCESS (test code = POCBEA) -2.6 MMOL/L -4.0-4.0 N POC O2 SATURATION (test code = POCO2S) 97.2 % 90-100 N FIO2 (test code = FIO2A) 30 % PaO2/FiO2 (test code = RUJ9JSL2) 326.33 mm/Hg ABG DELIVERY (test code = HAILY) BiPAP ABG VENT RESP RATE (test cod e = RRA) 14 /MIN ABG PEEP (test code = PEEPA) 8 cmH2O ABG PRESSURE SUPPORT (test c ode = PSABG) 10 cmH2O ABG TEMPERATURE (test code = TEMPA) 98 F ABG SITE (test code = SITEA) L Radial LC'S TEST (test code = ALLENS) N/A BASIC METABOLIC [id number] 03:13:00* Test Item Value Reference Range Interpretation Comme nts SODIUM (test code = NA/ABG) 136 mmol/L 134-147 N POTASSIUM (test code = K/ABG) 4.4 mmol/L 3.4-5.0 N CHLORIDE (test code = CL/ABG) 101 mmol/L 100-108 N CREATININE ABG (test code = CREAABG) 3.7 mg/dL 0.8-1.3 H POC IONIZED CALCIUM (test co de = POCCA) 1.19 MMOL/L 1.12-1.32 N POC GLUCOSE (test code = POCGLU) 172 MG/DL 70-110 H HEMOGLOBIN [id number] 03:13:00* Test Item Value Reference Range Interpretation Comme nts HEMOGLOBIN ABG (test code = HGB/ABG) 6.6 G/DL 12.5-16.9 L [id number] 03:13:00* Test Item Value Reference Range Interpretation Comme nts HEMATOCRIT (test code = HCT/ABG) 19 % 37.5-50.7 L POC LACTIC [id number] 03:13:00* Test Item Value Reference Range Interpretation Comme nts POC LACTIC ACID (test code = POCLAC) 1.0 mmol/l 0.9-1.7 N CBC W/AUTO [id number] 00:00:00* Test Item Value Reference Range Interpretation Comme nts WHITE BLOOD CELL (test code = WBC) 13.2 x10 3/uL 4.5-11.0 H RED BLOOD CELL (test code = RBC) 2.17 x10 6/uL 4.00-5.60 L HEMOGLOBIN (test code = HGB) 7.2 g/dL 12.5-16.9 L HEMATOCRIT (test code = HCT) 21.5 % 37.5-50.7 L MEAN CELL VOLUME (test code = MCV) 99.1 fL 81.0-99.0 H MEAN CELL HGB (test code = MCH) 33.2 pg 27.0-33.0 H MEAN CELL HGB CONCETRATION (test code = MCHC) 33.5 g/dL 33.0-37.0 N RED CELL DISTRIBUTION WIDTH CV (test code = RDW) 15.5 % 11.5-14.5 H RED CELL DISTRIBUTION WIDTH SD (test code = RDW-SD) 55.8 fL 37.0-54.0 H PLATELET COUNT (test code = PLT) 109 x10 3/uL 150-400 L MEAN PLATELET VOLUME (test c ode = MPV) 12.1 fL 7.0-9.0 H NEUTROPHIL % (test code = NT%) % 56.0-77.0 LYMPHOCYTE % (test code = LY%) % 14.0-32.0 NEUTROPHIL # (test code = NT#) x10 3/uL 2.0-7.6 LYMPHOCYTE # (test code = LY#) x10 3/uL 1.0-3.8 MANUAL DIFF REQUIRED (test c ode = MDIFF) YES WBC [id number] 00:00:00* Test Item Value Reference Range Interpretation Comme nts BAND NEUTROPHIL (test code = BAND) 0.9 % 0.0-10.0 N ANISOCYTOSIS (test code = ANISO) 1+ PLATELET ESTIMATE (test code = PLTEST) Adequate THOUSAND ADEQUATE SEGMENTED NEUTROPHILS (test code = SEG) 86.4 % 37-69 H LYMPHOCYTE (test code = LYMPH) 5.4 % 23-55 L MONOCYTE (test code = MON) 5.5 % 0-10 N MYELOCYTE (test code = MYELO) 0.9 % 0.0-0.0 H PROMYELOCYTE (test code = PROM) 0.9 % 0-0 H NUCLEATED RED BLOOD CELL (test code = NRBC) 2.7 % POLYCHROMASIA (test code = POLC) 1+ MACROCYTOSIS (test code = MACR) 1+ - XR CHEST 1 [id number] 00:00:00 [facility] : 1935 Sex: M FAX: Vadim Jenkins [phone] [place]: St: ADM FAX: Katiana Gregory MD [phone] ---- Name: TONO MAHAN [facility] : 1935 Age/S: 86/M [address] [place] [address] Unit #: [id number] Loc: G.[address] [place] [address] Phys: Vadim Amaro MD Acct: [id number] Dis Date: Status: ADM IN PHONE #: [phone] Exam Date: 05/19/202220 FAX #: [phone] Reason: POST WINDOW EXAMS: CPT CODE: [id number] XR CHEST 1 V [id number] PROCEDURE INFORMATION: Exam: XR Chest Exam date and time: :17 AM Age: 86 years old Clinical indication: Other: Post window TECHNIQUE: Imaging protocol: Radiologic exam of the chest. Views: 1 view. COMPARISON: CR XR CHEST 1V 05/18/2022 3:09 AM FINDINGS: Tubes, catheters and devices: Endotracheal tube tip is at the mid tracheal level. Lungs: Stable perihilar infiltrate. Pleural spaces: Unremarkable. No pleural effusion. No pneumothorax. Heart/Mediastinum: Cardiomegaly. Previous midline sternotomy. Under penetrated for mediastinal drain evaluation given history. Bones/joints: Unremarkable. IMPRESSION: 1. Stable cardiomegaly and perihilar infiltrates. 2. Endotracheal tube tip is at the mid tracheal level. at 0122 Reported and signed by: Tavon Vincent M.D. CC: Vadim Amaro MD; Katiana Garcia MD Technologist: RT Ezekiel(R) Trnscrd Date/Time/By: 05/19/2022 (012) : By: LeslieBROWN Orig Print D/T: S: 05/19/2022 (0122) PAGE 1 Signed Report COMPREHENSIVE METABOLIC [id number] 23:20:00* Test Item Value Reference Range Interpretation Comme nts SODIUM (test code = NA) 135 mEq/L 134-147 N POTASSIUM (test code = K) 4.5 mEq/L 3.4-5.0 N CHLORIDE (test code = CL) 101 mEq/L 100-108 N CARBON DIOXIDE (test code = CO2) 23 mEq/l 21-33 N ANION GAP (test code = GAP) 16 0-20 N GLUCOSE (test code = GLU) 222 mg/dL 70-110 H BLOOD UREA NITROGEN (test code = BUN) 100 mg/dL 7-18 H GLOMERULAR FILTRATION RATE (test code = GFR) 18.4 70-80 L The Glomerular Filtration Rate is a calculated parameterbased on serum Creatinine, patient age and sex. GFR valuesless than 60 mL/min/1.73 square meters are indicative ofChronic Kidney Disease. Values less than 15 mL/min/1.73square meters indicate Kidney failure. The calculation forGFR is based on the CKD-EPI (202) calculation. This formulais race indifferent and is the recommended formula for GFRby the National Kidney Foundation for Adults.The GFR will not calculate if the sex is unknown or if thepatient's age is <18 years. CREATININE (test code = CREAT) 3.2 mg/dL 0.6-1.3 H TOTAL PROTEIN (test code = PROT) 6.3 g/dL 6.4-8.2 L ALBUMIN (test code = ALB) 2.90 g/dL 3.4-5.0 L CALCIUM (test code = CA) 9.7 mg/dL 8.0-10.5 N BILIRUBIN TOTAL (test code = BILT) 0.80 mg/dL 0.0-1.0 N SGOT/AST (test code = AST) 399 IUnit/L 15-37 H SGPT/ALT (test code = ALT) 348 IUnit/L 30-65 H ALKALINE PHOSPHATASE TOTAL (test code = ALKP) 111 IUnit/L 20-125 PROTHROMBIN [id number] 23:13:00* Test Item Value Reference Range Interpretation [facility]IENT (test code = PTP) 14.9 SECONDS 9.3-12.9 H INTERNATIONAL NORMAL RATIO (test code = INR) 1.3 0.8-1.2 H TARGET INR BY INDICATION Indication INR1. Prophylaxis of venous thrombosis 2.0 - 3.0 (orthopedic surgery), Prophylaxis of venous thrombosis (other than high-risk surgery), Treatment of Deep Vein Thrombosis/Pulmonary Embolism, Prevention of systemic embolism - Tissue heart valves, Acute Myocardial Infarction (to prevent systemic embolism), Valvular heart disease, Atrial Fibrillation, Bileaflet mechanical valve in aortic position.2. Mechanical prosthetic valves (high risk), 2.5 - 3.5 Presence of Lupus Anticoagulant or Antiphospholipid Antibodies, Prevention of systemic embolism - Acute Myocardial Infarction (to prevent recurrent infarct). THROMBOPLASTIN TIME [id number] 23:13:00* Test Item Value Reference Range Interpretation [facility] THROMBOPLASTIN TIME PARTIAL (test code = PTT) 24.1 Seconds 25.0-39.5 L Therapeutic Rang e: 50.4 - 88.3 Seconds Effective 06/17/2018 POC ARTERIAL BLOOD [id number] 22:41:00* Test Item Value Reference Range Interpretation [facility] POC ARTERIAL BLOOD GAS PH (t est code = POCPHA) 7.361 7.35-7.45 N POC ARTERIAL BLOOD GAS PCO2 (test code = [id number]) 38.9 mmHg 35.0-45 N POC TCO2 ARTERIAL (test code = POCTCO2) 23.3 POC ARTERIAL BLOOD GAS PO2 ( test code = VUSDC8H) 128.1 mmHg 80-100.0 H POC HCO3 ARTERIAL (test code = [id number]) 22.1 MMOL/L 22.0-26.0 N POC BASE EXCESS (test code = POCBEA) -3.4 MMOL/L -4.0-4.0 N POC O2 SATURATION (test code = POCO2S) 98.8 % 90-100 N FIO2 (test code = FIO2A) 50 % PaO2/FiO2 (test code = [id number]) 256.20 mm/Hg ABG DELIVERY (test code = HAILY) Adult Vent ABG VENT MODE (test code = MODEA) AC ABG VENT RESP RATE (test cod e = RRA) 16 /MIN ABG TIDAL VOLUME (test code = TVA) 550 ml ABG PEEP (test code = PEEPA) 8 cmH2O ABG TEMPERATURE (test code = TEMPA) 98.1 F ABG SITE (test code = SITEA) Art Line LC'S TEST (test code = ALLENS) N/A BASIC METABOLIC [id number] 22:41:00* Test Item Value Reference Range Interpretation Comme nts SODIUM (test code = NA/ABG) 134 mmol/L 134-147 N POTASSIUM (test code = K/ABG) 4.4 mmol/L 3.4-5.0 N CHLORIDE (test code = CL/ABG) 102 mmol/L 100-108 N CREATININE ABG (test code = CREAABG) 3.8 mg/dL 0.8-1.3 H POC IONIZED CALCIUM (test co de = POCCA) 1.23 MMOL/L 1.12-1.32 N POC GLUCOSE (test code = POCGLU) 200 MG/DL 70-110 H HEMOGLOBIN [id number] 22:41:00* Test Item Value Reference Range Interpretation Comme nts HEMOGLOBIN ABG (test code = HGB/ABG) 7.2 G/DL 12.5-16.9 L [id number] 22:41:00* Test Item Value Reference Range Interpretation Comme nts HEMATOCRIT (test code = HCT/ABG) 21 % 37.5-50.7 L POC LACTIC [id number] 22:41:00* Test Item Value Reference Range Interpretation Comme nts POC LACTIC ACID (test code = POCLAC) 1.2 mmol/l 0.9-1.7 N POC ARTERIAL BLOOD [id number] 21:57:00* Test Item Value Reference Range Interpretation Comme nts POC ARTERIAL BLOOD GAS PH (t est code = POCPHA) 7.361 7.35-7.45 N POC ARTERIAL BLOOD GAS PCO2 (test code = IYUTLK0Z) 38.2 mmHg 35.0-45 N POC TCO2 ARTERIAL (test code = POCTCO2) 22.8 POC ARTERIAL BLOOD GAS PO2 ( test code = MVCWZ8V) 341.6 mmHg 80-100.0 HH POC HCO3 ARTERIAL (test code = EENIHO9G) 21.6 MMOL/L 22.0-26.0 L POC BASE EXCESS (test code = POCBEA) -3.5 MMOL/L -4.0-4.0 N POC O2 SATURATION (test code = POCO2S) 99.9 % 90-100 N BASIC METABOLIC [id number] 21:57:00* Test Item Value Reference Range Interpretation Comme nts SODIUM (test code = NA/ABG) 137 mmol/L 134-147 N POTASSIUM (test code = K/ABG) 4.4 mmol/L 3.4-5.0 N CHLORIDE (test code = CL/ABG) 107 mmol/L 100-108 N CREATININE ABG (test code = CREAABG) 3.2 mg/dL 0.8-1.3 H POC IONIZED CALCIUM (test co de = POCCA) 0.97 MMOL/L 1.12-1.32 L POC GLUCOSE (test code = POCGLU) 206 MG/DL 70-110 H HEMOGLOBIN [id number] 21:57:00* Test Item Value Reference Range Interpretation Comme nts HEMOGLOBIN ABG (test code = HGB/ABG) 7.4 G/DL 12.5-16.9 L [id number] 21:57:00* Test Item Value Reference Range Interpretation Comme nts HEMATOCRIT (test code = HCT/ABG) 22 % 37.5-50.7 L POC LACTIC [id number] 21:57:00* Test Item Value Reference Range Interpretation Comme nts POC LACTIC ACID (test code = POCLAC) 0.6 mmol/l 0.9-1.7 L [id number] 21:34:00* Test Item Value Reference Range Interpretation Comme nts ACT-ISTAT (test code = ACTI) 161 SEC 74-137 H Performed by cer tified starting sheet tank operator at [facility] POC ARTERIAL BLOOD [id number] 21:32:00* Test Item Value Reference Range Interpretation Comme nts POC ARTERIAL BLOOD GAS PH (t est code = POCPHA) 7.408 7.35-7.45 N POC ARTERIAL BLOOD GAS PCO2 (test code = KMWHAH9M) 35.3 mmHg 35.0-45 N POC TCO2 ARTERIAL (test code = POCTCO2) 23.4 POC ARTERIAL BLOOD GAS PO2 ( test code = JYLBR6A) 140.1 mmHg 80-100.0 H POC HCO3 ARTERIAL (test code = DSMGYJ9Y) 22.3 MMOL/L 22.0-26.0 N POC BASE EXCESS (test code = POCBEA) -2.1 MMOL/L -4.0-4.0 N POC O2 SATURATION (test code = POCO2S) 99.2 % 90-100 N BASIC METABOLIC [id number] 21:32:00* Test Item Value Reference Range Interpretation Comme nts SODIUM (test code = NA/ABG) 133 mmol/L 134-147 L POTASSIUM (test code = K/ABG) 4.6 mmol/L 3.4-5.0 N CHLORIDE (test code = CL/ABG) 99 mmol/L 100-108 L CREATININE ABG (test code = CREAABG) 3.6 mg/dL 0.8-1.3 H POC IONIZED CALCIUM (test co de = POCCA) 1.09 MMOL/L 1.12-1.32 L POC GLUCOSE (test code = POCGLU) 191 MG/DL 70-110 H HEMOGLOBIN [id number] 21:32:00* Test Item Value Reference Range Interpretation Comme nts HEMOGLOBIN ABG (test code = HGB/ABG) 7.8 G/DL 12.5-16.9 L [id number] 21:32:00* Test Item Value Reference Range Interpretation Comme nts HEMATOCRIT (test code = HCT/ABG) 23 % 37.5-50.7 L POC LACTIC [id number] 21:32:00* Test Item Value Reference Range Interpretation Comme nts POC LACTIC ACID (test code = POCLAC) 1.3 mmol/l 0.9-1.7 N POC ARTERIAL BLOOD [id number] 18:52:00* Test Item Value Reference Range Interpretation Comme nts POC ARTERIAL BLOOD GAS PH (t est code = POCPHA) 7.434 7.35-7.45 N POC ARTERIAL BLOOD GAS PCO2 (test code = DNYVBO7X) 30.6 mmHg 35.0-45 L POC TCO2 ARTERIAL (test code = POCTCO2) 21.4 POC ARTERIAL BLOOD GAS PO2 ( test code = WMBVV8C) 104.2 mmHg 80-100.0 H POC HCO3 ARTERIAL (test code = LVUTSX5Y) 20.5 MMOL/L 22.0-26.0 L POC BASE EXCESS (test code = POCBEA) -3.8 MMOL/L -4.0-4.0 N POC O2 SATURATION (test code = POCO2S) 98.3 % 90-100 N BASIC METABOLIC [id number] 18:52:00* Test Item Value Reference Range Interpretation Comme nts SODIUM (test code = NA/ABG) 135 mmol/L 134-147 N POTASSIUM (test code = K/ABG) 4.3 mmol/L 3.4-5.0 N CHLORIDE (test code = CL/ABG) 102 mmol/L 100-108 N CREATININE ABG (test code = CREAABG) 3.5 mg/dL 0.8-1.3 H POC IONIZED CALCIUM (test co de = POCCA) 1.03 MMOL/L 1.12-1.32 L POC GLUCOSE (test code = POCGLU) 205 MG/DL 70-110 H HEMOGLOBIN [id number] 18:52:00* Test Item Value Reference Range Interpretation Comme nts HEMOGLOBIN ABG (test code = HGB/ABG) 15.7 G/DL 12.5-16.9 N [id number] 18:52:00* Test Item Value Reference Range Interpretation Comme nts HEMATOCRIT (test code = HCT/ABG) 46 % 37.5-50.7 N POC LACTIC [id number] 18:52:00* Test Item Value Reference Range Interpretation Comme nts POC LACTIC ACID (test code = POCLAC) 1.3 mmol/l 0.9-1.7 N BASIC METABOLIC [id number] 16:20:00* Test Item Value Reference Range Interpretation Comme nts SODIUM (test code = NA) 137 mEq/L 134-147 N POTASSIUM (test code = K) 4.8 mEq/L 3.4-5.0 N CHLORIDE (test code = CL) 99 mEq/L 100-108 L CARBON DIOXIDE (test code = CO2) 25 mEq/l 21-33 N ANION GAP (test code = GAP) 18 0-20 N GLUCOSE (test code = GLU) 214 mg/dL 70-110 H BLOOD UREA NITROGEN (test code = BUN) 101 mg/dL 7-18 H GLOMERULAR FILTRATION RATE (test code = GFR) 17.1 70-80 L The Glomerular Filtration Rate is a calculated parameterbased on serum Creatinine, patient age and sex. GFR valuesless than 60 mL/min/1.73 square meters are indicative ofChronic Kidney Disease. Values less than 15 mL/min/1.73square meters indicate Kidney failure. The calculation forGFR is based on the CKD-EPI (2020) calculation. This formulais race indifferent and is the recommended formula for GFRby the National Kidney Foundation for Adults.The GFR will not calculate if the sex is unknown or if thepatient's age is <18 years. CREATININE (test code = CREAT) 3.4 mg/dL 0.6-1.3 H CALCIUM (test code = CA) 8.8 mg/dL 8.0-10.5 N B-TYPE NATRIURETIC [id number] 15:36:00* Test Item Value Reference Range Interpretation Comme nts B-TYPE NATRIURETIC PEPTIDE ( test code = BNP) 241.0 PG/ML 0-100 H CBC W/AUTO [id number] 11:10:00* Test Item Value Reference Range Interpretation Comme nts WHITE BLOOD CELL (test code = WBC) 20.9 x10 3/uL 4.5-11.0 H RED BLOOD CELL (test code = RBC) 2.46 x10 6/uL 4.00-5.60 L HEMOGLOBIN (test code = HGB) 8.3 g/dL 12.5-16.9 L HEMATOCRIT (test code = HCT) 24.8 % 37.5-50.7 L MEAN CELL VOLUME (test code = MCV) 100.8 fL 81.0-99.0 H MEAN CELL HGB (test code = MCH) 33.7 pg 27.0-33.0 H MEAN CELL HGB CONCETRATION (test code = MCHC) 33.5 g/dL 33.0-37.0 N RED CELL DISTRIBUTION WIDTH CV (test code = RDW) 15.3 % 11.5-14.5 H RED CELL DISTRIBUTION WIDTH SD (test code = RDW-SD) 56.8 fL 37.0-54.0 H PLATELET COUNT (test code = PLT) 194 x10 3/uL 150-400 N MEAN PLATELET VOLUME (test code = MPV) 11.6 fL 7.0-9.0 H NEUTROPHIL % (test code = NT%) 74.3 % 56.0-77.0 N LYMPHOCYTE % (test code = LY%) 7.8 % 14.0-32.0 L NEUTROPHIL # (test code = NT#) 15.49 x10 3/uL 2.0-7.6 H LYMPHOCYTE # (test code = LY#) 1.62 x10 3/uL 1.0-3.8 N MANUAL DIFF REQUIRED (test code = MDIFF) NO SLIDE REVIEW ED, CONSISTENT WITH AUTO DIFF. IMMATURE GRANULOCYTE % (test code = IG%) 8.4 % 0.0-2.0 H MONOCYTE % (test code = MO%) 8.7 % 4.8-9.0 N EOSINOPHIL % (test code = EO%) 0.5 % 0.3-3.7 N BASOPHIL % (test code = BA%) 0.3 % 0.0-2.0 N NUCLEATED RBC % (test code = NRBC%) 0.7 % 0-0 H IMMATURE GRANULOCYTE # (test code = IG#) 1.76 x10 3/uL 0.00-0.03 H MONOCYTE # (test code = MO#) 1.81 x10 3/uL 0.1-0.8 H EOSINOPHIL # (test code = EO#) 0.10 x10 3/uL 0.0-0.2 N BASOPHIL # (test code = BA#) 0.07 x10 3/uL 0.0-0.2 N NUCLEATED RBC # (test code = NRBC#) 0.15 x10 3/uL 0.0-0.1 H POC ARTERIAL BLOOD [id number] 04:08:00* Test Item Value Reference Range Interpretation Comme nts POC ARTERIAL BLOOD GAS PH (t est code = POCPHA) 7.445 7.35-7.45 N POC ARTERIAL BLOOD GAS PCO2 (test code = JUXTUH5P) 30.8 mmHg 35.0-45 L POC TCO2 ARTERIAL (test code = POCTCO2) 22.2 POC ARTERIAL BLOOD GAS PO2 ( test code = IHYJH5I) 77.7 mmHg 80-100.0 L POC HCO3 ARTERIAL (test code = ULHNUZ2R) 21.2 MMOL/L 22.0-26.0 L POC BASE EXCESS (test code = POCBEA) -3.0 MMOL/L -4.0-4.0 N POC O2 SATURATION (test code = POCO2S) 96.3 % 90-100 N FIO2 (test code = FIO2A) 32 % PaO2/FiO2 (test code = FAT7MXZ3) 242.81 mm/Hg ABG DELIVERY (test code = HAILY) Cannula ABG TEMPERATURE (test code = TEMPA) 98 F ABG SITE (test code = SITEA) L Radial LC'S TEST (test code = ALLENS) Positive BASIC METABOLIC [id number] 04:08:00* Test Item Value Reference Range Interpretation Comme nts SODIUM (test code = NA/ABG) 133 mmol/L 134-147 L POTASSIUM (test code = K/ABG) 4.8 mmol/L 3.4-5.0 N CHLORIDE (test code = CL/ABG) 102 mmol/L 100-108 N CREATININE ABG (test code = CREAABG) 3.6 mg/dL 0.8-1.3 H POC IONIZED CALCIUM (test co de = POCCA) 1.08 MMOL/L 1.12-1.32 L POC GLUCOSE (test code = POCGLU) 166 MG/DL 70-110 H HEMOGLOBIN [id number] 04:08:00* Test Item Value Reference Range Interpretation Comme nts HEMOGLOBIN ABG (test code = HGB/ABG) 8.6 G/DL 12.5-16.9 L [id number] 04:08:00* Test Item Value Reference Range Interpretation Comme nts HEMATOCRIT (test code = HCT/ABG) 25 % 37.5-50.7 L POC LACTIC [id number] 04:08:00* Test Item Value Reference Range Interpretation Comme nts POC LACTIC ACID (test code = POCLAC) 2.1 mmol/l 0.9-1.7 H BASIC METABOLIC [id number] 02:42:00* Test Item Value Reference Range Interpretation Comme nts SODIUM (test code = NA) 134 mEq/L 134-147 N POTASSIUM (test code = K) 4.6 mEq/L 3.4-5.0 N CHLORIDE (test code = CL) 102 mEq/L 100-108 N CARBON DIOXIDE (test code = CO2) 24 mEq/l 21-33 N ANION GAP (test code = GAP) 13 0-20 N GLUCOSE (test code = GLU) 173 mg/dL 70-110 H BLOOD UREA NITROGEN (test code = BUN) 96 mg/dL 7-18 H GLOMERULAR FILTRATION RATE (test code = GFR) 18.4 70-80 L The Glomerular Filtration Rate is a calculated parameterbased on serum Creatinine, patient age and sex. GFR valuesless than 60 mL/min/1.73 square meters are indicative ofChronic Kidney Disease. Values less than 15 mL/min/1.73square meters indicate Kidney failure. The calculation forGFR is based on the CKD-EPI (2020) calculation. This formulais race indifferent and is the recommended formula for GFRby the National Kidney Foundation for Adults.The GFR will not calculate if the sex is unknown or if thepatient's age is <18 years. CREATININE (test code = CREAT) 3.2 mg/dL 0.6-1.3 H CALCIUM (test code = CA) 8.8 mg/dL 8.0-10.5 N [id number] 02:42:00* Test Item Value Reference Range Interpretation Comme nts MAGNESIUM (test code = MAG) 2.61 mg/dL 1.80-2.40 H - XR ABDOMEN 1V (KUB)2022-05-18 00:00:00 [facility] : 1935 Sex: M FAX: Vadim Jenkins [phone] [place]: St: [facility] FAX: Katiana Gregory MD [phone] FAX: Sofia Shielsd [phone] Name: TONO MAHAN [facility] : 1935 Age/S: 86/M [address] [place] [address] Unit #: [id number] Loc: G.2203 [place] [address] Phys: Sofia Lai Acct: [id number] Dis Date: Status: ADM IN PHONE #: [phone] Exam Date: 05/18/2022912 FAX #: [phone] Reason: DISTENDED ABD EXAMS: CPT CODE: [id number] XR ABDOMEN 1V (KUB) 12773 PROCEDURE INFORMATION: Exam: XR Abdomen Exam date and time: 05/18/2022 9:09 AM Age: 86 years old Clinical indication: Other: Distended abd TECHNIQUE: Imaging protocol: Radiologic exam of the abdomen. Views: Frontal supine view of the abdomen. 1 View. COMPARISON: CR XR ABDOMEN AP 1 V 05/15/2022 7:56 AM FINDINGS: Gastrointestinal tract: Gas is scattered in the small and large bowel in a nonspecific, nonobstructive pattern. Bones/joints: Median sternotomy wires are present. Degenerative changes are present in the lumbar spine. Soft tissues: Unremarkable. IMPRESSION: Gas is scattered in the small and large bowel in a nonspecific, nonobstructive pattern. at 1111 Reported and signed by: Mariposa Ramos M.D. CC: Vadim Amaro MD; Katiana Garcia MD; Sofia GATES Technologist: Charmaine Kumar [facility] Date/Time/By: 05/18/2022 (1111) : By: [email or web address] Orig Print D/T: S: 05/18/2022 (1111) PAGE 1 Signed Report- XR CHEST 1 [id number] 00:00[facility]00[facility] : 1935 Sex: M FAX: Vadim Jenkins [phone] [place]: St: ADM FAX: Abbe Warren MD [phone] FAX: Katiana Gregory MD [phone] Name: TONO MAHAN [facility] : 1935 Age/S: 86/M [address] [place] [address] Blvd Unit #: [id number] Loc: G.2203 [place] [address] Phys: Abbe Warren MD Acct: [id number] Dis Date: Status: ADM IN PHONE #: [phone] Exam Date: 05/18/2022325 FAX #: [phone] Reason: S/P CABGX3 EXAMS: CPT CODE: [id number] XR CHEST 1 V 58154 PROCEDURE INFORMATION: Exam: XR Chest Exam date and time: 05/18/2022 3:09 AM Age: 86 years old Clinical indication: Other: S/P cabgx3 TECHNIQUE: Imaging protocol: Radiologic exam of the chest. Views: 1 view. COMPARISON: CR XR CHEST 1V 05/17/2022 4:52 AM FINDINGS: Lungs: Improved perihilar infiltrates. Pleural spaces: Unremarkable. No pleural effusion. No pneumothorax. Heart/Mediastinum: Cardiomegaly. Post midline sternotomy. Bones/joints: Unremarkable. IMPRESSION: Slight improvement in CHF/pulmonary edema from 05/17/2022. at 0341 Reported and signed by: Tavon menjivar M.D. CC: Vadim Amaro MD; Abbe Warren MD; Katiana Garcia MD Technologist: RT Estrada(El) Trnscrd Date/Time/By: 05/18/2022 (034) : By: Nathaly Orig Print D/T: S: 05/18/2022 (340) PAGE 1 Signed ReportURINALYSIS [id number] 13:40:00* Test Item Value Reference Range Interpretation Comme nts UA COLOR (test code = COLU) YELLOW YEL/STRAW UA APPEARANCE (test code = APPU) CLOUDY CLEAR A UA GLUCOSE DIPSTICK (test co de = DGLUU) NEGATIVE NEGATIVE UA BILIRUBIN DIPSTICK (test code = BILU) NEGATIVE NEGATIVE UA KETONE DIPSTICK (test cod e = KETU) NEGATIVE NEGATIVE UA SPECIFIC GRAVITY (test co de = SGU) 1.010 1.005-1.030 N UA BLOOD DIPSTICK (test code = IMANI) 3+ NEGATIVE A UA PH DIPSTICK (test code = PARUL) 5.0 5.0-7.0 N UA PROTEIN DIPSTICK (test co de = PROU) NEGATIVE NEGATIVE UA UROBILINIOGEN DIPSTICK (t est code = URO) 0.2 mg/dL 0.2-1.0 UA NITRITE DIPSTICK (test co de = FLACO) NEGATIVE NEGATIVE UA LEUKOCYTE ESTERASE DIPSTI CK (test code = LEUU) 3+ NEGATIVE A UA RBC (test code = RBCU) >50 RBC/HPF 0-3 A UA WBC NO REFLEX (test code = WBCUCL) >50 WBC/HPF 0-3 A UA BACTERIA (test code = BACU) 2+ /HPF NONE SEEN A UA SQUAMOUS CELLS (test code = SQU) 0-5 /HPF NONE SEEN UA HYALINE CAST (test code = HYALU) 3-5 /LPF NONE SEEN UA MUCUS (test code = MUCU) TRACE /LPF NONE SEEN POC ARTERIAL BLOOD [id number] 04:47:00* Test Item Value Reference Range Interpretation Comme nts POC ARTERIAL BLOOD GAS PH (t est code = POCPHA) 7.428 7.35-7.45 N POC ARTERIAL BLOOD GAS PCO2 (test code = TJZORV8S) 37.8 mmHg 35.0-45 N POC TCO2 ARTERIAL (test code = POCTCO2) 26.2 POC ARTERIAL BLOOD GAS PO2 ( test code = TIPQT5K) 72.3 mmHg 80-100.0 L POC HCO3 ARTERIAL (test code = UMTZUE9Y) 25.1 MMOL/L 22.0-26.0 N POC BASE EXCESS (test code = POCBEA) 0.6 MMOL/L -4.0-4.0 N POC O2 SATURATION (test code = POCO2S) 95.0 % 90-100 N FIO2 (test code = FIO2A) 28 % PaO2/FiO2 (test code = KHN1TJW1) 258.21 mm/Hg ABG DELIVERY (test code = HAILY) Cannula ABG VENT MODE (test code = MODEA) 28 ABG TEMPERATURE (test code = TEMPA) 98 F ABG SITE (test code = SITEA) L Radial LC'S TEST (test code = ALLENS) Positive BASIC METABOLIC [id number] 04:47:00* Test Item Value Reference Range Interpretation Comme nts SODIUM (test code = NA/ABG) 135 mmol/L 134-147 N POTASSIUM (test code = K/ABG) 4.2 mmol/L 3.4-5.0 N CHLORIDE (test code = CL/ABG) 100 mmol/L 100-108 N CREATININE ABG (test code = CREAABG) 3.0 mg/dL 0.8-1.3 H POC IONIZED CALCIUM (test co de = POCCA) 1.16 MMOL/L 1.12-1.32 N POC GLUCOSE (test code = POCGLU) 163 MG/DL 70-110 H HEMOGLOBIN [id number] 04:47:00* Test Item Value Reference Range Interpretation Comme nts HEMOGLOBIN ABG (test code = HGB/ABG) 9.2 G/DL 12.5-16.9 L [id number] 04:47:00* Test Item Value Reference Range Interpretation Comme nts HEMATOCRIT (test code = HCT/ABG) 27 % 37.5-50.7 L POC LACTIC [id number] 04:47:00* Test Item Value Reference Range Interpretation Comme nts POC LACTIC ACID (test code = POCLAC) 1.4 mmol/l 0.9-1.7 N BASIC METABOLIC [id number] 02:36:00* Test Item Value Reference Range Interpretation Comme nts SODIUM (test code = NA) 136 mEq/L 134-147 N POTASSIUM (test code = K) 4.1 mEq/L 3.4-5.0 N CHLORIDE (test code = CL) 103 mEq/L 100-108 N CARBON DIOXIDE (test code = CO2) 25 mEq/l 21-33 N ANION GAP (test code = GAP) 13 0-20 N GLUCOSE (test code = GLU) 173 mg/dL 70-110 H BLOOD UREA NITROGEN (test code = BUN) 85 mg/dL 7-18 H GLOMERULAR FILTRATION RATE (test code = GFR) 21.6 70-80 L The Glomerular Filtration Rate is a calculated parameterbased on serum Creatinine, patient age and sex. GFR valuesless than 60 mL/min/1.73 square meters are indicative ofChronic Kidney Disease. Values less than 15 mL/min/1.73square meters indicate Kidney failure. The calculation forGFR is based on the CKD-EPI (2020) calculation. This formulais race indifferent and is the recommended formula for GFRby the National Kidney Foundation for Adults.The GFR will not calculate if the sex is unknown or if thepatient's age is <18 years. CREATININE (test code = CREAT) 2.8 mg/dL 0.6-1.3 H CALCIUM (test code = CA) 8.5 mg/dL 8.0-10.5 N [id number] 02:36:00* Test Item Value Reference Range Interpretation Comme nts MAGNESIUM (test code = MAG) 2.53 mg/dL 1.80-2.40 H CBC W/AUTO [id number] 02:08:00* Test Item Value Reference Range Interpretation Comme nts WHITE BLOOD CELL (test code = WBC) 15.1 x10 3/uL 4.5-11.0 H RED BLOOD CELL (test code = RBC) 2.44 x10 6/uL 4.00-5.60 L HEMOGLOBIN (test code = HGB) 8.2 g/dL 12.5-16.9 L HEMATOCRIT (test code = HCT) 24.8 % 37.5-50.7 L MEAN CELL VOLUME (test code = MCV) 101.6 fL 81.0-99.0 H MEAN CELL HGB (test code = MCH) 33.6 pg 27.0-33.0 H MEAN CELL HGB CONCETRATION (test code = MCHC) 33.1 g/dL 33.0-37.0 N RED CELL DISTRIBUTION WIDTH CV (test code = RDW) 15.6 % 11.5-14.5 H RED CELL DISTRIBUTION WIDTH SD (test code = RDW-SD) 58.1 fL 37.0-54.0 H PLATELET COUNT (test code = PLT) 169 x10 3/uL 150-400 N MEAN PLATELET VOLUME (test code = MPV) 12.6 fL 7.0-9.0 H NEUTROPHIL % (test code = NT%) 71.8 % 56.0-77.0 N LYMPHOCYTE % (test code = LY%) 11.7 % 14.0-32.0 L NEUTROPHIL # (test code = NT#) 10.81 x10 3/uL 2.0-7.6 H LYMPHOCYTE # (test code = LY#) 1.76 x10 3/uL 1.0-3.8 N MANUAL DIFF REQUIRED (test code = MDIFF) NO SLIDE REVIEW ED, CONSISTENT WITH AUTO DIFF. IMMATURE GRANULOCYTE % (test code = IG%) 4.4 % 0.0-2.0 H MONOCYTE % (test code = MO%) 10.5 % 4.8-9.0 H EOSINOPHIL % (test code = EO%) 1.3 % 0.3-3.7 N BASOPHIL % (test code = BA%) 0.3 % 0.0-2.0 N NUCLEATED RBC % (test code = NRBC%) 0.3 % 0-0 H IMMATURE GRANULOCYTE # (test code = IG#) 0.67 x10 3/uL 0.00-0.03 H MONOCYTE # (test code = MO#) 1.58 x10 3/uL 0.1-0.8 H EOSINOPHIL # (test code = EO#) 0.20 x10 3/uL 0.0-0.2 N BASOPHIL # (test code = BA#) 0.04 x10 3/uL 0.0-0.2 N NUCLEATED RBC # (test code = NRBC#) 0.05 x10 3/uL 0.0-0.1 N - XR CHEST 1 [id number] 00:00:00 [facility] : 1935 Sex: M FAX: Vadim Jenkins [phone] [place]: St: ADM FAX: Katiana Gregory MD [phone] FAX: Rupinder Mcguire [phone] Name: SHAHZADTONO BARRAGANRED [facility] : 1935 Age/S: 86/M [address] [place], [place] [address] Unit #: [id number] Loc: [address] [address] Phys: Angelica Mcguire D[employer]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 Views: 1 view. COMPARISON: 1. CR XR CHEST 1V 05/16/2022 5:05 AM 2. CR XR CHEST 1V 05/15/2022 4:59 AM FINDINGS: Tubes, catheters and devices: Internal jugular [place]-Den sheath has been removed. Lungs: Lung volumesare diminished similar to that prior study. There are ill-defined perihilar and basilar opacities. Increased opacification lateral right base partially obscuring the hemidiaphragm. Grossly stable left basilar opacities partially obscuring the hemidiaphragm. Pleural spaces: There is no pneumothorax. Costophrenic angles are indistinct and small pleural effusions are not excluded. Heart/Mediastinum:Moderate prominence of the cardiac silhouette is unchanged. Bones/joints: Sternotomy wires are intact. IMPRESSION: 1. Mid and lower lung zone pulmonary opacities may reflect combination of airspace disease and atelectasis. Progression of disease right base. Grossly stable left basilar pleuroparenchymal disease. 2. Stable postoperative cardiomediastinal silhouette. at 0822 Reported and signed by: Vitor Arvizu M.D. CC: Vadim Amaro MD; Katiana Garcia MD; Angelica Mcguire NP Technologist: RT Stu(R) Trnscrd Date/Time/By: 05/17/2022 (821) : By: Lv Orig Print D/T: S: 05/17/2022 (2813) PAGE 1 Signed ReportBASIC METABOLIC [id number] 14:06:00* Test Item Value Reference Range Interpretation Comme nts SODIUM (test code = NA) 135 mEq/L 134-147 N POTASSIUM (test code = K) 3.9 mEq/L 3.4-5.0 N CHLORIDE (test code = CL) 104 mEq/L 100-108 N CARBON DIOXIDE (test code = CO2) 24 mEq/l 21-33 N ANION GAP (test code = GAP) 11 0-20 N GLUCOSE (test code = GLU) 202 mg/dL 70-110 H BLOOD UREA NITROGEN (test code = BUN) 77 mg/dL 7-18 H GLOMERULAR FILTRATION RATE (test code = GFR) 21.6 70-80 L The Glomerular Filtration Rate is a calculated parameterbased on serum Creatinine, patient age and sex. GFR valuesless than 60 mL/min/1.73 square meters are indicative ofChronic Kidney Disease. Values less than 15 mL/min/1.73square meters indicate Kidney failure. The calculation forGFR is based on the CKD-EPI (2020) calculation. This formulais race indifferent and is the recommended formula for GFRby the National Kidney Foundation for Adults.The GFR will not calculate if the sex is unknown or if thepatient's age is <18 years. CREATININE (test code = CREAT) 2.8 mg/dL 0.6-1.3 H CALCIUM (test code = CA) 8.2 mg/dL 8.0-10.5 N POC ARTERIAL BLOOD [id number] 04:38:00* Test Item Value Reference Range Interpretation Comme nts POC ARTERIAL BLOOD GAS PH (t est code = POCPHA) 7.432 7.35-7.45 N POC ARTERIAL BLOOD GAS PCO2 (test code = [id number]) 38.2 mmHg 35.0-45 N POC TCO2 ARTERIAL (test code = POCTCO2) 26.7 POC ARTERIAL BLOOD GAS PO2 ( test code = ZBDSB7A) 52.5 mmHg 80-100.0 L POC HCO3 ARTERIAL (test code = [id number]) 25.6 MMOL/L 22.0-26.0 N POC BASE EXCESS (test code = POCBEA) 1.2 MMOL/L -4.0-4.0 N POC O2 SATURATION (test code = POCO2S) 88.3 % 90-100 L ABG DELIVERY (test code = HAILY) Room Air ABG TEMPERATURE (test code = TEMPA) 98 F ABG SITE (test code = SITEA) R Radial LC'S TEST (test code = ALLENS) Positive BASIC METABOLIC [id number] 04:38:00* Test Item Value Reference Range Interpretation Comme nts SODIUM (test code = NA/ABG) 137 mmol/L 134-147 N POTASSIUM (test code = K/ABG) 4.2 mmol/L 3.4-5.0 N CHLORIDE (test code = CL/ABG) 102 mmol/L 100-108 N CREATININE ABG (test code = CREAABG) 2.8 mg/dL 0.8-1.3 H POC IONIZED CALCIUM (test co de = POCCA) 1.16 MMOL/L 1.12-1.32 N POC GLUCOSE (test code = POCGLU) 149 MG/DL 70-110 H HEMOGLOBIN [id number] 04:38:00* Test Item Value Reference Range Interpretation Comme nts HEMOGLOBIN ABG (test code = HGB/ABG) 8.4 G/DL 12.5-16.9 L [id number] 04:38:00* Test Item Value Reference Range Interpretation Comme nts HEMATOCRIT (test code = HCT/ABG) 25 % 37.5-50.7 L POC LACTIC [id number] 04:38:00* Test Item Value Reference Range Interpretation Comme nts POC LACTIC ACID (test code = POCLAC) 0.9 mmol/l 0.9-1.7 N BASIC METABOLIC [id number] 04:38:00* Test Item Value Reference Range Interpretation Comme nts SODIUM (test code = NA) 138 mEq/L 134-147 N POTASSIUM (test code = K) 4.3 mEq/L 3.4-5.0 N CHLORIDE (test code = CL) 103 mEq/L 100-108 N CARBON DIOXIDE (test code = CO2) 25 mEq/l 21-33 N ANION GAP (test code = GAP) 14 0-20 N GLUCOSE (test code = GLU) 153 mg/dL 70-110 H BLOOD UREA NITROGEN (test code = BUN) 81 mg/dL 7-18 H GLOMERULAR FILTRATION RATE (test code = GFR) 23.6 70-80 L The Glomerular Filtration Rate is a calculated parameterbased on serum Creatinine, patient age and sex. GFR valuesless than 60 mL/min/1.73 square meters are indicative ofChronic Kidney Disease. Values less than 15 mL/min/1.73square meters indicate Kidney failure. The calculation forGFR is based on the CKD-EPI (202) calculation. This formulais race indifferent and is the recommended formula for GFRby the National Kidney Foundation for Adults.The GFR will not calculate if the sex is unknown or if thepatient's age is <18 years. CREATININE (test code = CREAT) 2.6 mg/dL 0.6-1.3 H CALCIUM (test code = CA) 8.4 mg/dL 8.0-10.5 N [id number] 04:38:00* Test Item Value Reference Range Interpretation Comme nts MAGNESIUM (test code = MAG) 2.50 mg/dL 1.80-2.40 H CBC W/AUTO [id number] 04:27:00* Test Item Value Reference Range Interpretation Comme nts WHITE BLOOD CELL (test code = WBC) 11.7 x10 3/uL 4.5-11.0 H RED BLOOD CELL (test code = RBC) 2.33 x10 6/uL 4.00-5.60 L HEMOGLOBIN (test code = HGB) 8.0 g/dL 12.5-16.9 L HEMATOCRIT (test code = HCT) 23.5 % 37.5-50.7 L MEAN CELL VOLUME (test code = MCV) 100.9 fL 81.0-99.0 H MEAN CELL HGB (test code = MCH) 34.3 pg 27.0-33.0 H MEAN CELL HGB CONCETRATION (test code = MCHC) 34.0 g/dL 33.0-37.0 N RED CELL DISTRIBUTION WIDTH CV (test code = RDW) 15.9 % 11.5-14.5 H RED CELL DISTRIBUTION WIDTH SD (test code = RDW-SD) 59.0 fL 37.0-54.0 H PLATELET COUNT (test code = PLT) 117 x10 3/uL 150-400 L MEAN PLATELET VOLUME (test c ode = MPV) 12.3 fL 7.0-9.0 H NEUTROPHIL % (test code = NT%) 75.0 % 56.0-77.0 N IMMATURE GRANULOCYTE % (test code = IG%) 2.8 % 0.0-2.0 H LYMPHOCYTE % (test code = LY%) 10.7 % 14.0-32.0 L MONOCYTE % (test code = MO%) 10.1 % 4.8-9.0 H EOSINOPHIL % (test code = EO%) 1.1 % 0.3-3.7 N BASOPHIL % (test code = BA%) 0.3 % 0.0-2.0 N NUCLEATED RBC % (test code = NRBC%) 0.3 % 0-0 H NEUTROPHIL # (test code = NT#) 8.74 x10 3/uL 2.0-7.6 H IMMATURE GRANULOCYTE # (test code = IG#) 0.33 x10 3/uL 0.00-0.03 H LYMPHOCYTE # (test code = LY#) 1.25 x10 3/uL 1.0-3.8 N MONOCYTE # (test code = MO#) 1.18 x10 3/uL 0.1-0.8 H EOSINOPHIL # (test code = EO#) 0.13 x10 3/uL 0.0-0.2 N BASOPHIL # (test code = BA#) 0.04 x10 3/uL 0.0-0.2 N NUCLEATED RBC # (test code = NRBC#) 0.03 x10 3/uL 0.0-0.1 N MANUAL DIFF REQUIRED (test c ode = MDIFF) NO - XR CHEST 1 [id number] 00:00:00 [facility] 1935 Sex: M FAX: Vadim Jenkins [phone] [place]: St: ADM FAX: Katiana Gregory MD [phone] FAX: Rupinder Mcguire [phone] Name: TONO MAHAN [facility] : 1935 Age/S: 86/M [address] [place] [address] Blvd Unit #: [id number] Loc: G.2203 [place] [address] Phys: Angelica Mcguire 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 Views: 1 view. COMPARISON: CR XR CHEST 1V 05/15/2022 4:59 AM FINDINGS: Tubes, catheters and devices: Right IJ catheter with tip projecting in the SVC. Lungs: Low lung volumes. Unchanged patchy bilateral mid and lower airspace disease. Pleural spaces: No pleural effusion. No definite pneumothorax. Heart/Mediastinum: Unchanged enlargement of the cardiomediastinal silhouette. Bones/joints: Median sternotomy changes. IMPRESSION: Unchanged patchy bilateral mid and lower airspace disease. at 1037 Reported and signed by: Kenny Neri M.D. CC: Vadim Amaro MD; Katiana Garcia MD; Angelica Mcguire NP Technologist: RT Yusef(El) Trnscrd Date/Time/By: 05/16/2022 (1037) : By: [email or web address] Orig Print D/T: S: 05/16/2022 (1037) PAGE 1 Signed ReportBASIC METABOLIC [id number] 15:54:00* Test Item Value Reference Range Interpretation Comme nts SODIUM (test code = NA) 137 mEq/L 134-147 N POTASSIUM (test code = K) 4.1 mEq/L 3.4-5.0 N CHLORIDE (test code = CL) 106 mEq/L 100-108 N CARBON DIOXIDE (test code = CO2) 23 mEq/l 21-33 N ANION GAP (test code = GAP) 12 0-20 N GLUCOSE (test code = GLU) 152 mg/dL 70-110 H BLOOD UREA NITROGEN (test code = BUN) 63 mg/dL 7-18 H GLOMERULAR FILTRATION RATE (test code = GFR) 24.7 70-80 L The Glomerular Filtration Rate is a calculated parameterbased on serum Creatinine, patient age and sex. GFR valuesless than 60 mL/min/1.73 square meters are indicative ofChronic Kidney Disease. Values less than 15 mL/min/1.73square meters indicate Kidney failure. The calculation forGFR is based on the CKD-EPI (2020) calculation. This formulais race indifferent and is the recommended formula for GFRby the National Kidney Foundation for Adults.The GFR will not calculate if the sex is unknown or if thepatient's age is <18 years. CREATININE (test code = CREAT) 2.5 mg/dL 0.6-1.3 H CALCIUM (test code = CA) 8.1 mg/dL 8.0-10.5 N POC ARTERIAL BLOOD [id number] 15:12:00* Test Item Value Reference Range Interpretation Comme nts POC ARTERIAL BLOOD GAS PH (t est code = POCPHA) 7.382 7.35-7.45 N POC ARTERIAL BLOOD GAS PCO2 (test code = LQVBID1V) 42.2 mmHg 35.0-45 N POC TCO2 ARTERIAL (test code = POCTCO2) 26.6 POC ARTERIAL BLOOD GAS PO2 ( test code = QARXY7Z) 79.7 mmHg 80-100.0 L POC HCO3 ARTERIAL (test code = IXUYXI2I) 25.3 MMOL/L 22.0-26.0 N POC BASE EXCESS (test code = POCBEA) 0.0 MMOL/L -4.0-4.0 N POC O2 SATURATION (test code = POCO2S) 95.8 % 90-100 N ABG DELIVERY (test code = HAILY) Cannula ABG TEMPERATURE (test code = TEMPA) 97.4 F ABG SITE (test code = SITEA) Art Line BASIC METABOLIC [id number] 15:12:00* Test Item Value Reference Range Interpretation Comme nts SODIUM (test code = NA/ABG) 136 mmol/L 134-147 N POTASSIUM (test code = K/ABG) 4.2 mmol/L 3.4-5.0 N CHLORIDE (test code = CL/ABG) 103 mmol/L 100-108 N CREATININE ABG (test code = CREAABG) 3.1 mg/dL 0.8-1.3 H POC IONIZED CALCIUM (test co de = POCCA) 1.14 MMOL/L 1.12-1.32 N POC GLUCOSE (test code = POCGLU) 133 MG/DL 70-110 H HEMOGLOBIN [id number] 15:12:00* Test Item Value Reference Range Interpretation Comme nts HEMOGLOBIN ABG (test code = HGB/ABG) 7.4 G/DL 12.5-16.9 L [id number] 15:12:00* Test Item Value Reference Range Interpretation Comme nts HEMATOCRIT (test code = HCT/ABG) 22 % 37.5-50.7 L POC LACTIC [id number] 15:12:00* Test Item Value Reference Range Interpretation Comme nts POC LACTIC ACID (test code = POCLAC) 1.0 mmol/l 0.9-1.7 N BASIC METABOLIC [id number] 03:40:00* Test Item Value Reference Range Interpretation Comme nts SODIUM (test code = NA) 142 mEq/L 134-147 N POTASSIUM (test code = K) 4.3 mEq/L 3.4-5.0 N CHLORIDE (test code = CL) 108 mEq/L 100-108 N CARBON DIOXIDE (test code = CO2) 25 mEq/l 21-33 N ANION GAP (test code = GAP) 13 0-20 N GLUCOSE (test code = GLU) 148 mg/dL 70-110 H BLOOD UREA NITROGEN (test code = BUN) 68 mg/dL 7-18 H GLOMERULAR FILTRATION RATE (test code = GFR) 23.6 70-80 L The Glomerular Filtration Rate is a calculated parameterbased on serum Creatinine, patient age and sex. GFR valuesless than 60 mL/min/1.73 square meters are indicative ofChronic Kidney Disease. Values less than 15 mL/min/1.73square meters indicate Kidney failure. The calculation forGFR is based on the CKD-EPI (202) calculation. This formulais race indifferent and is the recommended formula for GFRby the National Kidney Foundation for Adults.The GFR will not calculate if the sex is unknown or if thepatient's age is <18 years. CREATININE (test code = CREAT) 2.6 mg/dL 0.6-1.3 H CALCIUM (test code = CA) 8.6 mg/dL 8.0-10.5 N [id number] 03:40:00* Test Item Value Reference Range Interpretation Comme nts MAGNESIUM (test code = MAG) 2.68 mg/dL 1.80-2.40 H CBC W/AUTO [id number] 03:23:00* Test Item Value Reference Range Interpretation Comme nts WHITE BLOOD CELL (test code = WBC) 11.6 x10 3/uL 4.5-11.0 H RED BLOOD CELL (test code = RBC) 2.05 x10 6/uL 4.00-5.60 L HEMOGLOBIN (test code = HGB) 7.0 g/dL 12.5-16.9 L HEMATOCRIT (test code = HCT) 21.0 % 37.5-50.7 L MEAN CELL VOLUME (test code = MCV) 102.4 fL 81.0-99.0 H MEAN CELL HGB (test code = MCH) 34.1 pg 27.0-33.0 H MEAN CELL HGB CONCETRATION (test code = MCHC) 33.3 g/dL 33.0-37.0 N RED CELL DISTRIBUTION WIDTH CV (test code = RDW) 14.6 % 11.5-14.5 H RED CELL DISTRIBUTION WIDTH SD (test code = RDW-SD) 54.4 fL 37.0-54.0 H PLATELET COUNT (test code = PLT) 98 x10 3/uL 150-400 L MEAN PLATELET VOLUME (test c ode = MPV) 12.3 fL 7.0-9.0 H NEUTROPHIL % (test code = NT%) 76.3 % 56.0-77.0 N IMMATURE GRANULOCYTE % (test code = IG%) 1.3 % 0.0-2.0 N LYMPHOCYTE % (test code = LY%) 12.4 % 14.0-32.0 L MONOCYTE % (test code = MO%) 8.7 % 4.8-9.0 N EOSINOPHIL % (test code = EO%) 1.1 % 0.3-3.7 N BASOPHIL % (test code = BA%) 0.2 % 0.0-2.0 N NUCLEATED RBC % (test code = NRBC%) 0.0 % 0-0 N NEUTROPHIL # (test code = NT#) 8.88 x10 3/uL 2.0-7.6 H IMMATURE GRANULOCYTE # (test code = IG#) 0.15 x10 3/uL 0.00-0.03 H LYMPHOCYTE # (test code = LY#) 1.44 x10 3/uL 1.0-3.8 N MONOCYTE # (test code = MO#) 1.01 x10 3/uL 0.1-0.8 H EOSINOPHIL # (test code = EO#) 0.13 x10 3/uL 0.0-0.2 N BASOPHIL # (test code = BA#) 0.02 x10 3/uL 0.0-0.2 N NUCLEATED RBC # (test code = NRBC#) 0.00 x10 3/uL 0.0-0.1 N MANUAL DIFF REQUIRED (test c ode = MDIFF) NO POC ARTERIAL BLOOD [id number] 03:13:00* Test Item Value Reference Range Interpretation Comme nts POC ARTERIAL BLOOD GAS PH (t est code = POCPHA) 7.392 7.35-7.45 N POC ARTERIAL BLOOD GAS PCO2 (test code = IQZTFQ4Z) 45.1 mmHg 35.0-45 H POC TCO2 ARTERIAL (test code = POCTCO2) 28.8 POC ARTERIAL BLOOD GAS PO2 ( test code = JINFU2G) 116.6 mmHg 80-100.0 H POC HCO3 ARTERIAL (test code = QODMNM9G) 27.4 MMOL/L 22.0-26.0 H POC BASE EXCESS (test code = POCBEA) 2.5 MMOL/L -4.0-4.0 N POC O2 SATURATION (test code = POCO2S) 98.5 % 90-100 N ABG DELIVERY (test code = HAILY) HFNC ABG TEMPERATURE (test code = TEMPA) 98.3 F ABG SITE (test code = SITEA) Art Line BASIC METABOLIC [id number] 03:13:00* Test Item Value Reference Range Interpretation Comme nts SODIUM (test code = NA/ABG) 140 mmol/L 134-147 N POTASSIUM (test code = K/ABG) 4.2 mmol/L 3.4-5.0 N CHLORIDE (test code = CL/ABG) 104 mmol/L 100-108 N CREATININE ABG (test code = CREAABG) 2.9 mg/dL 0.8-1.3 H POC IONIZED CALCIUM (test co de = POCCA) 1.23 MMOL/L 1.12-1.32 N POC GLUCOSE (test code = POCGLU) 141 MG/DL 70-110 H HEMOGLOBIN [id number] 03:13:00* Test Item Value Reference Range Interpretation Comme nts HEMOGLOBIN ABG (test code = HGB/ABG) 7.0 G/DL 12.5-16.9 L [id number] 03:13:00* Test Item Value Reference Range Interpretation Comme nts HEMATOCRIT (test code = HCT/ABG) 21 % 37.5-50.7 L POC LACTIC [id number] 03:13:00* Test Item Value Reference Range Interpretation Comme nts POC LACTIC ACID (test code = POCLAC) 0.6 mmol/l 0.9-1.7 L - XR ABDOMEN 1V (KUB)2022-05-15 00:00:00 [facility] : 1935 Sex: M FAX: Vadim Jenkins [phone] [place]: St: ADM FAX: Stevo Gerber MD FAX: Katiana Gregory MD [phone] Name: TONO MAHAN [facility] : 1935 Age/S: 86/M [address] [place] [address] Unit #: [id number] Loc: [address] [address] Phys: Stevo Gerber MD Acct: [id number] Dis Date: Status: ADM IN PHONE #: [phone] Exam Date: 05/15/2022 0838 FAX #: [phone] Reason: To r/o ileus EXAMS: CPT CODE: [id number] XR ABDOMEN 1V (KUB) 11230 PROCEDURE INFORMATION: Exam: XR Abdomen Exam date and time: 05/15/2022 7:56 AM Age: 86 years old Clinical indication: Abdominal tenderness; Additional info: To R/O ileus TECHNIQUE: Imaging protocol: Radiologic exam of the abdomen. Views: Frontal supine view of the abdomen. 1 View. COMPARISON: CR XR ABDOMEN AP 1 V 05/14/2022 5:04 AM FINDINGS: Tubes, catheters and devices: Bladder catheter in place. Gastrointestinal tract: Nonpathologic bowel gas pattern without evidence for bowel obstruction. Bones/joints: Degenerative changes are seen about the visualized spine. Patient is status post median sternotomy. IMPRESSION: Nonpathologic bowel gas pattern without evidence for bowel obstruction. at 1058 Reported and signed by: Ha Lopez M.D. CC: Geraldo Stewart MD; Stevo Gerber MD; Katiana Garcia MD Technologist: Suzette Caal RT(R) Trnscrd Date/Time/By: 05/15/2022 (1172) : By: [email or web address] Orig Print D/T: S: 05/15/2022 (6611) PAGE 1 Signed Report- XR CHEST 1 [id number] 00:00:00 [facility] : 1935 Sex: M FAX: Vadim Jenkins [phone] [place]: St: ADM FAX: Katiana Gregory MD [phone] FAX: Rupinder Mcguire [phone] Name: KALLITONO JAYY [facility] : 1935 Age/S: 86/M [address] [place] [address] Unit #: [id number] Loc: G.2203 [place] [address] 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 Views: 1 view. COMPARISON: CR XR CHEST 1V 05/14/2022 5:04 AM FINDINGS: Tubes, catheters and devices: Stable right IJ central line. Removal of the left chest tube. Lungs: The bilateral lung opacities are grossly stable. Pleural spaces: No pleural effusion. Stable or improved small left pneumothorax. Heart/Mediastinum: The heart size is stable. Vasculature: Atherosclerotic calcifications. Bones/joints: Stable. Median sternotomy wires. IMPRESSION: 1. Grossly stable lung opacities. 2. Removal of the left chesttube. Previously seen left pneumothorax is stable or mildly improved. at 0829 Reported and signed by: Simon Rogers M.D. 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 CBC W/AUTO [id number] 19:41:00* Test Item Value Reference Range Interpretation Comme nts WHITE BLOOD CELL (test code = WBC) 11.8 x10 3/uL 4.5-11.0 H RED BLOOD CELL (test code = RBC) 2.10 x10 6/uL 4.00-5.60 L HEMOGLOBIN (test code = HGB) 7.2 g/dL 12.5-16.9 L HEMATOCRIT (test code = HCT) 21.7 % 37.5-50.7 L MEAN CELL VOLUME (test code = MCV) 103.3 fL 81.0-99.0 H MEAN CELL HGB (test code = MCH) 34.3 pg 27.0-33.0 H MEAN CELL HGB CONCETRATION (test code = MCHC) 33.2 g/dL 33.0-37.0 N RED CELL DISTRIBUTION WIDTH CV (test code = RDW) 14.4 % 11.5-14.5 N RED CELL DISTRIBUTION WIDTH SD (test code = RDW-SD) 54.4 fL 37.0-54.0 H PLATELET COUNT (test code = PLT) 98 x10 3/uL 150-400 L MEAN PLATELET VOLUME (test c ode = MPV) 12.3 fL 7.0-9.0 H NEUTROPHIL % (test code = NT%) 79.2 % 56.0-77.0 H IMMATURE GRANULOCYTE % (test code = IG%) 0.7 % 0.0-2.0 N LYMPHOCYTE % (test code = LY%) 11.3 % 14.0-32.0 L MONOCYTE % (test code = MO%) 8.2 % 4.8-9.0 N EOSINOPHIL % (test code = EO%) 0.3 % 0.3-3.7 N BASOPHIL % (test code = BA%) 0.3 % 0.0-2.0 N NUCLEATED RBC % (test code = NRBC%) 0.2 % 0-0 H NEUTROPHIL # (test code = NT#) 9.36 x10 3/uL 2.0-7.6 H IMMATURE GRANULOCYTE # (test code = IG#) 0.08 x10 3/uL 0.00-0.03 H LYMPHOCYTE # (test code = LY#) 1.33 x10 3/uL 1.0-3.8 N MONOCYTE # (test code = MO#) 0.97 x10 3/uL 0.1-0.8 H EOSINOPHIL # (test code = EO#) 0.03 x10 3/uL 0.0-0.2 N BASOPHIL # (test code = BA#) 0.03 x10 3/uL 0.0-0.2 N NUCLEATED RBC # (test code = NRBC#) 0.02 x10 3/uL 0.0-0.1 N MANUAL DIFF REQUIRED (test c ode = MDIFF) NO POC ARTERIAL BLOOD [id number] 18:36:00* Test Item Value Reference Range Interpretation Comme nts POC ARTERIAL BLOOD GAS PH (t est code = POCPHA) 7.413 7.35-7.45 N POC ARTERIAL BLOOD GAS PCO2 (test code = PRAPZZ3N) 40.4 mmHg 35.0-45 N POC TCO2 ARTERIAL (test code = POCTCO2) 27.0 POC ARTERIAL BLOOD GAS PO2 ( test code = OQGPL3D) 100.7 mmHg 80-100.0 H POC HCO3 ARTERIAL (test code = CTMTOP6Y) 25.8 MMOL/L 22.0-26.0 N POC BASE EXCESS (test code = POCBEA) 1.2 MMOL/L -4.0-4.0 N POC O2 SATURATION (test code = POCO2S) 97.9 % 90-100 N ABG DELIVERY (test code = HAILY) Cannula ABG SITE (test code = SITEA) Art Line LC'S TEST (test code = ALLENS) N/A BASIC METABOLIC [id number] 18:36:00* Test Item Value Reference Range Interpretation Comme nts SODIUM (test code = NA/ABG) 140 mmol/L 134-147 N POTASSIUM (test code = K/ABG) 4.2 mmol/L 3.4-5.0 N CHLORIDE (test code = CL/ABG) 104 mmol/L 100-108 N CREATININE ABG (test code = CREAABG) 2.9 mg/dL 0.8-1.3 H POC IONIZED CALCIUM (test co de = POCCA) 1.15 MMOL/L 1.12-1.32 N POC GLUCOSE (test code = POCGLU) 132 MG/DL 70-110 H HEMOGLOBIN [id number] 18:36:00* Test Item Value Reference Range Interpretation Comme nts HEMOGLOBIN ABG (test code = HGB/ABG) 5.7 G/DL 12.5-16.9 L [id number] 18:36:00* Test Item Value Reference Range Interpretation Comme nts HEMATOCRIT (test code = HCT/ABG) 17 % 37.5-50.7 L BASIC METABOLIC [id number] 16:04:00* Test Item Value Reference Range Interpretation Comme nts SODIUM (test code = NA) 138 mEq/L 134-147 N POTASSIUM (test code = K) 4.6 mEq/L 3.4-5.0 N CHLORIDE (test code = CL) 106 mEq/L 100-108 N CARBON DIOXIDE (test code = CO2) 26 mEq/l 21-33 N ANION GAP (test code = GAP) 10 0-20 N GLUCOSE (test code = GLU) 142 mg/dL 70-110 H BLOOD UREA NITROGEN (test code = BUN) 67 mg/dL 7-18 H GLOMERULAR FILTRATION RATE (test code = GFR) 22.5 70-80 L The Glomerular Filtration Rate is a calculated parameterbased on serum Creatinine, patient age and sex. GFR valuesless than 60 mL/min/1.73 square meters are indicative ofChronic Kidney Disease. Values less than 15 mL/min/1.73square meters indicate Kidney failure. The calculation forGFR is based on the CKD-EPI (2020) calculation. This formulais race indifferent and is the recommended formula for GFRby the National Kidney Foundation for Adults.The GFR will not calculate if the sex is unknown or if thepatient's age is <18 years. CREATININE (test code = CREAT) 2.7 mg/dL 0.6-1.3 H CALCIUM (test code = CA) 8.2 mg/dL 8.0-10.5 N [id number] 14:21:00* Test Item Value Reference Range Interpretation Comme nts SURGICAL (test code = SR) -----RUN DATE: 05/14/22 [place] - LAB PAGE 1 RUN TIME: 1422 Specimen Inquiry RUN USER: INTERFACE -----PATIENT: TONO MAHAN LOC: [facility] U #: [id number] AGE/SX: 86/M ROOM: G.2203 RE05/10/22REG DR: Katiana Garcia MD : 37 BED: 1 DIS: STATUS: ADM IN TLOC: ----- SPEC #: [id number] RECD: 05/11/22 STATUS: SOUIvan REQ #: [id number] AWAIS: 05/11/[address]: Vadim Amaro MD ENTERED: 05/11/22 SP TYPE: SURGICAL OTHR DR: Kaylen Chadwick MD, Amer A MDORDERED: [id number], ANATOMIC SPEC COPIES TO: Kaylen Chadwick MD [address] [place] [address] Vadim Amaro MD [address] [place] [address]. [address] [place] [address] Aleshia Quach MD [address] [facility] [address] [place] [address] PROCEDURES: 26035 (05/11/22) TISSUES: A. ATRIUM - LEFT ATRIAL APPENDAGE CLINICAL HISTORY SAME FINAL DIAGNOSIS Heart, left atrial appendage, wedge biopsy: Myocardium with focal ischemic change. GROSS DESCRIPTION Received in formalin labeled "left atrial appendage "is a wedge biopsy of heart, 3.1 x 2.4x 1 cm, sectioned and entirely submitted (A). Technical component performed at [facility],[address] [place] [address], [place] [address] Unless gross only, the diagnosis is based upon microscopic examination.Immunohistochemis try: This test was developed and its performance characteristics CONTINUED ON NEXT PAGE -----RUN DATE: 05/14/22 [place] - LAB PAGE 2 RUN TIME: 1421 Specimen Inquiry RUN USER: INTERFACE -----SPEC #: [id number] PATIENT: TONO MAHAN #[id number] (Continued) GROSS DESCRIPTION (Continued) determined by this laboratory. It has not been approved nor does it need approvalby the [place] FDA. Appropriate positive and negative controls are reviewed and judgedto be acceptable. This laboratory is certified under the Clinical Laboratory ImprovementAmendments (CLIA-88) as qualified to perform high complexity clinical laboratory testing. CLINICAL INFORMATION CAD -------- Signed SIGNATURE ON FILE Richie Rodriguez 05/14/22 1421 ----- END OF REPORT POC ARTERIAL BLOOD [id number] 13:30:00* Test Item Value Reference Range Interpretation Comme nts POC ARTERIAL BLOOD GAS PH (t est code = POCPHA) 7.420 7.35-7.45 N POC ARTERIAL BLOOD GAS PCO2 (test code = ARKXJH9J) 38.1 mmHg 35.0-45 N POC TCO2 ARTERIAL (test code = POCTCO2) 26.0 POC ARTERIAL BLOOD GAS PO2 ( test code = CBOZI8J) 136.1 mmHg 80-100.0 H POC HCO3 ARTERIAL (test code = MPRDZJ8P) 24.8 MMOL/L 22.0-26.0 N POC BASE EXCESS (test code = POCBEA) 0.2 MMOL/L -4.0-4.0 N POC O2 SATURATION (test code = POCO2S) 99.2 % 90-100 N ABG DELIVERY (test code = HAILY) Cannula ABG TEMPERATURE (test code = TEMPA) 98 F ABG SITE (test code = SITEA) Art Line BASIC METABOLIC [id number] 13:30:00* Test Item Value Reference Range Interpretation Comme nts SODIUM (test code = NA/ABG) 140 mmol/L 134-147 N POTASSIUM (test code = K/ABG) 4.3 mmol/L 3.4-5.0 N CHLORIDE (test code = CL/ABG) 105 mmol/L 100-108 N CREATININE ABG (test code = CREAABG) 2.9 mg/dL 0.8-1.3 H POC IONIZED CALCIUM (test co de = POCCA) 1.16 MMOL/L 1.12-1.32 N POC GLUCOSE (test code = POCGLU) 142 MG/DL 70-110 H HEMOGLOBIN [id number] 13:30:00* Test Item Value Reference Range Interpretation Comme nts HEMOGLOBIN ABG (test code = HGB/ABG) 6.5 G/DL 12.5-16.9 L [id number] 13:30:00* Test Item Value Reference Range Interpretation Comme nts HEMATOCRIT (test code = HCT/ABG) 19 % 37.5-50.7 L CBC W/AUTO [id number] 05:48:00* Test Item Value Reference Range Interpretation Comme nts WHITE BLOOD CELL (test code = WBC) 15.0 x10 3/uL 4.5-11.0 H RED BLOOD CELL (test code = RBC) 2.18 x10 6/uL 4.00-5.60 L HEMOGLOBIN (test code = HGB) 7.5 g/dL 12.5-16.9 L HEMATOCRIT (test code = HCT) 22.4 % 37.5-50.7 L MEAN CELL VOLUME (test code = MCV) 102.8 fL 81.0-99.0 H MEAN CELL HGB (test code = MCH) 34.4 pg 27.0-33.0 H MEAN CELL HGB CONCETRATION (test code = MCHC) 33.5 g/dL 33.0-37.0 N RED CELL DISTRIBUTION WIDTH CV (test code = RDW) 14.5 % 11.5-14.5 N RED CELL DISTRIBUTION WIDTH SD (test code = RDW-SD) 53.9 fL 37.0-54.0 N PLATELET COUNT (test code = PLT) 88 x10 3/uL 150-400 L MEAN PLATELET VOLUME (test code = MPV) 12.6 fL 7.0-9.0 H NEUTROPHIL % (test code = NT%) 82.8 % 56.0-77.0 H IMMATURE GRANULOCYTE % (test code = IG%) 0.7 % 0.0-2.0 N LYMPHOCYTE % (test code = LY%) 8.2 % 14.0-32.0 L MONOCYTE % (test code = MO%) 8.0 % 4.8-9.0 N EOSINOPHIL % (test code = EO%) 0.1 % 0.3-3.7 L BASOPHIL % (test code = BA%) 0.2 % 0.0-2.0 N NUCLEATED RBC % (test code = NRBC%) 0.1 % 0-0 H NEUTROPHIL # (test code = NT#) 12.39 x10 3/uL 2.0-7.6 H IMMATURE GRANULOCYTE # (test code = IG#) 0.11 x10 3/uL 0.00-0.03 H LYMPHOCYTE # (test code = LY#) 1.22 x10 3/uL 1.0-3.8 N MONOCYTE # (test code = MO#) 1.19 x10 3/uL 0.1-0.8 H EOSINOPHIL # (test code = EO#) 0.01 x10 3/uL 0.0-0.2 N BASOPHIL # (test code = BA#) 0.03 x10 3/uL 0.0-0.2 N NUCLEATED RBC # (test code = NRBC#) 0.02 x10 3/uL 0.0-0.1 N MANUAL DIFF REQUIRED (test code = MDIFF) NO PLT [id number] 05:48:00* Test Item Value Reference Range Interpretation Comme nts PLATELET ESTIMATE (test code = PLTEST) 104 TO 130 THOUSAND ADEQUATE PLATELET MORPHOLOGY (test code = PLTMORPH) AGGREGATES BASIC METABOLIC [id number] 05:28:00* Test Item Value Reference Range Interpretation Comme nts SODIUM (test code = NA) 137 mEq/L 134-147 N POTASSIUM (test code = K) 4.4 mEq/L 3.4-5.0 N CHLORIDE (test code = CL) 104 mEq/L 100-108 N CARBON DIOXIDE (test code = CO2) 25 mEq/l 21-33 N ANION GAP (test code = GAP) 12 0-20 N GLUCOSE (test code = GLU) 148 mg/dL 70-110 H BLOOD UREA NITROGEN (test code = BUN) 58 mg/dL 7-18 H GLOMERULAR FILTRATION RATE (test code = GFR) 22.5 70-80 L The Glomerular Filtration Rate is a calculated parameterbased on serum Creatinine, patient age and sex. GFR valuesless than 60 mL/min/1.73 square meters are indicative ofChronic Kidney Disease. Values less than 15 mL/min/1.73square meters indicate Kidney failure. The calculation forGFR is based on the CKD-EPI (202) calculation. This formulais race indifferent and is the recommended formula for GFRby the National Kidney Foundation for Adults.The GFR will not calculate if the sex is unknown or if thepatient's age is <18 years. CREATININE (test code = CREAT) 2.7 mg/dL 0.6-1.3 H CALCIUM (test code = CA) 8.3 mg/dL 8.0-10.5 N COMMENTS: POD #1HEPATIC FUNCTION [id number] 05:28:00* Test Item Value Reference Range Interpretation Comme nts TOTAL PROTEIN (test code = PROT) 5.9 g/dL 6.4-8.2 L ALBUMIN (test code = ALB) 3.10 g/dL 3.4-5.0 L BILIRUBIN TOTAL (test code = BILT) 1.10 mg/dL 0.0-1.0 H BILIRUBIN DIRECT (test code = BILD) 0.50 MG/DL 0.0-0.30 H BILIRUBIN INDIRECT (test cod e = BILIND) 0.60 MG/DL SGOT/AST (test code = AST) 36 IUnit/L 15-37 N SGPT/ALT (test code = ALT) < 7 IUnit/L 30-65 L ALKALINE PHOSPHATASE TOTAL ( test code = ALKP) 63 IUnit/L 20-125 N COMMENTS: POD #[id number] 05:28:00* Test Item Value Reference Range Interpretation Comme nts MAGNESIUM (test code = MAG) 2.46 mg/dL 1.80-2.40 H COMMENTS: POD #1B-TYPE NATRIURETIC [id number] 05:26:00* Test Item Value Reference Range Interpretation Comme nts B-TYPE NATRIURETIC PEPTIDE ( test code = BNP) 122.0 PG/ML 0-100 H POC ARTERIAL BLOOD [id number] 04:49:00* Test Item Value Reference Range Interpretation Comme nts POC ARTERIAL BLOOD GAS PH (t est code = POCPHA) 7.388 7.35-7.45 N POC ARTERIAL BLOOD GAS PCO2 (test code = MKQAEI4Z) 43.9 mmHg 35.0-45 N POC TCO2 ARTERIAL (test code = POCTCO2) 27.7 POC ARTERIAL BLOOD GAS PO2 ( test code = COBIV1I) 96.5 mmHg 80-100.0 N POC HCO3 ARTERIAL (test code = TUVNID3Y) 26.4 MMOL/L 22.0-26.0 H POC BASE EXCESS (test code = POCBEA) 1.5 MMOL/L -4.0-4.0 N POC O2 SATURATION (test code = POCO2S) 97.3 % 90-100 N FIO2 (test code = FIO2A) 60 % PaO2/FiO2 (test code = WVM4FKY3) 160.83 mm/Hg ABG DELIVERY (test code = HAILY) Vapotherm ABG TEMPERATURE (test code = TEMPA) 99.2 F ABG SITE (test code = SITEA) Art Line BASIC METABOLIC [id number] 04:49:00* Test Item Value Reference Range Interpretation Comme nts SODIUM (test code = NA/ABG) 138 mmol/L 134-147 N POTASSIUM (test code = K/ABG) 4.4 mmol/L 3.4-5.0 N CHLORIDE (test code = CL/ABG) 103 mmol/L 100-108 N CREATININE ABG (test code = CREAABG) 3.1 mg/dL 0.8-1.3 H POC IONIZED CALCIUM (test co de = POCCA) 1.20 MMOL/L 1.12-1.32 N POC GLUCOSE (test code = POCGLU) 143 MG/DL 70-110 H HEMOGLOBIN [id number] 04:49:00* Test Item Value Reference Range Interpretation Comme nts HEMOGLOBIN ABG (test code = HGB/ABG) 7.4 G/DL 12.5-16.9 L [id number] 04:49:00* Test Item Value Reference Range Interpretation Comme nts HEMATOCRIT (test code = HCT/ABG) 22 % 37.5-50.7 L POC LACTIC [id number] 04:49:00* Test Item Value Reference Range Interpretation Comme nts POC LACTIC ACID (test code = POCLAC) 0.8 mmol/l 0.9-1.7 L POC ARTERIAL BLOOD [id number] 00:52:00* Test Item Value Reference Range Interpretation Comme nts POC ARTERIAL BLOOD GAS PH (t est code = POCPHA) 7.401 7.35-7.45 N POC ARTERIAL BLOOD GAS PCO2 (test code = HFMYSO6G) 42.7 mmHg 35.0-45 N POC TCO2 ARTERIAL (test code = POCTCO2) 27.5 POC ARTERIAL BLOOD GAS PO2 ( test code = FAOHS9C) 85.3 mmHg 80-100.0 N POC HCO3 ARTERIAL (test code = ARLGLX9A) 26.3 MMOL/L 22.0-26.0 H POC BASE EXCESS (test code = POCBEA) 1.7 MMOL/L -4.0-4.0 N POC O2 SATURATION (test code = POCO2S) 95.9 % 90-100 N FIO2 (test code = FIO2A) 60 % PaO2/FiO2 (test code = IGI2GJW0) 142.16 mm/Hg ABG DELIVERY (test code = HAILY) Vapotherm ABG TEMPERATURE (test code = TEMPA) 100.3 F ABG SITE (test code = SITEA) Art Line BASIC METABOLIC [id number] 00:52:00* Test Item Value Reference Range Interpretation Comme nts SODIUM (test code = NA/ABG) 139 mmol/L 134-147 N POTASSIUM (test code = K/ABG) 4.5 mmol/L 3.4-5.0 N CHLORIDE (test code = CL/ABG) 102 mmol/L 100-108 N CREATININE ABG (test code = CREAABG) 3.4 mg/dL 0.8-1.3 H POC IONIZED CALCIUM (test co de = POCCA) 1.20 MMOL/L 1.12-1.32 N POC GLUCOSE (test code = POCGLU) 140 MG/DL 70-110 H HEMOGLOBIN [id number] 00:52:00* Test Item Value Reference Range Interpretation Comme nts HEMOGLOBIN ABG (test code = HGB/ABG) 7.5 G/DL 12.5-16.9 L [id number] 00:52:00* Test Item Value Reference Range Interpretation Comme nts HEMATOCRIT (test code = HCT/ABG) 22 % 37.5-50.7 L POC LACTIC [id number] 00:52:00* Test Item Value Reference Range Interpretation Comme nts POC LACTIC ACID (test code = POCLAC) 0.7 mmol/l 0.9-1.7 L - XR ABDOMEN 1V (KUB)2022-05-14 00:00:00 [facility] 1935 Sex: M FAX: Dustin Atkins MD [place]: St: ADM FAX: Vadim Jenkins [phone] FAX: Katiana Gregory MD [phone] Name: KALLITONO JAYY [facility] : 1935 Age/S: 86/M [address] [place] [address] Unit#: [id number] Loc: [address] [address] Phys: Dustin Prince MD Acct: [id number] Dis Date: Status: ADM IN PHONE #: [phone] Exam Date: 05/14/2022 0647 FAX #: [phone] Reason: DISTENTION E XAMS: CPT CODE: [id number] XR ABDOMEN 1V (KUB) [id number] PROCEDURE INFORMATION: Exam: XR Abdomen Exam date and time: 05/14/2022 5:04 AM Age: 86 years old Clinical indication: Other: Distention TECHNIQUE:Imaging protocol: Radiologic exam of the abdomen. Views: Frontal supine view of the abdomen. 1 View. COMPARISON: CR XR ABDOMEN AP 1 V 05/13/2022 9:32 AM FINDINGS: Tubes, catheters and devices: Enterictube tip overlies the left upper quadrant at the level of proximal to mid stomach. Mediastinal and left thoracostomy drains in place. Peter catheter tip overlying the midline lower pelvis. Gastrointestinal tract: The bowel gas pattern is within normal limits. Gas and scattered fecal material throughout the visualized colon to the rectum. There is no pneumatosis. Intraperitoneal space: There is nogross free intraperitoneal air. Bones/joints: Multilevel degenerative changes of the spine. Soft tissues: Unremarkable. IMPRESSION: No acute findings. at 0829 Reported and signed by: Vitor Arvizu M.D. CC: Dustin Prince MD; Vadim Amaro MD; Katiana Garcia MD Technologist: Jer Sánchez, RT(R) Trnscrd Date/Time/By: 05/14/2022 (828) : By: Lv Orig Print D/T: S: 05/14/2022 (828) PAGE 1 Signed Report- XR CHEST 1 V 2022-05-14 00:00:00 [facility] : 1935 Sex: M FAX: Vadim Jenkins [phone] [place]: St: [facility] FAX: Katiana Gregory MD [phone] FAX: Rupinder Mcguire [phone] Name: TONO MAHAN [facility] : 1935 Age/S: 86/M [address] [place] [address] Unit #: [id number] Loc: [address] [place] [address] Phys: Angelica 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 Views: 1 view. COMPARISON: CR XR CHEST 1V 05/13/2022 6:03 AM FINDINGS: Tubes, catheters and devices: The nasogastric tube enters the stomach and terminates out of the field of view. Left chest tube and right central line are stable. Lungs: Bilateral lung opacities have mildly improved. Pleural spaces: Stable small left pneumothorax. Heart/Mediastinum: Stable heart size. Vasculature: Atherosclerotic calcifications. Bones/joints: Stable. Median sternotomy. IMPRESSION: Mildly improved lung opacities. at 0808 Reported and signed by: Simon Rogers M.D. CC: Vadim Amaro MD; Katiana Garcia MD; Angelica Mcguire NP Technologist: RT Yusef(El) Trnscrd Date/Time/By: 05/14/2022 (807) : By: [email or web address] Orig Print D/T: S: 05/14/2022 (807) PAGE 1 Signed ReportBASIC METABOLIC [id number] 21:49:00* Test Item Value Reference Range Interpretation Comme nts SODIUM (test code = NA) 136 mEq/L 134-147 N POTASSIUM (test code = K) 4.3 mEq/L 3.4-5.0 N CHLORIDE (test code = CL) 104 mEq/L 100-108 N CARBON DIOXIDE (test code = CO2) 25 mEq/l 21-33 N ANION GAP (test code = GAP) 11 0-20 N GLUCOSE (test code = GLU) 150 mg/dL 70-110 H BLOOD UREA NITROGEN (test code = BUN) 56 mg/dL 7-18 H GLOMERULAR FILTRATION RATE (test code = GFR) 19.9 70-80 L The Glomerular Filtration Rate is a calculated parameterbased on serum Creatinine, patient age and sex. GFR valuesless than 60 mL/min/1.73 square meters are indicative ofChronic Kidney Disease. Values less than 15 mL/min/1.73square meters indicate Kidney failure. The calculation forGFR is based on the CKD-EPI (2020) calculation. This formulais race indifferent and is the recommended formula for GFRby the National Kidney Foundation for Adults.The GFR will not calculate if the sex is unknown or if thepatient's age is <18 years. CREATININE (test code = CREAT) 3.0 mg/dL 0.6-1.3 H CALCIUM (test code = CA) 8.3 mg/dL 8.0-10.5 N [id number] 21:49:00* Test Item Value Reference Range Interpretation Comme nts MAGNESIUM (test code = MAG) 2.47 mg/dL 1.80-2.40 H POC ARTERIAL BLOOD [id number] 21:31:00* Test Item Value Reference Range Interpretation Comme nts POC ARTERIAL BLOOD GAS PH (t est code = POCPHA) 7.351 7.35-7.45 N POC ARTERIAL BLOOD GAS PCO2 (test code = HNUUWO2R) 48.3 mmHg 35.0-45 H POC TCO2 ARTERIAL (test code = POCTCO2) 28.0 POC ARTERIAL BLOOD GAS PO2 ( test code = VPHBQ3M) 235.5 mmHg 80-100.0 HH POC HCO3 ARTERIAL (test code = TZCBRQ9Z) 26.5 MMOL/L 22.0-26.0 H POC BASE EXCESS (test code = POCBEA) 1.1 MMOL/L -4.0-4.0 N POC O2 SATURATION (test code = POCO2S) 99.8 % 90-100 N FIO2 (test code = FIO2A) 95 % PaO2/FiO2 (test code = BVQ1BPY0) 247.89 mm/Hg ABG DELIVERY (test code = HAILY) Vapotherm ABG TEMPERATURE (test code = TEMPA) 99.9 F ABG SITE (test code = SITEA) Art Line BASIC METABOLIC [id number] 21:31:00* Test Item Value Reference Range Interpretation Comme nts SODIUM (test code = NA/ABG) 138 mmol/L 134-147 N POTASSIUM (test code = K/ABG) 4.3 mmol/L 3.4-5.0 N CHLORIDE (test code = CL/ABG) 102 mmol/L 100-108 N CREATININE ABG (test code = CREAABG) 3.4 mg/dL 0.8-1.3 H POC IONIZED CALCIUM (test co de = POCCA) 1.21 MMOL/L 1.12-1.32 N POC GLUCOSE (test code = POCGLU) 140 MG/DL 70-110 H HEMOGLOBIN [id number] 21:31:00* Test Item Value Reference Range Interpretation Comme [facility] HEMOGLOBIN ABG (test code = HGB/ABG) 7.5 G/DL 12.5-16.9 L [id number] 21:31:00* Test Item Value Reference Range Interpretation Comme [facility] HEMATOCRIT (test code = HCT/ABG) 22 % 37.5-50.7 L GLUCOSE [id number] 20:09:00* Test Item Value Reference Range Interpretation Comme [facility] GLUCOSE BEDSIDE (test code = GLUBED) 144 MG/DL 70-110 H Performed by cer tified starting sheet tank operator at [facility] GLUCOSE [id number] 16:45:00* Test Item Value Reference Range Interpretation Comme [facility] GLUCOSE BEDSIDE (test code = GLUBED) 132 MG/DL 70-110 H Performed by cer [employer] starting sheet tank operator at [facility] B-TYPE NATRIURETIC [id number] 16:33:00* Test Item Value Reference Range Interpretation Comme [facility] B-TYPE NATRIURETIC PEPTIDE ( test code = BNP) 158.0 PG/ML 0-100 H POC ARTERIAL BLOOD [id number] 16:06:00* Test Item Value Reference Range Interpretation Comme [facility] POC ARTERIAL BLOOD GAS PH (t est code = POCPHA) 7.386 7.35-7.45 N POC ARTERIAL BLOOD GAS PCO2 (test code = RVBAPI0W) 41.0 mmHg 35.0-45 N POC TCO2 ARTERIAL (test code = POCTCO2) 25.6 POC ARTERIAL BLOOD GAS PO2 ( test code = PTYUG3F) 78.3 mmHg 80-100.0 L POC HCO3 ARTERIAL (test code = GRSYEP6H) 24.4 MMOL/L 22.0-26.0 N POC BASE EXCESS (test code = POCBEA) -0.5 MMOL/L -4.0-4.0 N POC O2 SATURATION (test code = POCO2S) 94.7 % 90-100 N FIO2 (test code = FIO2A) 50 % PaO2/FiO2 (test code = UNK1OMA8) 156.60 mm/Hg ABG DELIVERY (test code = HAILY) BiPAP ABG PEEP (test code = PEEPA) 5 cmH2O ABG PRESSURE SUPPORT (test c ode = PSABG) 12 cmH2O ABG TEMPERATURE (test code = TEMPA) 100 F ABG SITE (test code = SITEA) Art Line LC'S TEST (test code = ALLENS) N/A BASIC METABOLIC [id number] 16:06:00* Test Item Value Reference Range Interpretation Comme nts SODIUM (test code = NA/ABG) 137 mmol/L 134-147 N POTASSIUM (test code = K/ABG) 4.4 mmol/L 3.4-5.0 N CHLORIDE (test code = CL/ABG) 103 mmol/L 100-108 N CREATININE ABG (test code = CREAABG) 3.4 mg/dL 0.8-1.3 H POC IONIZED CALCIUM (test co de = POCCA) 1.20 MMOL/L 1.12-1.32 N POC GLUCOSE (test code = POCGLU) 159 MG/DL 70-110 H HEMOGLOBIN [id number] 16:06:00* Test Item Value Reference Range Interpretation Comme nts HEMOGLOBIN ABG (test code = HGB/ABG) 7.7 G/DL 12.5-16.9 L [id number] 16:06:00* Test Item Value Reference Range Interpretation Comme nts HEMATOCRIT (test code = HCT/ABG) 23 % 37.5-50.7 L POC LACTIC [id number] 16:06:00* Test Item Value Reference Range Interpretation Comme nts POC LACTIC ACID (test code = POCLAC) 0.8 mmol/l 0.9-1.7 L BASIC METABOLIC [id number] 15:29:00* Test Item Value Reference Range Interpretation Comme nts SODIUM (test code = NA) 138 mEq/L 134-147 N POTASSIUM (test code = K) 4.4 mEq/L 3.4-5.0 N CHLORIDE (test code = CL) 106 mEq/L 100-108 N CARBON DIOXIDE (test code = CO2) 25 mEq/l 21-33 N ANION GAP (test code = GAP) 11 0-20 N GLUCOSE (test code = GLU) 165 mg/dL 70-110 H BLOOD UREA NITROGEN (test code = BUN) 58 mg/dL 7-18 H GLOMERULAR FILTRATION RATE (test code = GFR) 18.4 70-80 L The Glomerular Filtration Rate is a calculated parameterbased on serum Creatinine, patient age and sex. GFR valuesless than 60 mL/min/1.73 square meters are indicative ofChronic Kidney Disease. Values less than 15 mL/min/1.73square meters indicate Kidney failure. The calculation forGFR is based on the CKD-EPI (202) calculation. This formulais race indifferent and is the recommended formula for GFRby the National Kidney Foundation for Adults.The GFR will not calculate if the sex is unknown or if thepatient's age is <18 years. CREATININE (test code = CREAT) 3.2 mg/dL 0.6-1.3 H CALCIUM (test code = CA) 8.3 mg/dL 8.0-10.5 N [id number] 15:29:00* Test Item Value Reference Range Interpretation Comme [facility] MAGNESIUM (test code = MAG) 2.45 mg/dL 1.80-2.40 H GLUCOSE [id number] 12:51:00* Test Item Value Reference Range Interpretation Comme [facility] GLUCOSE BEDSIDE (test code = GLUBED) 147 MG/DL 70-110 H Performed by cer tified starting sheet tank operator at [facility] POC ARTERIAL BLOOD [id number] 11:49:00* Test Item Value Reference Range Interpretation Comme nts POC ARTERIAL BLOOD GAS PH (t est code = POCPHA) 7.396 7.35-7.45 N POC ARTERIAL BLOOD GAS PCO2 (test code = VVFEBJ3D) 35.4 mmHg 35.0-45 N POC TCO2 ARTERIAL (test code = POCTCO2) 22.8 POC ARTERIAL BLOOD GAS PO2 ( test code = HEDPM6S) 64.0 mmHg 80-100.0 L POC HCO3 ARTERIAL (test code = DPFQVF7E) 21.7 MMOL/L 22.0-26.0 L POC BASE EXCESS (test code = POCBEA) -3.2 MMOL/L -4.0-4.0 N POC O2 SATURATION (test code = POCO2S) 92.2 % 90-100 N FIO2 (test code = FIO2A) 50 % PaO2/FiO2 (test code = PCN4MCA6) 128.00 mm/Hg ABG DELIVERY (test code = HAILY) BiPAP ABG VENT RESP RATE (test cod e = RRA) 14 /MIN ABG PEEP (test code = PEEPA) 5 cmH2O ABG PRESSURE SUPPORT (test c ode = PSABG) 12 cmH2O ABG SITE (test code = SITEA) Art Line GLUCOSE [id number] 09:57:00* Test Item Value Reference Range Interpretation Comme nts GLUCOSE BEDSIDE (test code = GLUBED) 146 MG/DL 70-110 H Performed by cer tified starting sheet tank operator at [facility] B-TYPE NATRIURETIC [id number] 08:47:00* Test Item Value Reference Range Interpretation Comme nts B-TYPE NATRIURETIC PEPTIDE ( test code = BNP) 179.0 PG/ML 0-100 H CBC W/AUTO [id number] 04:57:00* Test Item Value Reference Range Interpretation Comme nts WHITE BLOOD CELL (test code = WBC) 20.7 x10 3/uL 4.5-11.0 H RED BLOOD CELL (test code = RBC) 2.18 x10 6/uL 4.00-5.60 L HEMOGLOBIN (test code = HGB) 7.6 g/dL 12.5-16.9 L HEMATOCRIT (test code = HCT) 22.9 % 37.5-50.7 L MEAN CELL VOLUME (test code = MCV) 105.0 fL 81.0-99.0 H MEAN CELL HGB (test code = MCH) 34.9 pg 27.0-33.0 H MEAN CELL HGB CONCETRATION (test code = MCHC) 33.2 g/dL 33.0-37.0 N RED CELL DISTRIBUTION WIDTH CV (test code = RDW) 15.1 % 11.5-14.5 H RED CELL DISTRIBUTION WIDTH SD (test code = RDW-SD) 58.8 fL 37.0-54.0 H PLATELET COUNT (test code = PLT) 99 x10 3/uL 150-400 L MEAN PLATELET VOLUME (test code = MPV) 12.5 fL 7.0-9.0 H NEUTROPHIL % (test code = NT%) 80.6 % 56.0-77.0 H IMMATURE GRANULOCYTE % (test code = IG%) 0.7 % 0.0-2.0 N LYMPHOCYTE % (test code = LY%) 7.3 % 14.0-32.0 L MONOCYTE % (test code = MO%) 11.2 % 4.8-9.0 H EOSINOPHIL % (test code = EO%) 0.0 % 0.3-3.7 L BASOPHIL % (test code = BA%) 0.2 % 0.0-2.0 N NUCLEATED RBC % (test code = NRBC%) 0.1 % 0-0 H NEUTROPHIL # (test code = NT#) 16.69 x10 3/uL 2.0-7.6 H IMMATURE GRANULOCYTE # (test code = IG#) 0.14 x10 3/uL 0.00-0.03 H LYMPHOCYTE # (test code = LY#) 1.52 x10 3/uL 1.0-3.8 N MONOCYTE # (test code = MO#) 2.32 x10 3/uL 0.1-0.8 H EOSINOPHIL # (test code = EO#) 0.00 x10 3/uL 0.0-0.2 N BASOPHIL # (test code = BA#) 0.04 x10 3/uL 0.0-0.2 N NUCLEATED RBC # (test code = NRBC#) 0.03 x10 3/uL 0.0-0.1 N MANUAL DIFF REQUIRED (test code = MDIFF) NO PLT [id number] 04:57:00* Test Item Value Reference Range Interpretation Comme nts PLATELET ESTIMATE (test code = PLTEST) 128 TO 160 THOUSAND ADEQUATE PLATELET GIANT (test code = PLTGI) Present PLATELET MORPHOLOGY (test code = PLTMORPH) AGGREGATES BASIC METABOLIC [id number] 04:45:00* Test Item Value Reference Range Interpretation Comme nts SODIUM (test code = NA) 138 mEq/L 134-147 N POTASSIUM (test code = K) 4.7 mEq/L 3.4-5.0 N CHLORIDE (test code = CL) 105 mEq/L 100-108 N CARBON DIOXIDE (test code = CO2) 24 mEq/l 21-33 N ANION GAP (test code = GAP) 13 0-20 N GLUCOSE (test code = GLU) 157 mg/dL 70-110 H BLOOD UREA NITROGEN (test code = BUN) 47 mg/dL 7-18 H GLOMERULAR FILTRATION RATE (test code = GFR) 19.9 70-80 L The Glomerular Filtration Rate is a calculated parameterbased on serum Creatinine, patient age and sex. GFR valuesless than 60 mL/min/1.73 square meters are indicative ofChronic Kidney Disease. Values less than 15 mL/min/1.73square meters indicate Kidney failure. The calculation forGFR is based on the CKD-EPI (2020) calculation. This formulais race indifferent and is the recommended formula for GFRby the National Kidney Foundation for Adults.The GFR will not calculate if the sex is unknown or if thepatient's age is <18 years. CREATININE (test code = CREAT) 3.0 mg/dL 0.6-1.3 H CALCIUM (test code = CA) 8.3 mg/dL 8.0-10.5 N COMMENTS: POD #1HEPATIC FUNCTION [id number] 04:45:00* Test Item Value Reference Range Interpretation Comme nts TOTAL PROTEIN (test code = PROT) 5.7 g/dL 6.4-8.2 L ALBUMIN (test code = ALB) 3.40 g/dL 3.4-5.0 N BILIRUBIN TOTAL (test code = BILT) 0.90 mg/dL 0.0-1.0 BILIRUBIN DIRECT (test code = BILD) 0.40 MG/DL 0.0-0.30 H BILIRUBIN INDIRECT (test cod e = BILIND) 0.50 MG/DL SGOT/AST (test code = AST) 40 IUnit/L 15-37 H SGPT/ALT (test code = ALT) < 7 IUnit/L 30-65 L ALKALINE PHOSPHATASE TOTAL ( test code = ALKP) 58 IUnit/L 20-125 N COMMENTS: POD #[id number] 04:45:00* Test Item Value Reference Range Interpretation Comme nts MAGNESIUM (test code = MAG) 2.44 mg/dL 1.80-2.40 H COMMENTS: POD #1POC ARTERIAL BLOOD [id number] 04:16:00* Test Item Value Reference Range Interpretation Comme nts POC ARTERIAL BLOOD GAS PH (t est code = POCPHA) 7.388 7.35-7.45 N POC ARTERIAL BLOOD GAS PCO2 (test code = ERGJON0L) 39.1 mmHg 35.0-45 N POC TCO2 ARTERIAL (test code = POCTCO2) 24.7 POC ARTERIAL BLOOD GAS PO2 ( test code = UYFPS8Q) 100.6 mmHg 80-100.0 H POC HCO3 ARTERIAL (test code = UKDJGV0U) 23.6 MMOL/L 22.0-26.0 N POC BASE EXCESS (test code = POCBEA) -1.4 MMOL/L -4.0-4.0 N POC O2 SATURATION (test code = POCO2S) 97.7 % 90-100 N FIO2 (test code = FIO2A) 50 % PaO2/FiO2 (test code = IBH6JAA9) 201.20 mm/Hg ABG DELIVERY (test code = HAILY) BiPAP ABG VENT RESP RATE (test cod e = RRA) 14 /MIN ABG PEEP (test code = PEEPA) 5 cmH2O ABG PRESSURE SUPPORT (test c ode = PSABG) 12 cmH2O ABG TEMPERATURE (test code = TEMPA) 99 F ABG SITE (test code = SITEA) Art Line BASIC METABOLIC [id number] 04:16:00* Test Item Value Reference Range Interpretation Comme nts SODIUM (test code = NA/ABG) 139 mmol/L 134-147 N POTASSIUM (test code = K/ABG) 4.7 mmol/L 3.4-5.0 N CHLORIDE (test code = CL/ABG) 102 mmol/L 100-108 N CREATININE ABG (test code = CREAABG) 3.1 mg/dL 0.8-1.3 H POC IONIZED CALCIUM (test co de = POCCA) 1.15 MMOL/L 1.12-1.32 N POC GLUCOSE (test code = POCGLU) 156 MG/DL 70-110 H HEMOGLOBIN [id number] 04:16:00* Test Item Value Reference Range Interpretation Comme nts HEMOGLOBIN ABG (test code = HGB/ABG) 7.7 G/DL 12.5-16.9 L [id number] 04:16:00* Test Item Value Reference Range Interpretation Comme nts HEMATOCRIT (test code = HCT/ABG) 23 % 37.5-50.7 L POC LACTIC [id number] 04:16:00* Test Item Value Reference Range Interpretation Comme nts POC LACTIC ACID (test code = POCLAC) 1.2 mmol/l 0.9-1.7 N BASIC METABOLIC [id number] 01:02:00* Test Item Value Reference Range Interpretation Comme nts SODIUM (test code = NA) 139 mEq/L 134-147 N POTASSIUM (test code = K) 5.0 mEq/L 3.4-5.0 N CHLORIDE (test code = CL) 109 mEq/L 100-108 H CARBON DIOXIDE (test code = CO2) 24 mEq/l 21-33 N ANION GAP (test code = GAP) 11 0-20 N GLUCOSE (test code = GLU) 167 mg/dL 70-110 H BLOOD UREA NITROGEN (test code = BUN) 43 mg/dL 7-18 H GLOMERULAR FILTRATION RATE (test code = GFR) 20.7 70-80 L The Glomerular Filtration Rate is a calculated parameterbased on serum Creatinine, patient age and sex. GFR valuesless than 60 mL/min/1.73 square meters are indicative ofChronic Kidney Disease. Values less than 15 mL/min/1.73square meters indicate Kidney failure. The calculation forGFR is based on the CKD-EPI (2020) calculation. This formulais race indifferent and is the recommended formula for GFRby the National Kidney Foundation for Adults.The GFR will not calculate if the sex is unknown or if thepatient's age is <18 years. CREATININE (test code = CREAT) 2.9 mg/dL 0.6-1.3 H CALCIUM (test code = CA) 8.1 mg/dL 8.0-10.5 N POC ARTERIAL BLOOD [id number] 00:10:00* Test Item Value Reference Range Interpretation Comme nts POC ARTERIAL BLOOD GAS PH (t est code = POCPHA) 7.365 7.35-7.45 N POC ARTERIAL BLOOD GAS PCO2 (test code = [id number]) 40.8 mmHg 35.0-45 N POC TCO2 ARTERIAL (test code = POCTCO2) 24.7 POC ARTERIAL BLOOD GAS PO2 ( test code = NLJMK3F) 77.3 mmHg 80-100.0 L POC HCO3 ARTERIAL (test code = [id number]) 23.4 MMOL/L 22.0-26.0 N POC BASE EXCESS (test code = POCBEA) -2.0 MMOL/L -4.0-4.0 N POC O2 SATURATION (test code = POCO2S) 95.0 % 90-100 N FIO2 (test code = FIO2A) 40 % PaO2/FiO2 (test code = RNV2ALF4) 193.25 mm/Hg ABG DELIVERY (test code = HAILY) Vapotherm ABG TEMPERATURE (test code = TEMPA) 98.2 F ABG SITE (test code = SITEA) Art Line BASIC METABOLIC [id number] 00:10:00* Test Item Value Reference Range Interpretation Comme nts SODIUM (test code = NA/ABG) 139 mmol/L 134-147 N POTASSIUM (test code = K/ABG) 5.1 mmol/L 3.4-5.0 H CHLORIDE (test code = CL/ABG) 108 mmol/L 100-108 N CREATININE ABG (test code = CREAABG) 2.9 mg/dL 0.8-1.3 H POC IONIZED CALCIUM (test co de = POCCA) 1.14 MMOL/L 1.12-1.32 N POC GLUCOSE (test code = POCGLU) 167 MG/DL 70-110 H HEMOGLOBIN [id number] 00:10:00* Test Item Value Reference Range Interpretation Comme nts HEMOGLOBIN ABG (test code = HGB/ABG) 11.2 G/DL 12.5-16.9 L [id number] 00:10:00* Test Item Value Reference Range Interpretation Comme nts HEMATOCRIT (test code = HCT/ABG) 33 % 37.5-50.7 L POC LACTIC [id number] 00:10:00* Test Item Value Reference Range Interpretation Comme nts POC LACTIC ACID (test code = POCLAC) 1.1 mmol/l 0.9-1.7 N - XR ABDOMEN 1V (KUB)2022-05-13 00:00:00 [facility] : 1935 Sex: M FAX: Vadim Jenkins [phone] [place]: St: [facility] FAX: Katiana Gregory MD [phone] FAX: Rupinder Mcguire [phone] Name: TONO MAHAN [facility] : 1935 Age/S: 86/M [address] [place] [address] Unit #: [id number] Loc: G.[address] [place] [address] 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 TECHNIQUE: Imaging protocol: Radiologic exam of the abdomen. Views: Frontal supine view of the abdomen. 1 View. COMPARISON: CR XR ABDOMEN AP 1 V 05/12/2022 12:43 PM * ABDOMEN, portable, 1 view HISTORY: Assess nasogastric tube placement. TECHNIQUE: A portable supine radiographof the abdomen was obtained for assessment of tube placement. This is a limited study. IMPRESSION: 1. The tip of the nasogastric tube is in the stomach. 2. The bowel gas pattern is grossly normal. at 0957 Reported and signed by: Amadeo Macdonald M.D. CC: Vadim Amaro MD; Katiana Garcia MD; Angelica Mcguire NP Technologist: RT Remy (R) Trnscrd Date/Time/By: 05/13/2022 (09) : By: [email or web address] Orig Print D/T: S: 05/13/2022 (0900) PAGE 1 Signed Report- XR CHEST 1 [id number] 00:00:00 [facility] : 1935 Sex: M FAX: Vadim Jenkins [phone] [place]: St: ADM FAX: Katiana Gregory MD [phone] FAX: Rupinder Mcguire [phone] Name: TONO MAHAN [facility] : 1935 Age/S: 86/M [address] [place] [address] Unit #: [id number] Loc: Minda HENRY [place] [address] 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 Views: 1 view.Portable technique, shallow inspiration. COMPARISON: CR XR CHEST 1V 05/12/2022 12:43 PM FINDINGS: Tub es, catheters and devices: Stable right jugular catheter, tip over the lower 3rd of the SVC. Stabledrain over the left base. Lungs: Stable diffuse bilateral interstitial opacity. Airspace opacity again demonstrated at the left base. Pleural spaces: Small left apical pneumothorax, similar to the most recent exam. No definite pleural fluid. Heart/Mediastinum: Stable moderate cardiomegaly. Diaphragm: The left diaphragm is still obscured. Medial right diaphragm also obscured. Bones/joints: Sternotomy. IMPRESSION: 1. Small left apical pneumothorax, similar to the most recent exam. 2. Stable cardiomegaly and pulmonary opacity. at 0748 Reported and signed by: Jose Miguel Rasheed M.D. CC: Vadim Amaro MD; Katiana Garcia MD; Angelica Mcguire NP Technologist: Ehsan Maza; Sho Hopkins, RT(R) Trnscrd Date/Time/By: 05/13/2022 (0748) : By: [email or web address] Orig Print D/T: S: 05/13/2022 (0749) PAGE 1 Signed Report- Identified 2022-05-13 00:00:00 [facility] 1935 Sex: M Name: TONO MAHAN [facility] Celio Doyle : 1935 Age/S: 86 / M [address] [place], [place] [address]vd U nit #: [id number] Loc: [place] [address] Phys: Mandi Wahl MD Acct: [id number] Dis Date: Status:ADM IN PHONE #: [phone] Exam Date: 05/12/2022 1535 FAX #: [phone] Reason: arf EXAMS: CPT CODE: [id number] US RETROPERITONEAL COM [id number] PROCEDURE INFORMATION: Exam: US Retroperitoneal; Complete; Kidneys and Bladder Exam date and time: 05/12/2022 2:32 PM Age: 86 years old Clinical indication:Condition or disease; Kidney or ureter condition; Acute renal insufficiency; Additional info: Arf TECHNIQUE: Imaging protocol: Real-time ultrasound of the retroperitoneum with image documentation. Complete exam focused on the kidneys and bladder. COMPARISON: CR XR ABDOMEN AP 1 V 05/12/2022 12:43 PM FINDINGS: Right kidney: Right kidney 10.8 X 5.0 X 7.7 cm. No stones. No hydronephrosis. Right renal cyst measures 4.3 X 3.4 X 3.3 cm. The cyst is not well characterized secondary to patient body habitus. Left kidney: Left kidney 11.1 X 4.9 X 6.3 cm. Poor visualization of the left kidney. Urinary bladder: The bladder is not well evaluated. IMPRESSION: 1. Limited evaluation of the kidneys. 2. Right renal cyst poorly evaluated, Bosniak 2F. at 0847 Reported and signed by: Paulo Morris M.D. CC: Vadim Amaro MD; Katiana Garcia MD; Mandi Wahl MD Technologist: Breana Naylor Trnscb Date/Time: 05/13/2022 (846) [email or web address] Orig Print D/T: S: 05/13/2022 (846) Probe: PAGE 1 Signed ReportBASIC METABOLIC [id number] 22:15:00* Test Item Value Reference Range Interpretation Comme nts SODIUM (test code = NA) 140 mEq/L 134-147 N POTASSIUM (test code = K) 5.0 mEq/L 3.4-5.0 N CHLORIDE (test code = CL) 109 mEq/L 100-108 H CARBON DIOXIDE (test code = CO2) 24 mEq/l 21-33 N ANION GAP (test code = GAP) 12 0-20 N GLUCOSE (test code = GLU) 185 mg/dL 70-110 H BLOOD UREA NITROGEN (test code = BUN) 42 mg/dL 7-18 H GLOMERULAR FILTRATION RATE (test code = GFR) 21.6 70-80 L The Glomerular Filtration Rate is a calculated parameterbased on serum Creatinine, patient age and sex. GFR valuesless than 60 mL/min/1.73 square meters are indicative ofChronic Kidney Disease. Values less than 15 mL/min/1.73square meters indicate Kidney failure. The calculation forGFR is based on the CKD-EPI (2020) calculation. This formulais race indifferent and is the recommended formula for GFRby the National Kidney Foundation for Adults.The GFR will not calculate if the sex is unknown or if thepatient's age is <18 years. CREATININE (test code = CREAT) 2.8 mg/dL 0.6-1.3 H CALCIUM (test code = CA) 8.1 mg/dL 8.0-10.5 N [id number] 22:15:00* Test Item Value Reference Range Interpretation Comme nts PHOSPHOROUS (test code = PHOS) 4.7 MG/DL 2.5-4.9 N [id number] 22:15:00* Test Item Value Reference Range Interpretation Comme nts MAGNESIUM (test code = MAG) 2.46 mg/dL 1.80-2.40 H POC ARTERIAL BLOOD [id number] 21:29:00* Test Item Value Reference Range Interpretation Comme nts POC ARTERIAL BLOOD GAS PH (t est code = POCPHA) 7.346 7.35-7.45 L POC ARTERIAL BLOOD GAS PCO2 (test code = SNFCFG2Y) 42.2 mmHg 35.0-45 N POC TCO2 ARTERIAL (test code = POCTCO2) 24.4 POC ARTERIAL BLOOD GAS PO2 ( test code = PRWXW1Q) 72.8 mmHg 80-100.0 L POC HCO3 ARTERIAL (test code = SAHWQT9I) 23.1 MMOL/L 22.0-26.0 N POC BASE EXCESS (test code = POCBEA) -2.6 MMOL/L -4.0-4.0 N POC O2 SATURATION (test code = POCO2S) 93.6 % 90-100 N FIO2 (test code = FIO2A) 45 % PaO2/FiO2 (test code = IPI8YPV2) 161.77 mm/Hg ABG DELIVERY (test code = HAILY) HFNC ABG TEMPERATURE (test code = TEMPA) 98.4 F ABG SITE (test code = SITEA) Art Line LC'S TEST (test code = ALLENS) N/A BASIC METABOLIC [id number] 21:29:00* Test Item Value Reference Range Interpretation Comme nts SODIUM (test code = NA/ABG) 140 mmol/L 134-147 N POTASSIUM (test code = K/ABG) 5.0 mmol/L 3.4-5.0 N CHLORIDE (test code = CL/ABG) 106 mmol/L 100-108 N CREATININE ABG (test code = CREAABG) 2.8 mg/dL 0.8-1.3 H POC IONIZED CALCIUM (test co de = POCCA) 1.15 MMOL/L 1.12-1.32 N POC GLUCOSE (test code = POCGLU) 192 MG/DL 70-110 H HEMOGLOBIN [id number] 21:29:00* Test Item Value Reference Range Interpretation Comme nts HEMOGLOBIN ABG (test code = HGB/ABG) 9.0 G/DL 12.5-16.9 L [id number] 21:29:00* Test Item Value Reference Range Interpretation Comme nts HEMATOCRIT (test code = HCT/ABG) 27 % 37.5-50.7 L POC LACTIC [id number] 21:29:00* Test Item Value Reference Range Interpretation Comme nts POC LACTIC ACID (test code = POCLAC) 1.5 mmol/l 0.9-1.7 N GLUCOSE [id number] 20:44:00* Test Item Value Reference Range Interpretation Comme nts GLUCOSE BEDSIDE (test code = GLUBED) 173 MG/DL 70-110 H Performed by mulu flores starting sheet tank operator at [facility] POC ARTERIAL BLOOD [id number] 18:39:00* Test Item Value Reference Range Interpretation Comme nts POC ARTERIAL BLOOD GAS PH (t est code = POCPHA) 7.323 7.35-7.45 L POC ARTERIAL BLOOD GAS PCO2 (test code = ITXPSI9H) 43.9 mmHg 35.0-45 N POC TCO2 ARTERIAL (test code = POCTCO2) 23.8 POC ARTERIAL BLOOD GAS PO2 ( test code = SXSBF9F) 85.1 mmHg 80-100.0 N POC HCO3 ARTERIAL (test code = OWVNOZ6P) 22.5 MMOL/L 22.0-26.0 N POC BASE EXCESS (test code = POCBEA) -3.3 MMOL/L -4.0-4.0 N POC O2 SATURATION (test code = POCO2S) 94.8 % 90-100 N ABG TEMPERATURE (test code = TEMPA) 100.6 F ABG SITE (test code = SITEA) Art Line BASIC METABOLIC [id number] 18:39:00* Test Item Value Reference Range Interpretation Comme nts SODIUM (test code = NA/ABG) 140 mmol/L 134-147 N POTASSIUM (test code = K/ABG) 4.9 mmol/L 3.4-5.0 N CHLORIDE (test code = CL/ABG) 108 mmol/L 100-108 N CREATININE ABG (test code = CREAABG) 2.4 mg/dL 0.8-1.3 H POC IONIZED CALCIUM (test co de = POCCA) 1.13 MMOL/L 1.12-1.32 N POC GLUCOSE (test code = POCGLU) 194 MG/DL 70-110 H HEMOGLOBIN [id number] 18:39:00* Test Item Value Reference Range Interpretation Comme nts HEMOGLOBIN ABG (test code = HGB/ABG) 8.8 G/DL 12.5-16.9 L [id number] 18:39:00* Test Item Value Reference Range Interpretation Comme nts HEMATOCRIT (test code = HCT/ABG) 26 % 37.5-50.7 L GLUCOSE [id number] 16:18:00* Test Item Value Reference Range Interpretation Comme nts GLUCOSE BEDSIDE (test code = GLUBED) 174 MG/DL 70-110 H Performed by cer tified starting sheet tank operator at [facility] GLUCOSE [id number] 13:03:00* Test Item Value Reference Range Interpretation Comme [facility] GLUCOSE BEDSIDE (test code = GLUBED) 162 MG/DL 70-110 H Performed by cer tified starting sheet tank operator at [facility] RENAL FUNCTION [id number] 12:49:00* Test Item Value Reference Range Interpretation Comme [facility] SODIUM (test code = NA) 140 mEq/L 134-147 N POTASSIUM (test code = K) 5.0 mEq/L 3.4-5.0 N CHLORIDE (test code = CL) 108 mEq/L 100-108 N CARBON DIOXIDE (test code = CO2) 22 mEq/l 21-33 N ANION GAP (test code = GAP) 15 0-20 N GLUCOSE (test code = GLU) 185 mg/dL 70-110 H BLOOD UREA NITROGEN (test code = BUN) 36 mg/dL 7-18 H GLOMERULAR FILTRATION RATE (test code = GFR) 28.8 70-80 L The Glomerular Filtration Rate is a calculated parameterbased on serum Creatinine, patient age and sex. GFR valuesless than 60 mL/min/1.73 square meters are indicative ofChronic Kidney Disease. Values less than 15 mL/min/1.73square meters indicate Kidney failure. The calculation forGFR is based on the CKD-EPI (2021) calculation. This formulais race indifferent and is the recommended formula for GFRby the National Kidney Foundation for Adults.The GFR will not calculate if the sex is unknown or if thepatient's age is <18 years. CREATININE (test code = CREAT) 2.2 mg/dL 0.6-1.3 H ALBUMIN (test code = ALB) 3.90 g/dL 3.4-5.0 N CALCIUM (test code = CA) 8.1 mg/dL 8.0-10.5 N PHOSPHOROUS (test code = PHOS) 5.0 MG/DL 2.5-4.9 H POC ARTERIAL BLOOD [id number] 09:47:00* Test Item Value Reference Range Interpretation Comme [facility] POC ARTERIAL BLOOD GAS PH (t est code = POCPHA) 7.329 7.35-7.45 L POC ARTERIAL BLOOD GAS PCO2 (test code = LNFFRS5R) 47.6 mmHg 35.0-45 H POC TCO2 ARTERIAL (test code = POCTCO2) 26.5 POC ARTERIAL BLOOD GAS PO2 ( test code = KFUJO5E) 104.0 mmHg 80-100.0 H POC HCO3 ARTERIAL (test code = IUHSFM5P) 25.0 MMOL/L 22.0-26.0 N POC BASE EXCESS (test code = POCBEA) -0.9 MMOL/L -4.0-4.0 N POC O2 SATURATION (test code = POCO2S) 97.5 % 90-100 N BASIC METABOLIC [id number] 09:47:00* Test Item Value Reference Range Interpretation Comme nts SODIUM (test code = NA/ABG) 142 mmol/L 134-147 N POTASSIUM (test code = K/ABG) 5.0 mmol/L 3.4-5.0 N CHLORIDE (test code = CL/ABG) 108 mmol/L 100-108 N CREATININE ABG (test code = CREAABG) 2.3 mg/dL 0.8-1.3 H POC IONIZED CALCIUM (test co de = POCCA) 1.20 MMOL/L 1.12-1.32 N POC GLUCOSE (test code = POCGLU) 147 MG/DL 70-110 H HEMOGLOBIN [id number] 09:47:00* Test Item Value Reference Range Interpretation Comme nts HEMOGLOBIN ABG (test code = HGB/ABG) 9.3 G/DL 12.5-16.9 L [id number] 09:47:00* Test Item Value Reference Range Interpretation Comme nts HEMATOCRIT (test code = HCT/ABG) 27 % 37.5-50.7 L GLUCOSE [id number] 08:53:00* Test Item Value Reference Range Interpretation Comme nts GLUCOSE BEDSIDE (test code = GLUBED) 136 MG/DL 70-110 H Performed by cer tified starting sheet tank operator at [facility] POC ARTERIAL BLOOD [id number] 07:04:00* Test Item Value Reference Range Interpretation Comme nts POC ARTERIAL BLOOD GAS PH (t est code = POCPHA) 7.344 7.35-7.45 L POC ARTERIAL BLOOD GAS PCO2 (test code = BECJTF1A) 42.2 mmHg 35.0-45 N POC TCO2 ARTERIAL (test code = POCTCO2) 24.3 POC ARTERIAL BLOOD GAS PO2 ( test code = VNLEC0W) 85.6 mmHg 80-100.0 N POC HCO3 ARTERIAL (test code = MLLPJM7R) 23.0 MMOL/L 22.0-26.0 N POC BASE EXCESS (test code = POCBEA) -2.7 MMOL/L -4.0-4.0 N POC O2 SATURATION (test code = POCO2S) 95.9 % 90-100 N FIO2 (test code = FIO2A) 35 % PaO2/FiO2 (test code = YTK1GSA3) 244.57 mm/Hg ABG DELIVERY (test code = HAILY) BiPAP ABG SITE (test code = SITEA) Art Line BASIC METABOLIC [id number] 07:04:00* Test Item Value Reference Range Interpretation Comme nts SODIUM (test code = NA/ABG) 142 mmol/L 134-147 N POTASSIUM (test code = K/ABG) 4.9 mmol/L 3.4-5.0 N CHLORIDE (test code = CL/ABG) 108 mmol/L 100-108 N CREATININE ABG (test code = CREAABG) 1.8 mg/dL 0.8-1.3 H POC IONIZED CALCIUM (test co de = POCCA) 1.16 MMOL/L 1.12-1.32 N POC GLUCOSE (test code = POCGLU) 162 MG/DL 70-110 H HEMOGLOBIN [id number] 07:04:00* Test Item Value Reference Range Interpretation Comme nts HEMOGLOBIN ABG (test code = HGB/ABG) 9.1 G/DL 12.5-16.9 L [id number] 07:04:00* Test Item Value Reference Range Interpretation Comme nts HEMATOCRIT (test code = HCT/ABG) 27 % 37.5-50.7 L POC LACTIC [id number] 07:04:00* Test Item Value Reference Range Interpretation Comme nts POC LACTIC ACID (test code = POCLAC) 1.5 mmol/l 0.9-1.7 N GLUCOSE [id number] 06:31:00* Test Item Value Reference Range Interpretation Comme nts GLUCOSE BEDSIDE (test code = GLUBED) 147 MG/DL 70-110 H Performed by cer tified starting sheet tank operator at [facility] GLUCOSE [id number] 04:39:00* Test Item Value Reference Range Interpretation Comme nts GLUCOSE BEDSIDE (test code = GLUBED) 153 MG/DL 70-110 H Performed by mulu flores starting sheet tank operator at [facility] BASIC METABOLIC [id number] 02:36:00* Test Item Value Reference Range Interpretation Comme nts SODIUM (test code = NA) 142 mEq/L 134-147 N POTASSIUM (test code = K) 4.9 mEq/L 3.4-5.0 CHLORIDE (test code = CL) 109 mEq/L 100-108 H CARBON DIOXIDE (test code = CO2) 24 mEq/l 21-33 N ANION GAP (test code = GAP) 14 0-20 N GLUCOSE (test code = GLU) 165 mg/dL 70-110 H BLOOD UREA NITROGEN (test code = BUN) 26 mg/dL 7-18 H GLOMERULAR FILTRATION RATE (test code = GFR) 42.2 70-80 L The Glomerular Filtration Rate is a calculated parameterbased on serum Creatinine, patient age and sex. GFR valuesless than 60 mL/min/1.73 square meters are indicative ofChronic Kidney Disease. Values less than 15 mL/min/1.73square meters indicate Kidney failure. The calculation forGFR is based on the CKD-EPI (202) calculation. This formulais race indifferent and is the recommended formula for GFRby the National Kidney Foundation for Adults.The GFR will not calculate if the sex is unknown or if thepatient's age is <18 years. CREATININE (test code = CREAT) 1.6 mg/dL 0.6-1.3 H CALCIUM (test code = CA) 7.9 mg/dL 8.0-10.5 L COMMENTS: POD #1HEPATIC FUNCTION [id number] 02:36:00* Test Item Value Reference Range Interpretation Comme nts TOTAL PROTEIN (test code = PROT) 5.7 g/dL 6.4-8.2 L ALBUMIN (test code = ALB) 3.50 g/dL 3.4-5.0 N BILIRUBIN TOTAL (test code = BILT) 0.70 mg/dL 0.0-1.0 N BILIRUBIN DIRECT (test code = BILD) 0.30 MG/DL 0.0-0.30 N BILIRUBIN INDIRECT (test cod e = BILIND) 0.40 MG/DL SGOT/AST (test code = AST) 53 IUnit/L 15-37 H SGPT/ALT (test code = ALT) 12 IUnit/L 30-65 L ALKALINE PHOSPHATASE TOTAL ( test code = ALKP) 56 IUnit/L 20-125 N COMMENTS: POD #[id number] 02:36:00* Test Item Value Reference Range Interpretation Comme nts MAGNESIUM (test code = MAG) 2.30 mg/dL 1.80-2.40 COMMENTS: POD #1CBC W/AUTO [id number] 02:24:00* Test Item Value Reference Range Interpretation Comme nts WHITE BLOOD CELL (test code = WBC) 24.2 x10 3/uL 4.5-11.0 H RED BLOOD CELL (test code = RBC) 2.47 x10 6/uL 4.00-5.60 L HEMOGLOBIN (test code = HGB) 8.5 g/dL 12.5-16.9 L HEMATOCRIT (test code = HCT) 25.6 % 37.5-50.7 L MEAN CELL VOLUME (test code = MCV) 103.6 fL 81.0-99.0 H MEAN CELL HGB (test code = MCH) 34.4 pg 27.0-33.0 H MEAN CELL HGB CONCETRATION (test code = MCHC) 33.2 g/dL 33.0-37.0 N RED CELL DISTRIBUTION WIDTH CV (test code = RDW) 14.8 % 11.5-14.5 H RED CELL DISTRIBUTION WIDTH SD (test code = RDW-SD) 55.4 fL 37.0-54.0 H PLATELET COUNT (test code = PLT) 147 x10 3/uL 150-400 L MEAN PLATELET VOLUME (test code = MPV) 11.8 fL 7.0-9.0 H NEUTROPHIL % (test code = NT%) 84.7 % 56.0-77.0 H IMMATURE GRANULOCYTE % (test code = IG%) 0.7 % 0.0-2.0 N LYMPHOCYTE % (test code = LY%) 3.9 % 14.0-32.0 L MONOCYTE % (test code = MO%) 10.6 % 4.8-9.0 H EOSINOPHIL % (test code = EO%) 0.0 % 0.3-3.7 L BASOPHIL % (test code = BA%) 0.1 % 0.0-2.0 N NUCLEATED RBC % (test code = NRBC%) 0.1 % 0-0 H NEUTROPHIL # (test code = NT#) 20.49 x10 3/uL 2.0-7.6 H IMMATURE GRANULOCYTE # (test code = IG#) 0.16 x10 3/uL 0.00-0.03 H LYMPHOCYTE # (test code = LY#) 0.95 x10 3/uL 1.0-3.8 L MONOCYTE # (test code = MO#) 2.57 x10 3/uL 0.1-0.8 H EOSINOPHIL # (test code = EO#) 0.00 x10 3/uL 0.0-0.2 N BASOPHIL # (test code = BA#) 0.03 x10 3/uL 0.0-0.2 N NUCLEATED RBC # (test code = NRBC#) 0.02 x10 3/uL 0.0-0.1 N MANUAL DIFF REQUIRED (test code = MDIFF) NO GLUCOSE [id number] 02:14:00* Test Item Value Reference Range Interpretation Comme nts GLUCOSE BEDSIDE (test code = GLUBED) 150 MG/DL 70-110 H Performed by cer sandra starting sheet tank operator at [facility] POC ARTERIAL BLOOD [id number] 00:28:00* Test Item Value Reference Range Interpretation Comme nts POC ARTERIAL BLOOD GAS PH (t est code = POCPHA) 7.334 7.35-7.45 L POC ARTERIAL BLOOD GAS PCO2 (test code = QUKNUV8L) 45.4 mmHg 35.0-45 H POC TCO2 ARTERIAL (test code = POCTCO2) 25.3 POC ARTERIAL BLOOD GAS PO2 ( test code = ZEMGL6D) 109.8 mmHg 80-100.0 H POC HCO3 ARTERIAL (test code = SWQGAS0R) 23.9 MMOL/L 22.0-26.0 N POC BASE EXCESS (test code = POCBEA) -1.8 MMOL/L -4.0-4.0 N POC O2 SATURATION (test code = POCO2S) 97.7 % 90-100 N FIO2 (test code = FIO2A) 50 % PaO2/FiO2 (test code = TUF6ONR7) 219.60 mm/Hg ABG DELIVERY (test code = HAILY) BiPAP ABG TEMPERATURE (test code = TEMPA) 100 F ABG SITE (test code = SITEA) Art Line BASIC METABOLIC [id number] 00:28:00* Test Item Value Reference Range Interpretation Comme nts SODIUM (test code = NA/ABG) 144 mmol/L 134-147 N POTASSIUM (test code = K/ABG) 5.0 mmol/L 3.4-5.0 N CHLORIDE (test code = CL/ABG) 109 mmol/L 100-108 H CREATININE ABG (test code = CREAABG) 1.6 mg/dL 0.8-1.3 H POC IONIZED CALCIUM (test co de = POCCA) 1.13 MMOL/L 1.12-1.32 N POC GLUCOSE (test code = POCGLU) 168 MG/DL 70-110 H HEMOGLOBIN [id number] 00:28:00* Test Item Value Reference Range Interpretation Comme nts HEMOGLOBIN ABG (test code = HGB/ABG) 9.3 G/DL 12.5-16.9 L [id number] 00:28:00* Test Item Value Reference Range Interpretation Comme nts HEMATOCRIT (test code = HCT/ABG) 27 % 37.5-50.7 L POC LACTIC [id number] 00:28:00* Test Item Value Reference Range Interpretation Comme nts POC LACTIC ACID (test code = POCLAC) 1.9 mmol/l 0.9-1.7 H - XR CHEST 1 [id number] 00:00:00 [facility] 1935 Sex: M FAX: Vadim Jenkins [phone] [place]: St: ADM FAX: Katiana Gregory MD [phone] FAX: Rupinder Mcguire [phone] Name: TONO MAHAN [facility] : 1935 Age/S: 86/M [address] [place] [address] Unit #: [id number] Loc: [address] [address] Phys: Angelica Mcguire NP Acct: [id number] Dis Date: Status: ADM IN PHONE #: [phone] Exam Date: 05/12/2022 1304 FAX #: [phone] Reason: sob, hypoxemia EXAMS: CPT CODE: [id number] XR CHEST 1 V [id number] PROCEDURE INFORMATION: Exam: XR Chest Exam date and time: 05/12/2022 12:43 PM Age: 86 years old Clinical indication: Other: SOB, hypoxemia TECHNIQUE: Imaging protocol: Radiologic exam of the chest. Views: 1 view. COMPARISON: CRXR CHEST 1V 05/12/2022 6:28 AM FINDINGS: Tubes, catheters and devices: Stable lines and tubes. Lungs: Bilateral lung opacities have improved. Pleural spaces: No pleural effusion. Questionable very tiny left apical curvilinear density equivocal for a miniscule left pneumothorax. Heart/Mediastinum: The enlarged heart size is stable. Bones/joints: Stable. Median sternotomy wires. IMPRESSION: 1. Improved lung opacities. 2. Questionable very tiny left apical curvilinear density equivocal for a miniscule left pneumothorax. Attention on follow-up exam. Stable left chest tube. at 1326 Reported and signed by: Simon Rogers M.D. CC: Vadim Amaro MD; Katiana Garcia MD; Angelica Mcguire NP Technologist: Ehsan Maza; Sho Hopkins RT(R) Trnscrd Date/Time/By: 05/12/2022 (393) : By: [email or web address] Orig Print D/T: S: 05/12/2022 (134) PAGE 1 Signed Report- XR ABDOMEN 1V (KUB)2022-05-12 00:00:00[facility] : 1935 Sex: M FAX: Vadim Jenkins [phone] [place]: St: ADM FAX: Katiana Gregory MD [phone] FAX: Rupinder Mcguire [phone] Name: KALLITONO HOPE [facility] : 1935 Age/S: 86/M [address] [place] [address] Unit #: [id number] Loc: G.2203 VencesHENRY [address] Phys: 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 Views: Frontal supine view of the abdomen. 1 View. COMPARISON: CR XR CHEST 1V05/12/2022 6:28 AM FINDINGS: Gastrointestinal tract: There is a non-obstructive bowel gas pattern. There mild diffuse gaseous distention of bowel. There is no pneumatosis or mass effect. Bones/joints:Unremarkable. Soft tissues: No abnormal radiopaque densities. Line mediastinal drain and left-sidedchest tube noted. 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 IMPRESSION: 1. Mild diffuse gaseous distention of bowel suggesting ileus. 2. Post midline sternotomy, epicardial pacemaker leads, mediastinal drain, and left-sided chest tube noted. at 3719 Reported and signed by: Tavon Vincent M.D. CC: Vadim Amaro MD; Katiana Garcia MD; Angelica Mcguire NP Technologist: Ehsan Maza; Sho Hopkins, RT(R) Trnscrd Date/Time/By: 05/12/2022 (3023) : By: Nathaly Orig Print D/T: S: 05/12/2022 (1165) PAGE 1 Signed Report- XR CHEST 1 [id number] 00:00:00 [facility] : 1935 Sex: M FAX: Vadim Jenkins [phone] [place]: St: ADM FAX: Rupinder Mcguire [phone] Name: TONO MAHAN [facility] [place] : 1935 Age/S: 86/M [address] [place] [address] Blvd Unit #: [id number] Loc: [address] [place] [id number] Phys: Angelica Mcguire NP Acct: [id number] Dis Date: Status: ADM IN PHONE #: [phone] Exam Date: 05/12/2022716 FAX #: [phone] Reason: Cardiac Surgery Post Op EXAMS: CPT CODE: [id number] XR CHEST 1 V 42965 PROCEDURE INFORMATION: Exam: XR Chest Exam date and time: 05/12/2022 6:28 AM Age: 86 years old Clinical indication: Other: Cardiac surgery post op TECHNIQUE: Imaging protocol: Radiologic exam of the chest. Views: 1 view. COMPARISON: CR XR CHEST 1V 05/11/2022 1:14 PM FINDINGS: Tubes, catheters and devices: Removal of the endotracheal and nasogastric tubes. Stable right IJ central line. Question if there could be a left chest tube. Lungs: Bilateral lung opacities have mildly increased. Pleural spaces: No pleural effusion. No pneumothorax. Heart/Medi astinum: The enlarged heart size is stable. Vasculature: Atherosclerotic calcifications. Bones/joints: Stable. Median sternotomy wires. IMPRESSION: 1. Mildly worsening lung opacities. 2. Removal of the endotracheal and nasogastric tubes. at 0835 Reported and signed by: Simon Rogers M.D. CC: Vadim Amaro MD; Angelica Mcguire NP Technologist: Ehsan Maza; RT Meera(R) Trnscrd Date/Time/By: 05/12/2022 (0835) :By: [email or web address] Orig Print D/T: S: 05/12/2022 (0835) PAGE 1 Signed ReportGLUCOSE [id number] 22:23:00* Test Item Value Reference Range Interpretation Comme nts GLUCOSE BEDSIDE (test code = GLUBED) 137 MG/DL 70-110 H Performed by cer tified starting sheet tank operator at [facility] GLUCOSE [id number] 20:01:00* Test Item Value Reference Range Interpretation Comme nts GLUCOSE BEDSIDE (test code = GLUBED) 136 MG/DL 70-110 H Performed by cer tified starting sheet tank operator at [facility] POC ARTERIAL BLOOD [id number] 19:00:00* Test Item Value Reference Range Interpretation Comme nts POC ARTERIAL BLOOD GAS PH (t est code = POCPHA) 7.307 7.35-7.45 L POC ARTERIAL BLOOD GAS PCO2 (test code = SJKGCY4U) 47.3 mmHg 35.0-45 H POC TCO2 ARTERIAL (test code = POCTCO2) 24.8 POC ARTERIAL BLOOD GAS PO2 ( test code = QLLHB5L) 95.0 mmHg 80-100.0 N POC HCO3 ARTERIAL (test code = KQQNUN4H) 23.4 MMOL/L 22.0-26.0 N POC BASE EXCESS (test code = POCBEA) -2.7 MMOL/L -4.0-4.0 N POC O2 SATURATION (test code = POCO2S) 96.2 % 90-100 N FIO2 (test code = FIO2A) 50 % PaO2/FiO2 (test code = VNS4BFA5) 190.00 mm/Hg ABG VENT MODE (test code = MODEA) BiLevel ABG TEMPERATURE (test code = TEMPA) 99.9 F BASIC METABOLIC [id number] 19:00:00* Test Item Value Reference Range Interpretation Comme nts SODIUM (test code = NA/ABG) 145 mmol/L 134-147 N POTASSIUM (test code = K/ABG) 4.8 mmol/L 3.4-5.0 N CHLORIDE (test code = CL/ABG) 110 mmol/L 100-108 H CREATININE ABG (test code = CREAABG) 1.4 mg/dL 0.8-1.3 H POC IONIZED CALCIUM (test co de = POCCA) 1.15 MMOL/L 1.12-1.32 N POC GLUCOSE (test code = POCGLU) 134 MG/DL 70-110 H HEMOGLOBIN [id number] 19:00:00* Test Item Value Reference Range Interpretation Comme nts HEMOGLOBIN ABG (test code = HGB/ABG) 9.7 G/DL 12.5-16.9 L [id number] 19:00:00* Test Item Value Reference Range Interpretation Comme nts HEMATOCRIT (test code = HCT/ABG) 29 % 37.5-50.7 L POC ARTERIAL BLOOD [id number] 17:14:00* Test Item Value Reference Range Interpretation Comme nts POC ARTERIAL BLOOD GAS PH (t est code = POCPHA) 7.270 7.35-7.45 LL POC ARTERIAL BLOOD GAS PCO2 (test code = VPDLVM5O) 55.6 mmHg 35.0-45 HH POC TCO2 ARTERIAL (test code = POCTCO2) 27.2 POC ARTERIAL BLOOD GAS PO2 ( test code = NFDXQ9Y) 95.1 mmHg 80-100.0 N POC HCO3 ARTERIAL (test code = TKCBRC4X) 25.5 MMOL/L 22.0-26.0 N POC BASE EXCESS (test code = POCBEA) -1.3 MMOL/L -4.0-4.0 N POC O2 SATURATION (test code = POCO2S) 95.9 % 90-100 N FIO2 (test code = FIO2A) 50 % PaO2/FiO2 (test code = VAL0GVR5) 190.20 mm/Hg ABG DELIVERY (test code = HAILY) Adult Vent ABG TEMPERATURE (test code = TEMPA) 99.1 F ABG SITE (test code = SITEA) Art Line BASIC METABOLIC [id number] 17:14:00* Test Item Value Reference Range Interpretation Comme nts SODIUM (test code = NA/ABG) 145 mmol/L 134-147 N POTASSIUM (test code = K/ABG) 4.4 mmol/L 3.4-5.0 N CHLORIDE (test code = CL/ABG) 111 mmol/L 100-108 H CREATININE ABG (test code = CREAABG) 1.6 mg/dL 0.8-1.3 H POC IONIZED CALCIUM (test co de = POCCA) 1.22 MMOL/L 1.12-1.32 N POC GLUCOSE (test code = POCGLU) 110 MG/DL 70-110 N HEMOGLOBIN [id number] 17:14:00* Test Item Value Reference Range Interpretation Comme nts HEMOGLOBIN ABG (test code = HGB/ABG) 9.7 G/DL 12.5-16.9 L [id number] 17:14:00* Test Item Value Reference Range Interpretation Comme nts HEMATOCRIT (test code = HCT/ABG) 29 % 37.5-50.7 L POC ARTERIAL BLOOD [id number] 16:00:00* Test Item Value Reference Range Interpretation Comme nts POC ARTERIAL BLOOD GAS PH (t est code = POCPHA) 7.272 7.35-7.45 LL POC ARTERIAL BLOOD GAS PCO2 (test code = DXXPOF4U) 50.1 mmHg 35.0-45 HH POC TCO2 ARTERIAL (test code = POCTCO2) 24.6 POC ARTERIAL BLOOD GAS PO2 ( test code = NDSUO6N) 82.7 mmHg 80-100.0 N POC HCO3 ARTERIAL (test code = MIKQNI0X) 23.1 MMOL/L 22.0-26.0 N POC BASE EXCESS (test code = POCBEA) -3.8 MMOL/L -4.0-4.0 N POC O2 SATURATION (test code = POCO2S) 94.3 % 90-100 N FIO2 (test code = FIO2A) 50 % PaO2/FiO2 (test code = PJG1NCB8) 165.40 mm/Hg ABG PEEP (test code = PEEPA) 5 cmH2O ABG SITE (test code = SITEA) Art Line BASIC METABOLIC [id number] 16:00:00* Test Item Value Reference Range Interpretation Comme nts SODIUM (test code = NA/ABG) 143 mmol/L 134-147 N POTASSIUM (test code = K/ABG) 4.5 mmol/L 3.4-5.0 N CHLORIDE (test code = CL/ABG) 109 mmol/L 100-108 H CREATININE ABG (test code = CREAABG) 1.5 mg/dL 0.8-1.3 H POC IONIZED CALCIUM (test co de = POCCA) 1.17 MMOL/L 1.12-1.32 N POC GLUCOSE (test code = POCGLU) 107 MG/DL 70-110 N HEMOGLOBIN [id number] 16:00:00* Test Item Value Reference Range Interpretation Comme nts HEMOGLOBIN ABG (test code = HGB/ABG) 9.9 G/DL 12.5-16.9 L [id number] 16:00:00* Test Item Value Reference Range Interpretation Comme nts HEMATOCRIT (test code = HCT/ABG) 29 % 37.5-50.7 L POC ARTERIAL BLOOD [id number] 15:14:00* Test Item Value Reference Range Interpretation Comme nts POC ARTERIAL BLOOD GAS PH (t est code = POCPHA) 7.239 7.35-7.45 LL POC ARTERIAL BLOOD GAS PCO2 (test code = NMJRQO8K) 53.2 mmHg 35.0-45 HH POC TCO2 ARTERIAL (test code = POCTCO2) 24.5 POC ARTERIAL BLOOD GAS PO2 ( test code = HMEVH0H) 94.4 mmHg 80-100.0 N POC HCO3 ARTERIAL (test code = BBUXZA9Y) 22.9 MMOL/L 22.0-26.0 N POC BASE EXCESS (test code = POCBEA) -4.6 MMOL/L -4.0-4.0 L POC O2 SATURATION (test code = POCO2S) 95.8 % 90-100 N FIO2 (test code = FIO2A) 50 % PaO2/FiO2 (test code = NNH7ACJ0) 188.80 mm/Hg ABG DELIVERY (test code = HAILY) Adult Vent ABG TEMPERATURE (test code = TEMPA) 98 F ABG SITE (test code = SITEA) Art Line BASIC METABOLIC [id number] 15:14:00* Test Item Value Reference Range Interpretation Comme nts SODIUM (test code = NA/ABG) 145 mmol/L 134-147 N POTASSIUM (test code = K/ABG) 4.0 mmol/L 3.4-5.0 N CHLORIDE (test code = CL/ABG) 111 mmol/L 100-108 H CREATININE ABG (test code = CREAABG) 1.4 mg/dL 0.8-1.3 H POC IONIZED CALCIUM (test co de = POCCA) 1.21 MMOL/L 1.12-1.32 N POC GLUCOSE (test code = POCGLU) 102 MG/DL 70-110 N HEMOGLOBIN [id number] 15:14:00* Test Item Value Reference Range Interpretation Comme nts HEMOGLOBIN ABG (test code = HGB/ABG) 10.0 G/DL 12.5-16.9 L [id number] 15:14:00* Test Item Value Reference Range Interpretation Comme nts HEMATOCRIT (test code = HCT/ABG) 29 % 37.5-50.7 L GLUCOSE [id number] 14:26:00* Test Item Value Reference Range Interpretation Comme nts GLUCOSE BEDSIDE (test code = GLUBED) 107 MG/DL 70-110 N Performed by cer tified starting sheet tank operator at [facility] BASIC METABOLIC [id number] 13:56:00* Test Item Value Reference Range Interpretation Comme nts SODIUM (test code = NA) 145 mEq/L 134-147 N POTASSIUM (test code = K) 4.0 mEq/L 3.4-5.0 N CHLORIDE (test code = CL) 111 mEq/L 100-108 H CARBON DIOXIDE (test code = CO2) 25 mEq/l 21-33 N ANION GAP (test code = GAP) 13 0-20 N GLUCOSE (test code = GLU) 137 mg/dL 70-110 H BLOOD UREA NITROGEN (test code = BUN) 22 mg/dL 7-18 H GLOMERULAR FILTRATION RATE (test code = GFR) 54.2 70-80 L The Glomerular Filtration Rate is a calculated parameterbased on serum Creatinine, patient age and sex. GFR valuesless than 60 mL/min/1.73 square meters are indicative ofChronic Kidney Disease. Values less than 15 mL/min/1.73square meters indicate Kidney failure. The calculation forGFR is based on the CKD-EPI (2020) calculation. This formulais race indifferent and is the recommended formula for GFRby the National Kidney Foundation for Adults.The GFR will not calculate if the sex is unknown or if thepatient's age is <18 years. CREATININE (test code = CREAT) 1.3 mg/dL 0.6-1.3 N CALCIUM (test code = CA) 8.3 mg/dL 8.0-10.5 N COMMENTS: On [id number] 13:56:00* Test Item Value Reference Range Interpretation Comme nts MAGNESIUM (test code = MAG) 2.82 mg/dL 1.80-2.40 H [facility]MENTS: [facility] [id number] 13:14:00* Test Item Value Reference Range Interpretation Comme nts WHITE BLOOD CELL (test code = WBC) 33.5 x10 3/uL 4.5-11.0 H RED BLOOD CELL (test code = RBC) 2.79 x10 6/uL 4.00-5.60 L HEMOGLOBIN (test code = HGB) 9.7 g/dL 12.5-16.9 L HEMATOCRIT (test code = HCT) 28.7 % 37.5-50.7 L MEAN CELL VOLUME (test code = MCV) 102.9 fL 81.0-99.0 H MEAN CELL HGB (test code = MCH) 34.8 pg 27.0-33.0 H MEAN CELL HGB CONCETRATION (test code = MCHC) 33.8 g/dL 33.0-37.0 N RED CELL DISTRIBUTION WIDTH CV (test code = RDW) 14.1 % 11.5-14.5 N RED CELL DISTRIBUTION WIDTH SD (test code = RDW-SD) 53.7 fL 37.0-54.0 N PLATELET COUNT (test code = PLT) 125 x10 3/uL 150-400 L MEAN PLATELET VOLUME (test code = MPV) 12.4 fL 7.0-9.0 H NEUTROPHIL % (test code = NT%) 84.1 % 56.0-77.0 H LYMPHOCYTE % (test code = LY%) 8.0 % 14.0-32.0 L NEUTROPHIL # (test code = NT#) 28.15 x10 3/uL 2.0-7.6 H LYMPHOCYTE # (test code = LY#) 2.67 x10 3/uL 1.0-3.8 N MANUAL DIFF REQUIRED (test code = MDIFF) NO SLIDE REVIEW ED, CONSISTENT WITH AUTO DIFF. IMMATURE GRANULOCYTE % (test code = IG%) 1.2 % 0.0-2.0 N MONOCYTE % (test code = MO%) 6.2 % 4.8-9.0 N EOSINOPHIL % (test code = EO%) 0.2 % 0.3-3.7 L BASOPHIL % (test code = BA%) 0.3 % 0.0-2.0 N NUCLEATED RBC % (test code = NRBC%) 0.2 % 0-0 H IMMATURE GRANULOCYTE # (test code = IG#) 0.41 x10 3/uL 0.00-0.03 H MONOCYTE # (test code = MO#) 2.06 x10 3/uL 0.1-0.8 H EOSINOPHIL # (test code = EO#) 0.08 x10 3/uL 0.0-0.2 N BASOPHIL # (test code = BA#) 0.09 x10 3/uL 0.0-0.2 N NUCLEATED RBC # (test code = NRBC#) 0.06 x10 3/uL 0.0-0.1 N COMMENTS: On arrivalPROTHROMBIN [id number] 12:41:00* Test Item Value Reference Range Interpretation Comme nts PROTHROMBIN TIME PATIENT (test code = PTP) 17.9 SECONDS 9.3-12.9 H INTERNATIONAL NORMAL RATIO (test code = INR) 1.6 0.8-1.2 H TARGET INR BY INDICATION Indication INR1. Prophylaxis of venous thrombosis 2.0 - 3.0 (orthopedic surgery), Prophylaxis of venous thrombosis (other than high-risk surgery), Treatment of Deep Vein Thrombosis/Pulmonary Embolism, Prevention of systemic embolism - Tissue heart valves, Acute Myocardial Infarction (to prevent systemic embolism), Valvular heart disease, Atrial Fibrillation, Bileaflet mechanical valve in aortic position.2. Mechanical prosthetic valves (high risk), 2.5 - 3.5 Presence of Lupus Anticoagulant or Antiphospholipid Antibodies, Prevention of systemic embolism - Acute Myocardial Infarction (to prevent recurrent infarct). [facility] [id number] 12:23:00* Test Item Value Reference Range Interpretation Comme nts POC ARTERIAL BLOOD GAS PH (t est code = POCPHA) 7.296 7.35-7.45 LL POC ARTERIAL BLOOD GAS PCO2 (test code = IPKWJP5V) 48.2 mmHg 35.0-45 H POC TCO2 ARTERIAL (test code = POCTCO2) 25.2 POC ARTERIAL BLOOD GAS PO2 ( test code = AGVTZ2E) 86.0 mmHg 80-100.0 N POC HCO3 ARTERIAL (test code = QVXXGA7I) 23.7 MMOL/L 22.0-26.0 N POC BASE EXCESS (test code = POCBEA) -2.9 MMOL/L -4.0-4.0 N POC O2 SATURATION (test code = POCO2S) 95.6 % 90-100 N FIO2 (test code = FIO2A) 60 % PaO2/FiO2 (test code = ZJR0SHL8) 143.33 mm/Hg ABG DELIVERY (test code = HAILY) Adult Vent ABG VENT MODE (test code = MODEA) AC ABG VENT RESP RATE (test cod e = RRA) 18 /MIN ABG TIDAL VOLUME (test code = TVA) 500 ml ABG PEEP (test code = PEEPA) 5 cmH2O ABG TEMPERATURE (test code = TEMPA) 97.5 F ABG SITE (test code = SITEA) Art Line BASIC METABOLIC [id number] 12:23:00* Test Item Value Reference Range Interpretation Comme nts SODIUM (test code = NA/ABG) 144 mmol/L 134-147 N POTASSIUM (test code = K/ABG) 4.0 mmol/L 3.4-5.0 N CHLORIDE (test code = CL/ABG) 106 mmol/L 100-108 N CREATININE ABG (test code = CREAABG) 1.4 mg/dL 0.8-1.3 H POC IONIZED CALCIUM (test co de = POCCA) 1.22 MMOL/L 1.12-1.32 N POC GLUCOSE (test code = POCGLU) 135 MG/DL 70-110 H HEMOGLOBIN [id number] 12:23:00* Test Item Value Reference Range Interpretation Comme nts HEMOGLOBIN ABG (test code = HGB/ABG) 9.8 G/DL 12.5-16.9 L [id number] 12:23:00* Test Item Value Reference Range Interpretation Comme nts HEMATOCRIT (test code = HCT/ABG) 29 % 37.5-50.7 L [id number] 11:32:00* Test Item Value Reference Range Interpretation Comme nts ACT-ISTAT (test code = ACTI) 143 SEC 74-137 H Performed by cer sandra starting sheet tank operator at [facility] POC ARTERIAL BLOOD [id number] 11:29:00* Test Item Value Reference Range Interpretation Comme nts POC ARTERIAL BLOOD GAS PH (t est code = POCPHA) 7.342 7.35-7.45 L POC ARTERIAL BLOOD GAS PCO2 (test code = AIXXJW6X) 39.6 mmHg 35.0-45 N POC TCO2 ARTERIAL (test code = POCTCO2) 22.7 POC ARTERIAL BLOOD GAS PO2 ( test code = VZDTL8W) 196.1 mmHg 80-100.0 H POC HCO3 ARTERIAL (test code = DTOXJI5A) 21.5 MMOL/L 22.0-26.0 L POC BASE EXCESS (test code = POCBEA) -4.0 MMOL/L -4.0-4.0 N POC O2 SATURATION (test code = POCO2S) 99.6 % 90-100 N BASIC METABOLIC [id number] 11:29:00* Test Item Value Reference Range Interpretation Comme nts SODIUM (test code = NA/ABG) 141 mmol/L 134-147 N POTASSIUM (test code = K/ABG) 4.1 mmol/L 3.4-5.0 N CHLORIDE (test code = CL/ABG) 109 mmol/L 100-108 H CREATININE ABG (test code = CREAABG) 1.4 mg/dL 0.8-1.3 H POC IONIZED CALCIUM (test co de = POCCA) 1.25 MMOL/L 1.12-1.32 N POC GLUCOSE (test code = POCGLU) 146 MG/DL 70-110 H HEMOGLOBIN [id number] 11:29:00* Test Item Value Reference Range Interpretation Comme nts HEMOGLOBIN ABG (test code = HGB/ABG) 9.1 G/DL 12.5-16.9 L [id number] 11:29:00* Test Item Value Reference Range Interpretation Comme nts HEMATOCRIT (test code = HCT/ABG) 27 % 37.5-50.7 L POC LACTIC [id number] 11:29:00* Test Item Value Reference Range Interpretation Comme nts POC LACTIC ACID (test code = POCLAC) 3.0 mmol/l 0.9-1.7 H [id number] 10:54:00* Test Item Value Reference Range Interpretation Comme nts ACT-ISTAT (test code = ACTI) 558 SEC 74-137 H Performed by cer tified starting sheet tank operator at [facility] POC ARTERIAL BLOOD [id number] 10:40:00* Test Item Value Reference Range Interpretation Comme nts POC ARTERIAL BLOOD GAS PH (t est code = POCPHA) 7.461 7.35-7.45 H POC ARTERIAL BLOOD GAS PCO2 (test code = NCOOXH0M) 33.7 mmHg 35.0-45 L POC TCO2 ARTERIAL (test code = POCTCO2) 25.1 POC ARTERIAL BLOOD GAS PO2 ( test code = TMPYS9U) 359.0 mmHg 80-100.0 HH POC HCO3 ARTERIAL (test code = SYRRMJ5M) 24.0 MMOL/L 22.0-26.0 N POC BASE EXCESS (test code = POCBEA) 0.4 MMOL/L -4.0-4.0 N POC O2 SATURATION (test code = POCO2S) 100.0 % 90-100 N BASIC METABOLIC [id number] 10:40:00* Test Item Value Reference Range Interpretation Comme nts SODIUM (test code = NA/ABG) 139 mmol/L 134-147 N POTASSIUM (test code = K/ABG) 6.4 mmol/L 3.4-5.0 HH CHLORIDE (test code = CL/ABG) 106 mmol/L 100-108 N CREATININE ABG (test code = CREAABG) 1.6 mg/dL 0.8-1.3 H POC IONIZED CALCIUM (test co de = POCCA) 1.03 MMOL/L 1.12-1.32 L POC GLUCOSE (test code = POCGLU) 160 MG/DL 70-110 H HEMOGLOBIN [id number] 10:40:00* Test Item Value Reference Range Interpretation Comme nts HEMOGLOBIN ABG (test code = HGB/ABG) 9.0 G/DL 12.5-16.9 L [id number] 10:40:00* Test Item Value Reference Range Interpretation Comme nts HEMATOCRIT (test code = HCT/ABG) 27 % 37.5-50.7 L POC LACTIC [id number] 10:40:00* Test Item Value Reference Range Interpretation Comme nts POC LACTIC ACID (test code = POCLAC) 1.3 mmol/l 0.9-1.7 N [id number] 10:31:00* Test Item Value Reference Range Interpretation Comme nts ACT-ISTAT (test code = ACTI) 660 SEC 74-137 H Performed by cer tified starting sheet tank operator at [facility] POC ARTERIAL BLOOD [id number] 10:18:00* Test Item Value Reference Range Interpretation Comme nts POC ARTERIAL BLOOD GAS PH (t est code = POCPHA) 7.459 7.35-7.45 H POC ARTERIAL BLOOD GAS PCO2 (test code = TRMPEV3X) 33.6 mmHg 35.0-45 L POC TCO2 ARTERIAL (test code = POCTCO2) 24.9 POC ARTERIAL BLOOD GAS PO2 ( test code = ZELNR0G) 352.2 mmHg 80-100.0 HH POC HCO3 ARTERIAL (test code = UNPKJB2I) 23.9 MMOL/L 22.0-26.0 N POC BASE EXCESS (test code = POCBEA) 0.2 MMOL/L -4.0-4.0 N POC O2 SATURATION (test code = POCO2S) 100.0 % 90-100 N BASIC METABOLIC [id number] 10:18:00* Test Item Value Reference Range Interpretation Comme nts SODIUM (test code = NA/ABG) 138 mmol/L 134-147 N POTASSIUM (test code = K/ABG) 6.7 mmol/L 3.4-5.0 HH CHLORIDE (test code = CL/ABG) 105 mmol/L 100-108 N CREATININE ABG (test code = CREAABG) 1.4 mg/dL 0.8-1.3 H POC IONIZED CALCIUM (test co de = POCCA) 1.03 MMOL/L 1.12-1.32 L POC GLUCOSE (test code = POCGLU) 167 MG/DL 70-110 H HEMOGLOBIN [id number] 10:18:00* Test Item Value Reference Range Interpretation Comme nts HEMOGLOBIN ABG (test code = HGB/ABG) 9.0 G/DL 12.5-16.9 L [id number] 10:18:00* Test Item Value Reference Range Interpretation Comme nts HEMATOCRIT (test code = HCT/ABG) 27 % 37.5-50.7 L POC LACTIC [id number] 10:18:00* Test Item Value Reference Range Interpretation Comme nts POC LACTIC ACID (test code = POCLAC) 1.1 mmol/l 0.9-1.7 N [id number] 10:01:00* Test Item Value Reference Range Interpretation Comme nts ACT-ISTAT (test code = ACTI) 648 SEC 74-137 H Performed by cer tified starting sheet tank operator at [facility] POC ARTERIAL BLOOD [id number] 09:50:00* Test Item Value Reference Range Interpretation Comme nts POC ARTERIAL BLOOD GAS PH (t est code = POCPHA) 7.384 7.35-7.45 N POC ARTERIAL BLOOD GAS PCO2 (test code = AYUXQB0R) 43.8 mmHg 35.0-45 N POC TCO2 ARTERIAL (test code = POCTCO2) 27.5 POC ARTERIAL BLOOD GAS PO2 ( test code = UHLPZ7D) 438.4 mmHg 80-100.0 HH POC HCO3 ARTERIAL (test code = YBOQGH5L) 26.1 MMOL/L 22.0-26.0 H POC BASE EXCESS (test code = POCBEA) 0.9 MMOL/L -4.0-4.0 N POC O2 SATURATION (test code = POCO2S) 100.0 % 90-100 N BASIC METABOLIC [id number] 09:50:00* Test Item Value Reference Range Interpretation Comme nts SODIUM (test code = NA/ABG) 137 mmol/L 134-147 N POTASSIUM (test code = K/ABG) 7.1 mmol/L 3.4-5.0 HH CHLORIDE (test code = CL/ABG) 105 mmol/L 100-108 N CREATININE ABG (test code = CREAABG) 1.5 mg/dL 0.8-1.3 H POC IONIZED CALCIUM (test co de = POCCA) 1.00 MMOL/L 1.12-1.32 L POC GLUCOSE (test code = POCGLU) 165 MG/DL 70-110 H HEMOGLOBIN [id number] 09:50:00* Test Item Value Reference Range Interpretation Comme nts HEMOGLOBIN ABG (test code = HGB/ABG) 9.0 G/DL 12.5-16.9 L [id number] 09:50:00* Test Item Value Reference Range Interpretation Comme nts HEMATOCRIT (test code = HCT/ABG) 26 % 37.5-50.7 L POC LACTIC [id number] 09:50:00* Test Item Value Reference Range Interpretation Comme nts POC LACTIC ACID (test code = POCLAC) 0.7 mmol/l 0.9-1.7 L [id number] 09:28:00* Test Item Value Reference Range Interpretation Comme nts ACT-ISTAT (test code = ACTI) 576 SEC 74-137 H Performed by cer tified starting sheet tank operator at [facility] POC ARTERIAL BLOOD [id number] 09:22:00* Test Item Value Reference Range Interpretation Comme nts POC ARTERIAL BLOOD GAS PH (t est code = POCPHA) 7.249 7.35-7.45 LL POC ARTERIAL BLOOD GAS PCO2 (test code = EFEXBQ6J) 51.2 mmHg 35.0-45 HH POC TCO2 ARTERIAL (test code = POCTCO2) 24.0 POC ARTERIAL BLOOD GAS PO2 ( test code = NSJNR4L) 95.4 mmHg 80-100.0 N POC HCO3 ARTERIAL (test code = KGMBDE5N) 22.4 MMOL/L 22.0-26.0 N POC BASE EXCESS (test code = POCBEA) -5.1 MMOL/L -4.0-4.0 L POC O2 SATURATION (test code = POCO2S) 95.9 % 90-100 N BASIC METABOLIC [id number] 09:22:00* Test Item Value Reference Range Interpretation Comme nts SODIUM (test code = NA/ABG) 140 mmol/L 134-147 N POTASSIUM (test code = K/ABG) 5.6 mmol/L 3.4-5.0 H CHLORIDE (test code = CL/ABG) 110 mmol/L 100-108 H CREATININE ABG (test code = CREAABG) 1.4 mg/dL 0.8-1.3 H POC IONIZED CALCIUM (test co de = POCCA) 1.09 MMOL/L 1.12-1.32 L POC GLUCOSE (test code = POCGLU) 177 MG/DL 70-110 H HEMOGLOBIN [id number] 09:22:00* Test Item Value Reference Range Interpretation Comme nts HEMOGLOBIN ABG (test code = HGB/ABG) 11.7 G/DL 12.5-16.9 L [id number] 09:22:00* Test Item Value Reference Range Interpretation Comme nts HEMATOCRIT (test code = HCT/ABG) 34 % 37.5-50.7 L POC LACTIC [id number] 09:22:00* Test Item Value Reference Range Interpretation Comme nts POC LACTIC ACID (test code = POCLAC) 1.1 mmol/l 0.9-1.7 N [id number] 07:27:00* Test Item Value Reference Range Interpretation Comme nts ACT-ISTAT (test code = ACTI) 131 SEC 74-137 N Performed by cer tified starting sheet tank operator at [facility] POC ARTERIAL BLOOD [id number] 07:15:00* Test Item Value Reference Range Interpretation Comme nts POC ARTERIAL BLOOD GAS PH (t est code = POCPHA) 7.423 7.35-7.45 N POC ARTERIAL BLOOD GAS PCO2 (test code = FFDJHN2S) 38.4 mmHg 35.0-45 N POC TCO2 ARTERIAL (test code = POCTCO2) 26.2 POC ARTERIAL BLOOD GAS PO2 ( test code = MLRAF6H) 572.2 mmHg 80-100.0 HH POC HCO3 ARTERIAL (test code = QSZJCK5W) 25.1 MMOL/L 22.0-26.0 N POC BASE EXCESS (test code = POCBEA) 0.7 MMOL/L -4.0-4.0 N POC O2 SATURATION (test code = POCO2S) 100.0 % 90-100 N BASIC METABOLIC [id number] 07:15:00* Test Item Value Reference Range Interpretation Comme nts SODIUM (test code = NA/ABG) 143 mmol/L 134-147 N POTASSIUM (test code = K/ABG) 4.7 mmol/L 3.4-5.0 N CHLORIDE (test code = CL/ABG) 108 mmol/L 100-108 N CREATININE ABG (test code = CREAABG) 1.4 mg/dL 0.8-1.3 H POC IONIZED CALCIUM (test co de = POCCA) 1.17 MMOL/L 1.12-1.32 N POC GLUCOSE (test code = POCGLU) 98 MG/DL 70-110 N HEMOGLOBIN [id number] 07:15:00* Test Item Value Reference Range Interpretation Comme nts HEMOGLOBIN ABG (test code = HGB/ABG) 11.9 G/DL 12.5-16.9 L [id number] 07:15:00* Test Item Value Reference Range Interpretation Comme nts HEMATOCRIT (test code = HCT/ABG) 35 % 37.5-50.7 L POC LACTIC [id number] 07:15:00* Test Item Value Reference Range Interpretation Comme nts POC LACTIC ACID (test code = POCLAC) 0.5 mmol/l 0.9-1.7 L BASIC METABOLIC [id number] 03:22:00* Test Item Value Reference Range Interpretation Comme nts SODIUM (test code = NA) 140 mEq/L 134-147 N POTASSIUM (test code = K) 4.4 mEq/L 3.4-5.0 N CHLORIDE (test code = CL) 111 mEq/L 100-108 H CARBON DIOXIDE (test code = CO2) 24 mEq/l 21-33 N ANION GAP (test code = GAP) 9 0-20 N GLUCOSE (test code = GLU) 136 mg/dL 70-110 H BLOOD UREA NITROGEN (test code = BUN) 21 mg/dL 7-18 H GLOMERULAR FILTRATION RATE (test code = GFR) 49.6 70-80 L The Glomerular Filtration Rate is a calculated parameterbased on serum Creatinine, patient age and sex. GFR valuesless than 60 mL/min/1.73 square meters are indicative ofChronic Kidney Disease. Values less than 15 mL/min/1.73square meters indicate Kidney failure. The calculation forGFR is based on the CKD-EPI (2020) calculation. This formulais race indifferent and is the recommended formula for GFRby the National Kidney Foundation for Adults.The GFR will not calculate if the sex is unknown or if thepatient's age is <18 years. CREATININE (test code = CREAT) 1.4 mg/dL 0.6-1.3 H CALCIUM (test code = CA) 8.5 mg/dL 8.0-10.5 N CBC W/AUTO [id number] 03:11:00* Test Item Value Reference Range Interpretation Comme nts WHITE BLOOD CELL (test code = WBC) 9.2 x10 3/uL 4.5-11.0 N RED BLOOD CELL (test code = RBC) 3.23 x10 6/uL 4.00-5.60 L HEMOGLOBIN (test code = HGB) 11.0 g/dL 12.5-16.9 L HEMATOCRIT (test code = HCT) 32.7 % 37.5-50.7 L MEAN CELL VOLUME (test code = MCV) 101.2 fL 81.0-99.0 H MEAN CELL HGB (test code = MCH) 34.1 pg 27.0-33.0 H MEAN CELL HGB CONCETRATION (test code = MCHC) 33.6 g/dL 33.0-37.0 N RED CELL DISTRIBUTION WIDTH CV (test code = RDW) 14.3 % 11.5-14.5 N RED CELL DISTRIBUTION WIDTH SD (test code = RDW-SD) 53.1 fL 37.0-54.0 N PLATELET COUNT (test code = PLT) 140 x10 3/uL 150-400 L MEAN PLATELET VOLUME (test c ode = MPV) 12.4 fL 7.0-9.0 H NEUTROPHIL % (test code = NT%) 63.4 % 56.0-77.0 N IMMATURE GRANULOCYTE % (test code = IG%) 0.5 % 0.0-2.0 N LYMPHOCYTE % (test code = LY%) 22.9 % 14.0-32.0 N MONOCYTE % (test code = MO%) 10.3 % 4.8-9.0 H EOSINOPHIL % (test code = EO%) 2.4 % 0.3-3.7 N BASOPHIL % (test code = BA%) 0.5 % 0.0-2.0 N NUCLEATED RBC % (test code = NRBC%) 0.0 % 0-0 N NEUTROPHIL # (test code = NT#) 5.83 x10 3/uL 2.0-7.6 N IMMATURE GRANULOCYTE # (test code = IG#) 0.05 x10 3/uL 0.00-0.03 H LYMPHOCYTE # (test code = LY#) 2.11 x10 3/uL 1.0-3.8 N MONOCYTE # (test code = MO#) 0.95 x10 3/uL 0.1-0.8 H EOSINOPHIL # (test code = EO#) 0.22 x10 3/uL 0.0-0.2 H BASOPHIL # (test code = BA#) 0.05 x10 3/uL 0.0-0.2 N NUCLEATED RBC # (test code = NRBC#) 0.00 x10 3/uL 0.0-0.1 N MANUAL DIFF REQUIRED (test c ode = MDIFF) NO - XR CHEST 1 [id number] 00:00:00 [facility] : 1935 Sex: M FAX: Vadim Jenkins [phone] [place]: St: ADM FAX: Rupinder Mcguire [phone] Name: TONO MAHAN [facility] : 1935 Age/S: 86/M [address] [place] [address] Unit #: [id number] Loc:[address] [place] [address] 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 Views: 1 view. COMPARISON: DX XR CHEST 2 V 05/10/2022 10:20 PM FINDINGS: Tubes, catheters and devices: Endotracheal tube is identified with tip terminating 3.3 cm above the level of the emily. Enteric tube courses below the diaphragm its tip extends beyond the confines of the radiograph. Right IJ catheter tip at the distal s uperior vena cava. Lungs: Progression of interstitial and alveolar opacities. New left basilar atelectasis. Pleural spaces: No pneumothorax. Suspect a small left pleural effusion. Heart/Mediastinum: Stable prominence of the cardiac silhouette. Vasculature: Tortuosity of the aorta. Bones/joints: There are sternotomy wires. IMPRESSION: 1. Postoperative chest with progression of pulmonary edema. 2. Small left pleural effusion. at 1435 Reported and signed by: Dionne Bergeron M.D. CC: Vadim Amaro MD; Angelica Carter NP Technologist: RT Rishi(El) Trnscrd Date/Time/By: 05/11/2022 (1434): By: [email or web address] Orig Print D/T: S: 05/11/2022 (2278) PAGE 1 Signed Report- DUP EXTRACRANIAL [id number] 00:00:00 [facility] : 1935 Sex: M Name: TONO MAHAN [facility] : 1935 Age/S: 86 / M [address] [place] [address] U nit #: [id number] Loc: [facility] [place] [address] Phys: Sofia Lai Acct: [id number] Dis Date: Status: ADM IN PHONE #: [phone] Exam Date: 05/10/202238 FAX #: [phone] Reason: Cardiac Surgery Pre Op EXAMS: CPT CODE: [id number] DUP EXTRACRANIAL DANIEL [id number] PROCEDURE INFORMATION: Exam: US Dup dimitris Bilateral Extracranial Arteries, Carotid Arteries Exam date and time: 05/11/2022 12:03 AM Age: 86 years old Clinical indication: Screening exam; Additional info: Cardiac surgery pre op TECHNIQUE: Imaging protocol: Real-time Duplex ultrasound scan of the bilateral carotid and vertebral arteries combining gao scale, color Doppler and spectral waveform analysis. Bilateral exam. Exam focused on the carotid arteries. COMPARISON: No relevant prior studies available. FINDINGS: Right common carotidartery: Unremarkable. No occlusion or stenosis. Waveforms are normal. Right internal carotid artery: Unremarkable. No occlusion or stenosis. Waveforms are normal. Right ICA/CCA ratio: Within normal limits. Right external carotid artery: No stenosis in the origin. Right vertebral artery: Unremarkable. Antegrade flow. Left common carotid artery: Unremarkable. No occlusion or stenosis. Waveforms arenormal. Left internal carotid artery: Unremarkable. No occlusion or stenosis. Waveforms are normal. Left ICA/CCA ratio: Within normal limits. Left external carotid artery: No stenosis in the origin. Left vertebral artery: Unremarkable. Antegrade flow. IMPRESSION: No carotid arterial stenosis. REFERENCES: SRU CRITERIA. The degree of internal carotid artery stenosis is based on criteria defined by the Society of Radiologists in Ultrasound (SRU). Normal is no stenosis. Mild is less than 50% stenosis. Moderate is 50-69% stenosis. Severe is greater than 69% stenosis to near occlusion. Near occlusion is a markedly narrowed lumen. Total occlusion is no detectable patent lumen. at 0115 Reported and signed by: Mateus Feldman M.D PAGE 1 Signed Report (CONTINUED) Name: TONO MAHAN [facility] [place] : 1935 Age/S: 86 / M [address] [place] [address] Unit #: [id number] Loc: [place] [address] Phys: Sofia Lai Acct: [id number] Dis Date: Status: ADM IN PHONE #: [phone] Exam Date: 05/10/202238 FAX #: [phone]: Cardiac Surgery Pre Op EXAMS: CPT CODE: [id number] DUP EXTRACRANIAL DANIEL [id number] (Continued) CC: Vadim Amaro MD; Sofia GATES Technologist: Angélica Bella RDMS(FLORINDA)(AB) Trnscb Date/Time: 05/11/2022 (114) [email or web address] Orig Print D/T: S: 05/11/2022 (011) Probe: PAGE 2 Signed Report- DUP VEIN DANIEL 2022-05-11 00:00:00 [facility] : 1935 Sex: M Name: TONO MAHAN [facility] : 1935 Age/S: 86 / M [address] [place] [address] U nit #: [id number] Loc: [place] [address] Phys: Sofia Lai Acct: [id number] Dis Date: Status: ADM IN PHONE #: [phone] Exam Date: 05/10/202238 FAX #: [phone] Reason: Cardiac Surgery Pre Op EXAMS: CPT CODE: [id number] DUP VEIN DANIEL 33002 PROCEDURE INFORMATION: Exam: US Duplex Lower Extremity Veins; Vein mapping Exam date and time: 05/11/2022 12:16 AM Age: 86 years old Clinical indication: Screening exam; Pre op; Additional info: Cardiac surgery pre op TECHNIQUE: Imaging protocol: Real-time duplex ultrasound of the extremities with 2-D gao scale, color Doppler flow and spectral waveform analysis including responses to compression and other maneuvers (when performed) with image documentation. Complete exam focused on the bilateral lower extremity veins for vein mapping. COMPARISON: No relevant prior studies available. FINDINGS: Right leg: Great saphenous vein proximal thigh: 0.38 cm Great saphenous vein mid thigh: 0.28 cm Great saphenous vein distal thigh: 0.25 cm Great saphenous vein proximal calf: 0.21 cm Great saphenous vein mid calf: 0.19 cm Great saphenous veindistal calf: 0.21 cm Left leg: Great saphenous vein proximal thigh: 0.39 cm Great saphenous vein mid thigh: 0.26 cm Great saphenous vein distal thigh: 0.27 cm Great saphenous vein proximal calf: 0.14 cm Great saphenous vein mid calf: 0.13 cm Great saphenous vein distal calf: 0.24 cm No evidence ofsuperficial thrombus. IMPRESSION: Great saphenous vein mapping as noted above. at 0131 Reported and signed by: Mateus Feldman M.D CC: Vadim Amaro MD; Sofia GATES Technologist: Agnélica Bella RDMS(BR)(AB) Trnscb Date/Time: 05/02 (130) [email or web address] Orig Print D/T: S: 05/11/2022 (131) Probe: PAGE 1 Signed Report- XR CHEST 2 [id number] 00:00:00 [facility] : 1935 Sex: M FAX: Vadim Jenkins [phone] [place]: St: ADM FAX: Sofia Shields [phone] Name: TONO MAHAN [facility] : 1935 Age/S: 86/M [address] [place] [address] Unit #: [id number] Loc: [address] [address] Phys: Sofia Lai Acct: [id number] Dis Date: Status: ADM IN PHONE #: [phone] Exam Date: 05/10/20222247 FAX #: [phone] Reason: Cardiac Surgery Pre Op EXAMS: CPT CODE: [id number] XR CHEST 2 V 98613 PROCEDURE INFORMATION: Exam: XR Chest Exam date and time:05/10/2022 10:20 PM Age: 86 years old Clinical indication: Other: Cardiac surgery pre op TECHNIQUE: Imaging protocol: Radiologic exam of the chest. Views: 2 views. PA and Lateral COMPARISON: No relevant prior studies available. FINDINGS: Lungs: There is minimal bilateral interstitial infiltrate/edema. Pleural spaces: Unremarkable. No pleural effusion. No pneumothorax. Heart/Mediastinum: The cardiacsilhouette is slightly enlarged. Bones/joints: No acute abnormality seen. IMPRESSION: Cardiomegaly with minimal bilateral interstitial infiltrate/edema. at 0701 Reported and signed by: Quan Romero M.D. CC: Vadim Amaro MD; Sofia GATES Technologist: Lamar Boudreaux, RT(R); Charmaine Mederos RT(R) Trnscrd Date/Time/By: 05/11/2022 (700) : By: Rusty Orig Print D/T: S: 05/11/2022 (4469) PAGE 1 SignedReportUA RFLX MICR CULT IF [id number] 22:38:00* Test Item Value Reference Range Interpretation Comme nts UA COLOR (test code = COLU) YELLOW YEL/STRAW UA APPEARANCE (test code = APPU) CLEAR CLEAR UA GLUCOSE DIPSTICK (test co de = DGLUU) NEGATIVE NEGATIVE UA BILIRUBIN DIPSTICK (test code = BILU) NEGATIVE NEGATIVE UA KETONE DIPSTICK (test cod e = KETU) NEGATIVE NEGATIVE UA SPECIFIC GRAVITY (test co de = SGU) 1.043 1.005-1.030 H UA BLOOD DIPSTICK (test code = IMANI) NEGATIVE NEGATIVE UA PH DIPSTICK (test code = PARUL) 5.0 5.0-7.0 N UA PROTEIN DIPSTICK (test co de = PROU) NEGATIVE NEGATIVE UA UROBILINIOGEN DIPSTICK (test code = URO) 0.2 mg/dL 0.2-1.0 UA NITRITE DIPSTICK (test co de = FLACO) NEGATIVE NEGATIVE UA LEUKOCYTE ESTERASE DIPSTI CK (test code = LEUU) NEGATIVE NEGATIVE UA WBC (test code = WBCU) 0-3 WBC/HPF 0-3 UA RBC (test code = RBCU) 0-3 RBC/HPF 0-3 UA WBC NO REFLEX (test code = WBCUCL) 0-3 WBC/HPF 0-3 UA BACTERIA (test code = BACU) NONE SEEN /HPF NONE SEEN UA SQUAMOUS CELLS (test code = SQU) NONE SEEN /HPF NONE SEEN UA MUCUS (test code = MUCU) TRACE /LPF NONE SEEN Indication for culture: Flank PainSpecimen Description: CLEAN CATCHCOVID 19 Asymptomatic IH [id number] 19:10:00* Test Item Value Reference Range Interpretation Comme nts COVID 19 Asymptomatic IH AG (test code = COVNONPUIAG) Negative Negative A negative resul t is presumptive and should be confirmedwith an FDA authorized molecular assay, if necessary forpatient management.A positive result does not rule out co-infections withother pathogens.This test detects both viable (live) and non-viable,SARS-CoV, and SARS-CoV-2. Test performance depends on theamount of virus (antigen) in the sample.This test has not been FDA cleared or approved; the test hasbeen authorized by FDA under an Emergency Use Authorization(EUA) for use by laboratories certified under the CLIA thatmeet the requirements to perform moderate, high or waivedcomplexity tests. B-TYPE NATRIURETIC [id number] 18:35:00* Test Item Value Reference Range Interpretation Comme nts B-TYPE NATRIURETIC PEPTIDE ( test code = BNP) 22.0 PG/ML 0-100 N COMPREHENSIVE METABOLIC [id number] 18:15:00* Test Item Value Reference Range Interpretation Comme nts SODIUM (test code = NA) 141 mEq/L 134-147 N POTASSIUM (test code = K) 4.7 mEq/L 3.4-5.0 N CHLORIDE (test code = CL) 108 mEq/L 100-108 N CARBON DIOXIDE (test code = CO2) 28 mEq/l 21-33 N ANION GAP (test code = GAP) 10 0-20 N GLUCOSE (test code = GLU) 103 mg/dL 70-110 N BLOOD UREA NITROGEN (test code = BUN) 20 mg/dL 7-18 H GLOMERULAR FILTRATION RATE (test code = GFR) 54.2 70-80 L The Glomerular Filtration Rate is a calculated parameterbased on serum Creatinine, patient age and sex. GFR valuesless than 60 mL/min/1.73 square meters are indicative ofChronic Kidney Disease. Values less than 15 mL/min/1.73square meters indicate Kidney failure. The calculation forGFR is based on the CKD-EPI (202) calculation. This formulais race indifferent and is the recommended formula for GFRby the National Kidney Foundation for Adults.The GFR will not calculate if the sex is unknown or if thepatient's age is <18 years. CREATININE (test code = CREAT) 1.3 mg/dL 0.6-1.3 N TOTAL PROTEIN (test code = PROT) 7.2 g/dL 6.4-8.2 N ALBUMIN (test code = ALB) 3.80 g/dL 3.4-5.0 N CALCIUM (test code = CA) 8.9 mg/dL 8.0-10.5 N BILIRUBIN TOTAL (test code = BILT) 0.90 mg/dL 0.0-1.0 N SGOT/AST (test code = AST) 22 IUnit/L 15-37 N SGPT/ALT (test code = ALT) 19 IUnit/L 30-65 L ALKALINE PHOSPHATASE TOTAL (test code = ALKP) 95 IUnit/L 20-125 N LIPID PROFILE (CORONARY RISK)2022-05-10 18:15:00* Test Item Value Reference Range Interpretation [facility] (test code = TRIG) 84 mg/dL 40-150 N CHOLESTEROL (test code = CHOL) 118 mg/dL <200 CHOLESTEROL/HDL RATIO (test code = CHOLHDL) 4.18 RATIO 3.43-4.97 N RISK ASSOCIATED WITH CHOL/HDL RATIOS: RISK MALE FEMALE1/2 AVERAGE 3.43 3.27AVERAGE 4.97 4.442X AVERAGE 9.55 7.053X AVERAGE 23.39 11.04 NOTE THAT THE REFERENCE VALUE IS RELATEDTO RISK LEVELS RECOMMENDED BY THE NATL.HEART, LUNG, AND BLOOD INST. HDL CHOLESTEROL (test code = HDL) 28.2 mg/dL 32-72 L LIPOPROTEIN LDL (test code = LDL) 73.0 mg/dL 0-100 N <100 [id number] 0-129 NEAR OPTIMAL/ABOVE [id number] HIGH>YY=153 VERY HIGH*Guidelines provided by the National Cholesterol EducationProgram Adult Treatment Panel III HGBA1C%2022-05-10 18:14:00* Test Item Value Reference Range Interpretation [facility] HGBA1C% (test code = HGBA1C%) 5.8 %A1C 4.8-6.0 N PROTHROMBIN [id number] 18:14:00* Test Item Value Reference Range Interpretation [facility] PROTHROMBIN TIME PATIENT (test code = PTP) 13.4 SECONDS 9.3-12.9 H INTERNATIONAL NORMAL RATIO (test code = INR) 1.2 0.8-1.2 N TARGET INR BY INDICATION Indication INR1. Prophylaxis of venous thrombosis 2.0 - 3.0 (orthopedic surgery), Prophylaxis of venous thrombosis (other than high-risk surgery), Treatment of Deep Vein Thrombosis/Pulmonary Embolism, Prevention of systemic embolism - Tissue heart valves, Acute Myocardial Infarction (to prevent systemic embolism), Valvular heart disease, Atrial Fibrillation, Bileaflet mechanical valve in aortic position.2. Mechanical prosthetic valves (high risk), 2.5 - 3.5 Presence of Lupus Anticoagulant or Antiphospholipid Antibodies, Prevention of systemic embolism - Acute Myocardial Infarction (to prevent recurrent infarct). THROMBOPLASTIN TIME [id number] 18:14:00* Test Item Value Reference Range Interpretation Comme nts THROMBOPLASTIN TIME PARTIAL (test code = PTT) 33.0 Seconds 25.0-39.5 N Therapeutic Rang e: 50.4 - 88.3 Seconds Effective 06/17/2018 CBC W/AUTO [id number] 17:59:00* Test Item Value Reference Range Interpretation Comme nts WHITE BLOOD CELL (test code = WBC) 9.3 x10 3/uL 4.5-11.0 N RED BLOOD CELL (test code = RBC) 3.46 x10 6/uL 4.00-5.60 L HEMOGLOBIN (test code = HGB) 11.8 g/dL 12.5-16.9 L HEMATOCRIT (test code = HCT) 35.1 % 37.5-50.7 L MEAN CELL VOLUME (test code = MCV) 101.4 fL 81.0-99.0 H MEAN CELL HGB (test code = MCH) 34.1 pg 27.0-33.0 H MEAN CELL HGB CONCETRATION (test code = MCHC) 33.6 g/dL 33.0-37.0 N RED CELL DISTRIBUTION WIDTH CV (test code = RDW) 14.1 % 11.5-14.5 N RED CELL DISTRIBUTION WIDTH SD (test code = RDW-SD) 52.1 fL 37.0-54.0 N PLATELET COUNT (test code = PLT) 188 x10 3/uL 150-400 N MEAN PLATELET VOLUME (test c ode = MPV) 11.8 fL 7.0-9.0 H NEUTROPHIL % (test code = NT%) 68.4 % 56.0-77.0 N IMMATURE GRANULOCYTE % (test code = IG%) 0.6 % 0.0-2.0 N LYMPHOCYTE % (test code = LY%) 20.8 % 14.0-32.0 N MONOCYTE % (test code = MO%) 7.9 % 4.8-9.0 N EOSINOPHIL % (test code = EO%) 1.7 % 0.3-3.7 N BASOPHIL % (test code = BA%) 0.6 % 0.0-2.0 N NUCLEATED RBC % (test code = NRBC%) 0.2 % 0-0 H NEUTROPHIL # (test code = NT#) 6.32 x10 3/uL 2.0-7.6 N IMMATURE GRANULOCYTE # (test code = IG#) 0.06 x10 3/uL 0.00-0.03 H LYMPHOCYTE # (test code = LY#) 1.93 x10 3/uL 1.0-3.8 N MONOCYTE # (test code = MO#) 0.73 x10 3/uL 0.1-0.8 N EOSINOPHIL # (test code = EO#) 0.16 x10 3/uL 0.0-0.2 N BASOPHIL # (test code = BA#) 0.06 x10 3/uL 0.0-0.2 N NUCLEATED RBC # (test code = NRBC#) 0.02 x10 3/uL 0.0-0.1 N MANUAL DIFF REQUIRED (test c ode = MDIFF) NO
[2024-04-03] MEDS ORDERED: ONDANSETRON 4 MG/2 ML VIAL ONE ×2 (07:28→13:48)
[2024-04-03] MEDS ORDERED: MORPHINE 4 MG/ML SYR ONE (07:29)
[2024-04-03] MEDS ORDERED: FAMOTIDINE 20 MG/2 ML VIAL IV ONE (07:29)
[2024-04-03 07:42] LABS: Absolute Eosinophils 0.2 K/uL (0-0.5); Absolute Lymphocytes (CBC) 1.2 K/uL (0.7-4.9); Absolute Monocytes 0.5 K/uL (0.1-1.3); Absolute Neutrophil 5.9 K/uL (1.8-8.0); Basophils % 0.4 % (0-1.3); Hematocrit 34.4 % (39.6-49.0); Hemoglobin 11.4 g/dL (13.6-17.9); Lymphocytes % 15.5 % (15.3-44.8); MCH 34.2 pg (27.0-35.0); MCHC 33.2 g/dL (32.0-36.0); MCV 103.2 fL (80-100); MPV 9.2 fL (7.6-11.3); Monocytes % 6.4 % (3.3-12.3); Neutrophils % 75.7 % (41.7-73.7); Nucleated Red Blood Cells % 0.1 % (0-0); Platelets 182 thou/uL (152-406); RBC Red Blood Cell Count 3.34 M/uL (4.33-5.43); Red Cell Distribution Width 14.9 % (12.1-15.2)
[2024-04-03 07:48] LABS: PT Prothrombin Time 11.7 SECONDS (9.4-12.5); Protime INR 1.12
[2024-04-03 08:00] LABS: Albumin 3.3 g/dL (3.4-5.0); Albumin/Globulin Ratio 0.8 (1.1-1.8); Anion Gap 11.3 mEq/L (5.0-15.0); Bilirubin Total 0.6 mg/dL (0.2-1.0); Globulin 4.1 g/dL (2.3-3.5); Potassium 4.3 mEq/L (3.5-5.1); Protein, Total 7.4 g/dL (6.4-8.2); Troponin High Sensitivity 6.3 pg/mL (<58.9)
[2024-04-03] MEDS ORDERED: HYDROMORPHONE HCL 0.5 MG/0.5 ML INJ ONE ×3 (08:06→13:48)
--- NOTE | 2024-04-03 08:40 | RAD REPORT ---
Procedure: Chest Single View HISTORY: Abdominal pain COMPARISON: 2020 FINDINGS: The lungs appear clear of acute infiltrate. No significant pleural effusion noted. The heart is mildly to moderately enlarged. Post surgical changes involve the chest. IMPRESSION: No acute abnormality is displayed.
--- NOTE | 2024-04-03 08:50 | RAD REPORT ---
EXAMINATION: CT ABDOMEN AND PELVIS WITH CONTRAST CLINICAL INDICATION: Abdominal pain TECHNIQUE: CT abdomen and pelvis was performed, after the administration of 100 cc Isovue-300.. Sagit garcia and coronal reconstructions were obtained. One or more of the following dose reduction techniques were used: Automated exposure control, adjustment of the mA and kV according to patient si ze, and iterative reconstruction. Unless otherwise specified, incidental findings do not require dedicated imaging follow-up. BE9102. Oral contrast was not given which limits evaluation of bowel and appendix. COMPARISON: .None FINDINGS: Mild gallbladder distention.. Cholelithiasis The liver, spleen, pancreas and adrenals unremarkable Multiple, bilateral renal cysts. Within the right kidney is either to simple cysts abutting each othe r or one complex cyst containing a septation measuring 6.6 cm. Liver, spleen, pancreas, adrenals and kidneys appear unremarkable No evidence of diverticulitis. Mild to moderate anterior subluxation L4 on L5. Spondylolysis L4. Moderate umbilical hernia contains fat. Mild stranding within the fat Mild to moderate prostatic enlargement. Small left and xgvgo-cf-sbsunsir right inguinal hernias containing fat. Small hiatal hernia : IMPRESSION: Cholelithiasis with mild gallbladder distention. Within the right kidney is either 2 simple cysts abutting each other or one complex cyst containing a septation measuring 6.6 cm. This likely is benign. Follow-up renal ultrasound in 3 months recommended Moderate umbilical hernia containing fat. There is mild stranding within the fat indicative of mild i nflammation.
--- NOTE | 2024-04-03 08:52 | RAD REPORT ---
EXAM: Right upper quadrant ultrasound. CLINICAL HISTORY: Abdominal pain COMPARISON: None FINDINGS: Small gallstones. Small amount of sludge within the gallbladder. Gallbladder is mildly distended. Gallbladder wall upper limits normal thickness. Biliary tree normal caliber IMPRESSION: Cholelithiasis with mild gallbladder distention
--- NOTE | 2024-04-03 10:01 | EDPHYS ---
Physician Documentation [facility] Name: Moncoh Braun Age: 88 yrs Sex: Male : 1935 Arrival Date: 04/03/2024 Time: 07:04 Bed 7 Private MD: ED Physician Ishan Spangler HPI: 04/03 07:34 This 88 yrs old Male presents to ER via Wheelchair with complaints of Abdominal Pain. ms3 07:34 Moncho Braun is an 88-year-old male presenting to the emergency department with ms3 abdominal pain. He reports this as his second attack, with the pain persisting for a couple of weeks. He rates his pain an 8/10 and describes the pain as "hurts." The pain worsens after eating. 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 . Historical: - Allergies: 07:19 No Known Allergies; ll1 - PMHx: 07:12 seasonal allergies; ld1 - PSHx: 07:12 DANIEL knee; rotator cuff; ld1 07:19 Coronary artery bypass graft; ll1 - Immunization history:: Adult Immunizations up to date. - Infectious Disease History:: Denies. - Social history:: Smoking status: Patient denies any tobacco usage or history of. ROS: 07:34 Constitutional: Negative for fever, and chills. Cardiovascular: Negative for chest ms3 pain, and palpitations. Respiratory: Negative for shortness of breath, cough, wheezing, and pleuritic chest pain, MS/Extremity: Negative for injury and deformity, Skin: Negative for injury, rash, and discoloration, 07:34 Abdomen/GI: Positive for abdominal pain, Exam: 07:34 Constitutional: This is a well developed, well nourished patient who is awake, alert, ms3 and in no acute distress. Cardiovascular: Regular rate and rhythm with a normal S1 and S2. No gallops, murmurs, or rubs. Normal PMI, no JVD. No pulse deficits. Respiratory: Lungs have equal breath sounds bilaterally, clear to auscultation and percussion. No rales, rhonchi or wheezes noted. No increased work of breathing, no retractions or nasal flaring. Abdomen/GI: Soft, non-tender, with normal bowel sounds. No distension or tympany. No guarding or rebound. No evidence of tenderness throughout. Skin: Warm, dry with normal turgor. Normal color with no rashes, no lesions, and no evidence of cellulitis. 08:22 ECG was reviewed by the Attending Physician. ms3 Vital Signs: 07:16 BP 183 / 94; Pulse 60; Resp 18; Temp 97.6; Pulse Ox 100% ; Weight 93.44 kg; Height 5 ll1 ft. 7 in. ; Pain 8/10; 09:00 BP 153 / 78; Pulse 57; Resp 18; Pulse Ox 95% on R/A; ld1 11:07 BP 137 / 81; Pulse 56; Resp 18; Pulse Ox 100% ; Pain 9/10; ap3 07:16 Body Mass Index 32.26 (93.44 kg, 170.18 cm) ll1 07:16 Pain Scale: Adult ll1 11:07 Pain Scale: Adult ap3 MDM: 07:22 Medical Screening Exam initiated ms3 07:34 Differential diagnosis: cholecystitis, Cholelithiasis, gastritis, non-specific abd pain.ms3 09:19 ED course: Discussed case with Dr Candelario. He will see patient in the Emergency ms3 Department.. 10:01 Data reviewed: vital signs, nurses notes, lab test result(s), radiologic studies, and ms3 as a result, I will admit patient. Consideration of Admission/Observation Patient was admitted/placed on observation. Management of patient was discussed with the following: Hospitalist: Sudhakar Colin NP, on behalf of Dr Martins. Photography And Prints Curator: Dr Candelario. I considered the following discharge prescriptions or medication management in the emergency department Medications were administered in the Emergency Department. See MAR. Historians other than the Patient: Spouse/Significant Other: Patient's . Daughter/Son: Patient's son. Counseling: I had a detailed discussion with the patient and/or guardian regarding the historical points, exam findings, and any diagnostic results supporting the discharge/admit diagnosis, lab results, radiology results, the need for further work-up and treatment in the hospital, to return to the emergency department if symptoms worsen or persist or if there are any questions or concerns that arise at home. ED course: Discussed case with Sudhakar Colin NP, on behalf of Dr. Martins and they accept patient. Discussed case with Dr. Candelario and patient seen in the emergency department by Dr. Candelario. Pain not well-controlled after morphine and Dilaudid. Discussed plan for admission to hospital with patient and his family. They understand and agree with plan. 04/03 07:24 Order name: CBC with Diff; Complete Time: 08:05 ms3 04/03 07:24 Order name: CMP; Complete Time: 08:05 ms3 04/03 07:24 Order name: Lipase; Complete Time: 08:05 ms3 04/03 07:33 Order name: PT-INR; Complete Time: 08:05 ms3 04/03 07:40 Order name: Troponin High Sensitivity; Complete Time: 08:05 EDMS 04/03 08:05 Order name: Lactate w/ 2H reflex if indic.; Complete Time: 09:16 ms3 04/03 07:24 Order name: Abdomen Limited US; Complete Time: 09:16 ms3 04/03 07:24 Order name: CT Abd/Pelvis - IV Contrast Only; Complete Time: 09:16 ms3 04/03 07:26 Order name: XRAY Chest (1 view); Complete Time: 09:16 ms3 04/03 07:24 Order name: IV Saline Lock; Complete Time: 07:27 ms3 04/03 07:24 Order name: Labs collected and sent; Complete Time: 07:27 ms3 04/03 07:26 Order name: Cardiac monitoring; Complete Time: 07:26 ms3 04/03 07:26 Order name: EKG - Nurse/Tech; Complete Time: 07:26 ms3 EC:22 Rate is 62 beats/min. Rhythm is regular. QRS [place] is Normal. MT interval is normal. QRS ms3 interval is normal. Clinical impression: NSR w/ Non-specific ST/T Changes. Interpreted by me. Reviewed by me. Administered Medications: 07:33 Drug: Famotidine IVP 20 mg IVP once; dilute with 10 mL 0.9% NaCl; give over 2 minutes ld1 Route: IVP; Site: right antecubital; 07:33 Drug: Ondansetron IVP 4 mg IVP once; over 2 minutes Route: IVP; Site: right antecubital;ld1 07:34 Drug: morphine IVP or IV 4 mg IVP once over 4 mins Route: IVP; Infused Over: 4 mins; ld1 Site: right antecubital; 08:15 Drug: HYDROmorphone IVP 0.5 mg IVP once Route: IVP; Site: right antecubital; ld1 11:05 Drug: HYDROmorphone IVP 0.5 mg IVP once Route: IVP; Site: right antecubital; ap3 Disposition Summary: 04/03/24 10:01 Hospitalization Ordered Notes: Hospitalization Status: Inpatient Admission ms3 Provider: Kyle Martins ms3 Condition: Stable ms3 Problem: new ms3 Symptoms: are unchanged ms3 Bed/Room Type: Standard ms3 Location: Telemetry/MedSurg (Inpatient)(04/03/24 17:29) eb Room Assignment: 410(04/03/24 17:29) eb Diagnosis - Symptomatic cholelithiasis ms3 - Upper abdominal pain, unspecified ms3 Forms: - Medication Reconciliation Form ms3 - SBAR form ms3 - Leadership Thank You Letter ms3 Signatures: Dispatcher [employer] EDMS Sudhakar Colin, SMOKING PIPE DRILLER AND THREADER-C SMOKING PIPE DRILLER AND THREADER-Gris Mosqueda RN RN ap3 Devorah Saleem Lynsay RN RN ll1 Ishan Spangler DO DO ms3 Kesha Spangler RN RN ld1 Poonam Logan, RN RN kb3 Corrections: (The following items were deleted from the chart) 07:27 07:27 Chest Single View+RAD.RAD.BRZ ordered. EDMS EDMS 07:40 07:27 Troponin High Sensitivity+C.LAB.BRZ ordered. EDMS EDMS 12:42 10:01 Telemetry/MedSurg (Inpatient) ms3 kb3 12:42 10:01 ms3 kb3 17:29 12:42 BR ER HOLD kb3 eb 17:29 12:42 ERHOLD- kb3 eb
--- NOTE | 2024-04-03 10:01 | ER ---
Nurse's Notes [facility] Name: Moncho Braun Age: 88 yrs Sex: Male : 1935 Arrival Date: 04/03/2024 Time: 07:04 Bed 7 Private MD: Diagnosis: Symptomatic cholelithiasis;Upper abdominal pain, unspecified Presentation: 04/03 07:16 Chief complaint: Patient states: RUQ abd pain with N/V, states it his second ll1 gallbladder attack. Coronavirus screen: Client denies travel out of the [place] in the last 14 days. At this time, the client does not indicate any symptoms associated with coronavirus-19. Ebola Screen: Patient denies travel to an Ebola-affected area in the 21 days before illness onset. Initial Sepsis Screen: Does the patient meet any 2 criteria? No. Patient's initial sepsis screen is negative. Does the patient have a suspected source of infection? No. Patient's initial sepsis screen is negative. Risk Assessment: Do you want to hurt yourself or someone else? Patient reports no desire to harm self or others. Onset of symptoms was April 02, 2024. 07:16 Method Of Arrival: Wheelchair ll1 07:16 Acuity: ADDIE 3 ll1 Triage Assessment: 07:12 General: Appears uncomfortable, Behavior is calm, cooperative, appropriate for age. ll1 Pain: Complains of pain in RUQ. GI: Reports upper abdominal pain, bloating, nausea, vomiting. Historical: - Allergies: 07:19 No Known Allergies; ll1 - PMHx: 07:12 seasonal allergies; ld1 - PSHx: 07:12 DANIEL knee; rotator cuff; ld1 07:19 Coronary artery bypass graft; ll1 - Immunization history:: Adult Immunizations up to date. - Infectious Disease History:: Denies. - Social history:: Smoking status: Patient denies any tobacco usage or history of. Screenin:35 [facility] ED Fall Risk Assessment (Adult) History of falling in the last 3 months, ll1 including since admission No falls in past 3 months (0 pts) Confusion or Disorientation No (0 pts) Intoxicated or Sedated No (0 pts) Impaired Gait No (0 pts) Mobility Assist Device Used Yes (1 pt) Altered Elimination No (0 pt) Score/Fall Risk Level 0 - 2 = Low Risk Maintained a safe environment, Hourly rounding (assess needs \T\ fall precautionary measures) done. Abuse screen: Denies threats or abuse. Nutritional screening: No deficits noted. Tuberculosis screening: No symptoms or risk factors identified. Assessment: 09:00 General: Appears in no apparent distress. comfortable, Behavior is calm, cooperative, ld1 appropriate for age. Pain: Complains of pain in epigastric area, right upper quadrant and left upper quadrant Pain does not radiate. Pain currently is 8 out of 10 on a pain scale. Quality of pain is described as throbbing, Pain began suddenly, Is continuous. Neuro: Level of Consciousness is awake, alert, obeys commands, Oriented to person, place, time, situation, Appropriate for age. Cardiovascular: Capillary refill < 3 seconds Patient's skin is warm and dry. Respiratory: Airway is patent Respiratory effort is even, unlabored. GI: Abdomen is round non-distended, Bowel sounds present X 4 quads. Abd is soft Abdomen is tender to palpation in right upper quadrant and left upper quadrant Reports upper abdominal pain, nausea. : No signs and/or symptoms were reported regarding the genitourinary system. EENT: No signs and/or symptoms were reported regarding the EENT system. Derm: No signs and/or symptoms reported regarding the dermatologic system. Musculoskeletal: No signs and/or symptoms reported regarding the musculoskeletal system. Vital Signs: 07:16 BP 183 / 94; Pulse 60; Resp 18; Temp 97.6; Pulse Ox 100% ; Weight 93.44 kg; Height 5 ll1 ft. 7 in. ; Pain 8/10; 09:00 BP 153 / 78; Pulse 57; Resp 18; Pulse Ox 95% on R/A; ld1 11:07 BP 137 / 81; Pulse 56; Resp 18; Pulse Ox 100% ; Pain 9/10; ap3 07:16 Body Mass Index 32.26 (93.44 kg, 170.18 cm) ll1 07:16 Pain Scale: Adult ll1 11:07 Pain Scale: Adult ap3 ED Course: 07:08 Patient arrived in ED. sj2 07:11 Kesha Spangler RN is Primary Nurse. ld1 07:11 Arm band placed on Patient placed in an exam room, on a stretcher. ll1 07:12 Ishan Spangler DO is Attending Physician. ms3 07:17 Triage completed. ll1 07:30 Initial lab(s) drawn, by me, sent to lab. Inserted saline lock: 22 gauge in right ll1 antecubital area, using aseptic technique. Blood collected. Flushed with 10 mL NS. 07:36 Patient has correct armband on for positive identification. Bed in low position. ll1 Provided Education on: ER procedures and process. Client placed on continuous cardiac and pulse oximetry monitoring. NIBP monitoring applied. 07:44 Abdomen Limited US In Process Unspecified. EDMS 07:49 XRAY Chest (1 view) In Process Unspecified. EDMS 08:15 CT Abd/Pelvis - IV Contrast Only In Process Unspecified. EDMS 08:15 Lactate w/ 2H reflex if indic. Sent. ld1 10:00 Kyle Martins MD is Hospitalizing Provider. ms3 16:49 No provider procedures requiring assistance completed. Patient admitted, IV remains in ld1 place. Administered Medications: 07:33 Drug: Famotidine IVP 20 mg IVP once; dilute with 10 mL 0.9% NaCl; give over 2 minutes ld1 Route: IVP; Site: right antecubital; 07:33 Drug: Ondansetron IVP 4 mg IVP once; over 2 minutes Route: IVP; Site: right antecubital;ld1 07:34 Drug: morphine IVP or IV 4 mg IVP once over 4 mins Route: IVP; Infused Over: 4 mins; ld1 Site: right antecubital; 08:15 Drug: HYDROmorphone IVP 0.5 mg IVP once Route: IVP; Site: right antecubital; ld1 11:05 Drug: HYDROmorphone IVP 0.5 mg IVP once Route: IVP; Site: right antecubital; ap3 Medication: 07:36 VIS not applicable for this client. ll1 Outcome: 10:01 Decision to Hospitalize by Provider. ms3 16:49 Admitted to ER Hold. Please see [facility] for further documentation. ld1 16:49 Condition: stable 16:49 Instructed on the need for admit, 18:31 Patient left the ED. ld1 Signatures: Dispatcher [employer] EDMA Gris James RN RN ap3 Laquita Montanez RN RN ll1 Ishan Spangler DO DO ms3 Kesha Spangler, RN RN ld1 Dinorah, Koki sj2
[2024-04-03 11:52] VITALS: BMI 31.5
[2024-04-03] MEDS: NA CHLORIDE 0.9% 1,000 ML IV SCH (12:02)
[2024-04-03] MEDS ORDERED: NA CHLORIDE 0.9% 1,000 ML ONE (12:32)
[2024-04-03] MEDS: HYDROMORPHONE HCL 0.5 MG/0.5 ML INJ IV PRN (14:02)
[2024-04-03] MEDS: ONDANSETRON 4 MG/2 ML VIAL IV PRN (14:03)
--- NOTE | 2024-04-03 14:15 | P.CNS ---
Date of Consult: 04/03/24 Chief Complaint: Preoperative clearance History of Present Illness: Patient with PMH of CAD s/p CABG more than a year ago, presented with abdominal pain, denies having chest pain, no palpitations, no syncope. Allergies No Known Allergies Allergy (Unverified 09/02/14 00:59) Home medications list reviewed: Yes Home Medications: Acetaminophen [Tylenol] 650 mg PO Q4H PRN 06/03/22 Albuterol Neb [Proventil 0.083% Neb Soln] 2.5 mg IH Q4H PRN 06/03/22 Amiodarone HCl [Cordarone*] 200 mg PO BID 06/03/22 Aspirin [Aspirin EC 81 MG] 81 mg PO DAILY 06/03/22 Atorvastatin Calcium [Lipitor] 40 mg PO BEDTIME 06/03/22 Budesonide [Pulmicort*] 0.25 mg IH BID 06/03/22 Clopidogrel Bisulfate [Plavix*] 75 mg PO DAILY 06/03/22 Cyanocobalamin (Vitamin B-12) [B-12] 500 mcg PO DAILY 06/03/22 Docusate [Colace Cap*] 100 mg PO BID PRN 06/03/22 Ferrous Sulfate 325 mg PO DAILY 06/03/22 Furosemide [Lasix] 20 mg PO BIDL 06/03/22 Guaif/Dm [Robitussin Dm*] 10 ml PO Q6H PRN 06/03/22 Ipratropium Neb [Atrovent*] 0.2 mg IH Q4H PRN 06/03/22 Mag Hydroxide 8% [Milk Of Magnesia*] 30 ml PO DAILY PRN 06/03/22 Melatonin 3 mg PO BEDTIME PRN 06/03/22 Metoprolol Tartrate [Lopressor*] 6.25 mg PO BID 6AM 6PM 06/03/22 Ondansetron [Zofran (Odt)*] 4 mg PO Q6H PRN 06/03/22 Pantoprazole Sodium [Protonix] 40 mg PO [id number] 06/03/22 Polyethylene Glycol 3350 [Miralax] 17 gm PO DAILY 06/03/22 Potassium Chloride 10 meq PO DAILY 06/03/22 Sennosides/Docusate Sodium [Senna-S 8.6-50 mg Tablet] 2 each PO BID 06/03/22 Tamsulosin HCl [Flomax] 0.8 mg PO DAILY 6PM 06/03/22 Zolpidem Tartrate [Ambien] 5 mg PO BEDTIME PRN 06/03/22 - Social History Alcohol use: No CD- Drugs: No Caffeine use: No Review of Systems 10-point ROS is otherwise unremarkable Physical Examination Temp Pulse Resp BP Pulse Ox 76 18 156/95 H 98 04/03/24 12:00 04/03/24 14:02 04/03/24 12:00 04/03/24 14:02 General: Alert, In no apparent distress HEENT: Atraumatic, PERRLA, Mucous membr. moist/pink, EOMI, Sclerae nonicteric Neck: Supple, 2+ carotid pulse no bruit, No LAD, Without JVD or thyroid abnormality Respiratory: Clear to auscultation bilaterally, Normal air movement Cardiovascular: Regular rate/rhythm, Normal S1 S2 Gastrointestinal: Normal bowel sounds, No tenderness Musculoskeletal: No tenderness Integumentary: No rashes Neurological: Normal gait, Normal speech, Normal tone, Normal affect Lymphatics: No axilla or inguinal lymphadenopathy Laboratory Data (last 24 hrs) 04/03/24 04/03/24 04/03/24 07:27 07:27 07:27 WBC 7.80 Hgb 11.4 L Hct 34.4 L Plt Count 182 PT 11.7 INR 1.12 Sodium 139 Potassium 4.3 BUN 30 H Creatinine 1.50 H Glucose 156 H Total Bilirubin 0.6 AST 13 L ALT 15 L Alkaline Phosphatase 91 Lipase 26 - Problems (1) Preoperative clearance Current Visit: Yes Status: Acute Plan: Patient with PMH of CAD s/p CABG more than a year ago, presented with abdominal pain, denies chest pain, patient was recently seen in office and had an echo and stress test that was normal Patient is cleared as intermediate cardiac risk for surgery Stop Plavix continue ASA 81 mg daily. No further cardiac work up needed.
--- NOTE | 2024-04-03 15:10 | P.HP ---
Certification for Inpatient Patient admitted to: Inpatient With expected LOS: >2 Midnights Patient will require the following post-hospital care: None Practitioner: I am a practitioner with admitting privileges, knowledge of patient current condition, hospital course, and medical plan of care. Services: Services provided to patient in accordance with Admission requirements found in Title 42 Section 412.3 of the Code of Federal Regulations Patient History Date of Service: 04/03/24 Reason for admission: Preoperative clearance History of Present Illness: 88-year-old male with history of CAD with previous CABG in May 2022, BPH presents to the emergency department chief complaint of epigastric abdominal pain. Family reports that he has had 3 or 4 of these episodes at home previously and not come to the hospital as they resolve spontaneously but this 1 is worse and has been persistent. The emergency department his labs were significant for a normal blood cell count hemoglobin of 11.4 creatinine of 1.5 which is near his baseline lactic acid 1.1 LFTs including T. bili within normal limits. CT of the abdomen and pelvis was performed showed cholelithiasis with mild gallbladder distention subsequent abdominal ultrasound was also performed which showed again cholelithiasis with mild gallbladder distention. Patient has persistent epigastric pain despite IV pain medications. ED physician spoke with general surgery who wishes for patient to be admitted to the hospitalist service for further management of symptomatic cholelithiasis. Of note patient has been on Plavix, we will be holding the Plavix for now. Allergies No Known Allergies Allergy (Unverified 09/02/14 00:59) Home Medications: Acetaminophen [Tylenol] 650 mg PO Q4H PRN 06/03/22 Albuterol Neb [Proventil 0.083% Neb Soln] 2.5 mg IH Q4H PRN 06/03/22 Amiodarone HCl [Cordarone*] 200 mg PO BID 06/03/22 Aspirin [Aspirin EC 81 MG] 81 mg PO DAILY 06/03/22 Atorvastatin Calcium [Lipitor] 40 mg PO BEDTIME 06/03/22 Budesonide [Pulmicort*] 0.25 mg IH BID 06/03/22 Clopidogrel Bisulfate [Plavix*] 75 mg PO DAILY 06/03/22 Cyanocobalamin (Vitamin B-12) [B-12] 500 mcg PO DAILY 06/03/22 Docusate [Colace Cap*] 100 mg PO BID PRN 06/03/22 Ferrous Sulfate 325 mg PO DAILY 06/03/22 Furosemide [Lasix] 20 mg PO BIDL 06/03/22 Guaif/Dm [Robitussin Dm*] 10 ml PO Q6H PRN 06/03/22 Ipratropium Neb [Atrovent*] 0.2 mg IH Q4H PRN 06/03/22 Mag Hydroxide 8% [Milk Of Magnesia*] 30 ml PO DAILY PRN 06/03/22 Melatonin 3 mg PO BEDTIME PRN 06/03/22 Metoprolol Tartrate [Lopressor*] 6.25 mg PO BID 6AM 6PM 06/03/22 Ondansetron [Zofran (Odt)*] 4 mg PO Q6H PRN 06/03/22 Pantoprazole Sodium [Protonix] 40 mg PO [id number] 06/03/22 Polyethylene Glycol 3350 [Miralax] 17 gm PO DAILY 06/03/22 Potassium Chloride 10 meq PO DAILY 06/03/22 Sennosides/Docusate Sodium [Senna-S 8.6-50 mg Tablet] 2 each PO BID 06/03/22 Tamsulosin HCl [Flomax] 0.8 mg PO DAILY 6PM 06/03/22 Zolpidem Tartrate [Ambien] 5 mg PO BEDTIME PRN 06/03/22 - Past Medical/Surgical History Has patient received pneumonia vaccine in the past: Yes -: CAD with CABG x 05 May 2021 -: BPH -: CABG Psychosocial/ Personal History: Lives at home with his family - Social History Smoking Status: Never smoker Alcohol use: No CD- Drugs: No Caffeine use: No Place of Residence: Home Review of Systems 10-point ROS is otherwise unremarkable Gastrointestinal: Nausea, Abdominal Pain Physical Examination - Vital Signs Blood Pressure: 156/95 Pulse: 76 Respirations: 18 Pulse Ox (%): 98 - Physical Exam General: Alert, In no apparent distress, Oriented x3 HEENT: Atraumatic, PERRLA, EOMI Neck: Supple, 2+ carotid pulse no bruit, No LAD Respiratory: Clear to auscultation bilaterally, Normal air movement Cardiovascular: Regular rate/rhythm, Normal S1 S2 Gastrointestinal: Normal bowel sounds, Tenderness (Moderate epigastric/right upper quadrant tenderness) Musculoskeletal: No tenderness Integumentary: No rashes Neurological: Normal speech, Normal strength at 5/5 x4 extr, Normal tone - Studies Laboratory Data (last 24 hrs) 04/03/24 04/03/24 04/03/24 07:27 07:27 07:27 WBC 7.80 Hgb 11.4 L Hct 34.4 L Plt Count 182 PT 11.7 INR 1.12 Sodium 139 Potassium 4.3 BUN 30 H Creatinine 1.50 H Glucose 156 H Total Bilirubin 0.6 AST 13 L ALT 15 L Alkaline Phosphatase 91 Lipase 26 Assessment and Plan - Plan Assessment: Symptomatic cholelithiasis/rule out cholecystitis History of CAD with previous CABGfour-vessel in 2022 BPH Plan: Symptomatic cholelithiasis/rule out cholecystitis Still with significant abdominal pain and tenderness N.p.o. for now, gentle IV fluids with as needed pain medications and antiemetics General Surgery evaluation Plavix for now as this was okayed with by cardiology History of CAD with previous CABGfour-vessel in 2022 Hold Plavix Patient apparently had a relatively recent stress test at cardiology office which was normal No stents in place since CABG Should be okay to hold Plavix BPH Resume home medications when tolerating p.o. DVT PPX: SCDs Code status: Full Discharge Plan: Home Plan to discharge in: 72 Hours - Advance Directives Does patient have a Living Will: No Does patient have a Durable POA for Healthcare: No - Code Status/Comfort Care Code Status Assessed: Yes (Full code) Critical Care: No Time Spent Managing Pts Care (In Minutes): 65
[2024-04-04 06:38] LABS: Absolute Basophils 0.1 K/uL (0-0.5); Absolute Lymphocytes (CBC) 0.9 K/uL (0.7-4.9); Absolute Monocytes 1.7 K/uL (0.1-1.3); Absolute Neutrophil 15.7 K/uL (1.8-8.0); Basophils % 0.7 % (0-1.3); Hemoglobin 10.7 g/dL (13.6-17.9); MCH 34.2 pg (27.0-35.0); MCHC 33.3 g/dL (32.0-36.0); MCV 102.8 fL (80-100); MPV 9.3 fL (7.6-11.3); Monocytes % 9.3 % (3.3-12.3); Nucleated Red Blood Cells % 0.1 % (0-0); Platelets 206 thou/uL (152-406); RBC Red Blood Cell Count 3.12 M/uL (4.33-5.43); Red Cell Distribution Width 14.6 % (12.1-15.2)
[2024-04-04 06:50] LABS: Albumin/Globulin Ratio 0.8 (1.1-1.8); Anion Gap 7.6 mEq/L (5.0-15.0); Bilirubin Total 1.7 mg/dL (0.2-1.0); Globulin 3.6 g/dL (2.3-3.5); Potassium 4.6 mEq/L (3.5-5.1); Protein, Total 6.6 g/dL (6.4-8.2)
[2024-04-04] MEDS: PIPER TAZO 3.375 GM in NA CHLORIDE 0.9% 100 ML IV SCH (07:52)
--- NOTE | 2024-04-04 15:23 | P.PN ---
Date of Service: 04/04/24 Subjective: Abdominal pain improved overnight No other acute events overnight ROS: 10 point ROS as noted above, otherwise negative Physical exam GEN: Alert, oriented, NAD HEENT: Normal conjunctiva, sclera anicteric CV: Regular rate and rhythm, no edema Pulm: Nonlabored respirations on room air ABD: Soft, mild epigastric tenderness, nondistended MSK: No joint tenderness Integumentary: No rashes Neuro: Normal speech, normal affect Vitals reviewed Assessment: Symptomatic cholelithiasis/rule out cholecystitis History of CAD with previous CABGfour-vessel in 2022 BPH Plan: Symptomatic cholelithiasis/rule out cholecystitis Pain has improved, tolerating clear liquids White blood cell count and T. bili higher this morning Clear liquids for today, n.p.o. after midnight for reevaluation by general surgery Continue antibioticsZosyn History of CAD with previous CABGfour-vessel in 2022 Hold Plavix Patient apparently had a relatively recent stress test at cardiology office which was normal No stents in place since CABG Should be okay to hold Plavix BPH Resume home medications when tolerating p.o. DVT PPX: SCDs Code status: Full Discharge Plan: Home Plan to discharge in: 72 Hours Time Spent Managing Pts Care (In Minutes): 35
[2024-04-04] MEDS: METOPROLOL TAR 25 MG TAB PO SCH (17:24)
[2024-04-04] MEDS: TAMSULOSIN 0.4 MG SR CAP PO SCH (17:24)
[2024-04-05 04:45] LABS: Absolute Basophils 0.1 K/uL (0-0.5); Absolute Eosinophils 0.1 K/uL (0-0.5); Absolute Lymphocytes (CBC) 1.4 K/uL (0.7-4.9); Absolute Monocytes 1.7 K/uL (0.1-1.3); Absolute Neutrophil 11.9 K/uL (1.8-8.0); Basophils % 0.9 % (0-1.3); Eosinophils % 0.4 % (0-4.4); Hematocrit 30.1 % (39.6-49.0); Hemoglobin 10.1 g/dL (13.6-17.9); MCH 34.4 pg (27.0-35.0); MCHC 33.5 g/dL (32.0-36.0); MCV 102.5 fL (80-100); MPV 10.6 fL (7.6-11.3); Monocytes % 11.3 % (3.3-12.3); Neutrophils % 78.4 % (41.7-73.7); Nucleated Red Blood Cells % 0.2 % (0-0); Platelets 166 thou/uL (152-406); RBC Red Blood Cell Count 2.94 M/uL (4.33-5.43); Red Cell Distribution Width 14.8 % (12.1-15.2)
[2024-04-05 04:47] LABS: Albumin 2.9 g/dL (3.4-5.0); Albumin/Globulin Ratio 0.8 (1.1-1.8); Anion Gap 8.3 mEq/L (5.0-15.0); Bilirubin Total 2.1 mg/dL (0.2-1.0); Globulin 3.7 g/dL (2.3-3.5); Potassium 4.3 mEq/L (3.5-5.1); Protein, Total 6.6 g/dL (6.4-8.2)
[2024-04-05 04:49] LABS: Blood Morphology Comment NOT SEEN (NOT SEEN); Platelet Estimate ADEQ; White Blood Cell Scan OK (OK)
[2024-04-05] MEDS: PANTOPRAZOLE 40MG TABLET PO SCH (06:04)
[2024-04-05] MEDS: ALBUTEROL 2.5 MG/3 ML NEB SOL NEB ONE ×2 (09:39→12:42)
[2024-04-05] MEDS: HYDROMORPHONE HCL 1 MG/ML INJ IV ONE (09:46)
[2024-04-05] MEDS: ALBUTEROL INHALER 200 PUFF/6.7 GM IH PRN (12:10)
[2024-04-05] MEDS: HYDROCODONE/APAP 7.5/325 MG TAB PO PRN (14:46)
--- NOTE | 2024-04-05 15:29 | P.PN ---
Date of Service: 04/05/24 Subjective: Still with RUQ pain Had some dyspnea and wheezing last night ROS: 10 point ROS as noted above, otherwise negative Physical exam GEN: Alert, oriented, NAD HEENT: Normal conjunctiva, sclera anicteric CV: Regular rate and rhythm, no edema Pulm: Nonlabored respirations on room air ABD: Soft, mild epigastric tenderness, nondistended MSK: No joint tenderness Integumentary: No rashes Neuro: Normal speech, normal affect Vitals reviewed Assessment: Symptomatic cholelithiasis/rule out cholecystitis History of CAD with previous CABGfour-vessel in 2022 BPH Plan: Symptomatic cholelithiasis/rule out cholecystitis Having significant pain today WBC down compared to yesterday Tbili up from yesterday Clear liquids for today, n.p.o. after midnight for likely cholecystectomy in a.m. Continue antibioticsZosyn History of CAD with previous CABGfour-vessel in 2022 Hold Plavix Patient apparently had a relatively recent stress test at cardiology office which was normal No stents in place since CABG Should be okay to hold Plavix BPH Resume home medications when tolerating p.o. DVT PPX: SCDs Code status: Full Discharge Plan: Home Plan to discharge in: 72 Hours Time Spent Managing Pts Care (In Minutes): 35
[2024-04-06 06:21] LABS: Absolute Basophils 0.1 K/uL (0-0.5); Absolute Monocytes 1.3 K/uL (0.1-1.3); Absolute Neutrophil 12.6 K/uL (1.8-8.0); Basophils % 0.7 % (0-1.3); Eosinophils % 0.2 % (0-4.4); Hematocrit 29.7 % (39.6-49.0); Hemoglobin 10.1 g/dL (13.6-17.9); Lymphocytes % 6.5 % (15.3-44.8); MCH 34.5 pg (27.0-35.0); MCHC 34.1 g/dL (32.0-36.0); MCV 101.3 fL (80-100); Monocytes % 8.3 % (3.3-12.3); Neutrophils % 84.3 % (41.7-73.7); Nucleated Red Blood Cells % 0.1 % (0-0); Platelets 178 thou/uL (152-406); RBC Red Blood Cell Count 2.93 M/uL (4.33-5.43); Red Cell Distribution Width 14.1 % (12.1-15.2)
[2024-04-06 07:11] LABS: Albumin 2.5 g/dL (3.4-5.0); Albumin/Globulin Ratio 0.7 (1.1-1.8); Anion Gap 8.2 mEq/L (5.0-15.0); Bilirubin Total 1.6 mg/dL (0.2-1.0); Globulin 3.8 g/dL (2.3-3.5); Potassium 4.2 mEq/L (3.5-5.1); Protein, Total 6.3 g/dL (6.4-8.2)
[2024-04-06] MEDS: NA CHLORIDE 0.9% 1,000 ML ONE (11:46)
[2024-04-06] MEDS ORDERED: ONDANSETRON 4 MG/2 ML VIAL ONE (12:28)
[2024-04-06] MEDS ORDERED: propofoL 200 MG/20 ML VIAL IV ONE (12:28)
[2024-04-06] MEDS ORDERED: GLYCOPYRROLATE 0.2 MG/ML SYR ONE (12:28)
[2024-04-06] MEDS ORDERED: NEOSTIGMINE 1 MG/ML -10 ML VIAL ONE (12:28)
[2024-04-06] MEDS ORDERED: ROCURONIUM 50 MG/5 ML VIAL IV ONE ×2 (12:29→14:08)
[2024-04-06] MEDS ORDERED: FENTANYL CITR 100 MCG/2 ML ONE ×2 (12:29→13:57)
[2024-04-06] MEDS ORDERED: LIDOCAINE 2% MPF 5 ML VIAL ONE (12:29)
[2024-04-06] MEDS ORDERED: MIDAZOLAM HCL 2 MG/2 ML INJ ONE (12:29)
--- NOTE | 2024-04-06 12:32 | P.PN ---
Date of Service: 04/06/24 Subjective: Some mild improvement in right upper quadrant pain today Plan for laparoscopic cholecystectomy today ROS: 10 point ROS as noted above, otherwise negative Physical exam GEN: Alert, oriented, NAD HEENT: Normal conjunctiva, sclera anicteric CV: Regular rate and rhythm, no edema Pulm: Nonlabored respirations on room air, mild expiratory wheezing ABD: Soft, mild epigastric tenderness, nondistended MSK: No joint tenderness Integumentary: No rashes Neuro: Normal speech, normal affect Vitals reviewed Assessment: Symptomatic cholelithiasis/rule out cholecystitis History of CAD with previous CABGfour-vessel in 2022 BPH Plan: Symptomatic cholelithiasis/rule out cholecystitis Having mildly improved pain today compared to yesterday WBC stable from yesterday Tbili slightly improved N.p.o. for likely laparoscopic cholecystectomy Continue antibioticsZosyn History of CAD with previous CABGfour-vessel in 2022 Hold Plavix Patient apparently had a relatively recent stress test at cardiology office which was normal No stents in place since CABG Should be okay to hold Plavix-resume at DC or when cleared by surgery to do so BPH Resume home medications when tolerating p.o. DVT PPX: SCDs Code status: Full Discharge Plan: Home Plan to discharge in: 72 Hours Time Spent Managing Pts Care (In Minutes): 35
[2024-04-06] MEDS: LIDOCAINE HCL/EPINEPHRINE 20 ML MDV ONE (13:45)
[2024-04-06] MEDS ORDERED: EPHEDRINE SULF 50 MG/ML VIAL ONE (13:48)
--- NOTE | 2024-04-06 15:19 | P.OP ---
Preoperative diagnosis: Gallstone Pancreatitis with Cholecystitis Postoperative diagnosis: Gallstone Pancreatitis with Cholecystitis Primary procedure: Laparoscopic Cholecystectomy with ICG Cholangiography Anesthesia: GETA + Local Estimated blood loss: <20cc Specimen: Gallbladder Findings: Gangrenous Gallbladder, adhesions, ant/post br of hepatic, short cystic Complications: None Implants: Joseph Hemostatic Powder Transferred to: Recovery Room Condition: Good
[2024-04-06] MEDS: HYDROMORPHONE HCL 1 MG/ML INJ ONE (15:58)
[2024-04-06] MEDS: ALBUTEROL 2.5 MG/3 ML NEB SOL ONE ×2 (16:17→21:54)
[2024-04-06] MEDS: IPRATROPIUM BROM 0.5MG/2.5ML ONE (21:54)
[2024-04-06] MEDS ORDERED: ALBUTEROL 2.5 MG/3 ML NEB SOL NEB PRN (21:58)
--- NOTE | 2024-04-06 22:28 | RAD REPORT ---
EXAM: Chest Single View HISTORY: sob COMPARISON: 04/03/2024. FINDINGS: LUNGS/PLEURA: Decreased lung volumes with increased predominantly linear opacities in lung bases. MEDIASTINUM: The mediastinal silhouette is within normal limits. CARDIAC: Heart size magnified by low lung volumes and portable technique. UPPER ABDOMEN: No significant abnormality. BONES: Sternotomy. No acute abnormality. LINES/TUBES/OTHER: N/A IMPRESSION: Decreased lung volumes with probable increased basilar atelectasis. Pneumonia or pneumonitis in the l ruth bases would be difficult to exclude, however.
[2024-04-06] MEDS: FUROSEMIDE 40 MG/4 ML VIAL IV ONE (23:39)
[2024-04-07 01:50] LABS: Anion Gap 8.9 mEq/L (5.0-15.0)
[2024-04-07 01:51] LABS: Magnesium 1.7 mg/dL (1.6-2.4); Potassium 3.9 mEq/L (3.5-5.1)
[2024-04-07] MEDS: Magnesium Sulfate 2gm IVPB 2 G/50 ML BAG IV ONE (02:01)
[2024-04-07 06:27] LABS: Absolute Lymphocytes (CBC) 0.7 K/uL (0.7-4.9); Absolute Monocytes 1.6 K/uL (0.1-1.3); Basophils % 0.2 % (0-1.3); Hematocrit 30.9 % (39.6-49.0); Hemoglobin 10.3 g/dL (13.6-17.9); Lymphocytes % 4.2 % (15.3-44.8); MCH 34.7 pg (27.0-35.0); MCHC 33.3 g/dL (32.0-36.0); MCV 104.1 fL (80-100); MPV 9.6 fL (7.6-11.3); Monocytes % 10.1 % (3.3-12.3); Neutrophils % 85.5 % (41.7-73.7); Platelets 230 thou/uL (152-406); RBC Red Blood Cell Count 2.97 M/uL (4.33-5.43); Red Cell Distribution Width 14.4 % (12.1-15.2)
[2024-04-07 06:39] LABS: Albumin 2.5 g/dL (3.4-5.0); Albumin/Globulin Ratio 0.6 (1.1-1.8); Anion Gap 9.3 mEq/L (5.0-15.0); Bilirubin Total 1.7 mg/dL (0.2-1.0); Globulin 4.1 g/dL (2.3-3.5); Potassium 4.3 mEq/L (3.5-5.1); Protein, Total 6.6 g/dL (6.4-8.2)
--- NOTE | 2024-04-07 09:47 | RAD REPORT ---
EXAM: CT Chest For Pe Angio TECHNIQUE: CT angiogram of the chest was performed following intravenous contrast administration, inc luding sagittal and coronal as well as maximum intensity projection reformats. One or more of the following dose reduction techniques were used: Automated exposure control, adjustment of the mA and k V according to patient size, and iterative reconstruction. Unless otherwise specified, incidental findings do not require dedicated imaging follow-up. INDICATION: [facility] MAIN Y CR 1.57 AT 0047 ON 04-07-24 r/o PE Y COMPARISON: 04/03/2024 CT abdomen and pelvis. FINDINGS: Breathing motion artifact somewhat limits evaluation. LINES/TUBES: None. PULMONARY ARTERIES: Main pulmonary arteries are normal in caliber. No filling defects within the pul monary arteries to suggest pulmonary embolus. LUNGS AND AIRWAYS: Reticular and groundglass basal predominant opacities with subsegmental opacificat ion and volume loss, mildly progressive since prior exam, may reflect atelectasis, perhaps on a background of chronic interstitial changes.. No focal consolidation. PLEURA: Trace right layering effusion. No pneumothorax. HEART AND MEDIASTINUM: Right thyroid lobe 1.3 cm hypoattenuating nodule, not well evaluated, may dese rve additional dedicated thyroid ultrasound evaluation if not previously performed. No mediastinal, hilar, or axillary lymphadenopathy. Heart is unremarkable. 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 No pericardial effusion. SOFT TISSUES AND BONES: No acute osseous abnormality. No significant soft tissue finding. UPPER ABDOMEN: Exophytic 3.9 cm right renal anterior cortical cyst is stable. Status post cholecystec anneliese.. IMPRESSION: No evidence of acute central pulmonary emboli. Trace right pleural effusion. Mildly progressive dependent atelectatic and reticular opacities, favor ing chronic interstitial changes. Mild superimposed pneumonia considered less likely but not entirely excluded. 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 Incidental findings as above.
--- NOTE | 2024-04-07 12:29 | EKG ---
Test Date: 2024-04-03 Test Time: 07:29:30 Requirements Analyst: MARTINE MEASUREMENT RESULTS: Intervals: Rate: 62 NC: 312 QRSD: 88 QT: 422 QTc: 428 [place]: P: 42 NC: 312 QRS: 8 T: -11 INTERPRETIVE STATEMENTS: Sinus rhythm with 1st degree AV block with premature atrial complexes with aberrant conduction Low voltage QRS Cannot rule out Anterior infarct, age undetermined Abnormal ECG Compared to ECG 08/18/2021 07:18:40 Aberrant conduction of supraventricular beat(s) now present Low QRS voltage now present Myocardial infarct finding still present Electronically Signed On 04-07-24 12:20:48 STEWARD RACETRACK by Mesfin Beauchamp
--- NOTE | 2024-04-07 12:57 | P.PN ---
Date of Service: 04/07/24 Subjective: On the phone with family c/o abdominal tenderness post op Afebrile this admission Trending LFT ROS: 10 point ROS as noted above, otherwise negative Physical exam GEN: Alert and oriented, NAD HEENT: Normal conjunctiva, sclera anicteric CV: Mild tachycardia, S1 S2 present, no edema Pulm: Nonlabored respirations on room air, mild expiratory wheezing ABD: Soft on palpation, mild epigastric tenderness, nondistended, incisions approximated MSK: No joint tenderness Integumentary: No rashes Neuro: Normal speech, normal affect Vitals reviewed Assessment: Symptomatic cholelithiasis/rule out cholecystitis History of CAD with previous CABGfour-vessel in 2022 BPH Plan: Symptomatic cholelithiasis/rule out cholecystitis Having mildly improved pain today compared to yesterday WBC stable from yesterday Tbili slightly improved Laparoscopic cholecystectomy 04/06/2024 Continue antibioticsZosyn History of CAD with previous CABGfour-vessel in 2022 Hold Plavix Patient apparently had a relatively recent stress test at cardiology office which was normal No stents in place since CABG Should be okay to hold Plavix-resume at DC or when cleared by surgery to do so BPH Resume home medications when tolerating p.o. DVT PPX: SCDs Code status: Full Discharge Plan: Home Plan to discharge in: 72 Hours
[2024-04-07] MEDS: LEVALBUTEROL 1.25 MG/3 ML NEB NEB SCH (13:55)
[2024-04-07] MEDS: IPRATROPIUM BROM 0.5MG/2.5ML NEB SCH (13:55)
--- NOTE | 2024-04-07 14:19 | OP ---
Date of Procedure: 04/06/2024 Surgeon: Jasmeet Candelario MD, Preoperative Diagnosis: Gallstone pancreatitis with cholecystitis. Postoperative Diagnosis: Gallstone pancreatitis with cholecystitis. Procedure: Laparoscopic cholecystectomy with indocyanine green cholangiography. Anesthesia: General endotracheal plus local, 1% lidocaine with epinephrine. Estimated Blood Loss: 20 cc. Specimen: Gallbladder. Findings: 1. Gangrenous gallbladder. 2. Severe dense thick adhesions to the anterior surface of the gallbladder. 3. Anterior and posterior branch of hepatic arteries were noted going to the gallbladder. 4. Short cystic duct noted. 5. Significant bile spillage prior to surgical intervention, which is evident on image prior to gallb ladder assessment in the perihepatic space. 6. The patient has a periumbilical fat containing incarcerated umbilical hernia. Complications: None. Implants: Joseph hemostatic powder. Disposition: The patient was transferred to recovery room in good condition. Procedure In Detail: After informed consent was obtained, patient was brought to the operating room, prepped and draped in the usual sterile fashion. After adequate anesthesia was achieved, I anesthet ized an area in the supraumbilical position away from the patient's umbilical hernia down to subcutan eous tissue. A 5-0 0-degree optical trocar was introduced into the abdomen without incident or compl ication. Insufflation was obtained to 15 mmHg at this time. There was no injury to vital structure s upon entry into the abdomen. 2 additional trocars were placed, one in the epigastrium, one in the right upper quadrant. Both these were similarly anesthetized, sharply incised. A 5 mm trocar was pl aced under direct visualization without incident or complication. Additional 4 trocars were placed i n the right mid abdomen under direct vision without incident or complication. The umbilical trocar w as then upsized to 12 mm under direct visualization without incident or complication. I did place th e patient in head up right-side up position. Ratcheted grasper was used to grasp the patient's gallb ladder, however, it was unable to be grasped at this point. I then proceeded to place a decompressio n needle and the gallbladder was found to be gangrenous at this point. Fixed sludgy bilious material was appreciated and abscess type material. There was also bile around the perihepatic space, which was suctioned out at the same time. At this point, I grasped the gallbladder and performed extensive dissection, removing it from significant inflammatory and adhesed scar tissue circumferentially arou nd the gallbladder extending from the fundus all the way down to the Vonda pouch of the gallbladde r. These were thick and encasing type adhesions requiring meticulous dissection at this point. Afte r I skeletonized 3 structures, which were visible entering the gallbladder, these were identified as the cystic duct and an anterior and posterior branch of the cystic artery. I could see the liver in the posterior window and a secondary cholangiography was performed at this point, however, was minima lly effective due to the significant gangrenous change to the gallbladder without any evidence of gal lbladder filling at this point, and as such, indocyanine green cholangiography was performed, but was not effective in helping to delineate an anatomic landmark. However, the critical view of safety wa s obtained at this point. I then placed double titanium clips on the proximal side and singly on the distal side, both cystic duct and cystic artery. I ligated these structures between Endo Piter. I then removed the gallbladder from the hepatic fossa. However, the right branch of the hepatic arter y did run with an unusually long extrahepatic course along the hepatic fossa, which was partially vis ible pulsating through the liver at this point. I was able to remove the gallbladder without ligatin g or affecting the right hepatic artery at this point. I then proceeded to take the gallbladder off the hepatic fossa with need for fulguration in the region. I then placed in EndoCatch bag, removed t hrough the umbilical trocar site and sent off for pathologic examination. The area was copiously irr igated. I then fulgurated the hepatic fossa once again, irrigated the area multiple times until comp letely clear. After all hemostatic measures were achieved, I then desufflated the abdomen and under desufflation pressure, no additional leakage was appreciated. The clips were found to be good anatom ic position. Leakage of bile was performed and is confirmed with indocyanine green cholangiography a t this point. I then irrigated the area once again. No additional hemostatic measures were required . I suctioned out the remaining effluent and sprayed Joseph hemostatic powder into the subhepatic sp ray with good approximation of tissues and placed the patient back in neutral position, suctioned out remaining effluent. The umbilical trocar site was closed using a Cyrus-Luzma suture passer with 0 Vicryl in interrupted fashion with good approximation of tissues. The eye was desufflated under d irect visualization without incident or complication. Remainder trocars were removed. All skin inci sions were then copiously irrigated and closed with a 4-0 Monocryl in a running fashion. Dermabond was placed over top. The patient tolerated the procedure well without incident or complication and t ransferred to PACU in good condition. All counts were correct at the end of the case. TINA/MKL Voice ID: [id number] Report ID: [id number]
[2024-04-07] MEDS: FUROSEMIDE 40 MG/4 ML VIAL IV ONE (17:24)
[2024-04-08 06:18] LABS: Absolute Eosinophils 0.3 K/uL (0-0.5); Absolute Lymphocytes (CBC) 1.1 K/uL (0.7-4.9); Absolute Monocytes 1.1 K/uL (0.1-1.3); Absolute Neutrophil 8.4 K/uL (1.8-8.0); Basophils % 0.4 % (0-1.3); Eosinophils % 2.4 % (0-4.4); Hematocrit 28.3 % (39.6-49.0); Hemoglobin 9.6 g/dL (13.6-17.9); Lymphocytes % 10.5 % (15.3-44.8); MCHC 33.9 g/dL (32.0-36.0); MCV 103.3 fL (80-100); MPV 9.2 fL (7.6-11.3); Monocytes % 9.8 % (3.3-12.3); Neutrophils % 76.9 % (41.7-73.7); Nucleated Red Blood Cells % 0.1 % (0-0); Platelets 209 thou/uL (152-406); RBC Red Blood Cell Count 2.74 M/uL (4.33-5.43); Red Cell Distribution Width 14.2 % (12.1-15.2)
[2024-04-08 06:50] LABS: Albumin 2.2 g/dL (3.4-5.0); Albumin/Globulin Ratio 0.6 (1.1-1.8); Anion Gap 8.7 mEq/L (5.0-15.0); Bilirubin Total 0.9 mg/dL (0.2-1.0); Globulin 3.9 g/dL (2.3-3.5); Potassium 3.7 mEq/L (3.5-5.1); Protein, Total 6.1 g/dL (6.4-8.2)
[2024-04-08] MEDS: POTASSIUM 25 MEQ EFFERV TAB PO ONE (08:51)
--- NOTE | 2024-04-08 09:44 | P.CNS ---
Date of Consult: 04/08/24 Reason for Consult: Shortness of breath Chief Complaint: Dyspnea History of Present Illness: Patient is 88 years of age admitted for laparoscopic cholecystectomy on April 06 has been having dyspnea for the past 2 to 3 years has audible wheezing denies any smoking cough or congestion denies any swelling he has a history of coronary artery disease Allergies No Known Allergies Allergy (Unverified 09/02/14 00:59) Home Medications: Aspirin [Aspirin EC 81 MG] 81 mg PO DAILY 06/03/22 Clopidogrel Bisulfate [Plavix*] 75 mg PO DAILY 06/03/22 Furosemide [Lasix] 20 mg PO BIDL PRN 06/03/22 Metoprolol Tartrate [Lopressor*] 12.5 mg PO BID 6AM 6PM 06/03/22 Pantoprazole Sodium [Protonix] 40 mg PO [id number] 06/03/22 Potassium Chloride 10 meq PO DAILY PRN 06/03/22 Tamsulosin HCl [Flomax] 0.8 mg PO DAILY 6PM 06/03/22 Loratadine [Claritin*] 10 mg PO DAILY 04/07/24 - Past Medical/Surgical History -: CAD with CABG x 05 May 2021 -: BPH -: CABG Psychosocial/ Personal History: Lives at home with his family - Social History Alcohol use: No CD- Drugs: No Caffeine use: No Place of Residence: Home Review of Systems General: Weakness Respiratory: Shortness of Breath Gastrointestinal: Abdominal Pain Physical Examination Temp Pulse Resp BP Pulse Ox 97.9 F 79 21 H 101/62 99 04/08/24 08:00 04/08/24 08:00 04/08/24 08:00 04/08/24 08:00 04/08/24 08:00 General: Alert, Oriented x3, Mild distress Respiratory: Clear to auscultation bilaterally, Crackles/rales Cardiovascular: No edema, Regular rate/rhythm, Normal S1 S2 Gastrointestinal: Normal bowel sounds, Soft and benign Musculoskeletal: No clubbing, No swelling Integumentary: No rashes, No breakdown - Problems (1) Dyspnea Current Visit: Yes Status: Acute Plan: Is 88 years of age complaining of dyspnea on exertion for the past 3 years scan no pulmonary emboli nonspecific interstitial changes years patient has chronic renal failure his vital signs are stable function is worse have ordered echocardiogram patient will need some Lasix given 1 dose before white white count is back down to normal and is drinking. An outpatient workup with PFTs Qualifiers: Dyspnea type: dyspnea on exertion Qualified Code(s): R06.09 - Other forms of dyspnea
[2024-04-08] MEDS: LORATADINE 10 MG TAB PO SCH (09:45)
[2024-04-08] MEDS ORDERED: NA CHLORIDE 0.9% 500 ML IV SCH (10:00)
[2024-04-08] MEDS: ARFORMOTEROL TARTRATE 15 MCG/2 ML VIAL.NEB NEB SCH (10:00)
[2024-04-08] MEDS: LORATADINE 10 MG TAB PO ONE (10:04)
[2024-04-08] MEDS: MAGNESIUM HYDROXIDE 8% 30 ML PO ONE (13:36)
[2024-04-08 16:02] LABS: Anion Gap 10.1 mEq/L (5.0-15.0); Potassium 4.1 mEq/L (3.5-5.1)
[2024-04-08] MEDS: AMIODARONE HCL 900 MG in Dextrose 5%-Water 482 ML IV SCH ×2 (16:16→18:53)
[2024-04-08] MEDS ORDERED: guaiFENesin 100 MG/5 ML UCUP PO PRN (17:41)
[2024-04-08] MEDS ORDERED: METOPROLOL TARTRATE 5 MG/5 ML INJ IV PRN (17:45)
--- NOTE | 2024-04-08 18:15 | P.PN ---
Date of Service: 04/08/24 Subjective: Awake, eating, and conversing well Afib started this afternoon, Cardiology started amiodarone Creatinine increasing, nephrology consulted ROS: 10 point ROS as noted above, otherwise negative Physical exam GEN: Alert and oriented, NAD HEENT: Normal conjunctiva, sclera anicteric CV: Mild tachycardia, S1 S2 present, no edema Pulm: Nonlabored respirations on room air, mild expiratory wheezing ABD: Soft and benign on palpation, mild epigastric tenderness, nondistended, incisions approximated MSK: No joint tenderness Integumentary: No rashes Neuro: Normal speech, normal affect Vitals reviewed Assessment: New onset Afib Symptomatic cholelithiasis/rule out cholecystitis History of CAD with previous CABGfour-vessel in 2022 RASHID BPH Plan: New onset Afib -Consulted cardiology -Amiodarone gtt -ECHO -EKG Symptomatic cholelithiasis/rule out cholecystitis Having mildly improved pain today compared to yesterday WBC stable from yesterday Tbili slightly improved Laparoscopic cholecystectomy 04/06/2024 Continue antibioticsZosyn History of CAD with previous CABGfour-vessel in 2022 Hold Plavix Patient apparently had a relatively recent stress test at cardiology office which was normal No stents in place since CABG Should be okay to hold Plavix-resume at DC or when cleared by surgery to do so RASHID -BUN/creatinine 84/2.34, GFR 26 -Nephrology consult BPH Resume home medications when tolerating p.o. DVT PPX: SCDs Code status: Full Discharge Plan: Home Plan to discharge in: 72 Hours
[2024-04-08] MEDS: AMIODARONE HCL 150 MG in D5W 100 ML IV STA (18:34)
[2024-04-08] MEDS: IPRATROPIUM BROM 0.5MG/2.5ML ONE (20:55)
[2024-04-08] MEDS: ARFORMOTEROL TARTRATE 15 MCG/2 ML VIAL.NEB ONE (21:07)
[2024-04-08] MEDS: LEVALBUTEROL 1.25 MG/3 ML NEB ONE (21:17)
[2024-04-09] MEDS: IPRATROPIUM BROM 0.5MG/2.5ML ONE ×2 (02:14→21:38)
[2024-04-09] MEDS: LEVALBUTEROL 1.25 MG/3 ML NEB ONE ×2 (02:14→21:27)
[2024-04-09 06:38] LABS: Absolute Basophils 0.1 K/uL (0-0.5); Absolute Eosinophils 0.3 K/uL (0-0.5); Absolute Lymphocytes (CBC) 1.1 K/uL (0.7-4.9); Absolute Monocytes 0.9 K/uL (0.1-1.3); Absolute Neutrophil 7.1 K/uL (1.8-8.0); Basophils % 0.8 % (0-1.3); Eosinophils % 2.7 % (0-4.4); Hematocrit 26.5 % (39.6-49.0); Lymphocytes % 11.6 % (15.3-44.8); MCH 35.2 pg (27.0-35.0); MCHC 33.9 g/dL (32.0-36.0); MPV 9.4 fL (7.6-11.3); Monocytes % 9.4 % (3.3-12.3); Neutrophils % 75.5 % (41.7-73.7); Nucleated Red Blood Cells % 0.1 % (0-0); Platelets 230 thou/uL (152-406); RBC Red Blood Cell Count 2.55 M/uL (4.33-5.43); Red Cell Distribution Width 14.2 % (12.1-15.2)
[2024-04-09 06:52] LABS: Albumin 2.3 g/dL (3.4-5.0); Albumin/Globulin Ratio 0.6 (1.1-1.8); Anion Gap 5.8 mEq/L (5.0-15.0); Bilirubin Total 0.7 mg/dL (0.2-1.0); Globulin 3.8 g/dL (2.3-3.5); Potassium 3.8 mEq/L (3.5-5.1); Protein, Total 6.1 g/dL (6.4-8.2)
[2024-04-09] MEDS ORDERED: APIXABAN 5 MG TABLET PO SCH (07:00)
[2024-04-09] MEDS: APIXABAN 2.5 MG TABLET PO SCH (07:32)
[2024-04-09] MEDS: POTASSIUM CL SA 10 MEQ TAB PO ONE (09:08)
[2024-04-09 09:45] LABS: Blood Morphology Comment NOTED (NOT SEEN); Macrocytosis 1+; Platelet Estimate ADEQ; Platelets Clumped FEW; White Blood Cell Scan OK (OK)
--- NOTE | 2024-04-09 11:29 | EKG ---
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 MEASUREMENT RESULTS: Intervals: Rate: 112 MT: QRSD: 70 QT: 316 QTc: 431 [place]: P: 44 MT: QRS: -8 T: 19 INTERPRETIVE STATEMENTS: Sinus tachycardia with 2nd degree AV block (Mobitz I) with premature supraventricular complexes with frequent premature ventric Low voltage QRS Cannot rule out Inferior infarct, age undetermined Abnormal ECG Compared to ECG 04/03/2024 07:29:30 Sinus rhythm no longer present First degree AV block no longer present Aberrant conduction of supraventricular beat(s) no longer present Myocardial infarct finding still present Electronically Signed On 04-09-24 11:26:45 TEST DESK OPERATOR by Mesfin Beauchamp
--- NOTE | 2024-04-09 13:24 | ECHO ---
HEIGHT: 5 ft 8 in WEIGHT: 207 lb 3.752 oz DATE OF STUDY: 04/09/[address]: Edy Zhao MD 2-DIMENSIONAL: YES M.MODE: YES DOPPLER: YES COLOR FLOW: YES TDS: PORTABLE: YES DEFINITY: BUBBLE STUDY: DIAGNOSIS: DYSPNEA ON EXERTION CARDIAC HISTORY: CATHERIZATION: YES SURGERY: YES PROSTHETIC VALVE: NO PACEMAKER: NO MEASUREMENTS (cm) DIASTOLIC (NORMALS) SYSTOLIC (NORMALS) IVSd 1.3 (0.6-1.2) LA Diam 2.6 (1.9-4.0) LVEF 55-60% LVIDd 3.8 (3.5-5.7) LVIDs 2.6 (2.0-3.5) %FS 32% LVPWd 1.3 (0.6-1.2) Ao Diam 3.3 (2.0-3.7) 2 DIMENSIONAL ASSESSMENT: RIGHT ATRIUM: NORMAL LEFT ATRIUM: NORMAL RIGHT VENTRICLE: NORMAL LEFT VENTRICLE: NORMAL TRICUSPID VALVE: TRACE TRICUSPID REGURGITATION MITRAL VALVE: MILD MITRAL ANNULAR CALCIFICATION PULMONIC VALVE: NORMAL AORTIC VALVE: NORMAL PERICARDIAL EFFUSION: NONE AORTIC ROOT: NORMAL LEFT VENTRICULAR WALL MOTION: NORMAL DOPPLER/COLOR FLOW: GRADE II DIASTOLIC DYSFUNCTION COMMENTS: 1. NORMAL LEFT VENTRICULAR SYSTOLIC FUNCTION, EJECTION FRACTION 55-60%, NORMAL WALL MOTION 2. GRADE II DIASTOLIC DYSFUNCTION 3. MILD PULMONARY HYPERTENSION (RIGHT VENTRICULAR SYSTOLIC PRESSURE 40-45 mmHg) 4. INFERIOR VENA CAVA NOT VISUALIZED TECHNOLOGIST: RED HARMON
--- NOTE | 2024-04-09 15:13 | P.PN ---
Date of Service: 04/09/24 Subjective: Awake, laying in bed family at the bedside no new complaints O2 83% on room air ROS: 10 point ROS as noted above, otherwise negative Physical exam GEN: AAO x3, NAD HEENT: Normal conjunctiva, sclera anicteric CV: Afib HR controlled, S1 S2 present, no edema Pulm: Nonlabored respirations on room air, mild expiratory wheezing, on ABD: Soft on palpation, nondistended, incisions approximated MSK: No joint tenderness Integumentary: No rashes Neuro: Normal speech, normal affect Vitals reviewed Assessment: New onset Afib Symptomatic cholelithiasis/rule out cholecystitis History of CAD with previous CABGfour-vessel in 2022 RASHID BPH Plan: New onset Afib -Consulted cardiology -Amiodarone gtt, Eliquis -ECHO reports "mild pulmonary hypertension, grade 2 diastolic dysfunction, mild mitral annular calcification, trace tricuspid regurgitation" -2nd degree AV blod (Mobitz 1) with PVC -Continuous telemetry Symptomatic cholelithiasis/rule out cholecystitis -Having mildly improved pain today compared to yesterday -WBC stable from yesterday -Tbili slightly improved -Laparoscopic cholecystectomy 04/06/2024 -Continue antibioticsZosyn History of CAD with previous CABGfour-vessel in 2022 -Hold Plavix -Patient apparently had a relatively recent stress test at cardiology office which was normal -No stents in place since CABG -Should be okay to hold Plavix-resume at DC or when cleared by surgery to do so RASHID -BUN/creatinine 30/1.83, GFR 35- improved -Nephrology consult BPH -Resume home medications when tolerating p.o. DVT PPX: Eliquis Code status: Full Discharge Plan: Home Plan to discharge in: 72 Hours
[2024-04-09] MEDS: FUROSEMIDE 40 MG/4 ML VIAL IV SCH (17:16)
--- NOTE | 2024-04-09 17:56 | CON ---
Date of Consultation: 04/09/2024 Consulting Physician: Dr. Martins. Reason For Consultation: Elevated BUN and creatinine, fluid management. History Of Present Illness: This is a pleasant 88-year-old gentleman with significant past medical h istory of CAD, status post CABG back in 2022; hypertension; benign prostate hypertrophy; chronic kidn ey disease. According to the patient, the patient back in 2022 when he had the CABG, the patient had acute kidney injury, was close to dialysis, but did not receive dialysis at that time. At that time , it was secondary to cardiorenal. The patient since then did not require any nephrology followup. The patient came to the hospital on April 03 with gangrenous cholecystitis. The patient upon arriv al to the hospital has creatinine 1.5 with GFR of 45. Reviewing the record for the patient, the zenon ent's creatinine harboring around 1.5 to 1.6 seen since September 2022 with GFR of 35-40. The patient was on Lasix. Upon arrival to the hospital, the patient had couple of incident of low blood pressure. The patient was started on Lasix for diuresis. Also, the patient received CT with contrast twice. K idney function started deteriorating. For that reason, we have been consulted. Creatinine jumped to 2 on the . The patient had the contrast upon admission on the and repeated on April 07. The patient complaining of shortness of breath. No other insulting medication except the Lasix. Past Medical History: Includes: 1. Hypertension. 2. Hyperlipidemia. 3. Congestive heart failure. 4. CAD complicated with congestive heart failure, status post CABG back in May 2021, complicated wi th acute kidney injury secondary to cardiorenal. Past Surgical History: Include: 1. CABG. 2. Cholecystectomy. Home Medications: Include Tylenol, amiodarone, aspirin, atorvastatin, Plavix, docusate, ferrous sulf ate, Lasix, melatonin, metoprolol, pantoprazole, Flomax, Ambien. Social History: Denied smoking, denied drinking, denied drugs of abuse. Review of Systems: Head and Neck: No red eye. No ear pain. GI: No nausea, no vomiting. : No polyuria, no dysuria, no hematuria. Control And Recovery Combat Rescue: Not applicable. Respiratory: Has shortness of breath. Cardiovascular: No chest pain. Endocrine: No polydipsia. Skin: No rash. Neuro: Has neuropathy. Musculoskeletal: Generalized weakness. Physical Examination: Vital Signs: When I saw the patient, blood pressure of 120/62, pulse of 75, afebrile. Chest: Crackles bilateral. Heart: S1, S2 systolic murmur. Abdomen: Soft, nontender. Extremities: +1 edema. Neuro: Alert. No focality. Laboratory Data: Sodium 136, potassium 3.8, bicarb 29, BUN 30, creatinine 1.8, GFR 35, calcium 8.3. Albumin 2.3, corrected calcium 9.6. WBC 9.4, hemoglobin 9. Assessment And Plan: 1. Acute kidney injury secondary to toxic ATN/contrast induced nephropathy superimposed with cardio r enal over volume. a. I am going to go ahead and start the patient on Lasix and we will monitor. Obstructive uropat hy has been ruled out. We will send for a workup. We will send for a bladder scan and we will follo w up. b. Avoid any JOSE JUAN inhibitor or ARB. 2. Hypertension, controlled. Currently blood pressure on the lower side. We will hold all blood pre ssure medication except diuresis and we will follow up. 3. Anemia of chronic kidney disease/loss because of the surgery. We will send for workup. 4. Hypokalemia. We will hold on any supplement. 5. Hyponatremia, dilutional. We will diurese. Thank you, Dr. Salgado, for allowing us to participate in the care of your patient. CAMMIE/SOFI Voice ID: [id number] Report ID: [id number]
--- NOTE | 2024-04-09 18:13 | RAD REPORT ---
EXAMINATION: US RETROPERITONEUM CLINICAL INDICATION: HS MAIN Joey TECHNIQUE: Real-time ultrasonography of the abdomen was performed. COMPARISON: CT abdomen and pelvis 04/03/2024 FINDINGS: RIGHT KIDNEY: Right renal length measurement: 9.8 cm. Normal in echogenicity and size. No calculus, s olid mass or hydronephrosis. Exophytic right midpole and lower pole cysts, largest measuring up to 3.5 cm. LEFT KIDNEY: Left renal length measurement: 11.4 cm. Normal in echogenicity and size. No calculus, so lid mass or hydronephrosis. Exophytic left lower pole 3.7 cm anechoic cyst. URINARY BLADDER: Normal although somewhat decompressed which limits evaluation. ADDITIONAL FINDINGS: None. IMPRESSION: No acute or suspicious abnormalities. Benign-appearing bilateral renal cortical cysts as above.
[2024-04-09] MEDS: ARFORMOTEROL TARTRATE 15 MCG/2 ML VIAL.NEB ONE (21:27)
[2024-04-10 06:52] LABS: Absolute Eosinophils 0.3 K/uL (0-0.5); Absolute Lymphocytes (CBC) 1.2 K/uL (0.7-4.9); Absolute Neutrophil 7.1 K/uL (1.8-8.0); Basophils % 0.5 % (0-1.3); Eosinophils % 2.9 % (0-4.4); Hematocrit 26.6 % (39.6-49.0); Hemoglobin 9.1 g/dL (13.6-17.9); Lymphocytes % 12.6 % (15.3-44.8); MCH 34.7 pg (27.0-35.0); MCHC 34.2 g/dL (32.0-36.0); MCV 101.4 fL (80-100); MPV 9.6 fL (7.6-11.3); Monocytes % 9.9 % (3.3-12.3); Neutrophils % 74.1 % (41.7-73.7); Nucleated Red Blood Cells % 0.1 % (0-0); Percent Reticulocyte Count 1.43 % (0.4-2.05); Platelets 202 thou/uL (152-406); RBC Red Blood Cell Count 2.62 M/uL (4.33-5.43); Red Cell Distribution Width 14.2 % (12.1-15.2)
[2024-04-10 07:22] LABS: Albumin 2.3 g/dL (3.4-5.0); Albumin/Globulin Ratio 0.6 (1.1-1.8); Anion Gap 6.8 mEq/L (5.0-15.0); Bilirubin Total 0.6 mg/dL (0.2-1.0); Globulin 3.9 g/dL (2.3-3.5); Potassium 3.8 mEq/L (3.5-5.1); Protein, Total 6.2 g/dL (6.4-8.2); Thyroid Stimulating Hormone 2.04 uIU/mL (0.358-3.740)
[2024-04-10] MEDS: AMIODARONE HCL 200 MG TAB PO SCH (08:23)
[2024-04-10] MEDS: POTASSIUM 25 MEQ EFFERV TAB PO ONE (08:23)
--- NOTE | 2024-04-10 18:41 | CON ---
Date of Consultation: 04/10/2024 Reason For Consultation: Atrial fibrillation and shortness of breath. History Of Present Illness: This is an 88-year-old male, who was admitted to the hospital for cholec ystitis, status post laparoscopic cholecystectomy, doing well. However, he is short of breath and wh eezing and developed atrial fibrillation. He was started on amiodarone and converted to sinus rhythm , doing little better, but he is still having significant shortness of breath on minimal exertion nesha n to talk and significant orthopnea. Review of Systems: Orthopnea, shortness of breath, wheezing. No nausea, vomiting, diarrhea. No abdominal pain. No dys uria, polyuria, or urgency. All other systems reviewed, they were negative. Physical Examination: Vital Signs: Reviewed. Head and Neck: Pupils are equal, reactive to light. Positive JVD. No cervical lymphadenopathy. Ne ck is supple. Thyroid is not enlarged. Lungs: Crackles half the way up. No accessory muscle use or muscle retraction. Heart: Regular rate and rhythm. No extra sounds. Abdomen: Soft, nontender. Bowel sounds positive. No organomegaly. No masses or hernia. No rigidi ty or rebound. Extremities: No edema, clubbing, or cyanosis. Intact pulses. Skin: No rash. No nodule. Neuro: Alert, awake, oriented x3. No acute focal deficits appreciated. Investigations: BUN 29, creatinine 1.93, and hemoglobin is 9.1. Assessment/recommendation: 1. Atrial fibrillation. He converted to sinus rhythm. Put him on amiodarone 200 mg twice a day, Migdalia juan carlos 2.5 mg twice a day. 2. Acute on chronic congestive heart failure exacerbation. Definitely fluid overloaded. We will sta rt him on Lasix 40 mg IV q.12 hours. Monitor BUN, creatinine, electrolytes very carefully. 3. Hypertension. Blood pressure is controlled. 4. Dyslipidemia, on statin, to continue current management. SR/MODL Voice ID: [id number] Report ID: [id number]
--- NOTE | 2024-04-10 20:37 | P.PN ---
Date of Service: 04/10/24 Subjective: Feeling well No new complaints normal sinus rhythm with Amiodarone Cardiology to [facility] overnight Will re-evaluate for discharge in the AM Attempting to wean oxygen ROS: 10 point ROS as noted above, otherwise negative Physical exam GEN: AAO x3, NAD HEENT: Normal conjunctiva, sclera anicteric CV: NSR, S1 S2 present, no edema Pulm: Nonlabored respirations, expiratory wheezing, on 2LNC ABD: Soft on palpation, nondistended, incisions approximated MSK: No joint tenderness Integumentary: No rashes Neuro: Normal speech, normal affect Vitals reviewed Assessment: New onset Afib Symptomatic cholelithiasis/rule out cholecystitis History of CAD with previous CABGfour-vessel in 2022 RASHID BPH Plan: New onset Afib -Consulted cardiology -Amiodarone PO, Eliquis -ECHO reports "mild pulmonary hypertension, grade 2 diastolic dysfunction, mild mitral annular calcification, trace tricuspid regurgitation" -2nd degree AV blod (Mobitz 1) with PVC -Continuous telemetry Symptomatic cholelithiasis/rule out cholecystitis -Having mildly improved pain today compared to yesterday -WBC stable from yesterday -Tbili slightly improved -Laparoscopic cholecystectomy 04/06/2024 -Continue antibioticsZosyn History of CAD with previous CABGfour-vessel in 2022 -Hold Plavix -Patient apparently had a relatively recent stress test at cardiology office which was normal -No stents in place since CABG -Should be okay to hold Plavix-resume at DC or when cleared by surgery to do so RASHID -BUN/creatinine 29/1.93, GFR 33- improved -Nephrology consult BPH -Resume home medications when tolerating p.o. DVT PPX: Eliquis Code status: Full Discharge Plan: Home Plan to discharge in: 72 Hours
--- NOTE | 2024-04-10 22:42 | PN ---
Subjective: No overnight events. Patient reports no improvement in his cough. The patient is still hypoxic. Creatinine stable. Objective: Vital Signs: Temperature 98, pulse rate 82, blood pressure 152/99. General: Awake and alert, not in any distress. Neck: Supple. No elevated JVD. Heart: Regular rate and rhythm. Normal S1, S2. Chest: Has bilateral wheezes. Abdomen: Soft and nontender. Extremities: No edema. Laboratory Data: White count 9.6, hemoglobin 9.1. Sodium 138, potassium 3.8, BUN 29, creatinine of 1.9. Medications: Include amiodarone, Eliquis, inhaler Lasix, Xopenex. Assessment And Plan: 1. Acute kidney injury. Currently, creatinine stable at 2. Continue Lasix. Renally dose medication . Avoid NSAID and contrast. 2. Hypertension. Blood pressure control. Continue current medication and steroid tapering. 3. Anemia of chronic disease. The patient has ferritin more than 1000, not candidate for IV iron. 4. New onset atrial fibrillation, currently rate controlled. Cardiology to follow. Thanks for allowing me to participate in the patient's care. Total time spent 55 minutes including d ocumentation, reviewing labs, and placing orders. KHADIJAH Voice ID: [id number] Report ID: [id number]
[2024-04-11 06:42] LABS: Absolute Eosinophils 0.3 K/uL (0-0.5); Absolute Lymphocytes (CBC) 1.4 K/uL (0.7-4.9); Absolute Monocytes 1.2 K/uL (0.1-1.3); Absolute Neutrophil 8.3 K/uL (1.8-8.0); Basophils % 0.4 % (0-1.3); Eosinophils % 2.4 % (0-4.4); Hematocrit 30.4 % (39.6-49.0); Hemoglobin 10.2 g/dL (13.6-17.9); Lymphocytes % 12.8 % (15.3-44.8); MCH 34.3 pg (27.0-35.0); MCHC 33.6 g/dL (32.0-36.0); Monocytes % 10.4 % (3.3-12.3); Nucleated Red Blood Cells % 0.2 % (0-0); Platelets 290 thou/uL (152-406); RBC Red Blood Cell Count 2.98 M/uL (4.33-5.43); Red Cell Distribution Width 14.5 % (12.1-15.2)
[2024-04-11 07:00] LABS: Albumin 2.5 g/dL (3.4-5.0); Albumin/Globulin Ratio 0.6 (1.1-1.8); Anion Gap 7.9 mEq/L (5.0-15.0); Bilirubin Total 0.6 mg/dL (0.2-1.0); Globulin 4.4 g/dL (2.3-3.5); Potassium 3.9 mEq/L (3.5-5.1); Protein, Total 6.9 g/dL (6.4-8.2)
[2024-04-11] MEDS: POTASSIUM CL SA 10 MEQ TAB PO ONE (08:45)
[2024-04-11 09:31] VITALS: O2SAT 97
--- NOTE | 2024-04-11 09:38 | P.PN ---
Date of Service: 04/11/24 Subjective: Sitting up in bed, breathing well with 2 LNC no new complaints After continued review of clinical presentation and CT chest imagine, Interstitial lung disease is apparent and will require home oxygen and follow up with pulmonology at discharge. normal sinus rhythm with Amiodarone ROS: 10 point ROS as noted above, otherwise negative Physical exam GEN: AAO x3, NAD HEENT: Normal conjunctiva, sclera anicteric CV: NSR, S1 S2 present, no edema Pulm: Nonlabored respirations, expiratory wheezing, on 2LNC ABD: Soft on palpation, nondistended, incisions approximated MSK: No joint tenderness Integumentary: No rashes Neuro: Normal speech, normal affect Vitals reviewed Assessment: New onset Afib Symptomatic cholelithiasis/rule out cholecystitis History of CAD with previous CABGfour-vessel in 2022 RASHID BPH Plan: New onset Afib -Consulted cardiology -Amiodarone PO, Eliquis -ECHO reports "mild pulmonary hypertension, grade 2 diastolic dysfunction, mild mitral annular calcification, trace tricuspid regurgitation" -2nd degree AV blod (Mobitz 1) with PVC -Continuous telemetry Interstitial lung disease -CT chest reports "Reticular and groundglass basal predominant opacities with subsegmental opacification and volume loss, mildly progressive since prior exam, may reflect atelectasis, perhaps on a background of chronic interstitial changes.. No focal consolidation " -Difficult to wean off oxygen, Oxygen saturation 83% on room air -Home oxygen at 2LNC needed Symptomatic cholelithiasis/rule out cholecystitis -Having mildly improved pain today compared to yesterday -WBC stable from yesterday -Tbili slightly improved -Laparoscopic cholecystectomy 04/06/2024 -Continue antibioticsZosyn History of CAD with previous CABGfour-vessel in 2022 -Hold Plavix -Patient apparently had a relatively recent stress test at cardiology office which was normal -No stents in place since CABG -Should be okay to hold Plavix-resume at DC or when cleared by surgery to do so RASHID -BUN/creatinine 29/1.93, GFR 33- improved -Nephrology consult BPH -Resume home medications when tolerating p.o. DVT PPX: Eliquis Code status: Full Discharge Plan: Home Plan to discharge in: 72 Hours
[2024-04-11 16:31] VITALS: BP 118/64; TEMP 98.7
[2024-04-11] MEDS: FUROSEMIDE 40 MG/4 ML VIAL IV ONE (16:44)
[2024-04-11] MEDS: EPOETIN ALFA-EPBX 4,000 UNIT/ML VIAL SQ SCH (16:45)
--- NOTE | 2024-04-11 17:46 | P.DS ---
Admission Date: 04/03/24 Discharge Date: 04/11/24 Disposition: ROUTINE DISCHARGE Discharge Condition: GOOD Reason for Admission: Dyspnea Brief History of Present Illness: Diagnosis New onset Afib Symptomatic cholelithiasis Laparoscopic cholecystectomy with IGG cholangiography History of CAD with previous CABGfour-vessel in 2022 Interstitial lung disease RASHID BPH [facility] 04/03/24 88-year-old male with history of CAD with previous CABG in May 2022, BPH presents to the emergency department chief complaint of epigastric abdominal pain. Family reports that he has had 3 or 4 of these episodes at home previously and not come to the hospital as they resolve spontaneously but this 1 is worse and has been persistent. The emergency department his labs were significant for a normal blood cell count hemoglobin of 11.4 creatinine of 1.5 which is near his baseline lactic acid 1.1 LFTs including T. bili within normal limits. CT of the abdomen and pelvis was performed showed cholelithiasis with mild gallbladder distention subsequent abdominal ultrasound was also performed which showed again cholelithiasis with mild gallbladder distention. Patient has persistent epigastric pain despite IV pain medications. ED physician spoke with general surgery who wishes for patient to be admitted to the hospitalist service for further management of symptomatic cholelithiasis. Of note patient has been on Plavix, we will be holding the Plavix for now. Hospital Course: The Patient was admitted and treated for the following New onset Afib History of CAD with previous CABGfour-vessel in 2022 -Dr. Barfield will follow outpatient for medication management -Amiodarone PO, Eliquis, and restart Plavi -ECHO reports "mild pulmonary hypertension, grade 2 diastolic dysfunction, mild mitral annular calcification, trace tricuspid regurgitation" -NSR on telemetry at discharge Interstitial lung disease -CT chest reports "Reticular and groundglass basal predominant opacities with subsegmental opacification and volume loss, mildly progressive since prior exam, may reflect atelectasis, perhaps on a background of chronic interstitial changes.. No focal consolidation " -Difficult to wean off oxygen, Oxygen saturation 83% on room air -Home oxygen at 2LNC needed -Dr. Zhao will follow outpatient Symptomatic cholelithiasis s/p laparoscopic Cholecystectomy with IGG cholangiography -WBC and T Bili stable -Laparoscopic cholecystectomy 04/06/2024 -Dr. Candelario will follow outpatient RASHID -Nephrology will follow up outpatient BPH -Resume home medications when tolerating p.o. On 04/11/24, Moncho was seen on morning rounds and deemed hemodynamically stable. Dr. Barfield, Dr. Zhao, and Dr. Candelario evaluated and cleared Moncho for discharge and follow up outpatient. Moncho was provided amiodarone, eliquis, brovana, and robitussin. Physical exam GEN: Awake, alert, and oriented x3, NAD HEENT: Normal conjunctiva, sclera anicteric CV: Normal sinus rhythm, S1 S2 present, no edema Pulm: Nonlabored respirations, expiratory wheezing, on 2LNC ABD: Soft on palpation, incisions approximated MSK: No joint tenderness Integumentary: No rashes Neuro: Normal speech, normal affect Vital Signs/Physical Exam: Temp Pulse Resp BP Pulse Ox 98.7 F 76 18 118/64 97 04/11/24 16:00 04/11/24 17:19 04/11/24 16:00 04/11/24 17:19 04/11/24 16:00 Laboratory Data at Discharge: WBC 11.20 thou/uL (4.3-10.9) H 04/11/24 06:05 Hgb 10.2 g/dL (13.6-17.9) L D 04/11/24 06:05 Hct 30.4 % (39.6-49.0) L 04/11/24 06:05 Plt Count 290 thou/uL (152-406) D 04/11/24 06:05 PT 11.7 SECONDS (9.4-12.5) 04/03/24 07:27 INR 1.12 04/03/24 07:27 Sodium 138 mEq/L (136-145) 04/11/24 06:05 Potassium 3.9 mEq/L (3.5-5.1) 04/11/24 06:05 BUN 35 mg/dL (7-18) H 04/11/24 06:05 Creatinine 1.97 mg/dL (0.70-1.30) H 04/11/24 06:05 Glucose 128 mg/dL (74-106) H 04/11/24 06:05 Uric Acid 5.0 mg/dL (3.5-7.2) 04/10/24 06:09 Magnesium 1.7 mg/dL (1.6-2.4) 04/07/24 00:47 Total Bilirubin 0.6 mg/dL (0.2-1.0) 04/11/24 06:05 AST 32 U/L (15-37) 04/11/24 06:05 ALT 39 U/L (16-61) 04/11/24 06:05 Alkaline Phosphatase 152 U/L (45-117) H 04/11/24 06:05 Lipase 13 U/L (13-75) 04/07/24 05:59 Home Medications: Aspirin [Aspirin EC 81 MG] 81 mg PO DAILY 06/03/22 Clopidogrel Bisulfate [Plavix*] 75 mg PO DAILY 06/03/22 Furosemide [Lasix] 20 mg PO BIDL PRN 06/03/22 Metoprolol Tartrate [Lopressor*] 12.5 mg PO BID 6AM 6PM 06/03/22 Pantoprazole Sodium [Protonix] 40 mg PO [id number] 06/03/22 Potassium Chloride 10 meq PO DAILY PRN 06/03/22 Tamsulosin HCl [Flomax] 0.8 mg PO DAILY 6PM 06/03/22 Loratadine [Claritin*] 10 mg PO DAILY 04/07/24 Amiodarone HCl [Cordarone*] 200 mg PO BID 30 Days #60 tab 04/11/24 Apixaban [Eliquis *] 2.5 mg PO BID 30 Days #60 tab 04/11/24 Arformoterol Tartrate [Brovana] 15 mcg NEB BIDRESP 30 Days #1 vial.neb 04/11/24 guaiFENesin [Robitussin 100MG/5ML*] 10 ml PO QID PRN 30 Days #1 bottle 04/11/24 New Medications: Arformoterol Tartrate [Brovana] 15 mcg NEB BIDRESP 30 Days #1 vial.neb Amiodarone HCl [Cordarone*] 200 mg PO BID 30 Days #60 tab Apixaban [Eliquis *] 2.5 mg PO BID 30 Days #60 tab guaiFENesin [Robitussin 100MG/5ML*] 10 ml PO QID PRN 30 Days #1 bottle PRN Reason: Cough Physician Discharge Instructions: 1. Please call and schedule a follow up with your PCP in 3-5 days -all refills will be provided with your PCP 2. Please call and schedule a follow up with Dr. Barfield in one week -amiodarone, plavix, and eliquis will be managed by Dr. Barfield 3. Please call and schedule a follow up with Dr. Candelario in one week - Dr. Candelario is your surgeon 4. Please call and schedule a follow up with Dr. Zhao in one week -Dr. Zhao will manage your lung condition and breathing treatments 5. Please call and schedule a follow up with Dr. Cortes in one week -Dr. Cortes will manage your kidney function 6. continue a heart healthy diet 7. Fall precautions as you walk around 8. Return to the ED if symptoms worsen New Medications Brovana nebulizer treatment daily Amiodarone 200 mg twice daily Eliquis 2.5 mg twice daily Robitussin 200 mg or 10 ml as needed four times daily for cough Diet: [place] Activity: No lifting more than 10 lbs Followup: Edy Zhao MD [ACTIVE - CAN ADMIT] - 1 Week Dm Cortes MD [ACTIVE - CAN ADMIT] - 1 Week Jasmeet Candelario MD [ACTIVE - CAN ADMIT] - 1 Week Derik Nelson MD [Primary Care Provider] - (call to schedule an appointment ) Mustapha Barfield MD [ACTIVE - CAN ADMIT] - 1 Week
--- NOTE | 2024-04-11 20:46 | PN ---
Date of Progress Note: 04/11/2024 Subjective: The patient was admitted to the hospital with overvolume. The patient had acute kidney injury secondary to contrast-induced nephropathy superimposed with over diuresis and low blood pressu re. The patient's kidney function has been improving. Objective: Vital Signs: Blood pressure 109/61, pulse of 81, afebrile. Chest: Faint crackles bilateral. Heart: S1, S2. Regular. Abdomen: Soft, nontender. Extremities: +1 edema. Neurologic: Alert. No focality. Laboratory Data: Sodium 138, potassium 3.9, bicarb 33, BUN 35, creatinine 1.9, calcium 8.9. Iron sa turation 13, ferritin 1000. TSH 2. Hemoglobin 10.2. Current Medications: The patient on include breathing treatment, Flomax, amiodarone, metoprolol, Las ix 40 b.i.d., KCl. Assessment And Plan: 1. Acute kidney injury secondary to cardiorenal superimposed with contrast-induced nephropathy on the recovery, looked to me still on the overvolume side. Obstructive uropathy has been ruled out. I am going to go ahead and give extra dose of Lasix today and we will follow up the patient. 2. Hypertension. Continue to utilize blood pressure for more diuresis. 3. Anemia of chronic kidney disease. We will give the patient a single dose of Retacrit and we will follow up the patient. 4. Congestive heart failure with exacerbation. As above, we will optimize the fluid status with diur esis. CAMMIE/SOFI Voice ID: [id number] Report ID: [id number]
--- NOTE | 2024-04-14 12:56 | EKG ---
Test Date: 2024-04-09 Test Time: 07:39:20 Global Supply Chain Vice President: KYLAH MEASUREMENT RESULTS: Intervals: Rate: 72 PA: 252 QRSD: 80 QT: 374 QTc: 409 Chicken: P: 33 PA: 252 QRS: 29 T: -23 INTERPRETIVE STATEMENTS: Sinus rhythm with 1st degree AV block with occasional premature ventricular complexes Septal infarct, age undetermined Inferior infarct, age undetermined Abnormal ECG Compared to ECG 04/07/2024 00:33:01 Ventricular premature complex(es) now present First degree AV block now present Sinus tachycardia no longer present Atrial premature complex(es) no longer present Myocardial infarct finding still present Electronically Signed On 04-14-24 12:48:43 CRIMINOLOGY PROFESSOR by Mesfin Beauchamp
== END 2024-04-11 18:55 | disposition home or self-care (01) | DRG 417 ==
LOC: ER 07:04 → ERHOLD 10:28 → 4TH 17:56
PROVIDERS: ADMIT Hospitalist; ATTEND Internal Medicine
PROC: BF52200 Other Imaging of Gallbladder using Fluorescing Agent, Indocyanine Green Dye, Intraoperative (ICD-10-PCS; 2024-04-06)
PROC: 0FT44ZZ Resection of Gallbladder, Percutaneous Endoscopic Approach (ICD-10-PCS; principal; 2024-04-06 13:45)
DX: K81.0 Acute cholecystitis (principal); I50.33 Acute on chronic diastolic (congestive) heart failure; K85.10 Biliary acute pancreatitis without necrosis or infection; N17.0 Acute kidney failure with tubular necrosis; K42.0 Umbilical hernia with obstruction, without gangrene; E87.1 Hypo-osmolality and hyponatremia; I13.0 Hypertensive heart and chronic kidney disease with heart failure and stage 1 through stage 4 chronic kidney disease, or unspecified chronic kidney disease; J84.9 Interstitial pulmonary disease, unspecified; N18.9 Chronic kidney disease, unspecified; D63.1 Anemia in chronic kidney disease; K82.A1 Gangrene of gallbladder in cholecystitis; E87.6 Hypokalemia; E78.5 Hyperlipidemia, unspecified; I44.1 Atrioventricular block, second degree; I48.91 Unspecified atrial fibrillation; I07.1 Rheumatic tricuspid insufficiency; I49.3 Ventricular premature depolarization; I27.20 Pulmonary hypertension, unspecified; N40.0 Benign prostatic hyperplasia without lower urinary tract symptoms; I25.10 Atherosclerotic heart disease of native coronary artery without angina pectoris; R06.09 Other forms of dyspnea; Z95.1 Presence of aortocoronary bypass graft; Z79.82 Long term (current) use of aspirin; Z79.02 Long term (current) use of antithrombotics/antiplatelets; Z79.899 Other long term (current) drug therapy
CPT/HCPCS: 36415; 71045; 71275; 74177; 76705; 76770; 80048; 80053; 82550; 82607; 82728; 82947; 83540; 83605; 83690; 83735; 83880; 83970; 84443; 84466; 84484; 84550; 85025; 85044; 85610; 88304; 93005; 93306; 94640; 96374; 96375; 99285; J0282; J1171; J1940; J2003; J2250; J2405; J2543; J2704; J2710; J3010; J3475; J7030; J7060; J7605; J7613; J7614; J7644; Q5106; Q9967